=== PATIENT | female | born 1970 | race Caucasian/White ===

== ENCOUNTER → 2021-09-12 09:59 | Outpatient (CLI) | payer OTHER, SELFPAY ==
[2021-09-12 13:45] LABS: Influenza Control Positive
[2021-09-12 20:05] LABS: SARS-CoV-2 RNA PCR Negative
== END ==
PROVIDERS: PCP Internal Medicine; Visit Provider Internal Medicine
DX: R68.89 Other general symptoms and signs (principal); Z20.822 Contact with and (suspected) exposure to COVID-19
CPT/HCPCS: 87804; C9803; U0003; U0005

== ENCOUNTER 2022-05-10 08:10 | Outpatient (CLI) | payer OTHER, SELFPAY ==
--- NOTE | ~2022-05-10 | US_ITS ---
EXAMINATION: US abdomen complete DATE: 05/10/2022 08:45 INDICATION: Abnormal liver function tests TECHNIQUE: Multiple grayscale and Doppler ultrasound images of the abdomen were obtained. COMPARISON: 12/11/2017 FINDINGS: Bowel gas obscures visualization of the pancreas. The visualized portions of the pancreas a re unremarkable. The liver demonstrates increased echogenicity, heterogenous echotexture, and decreas ed through transmission. No surface nodularity. Normal hepatopetal flow in the main portal vein. The gallbladder is surgically absent. The normal common bile duct measures 6 mm. The visualized portions of the aorta and inferior vena cava are normal. The right kidney measures 10.1 x 4.3 x 4.8 cm. The left kidney measures 11.7 x 5.3 x 5.6 cm. The kidn eys demonstrate normal parenchymal echogenicity. There is no hydronephrosis. The spleen is normal in appearance and measures 11.9 cm. IMPRESSION: 1. Diffuse hepatic steatosis. Reviewed, dictated and finalized at location B.
== END 2022-05-10 08:11 | disposition home or self-care (01) ==
PROVIDERS: PCP Internal Medicine; Visit Provider Internal Medicine
DX: R94.5 Abnormal results of liver function studies (principal)
CPT/HCPCS: 76700

== ENCOUNTER 2023-11-02 12:29 | Outpatient (CLI) | payer OTHER, SELFPAY ==
--- NOTE | ~2023-11-02 | CT_ITS ---
EXAMINATION: CT lung screening DATE: 11/02/2023 12:53 INDICATION: Personal history of nicotine dependence, current smoker with 22 pack year history TECHNIQUE: Computed tomography (CT) of the chest was performed without intravenous contrast. The dose -length product (DLP) was 339.63 mGy-cm. Automated exposure control and iterative reconstruction tech Newser were employed. COMPARISON: 10/21/2018 FINDINGS: There is mild emphysema. No pulmonary nodules are identified. The lungs are free of acute o pacities. No pleural effusion or pneumothorax. No pathologically enlarged thoracic lymph nodes are id entified. The heart size is normal. There is a 3.2 cm mass in the upper inner quadrant of the right b reast. Calcified coronary artery atherosclerosis is noted. There is mild thoracic spondylosis. IMPRESSION: 1. Lung-RADS category 1S: Negative. Continue annual screening with noncontrast low-dose chest CT in 1 2 months. 2. 3.2 cm mass in the upper inner quadrant of the right breast concerning for malignancy. Further birgit luation with diagnostic mammogram and possible ultrasound are recommended. Reviewed, dictated and finalized at location F. CTIONAL BORE OPERATOR IMPRESSION: 1. Lung-RADS category 1S: Negative. Continue annual screening with noncontrast low-dose chest CT in 12 months. 2. 3.2 cm mass in the upper inner quadrant of the right breast concerning for m alignancy. Further evaluation with diagnostic mammogram and possible ultrasound are recommended.
== END 2023-11-02 12:30 | disposition home or self-care (01) ==
PROVIDERS: PCP Nurse Practitioner; Visit Provider Nurse Practitioner
DX: Z12.2 Encounter for screening for malignant neoplasm of respiratory organs (principal); Z87.891 Personal history of nicotine dependence; N63.12 Unspecified lump in the right breast, upper inner quadrant
CPT/HCPCS: 71271

== ENCOUNTER 2023-12-04 10:53 | Outpatient (CLI) | payer OTHER, SELFPAY ==
--- NOTE | ~2023-12-04 | MM_ITS ---
EXAMINATION: MM diagnostic josafat BI w jennifer HISTORY: Palpable right breast mass seen on recent CT examination. TECHNIQUE: Additional 3-D tomosynthesis images of the breasts were performed and synthetic 2-D images were generated. CAD analysis was submitted and interpreted. COMPARISON: CT dated 11/02/2023 BREAST PARENCHYMAL COMPOSITION: Not dense: There are scattered areas of fibroglandular density. FINDINGS: There is no mammographic evidence for malignancy in the left breast. There is a spiculated mass in the upper inner quadrant of the right breast measuring 3.7 cm corresponding to the mass seen on recent CT examination. IMPRESSION: 1. Spiculated right breast mass measuring 3.7 cm, upper inner quadrant posteriorly. 2. Targeted right breast ultrasound recommended. Ultrasound requested when patient was present, altho ugh the patient could not wait for the follow-up examination. BI-RADS Category 0: Incomplete: Needs additional imaging evaluation. Reviewed, dictated and finalized at location A. ICAL TRAINING COORDINATOR IMPRESSION: 1. Spiculated right breast mass measuring 3.7 cm, upper inner quadrant posterio rly. 2. Targeted right breast ultrasound recommended. Ultrasound requested when michaelle ent was present, although the patient could not wait for the follow-up examinat ion. BI-RADS Category 0: Incomplete: Needs additional imaging evaluation.
== END 2023-12-04 10:54 | disposition home or self-care (01) ==
PROVIDERS: PCP Nurse Practitioner; Visit Provider Nurse Practitioner
DX: N63.12 Unspecified lump in the right breast, upper inner quadrant (principal); R92.8 Other abnormal and inconclusive findings on diagnostic imaging of breast
CPT/HCPCS: 77062; 77066; G0279

== ENCOUNTER 2023-12-14 14:09 | Outpatient (CLI) | payer OTHER, SELFPAY ==
--- NOTE | ~2023-12-14 | US_ITS ---
US breast RT limited 12/14/2023 14:44 Indication: Abnormal masses seen on prior mammogram. Procedure: High-resolution right breast ultrasound: Comparison: Mammogram dated 12/04/2023 Findings: At 12:00, 8 cm from the nipple there is an antiparallel solid hypoechoic mass which measure s 2.5 x 1.2 x 1 cm. There is internal vascularity. Mixed posterior attenuation. At 2:00, 3-5 cm from the nipple there is an irregular shaped hypoechoic antiparallel mass measuring 3.1 x 2.1 x 2.3 cm wit h internal vascularity and posterior attenuation. Impression: 1: 2 separate abnormal masses of the right breast at 12:00, 8 cm from the nipple and 2:00, 3-5 cm fro m the nipple. Ultrasound-guided biopsy of each of these masses recommended. BI-RADS category 5: Highly suspicious abnormality. Reviewed, dictated and finalized at location A. VISION SCRIPT WRITER Impression: 1: 2 separate abnormal masses of the right breast at 12:00, 8 cm from the nippl e and 2:00, 3-5 cm from the nipple. Ultrasound-guided biopsy of each of these m asses recommended. BI-RADS category 5: Highly suspicious abnormality.
== END 2023-12-14 14:10 | disposition home or self-care (01) ==
PROVIDERS: PCP Nurse Practitioner; Visit Provider Nurse Practitioner
DX: R92.8 Other abnormal and inconclusive findings on diagnostic imaging of breast (principal); N63.10 Unspecified lump in the right breast, unspecified quadrant
CPT/HCPCS: 76642

== ENCOUNTER 2023-12-24 10:00 | Outpatient (CLI) | payer OTHER, SELFPAY ==
--- NOTE | ~2023-12-24 | MM_ITS ---
EXAMINATION: MM post biopsy invasive RT HISTORY: Status post ultrasound-guided biopsy of right breast 12:00 and 2:00 lesions TECHNIQUE: Postbiopsy ML and CC views of right breast COMPARISON: None FINDINGS: A biopsy marker is present within an approximately 3.5 cm mass of the upper inner quadrant of the right breast. Posterior upper central right breast mass is only partially included due to the posterior depth; the biopsy marker at this lesion is not included within the margin of the examination. IMPRESSION: Status post ultrasound-guided biopsy of right breast 12:00 and 2:00 lesions Reviewed, dictated and finalized at location A.
--- NOTE | ~2023-12-24 | US_ITS ---
US breast bx add lesion RT DATE: 12/24/2023 11:14 INDICATION: Right breast 2:00 and 12:00 mass lesions Please refer to right breast ultrasound-guided biopsy report. Reviewed, dictated and finalized at Location A. Reviewed, dictated and finalized at location A.
--- NOTE | ~2023-12-24 | US_ITS ---
EXAMINATION: US GUIDED NEEDLE BIOPSY DATE: 12/24/2023 12:02 CDT INDICATION: 2 abnormal breast masses, at 12:00 8 cm from nipple and 2:00 3 to 5 cm from nipple TECHNIQUE AND FINDINGS: The risks and potential benefits of the procedure were discussed with the patient, and written inform ed consent was obtained. Timeout procedure was performed. After sterile preparation of the right manju st, 1% lidocaine was utilized for local anesthesia. A 12 G spring-loaded biopsy gun needle was advanced to the edge of the 2:00 lesion from a superior ap proach utilizing sonographic guidance. A total of three tissue core samples were obtained through th e lesion. An Inrad tissue marker clip was then placed at the biopsy site. Through the same incision site, a 12-gauge biopsy needle was directed into the 12:00 lesion from an i nferior approach utilizing sonographic guidance. A total of 3 soft tissue core samples were obtained through the lesion. An irregular and tissue marker clip was then placed at the biopsy site. Hemostasis was achieved. A sterile bandage was applied. The patient tolerated procedure well and there was no evidence of immediate complication. The patien t was given verbal instructions prior to departing from the department. A two view mammogram was performed to document tissue marker clip placement. A marker is documented w ithin the 2:00 mass. The 12:00 mass is incompletely imaged due to its posterior position, and the bio psy marker is not in the examinations due to the depth. The tissue samples were submitted to surgical pathology for histologic analysis. IMPRESSION: Ultrasound-guided biopsy of right 12:00 and 2:00 masses with biopsy marker placement. Please refer to pathology report for histologic analysis. Reviewed, dictated and finalized at Location A. Reviewed, dictated and finalized at location A. IMPRESSION: Ultrasound-guided biopsy of right 12:00 and 2:00 masses with biopsy marker plac emmandy. Please refer to pathology report for histologic analysis.
== END 2023-12-24 10:01 | disposition home or self-care (01) ==
LOC: ANHIMG 10:01
PROVIDERS: PCP Nurse Practitioner; Visit Provider Nurse Practitioner
DX: C50.211 Malignant neoplasm of upper-inner quadrant of right female breast (principal)
CPT/HCPCS: 19083; 19084; 88305; 88342; 88365; A4648

== ENCOUNTER 2024-01-02 10:24 | Outpatient (CLI) | payer OTHER, SELFPAY ==
[2024-01-04 14:17] LABS: Kit Draw Collected
== END 2024-01-02 10:25 | disposition home or self-care (01) ==
LOC: ANHLAB 10:33
PROVIDERS: PCP Nurse Practitioner; Visit Provider Internal Medicine Hematology & Oncology
DX: C50.811 Malignant neoplasm of overlapping sites of right female breast (principal); Z17.0 Estrogen receptor positive status [ER+]
CPT/HCPCS: 36415

== ENCOUNTER 2024-01-11 08:35 | Outpatient (CLI) | payer OTHER, SELFPAY ==
--- NOTE | ~2024-01-11 | MR_ITS ---
MR breast BI wo/w con 01/14/2024 11:25 CDT INDICATION: Right breast cancer. TECHNIQUE: MRI of the breasts perform using standard protocol pre-and post IV contrast with the follo wing sequences: Axial T2 STIR, axial T1, axial vibrant T1 with fat suppression precontrast and multip hasic postcontrast. 12 cc MultiHance administered intravenously. COMPARISON: Prior examinations dated 12/24/2023, 12/14/2023 and 12/04/2023 FINDINGS: There is moderate background parenchymal enhancement. In the upper inner quadrant of the ri ght breast there is a complex irregular shaped mass measuring 5.8 x 4.1 x 3.5 cm which extends cattle sorter iorly to the chest wall surface. This mass is located approximately 1:00, middle third, 4.5 cm cattle sorter ior to the nipple with heterogeneous enhancement. There is rapid washout enhancement. There is no felisa tral hypoperfusion suggesting necrosis of the mass. There is abnormal enhancement of the right pector chris muscle which appears enlarged and heterogeneous exhibiting rapid washout kinetics, most likely c hest wall invasion from previously described mass. In the right axilla there is an enlarged vascular lymph node with effacement of the fatty hilum measuring 1.7 x 1.8 x 1.2 cm, suspicious for metastatic disease. Anterior to the right pectoralis muscle there is a complex heterogeneously enhancing mass m easuring 1.4 x 0.7 x 0.5 cm in the upper inner quadrant posteriorly with rapid washout enhancement, s uspicious for synchronous malignancy. LEFT BREAST: No signal abnormalities on precontrast sequences. There is mild background parenchymal enhancement. No enhancing lesions following contrast administration. No areas of enhancement meeti ng threshold criteria on CAD analysis. No evidence of signal abnormalities in the axillary or inter nal mammary node distributions.] IMPRESSION: 1: Multiple right breast masses, suspicious for synchronous malignancy, largest measuring up to 5.8 cm. There is probable metastatic disease to the anterior chest wall and right axilla. BI-RADS categor y 6- Known biopsy proven malignancy: Appropriate action should be taken. 2: Left breast: Negative. No evidence of malignancy. BI-RADS category 1. Recommend annual mammogr aphy follow-up. Reviewed, dictated and finalized at location A. IMPRESSION: 1: Multiple right breast masses, suspicious for synchronous malignancy, larges t measuring up to 5.8 cm. There is probable metastatic disease to the anterior chest wall and right axilla. BI-RADS category 6- Known biopsy proven malignancy : Appropriate action should be taken. 2: Left breast: Negative. No evidence of malignancy. BI-RADS category 1. Re commend annual mammography follow-up.
== END 2024-01-11 08:36 | disposition home or self-care (01) ==
LOC: ANHIMG 08:37
PROVIDERS: PCP Nurse Practitioner; Visit Provider Internal Medicine Hematology & Oncology
DX: C50.811 Malignant neoplasm of overlapping sites of right female breast (principal); Z17.0 Estrogen receptor positive status [ER+]
CPT/HCPCS: 77049; A9577; C8908

== ENCOUNTER 2024-01-29 08:38 | Outpatient (CLI) | payer OTHER, SELFPAY ==
--- NOTE | 2024-01-29 | ECHO_ITS ---
Patient Info Name: Mandy Plasencia Age: 54 years : 1970 Gender: Female Ht: 68 in Wt: 228 lbs BSA: 2.27 m2 HR: 74 bpm BP: 127 / 89 mmHg Heart Rhythm: Sinus Rhythm Technical Quality: Fair Exam Date: 01/29/2024 8:54 AM Exam Location: Echo Lab Patient Status: Outpatient Admit Date: 01/29/2024 Staff Ordering Physician: Nik Easley MD Tier Over: Lorin Carmona RDCS Attending Provider: Nik Easley MD Referring Physician: Kaushal ARELLANO; Exam Type: CA echo doppler color flow Study Info Indications C50.811 - Malignant neoplasm of overlapping sites of right female breast Complete two-dimensional, color flow and Doppler transthoracic echocardiogram is performed. Summary 1. Complete two-dimensional, color flow and Doppler transthoracic echocardiogram is performed. 2. Left ventricular chamber dimension is normal. 3. Left ventricular systolic function is normal, estimated at 65-70%. 4. The left ventricular diastolic function is grade I diastolic dysfunction. 5. Global longitudinal strain is -18 %. 6. Right ventricular systolic function is normal. 7. No significant valvular disease. Left Ventricle Left ventricular chamber dimension is normal. Left ventricular systolic function is normal, estimated at 65-70%. There is no increased left ventricular wall thickness. The left ventricular diastolic function is grade I diastolic dysfunction. Global longitudinal strain is -18 %. Right Ventricle Right ventricular chamber dimension is normal. Right ventricular systolic function is normal. Left Atria Left atrial chamber dimension is normal. Right Atria Right atrial chamber dimension is normal. Atrial Septum Intact interatrial septum visualized by color flow imaging. Aortic Valve The aortic valve is trileaflet. There is mild aortic valve sclerosis. There is no aortic valve stenosis. There is no aortic valve regurgitation. Pulmonic Valve The pulmonic valve is not well visualized. Mitral Valve There is trace mitral valve regurgitation. Tricuspid Valve There is trace tricuspid valve regurgitation. Pericardium/Pleural The pericardium appears epicardial fat pad. There is no pericardial effusion. Inferior Vena Cava Normal inferior vena cava with >50% collapse upon inspiration consistent with normal right atrial pressure, 3 mmHg. Aorta The aortic root size at the sinus of Valsalva is normal. Left Ventricular Outflow Tract Name Value Normal LVOT 2D LVOT Diameter 1.9 cm LVOT Doppler LVOT Peak Gradient 7 mmHg LVOT Mean Gradient 3 mmHg LVOT VTI 23 cm LVOT VTI/AV VTI Ratio 1.1 LVOT Stroke Volume 62 ml LVOT CO 4.1 l/min LVOT CI 1.8 l/min/m2 Pulmonic Valve Name Value Normal RVOT Doppler RVOT Peak Gradient 2
== END 2024-01-29 08:39 | disposition home or self-care (01) ==
LOC: ANHCARD 08:39
PROVIDERS: PCP Nurse Practitioner; Visit Provider Internal Medicine Hematology & Oncology
DX: C50.811 Malignant neoplasm of overlapping sites of right female breast (principal); R93.1 Abnormal findings on diagnostic imaging of heart and coronary circulation; Z17.0 Estrogen receptor positive status [ER+]
CPT/HCPCS: 36415; 85025; 85610; 85730; 93306

== ENCOUNTER 2024-01-29 10:18 | Outpatient (CLI) | payer OTHER, SELFPAY ==
[2024-01-29 10:39] LABS: Basophils Percent Auto 0.5 % (0.2-1.2); Eosinophils Absolute Auto 0.2 K/mm3 (0-0.3); Hemoglobin 14.2 g/dL (12.0-15.0); Immature Granulocyte Absolute 0.01 K/mm3 (0.00-0.031); Immature Granulocyte Percent A 0.1 % (0-0.5); Lymphocytes Absolute Auto 2.88 K/mm3 (0.9-3.2); Lymphocytes Percent Auto 37.3 % (18.3-44.2); Mean Corpuscular HGB Conc 34.6 g/dl (32-36); Mean Corpuscular Hemoglobin 32.6 pg (26-34); Mean Platelet Volume 10.2 fl (7.4-10.4); Monocytes Absolute Auto 0.4 K/mm3 (0.1-0.6); Monocytes Percent Auto 4.9 % (2.6-8.5); Neutrophils Absolute Auto 4.2 K/mm3 (1.3-6.7); Neutrophils Percent Auto 54.2 % (45.5-73.1); Platelet Count Result 225 k/mm3 (150-375); Red Blood Count 4.36 M/mm3 (4.2-5.4); Red Cell Distribution Width 12.6 % (11.5-14.5); White Blood Count 7.7 K/mm3 (4.5-10.0)
[2024-01-29 11:06] LABS: INR 0.9; Prothrombin Time 12.8 Seconds (11.1-14.7)
[2024-01-29 11:07] LABS: Partial Thromboplastin Time 30.6 Seconds (22.3-36.8)
== END 2024-01-29 10:19 | disposition home or self-care (01) ==
LOC: ANHSURGERY 10:23
PROVIDERS: PCP Nurse Practitioner; Visit Provider Surgery
DX: Z01.818 Encounter for other preprocedural examination (principal); C50.911 Malignant neoplasm of unspecified site of right female breast
CPT/HCPCS: 36415; 85025; 85610; 85730

== ENCOUNTER 2024-01-31 07:37 | Outpatient (CLI) | payer OTHER, SELFPAY ==
--- NOTE | ~2024-01-31 | CT_ITS ---
Clinical Indication: Breast cancer CT Scan of the Chest, Abdomen, and Pelvis with Contrast: Technique: Contiguous sections were acquired throughout the chest, abdomen, and pelvis after intraven ous administration of 100 cc of Omnipaque 350. Dose reduction technique was used on this scan by monik balderasing automated exposure control and iterative reconstruction technique. The dose-length product (DL P) was 1598.02 mGy-cm. COMPARISON: 11/02/2023 Findings: There is no evidence of any significant mediastinal, hilar or axillary lymphadenopathy. The mediastin al soft tissues and vascular structures appear normal. There is a 4.3 x 4.0 cm lobulated/irregular ma ss in the right breast, with increase in size from prior exam. There is no evidence of pleural or pericardial effusion. The lungs are clear. No pulmonary nodules or infiltrates are noted. There is diffuse hepatic steatosis. Cholecystectomy clips are present. The spleen, pancreas, adrenals and kidneys are within normal limits. No evidence of aortic aneurysm. There are several mildly enla rged lymph nodes along the left common iliac chain, largest node measuring 1.8 x 1.5 cm (axial image 182). No bowel obstruction or bowel wall thickening. There is no evidence to suggest acute appendicitis. Urinary bladder is unremarkable. No adnexal mass evident. Patient is post hysterectomy. No ascites. There is destructive mass centered at the left iliac bone, measuring approximately 6.3 x 4.5 x 5.3 cm in extent, with extensive destruction of the cortex (axial image 188 for example). Lesion is centere d near the SI joint, extending into the iliac crest. No other distinct osseous destructive lesion atul ntified. Impression: 4.3 x 4.0 cm right breast masses compatible breast carcinoma. Lesion is mildly increased in size sinc e 11/02/2023. Large destructive lesion centered at the left iliac bone, as detailed above, most consistent with oss eous metastatic lesion. Mildly enlarged lymph nodes along the left common iliac chain. Given the above findings, these are ortega spicious for metastatic lymph nodes until proven otherwise. Diffuse hepatic steatosis. Reviewed, dictated and finalized at location M. Impression: 4.3 x 4.0 cm right breast masses compatible breast carcinoma. Lesion is mildly increased in size since 11/02/2023. Large destructive lesion centered at the left iliac bone, as detailed above, mo st consistent with osseous metastatic lesion. Mildly enlarged lymph nodes along the left common iliac chain. Given the above findings, these are suspicious for metastatic lymph nodes until proven otherwis e. Diffuse hepatic steatosis.
== END 2024-01-31 07:38 | disposition home or self-care (01) ==
PROVIDERS: PCP Nurse Practitioner; Visit Provider Internal Medicine Hematology & Oncology
DX: C50.811 Malignant neoplasm of overlapping sites of right female breast (principal); Z17.0 Estrogen receptor positive status [ER+]; M89.9 Disorder of bone, unspecified; R59.0 Localized enlarged lymph nodes; K76.0 Fatty (change of) liver, not elsewhere classified
CPT/HCPCS: 71260; 74177; Q9967

== ENCOUNTER 2024-02-01 00:16 | Day surgery (SDC) | payer OTHER, SELFPAY ==
[2024-01-24 10:20] VITALS: BMI 34.9
--- NOTE | 2024-01-24 10:24 | PC.NURSE ---
Report to the Outpatient Waiting Room, entrance under the green pavilion located off [facility], at time 10:00 on date 02/01/24. Planned Procedure Time: 12:00. Time changes happen often and if your time is changed the preop area will call you the afternoon before. - You and your visitor will be asked to self-screen and do not enter if you have any COVID symptoms. - A mask is optional within the hospital at this time. Patients may have clear liquids (water, carbonated beverages, clear teas, apple juice) until 3 hours prior to surgery (9:00) with a maximum of 20 ounces. - No food from midnight until time of surgery Take the following medications with a SIP of water the morning of surgery: TYLENOL IF NEEDED DO NOT STOP ANY OF YOUR OTHER PRESCRIPTION MEDICATIONS PRIOR TO SURGERY ?EXCEPT THE FOLLOWING Medications to discontinue per physician: VITAMINS/SUPPLEMENTS Date to take last dose: 01/28/24 Please no make-up, nail ukrainian, hairspray, perfume, deodorant, or body powder the day of surgery. No jewelry (including any body piercings) or valuables the day of surgery, leave them at home. Please take a shower or bath the night before, or the morning of, surgery with an antibacterial soap. Wear comfortable, loose fitting clothing. - Jewelry must be removed prior to entering the operating room. Rings and piercings that are not removed may be cut off. - The hospital will not accept responsibility for valuables. - Please leave all valuables, including medications, at home the day of surgery. If you are going home after surgery, a licensed compactor driver must drive you home. - NO public transportation without another adult if you receive anesthesia. - We recommend that an adult stay with you for 24 hours following discharge. - We also recommend that you do not drive, make important decision, drink alcoholic beverages, or take any drugs that were not prescribed by your health care provider for at least 24 hours after your discharge time. Follow any additional instructions given to you from your surgeon. If you or anyone in your household have experienced Covid symptoms in the past week, please notify your surgeon or the nurse liaison at the phone number below for possible testing. Telephone instructions given to PT - ANDREW and asked if any additional questions and then verbalized understanding. Patient advised to call surgeon office or pre surgery nurse liaison [phone] if any additional questions.
[2024-01-24] MEDS: ceFAZolin 2 GM/D5W 50 ML 2 GM/50 ML BAG IVPB (11:50)
--- NOTE | ~2024-02-01 | XR_ITS ---
EXAMINATION: XR fl guide central line place DATE: 02/01/2024 12:40 INDICATION: Port placement. TECHNIQUE: 2 intraoperative fluoroscopic views of the chest were obtained. I was not present. Fluoros copy exposure time was 25 seconds. COMPARISON: Chest single view 02/01/2024 FINDINGS: There is a left internal jugular port with tip in superior vena cava. IMPRESSION: 1. Port tip in superior vena cava. Reviewed, dictated and finalized at location E.
--- NOTE | ~2024-02-01 | XR_ITS ---
Portable chest x-ray Comparison: None Clinical History: Central line placement Findings: Left-sided Mediport is in satisfactory position. Lungs are clear. Cardiomediastinal silho uette is stable. Bones and soft tissues are unremarkable. Impression: Clear lungs. Left-sided Mediport in place. Reviewed, dictated and finalized at location . Impression: Clear lungs. Left-sided Mediport in place.
[2024-02-01] MEDS: LACTATED RINGERS 1,000 ML 30 ML IV CONT (10:48)
[2024-02-01 10:55] VITALS: BP 115/88; PULSE 74; RESP 16; TEMP 37.2; O2SAT 96
[2024-02-01] MEDS: KETOROLAC 15 MG/ML VIAL (*BKC) IV PUSH (11:07)
--- NOTE | 2024-02-01 11:30 | PM.IMHP ---
H&P: HPI History of Present Illness Date/Time: 02/01/24 11:30 Chief Complaint: right breast cancer Narrative: 54 yo woman presents for portacath placement. She was recently diagnosed with right breast cancer. She has been seen by oncology and the breast cancer appears to be advanced and is involving the chest wall and axilla. Chemotherapy was recommended prior to considering any surgery. Review of Systems Review of Systems: All systems reviewed & are unremarkable except as noted in HPI and below Constitutional: Constitutional: Denies chills, Denies fever(s), Denies headache(s) and Denies weight loss Eyes: Eyes: Denies change in vision ENT: Denies dizziness, Denies headache(s), Denies neck mass and Denies throat swelling Cardiovascular: Cardiovascular: Denies chest pain, Denies lightheadedness and Denies dyspnea Respiratory: Respiratory: Denies cough, Denies dyspnea and Denies wheezing Gastrointestinal: Gastrointestinal: Denies abdominal pain, Denies change in bowel habits, Denies nausea and Denies vomiting Genitourinary: Genitourinary: Denies hematuria and Denies dysuria Musculoskeletal: Musculoskeletal: Reports as per HPI Integumentary/Breasts: Skin/Breast: Reports as per HPI Neurologic: Denies dizziness and Denies headache(s) Allergic/Immunologic: Allergic/Immunologic: Denies throat swelling and Denies wheezing PMFSH Surgical History Surgical History History of cholecystectomy History of hysterectomy Family History Family History Mother Family history of thyroid disease Family history of diabetes mellitus in first degree relative Sibling Family history of thyroid disease Family history of malignant neoplasm of thyroid Father Family history of gastrointestinal disorder Other Diabetes mellitus Social History Social History Social History: started to smoke again Smoking packs per day: 0.5 Smoking cigarettes per day: 10.0 Years smoked: 30 Smoking pack-years: 15.00 Smoking status: Current every day smoker Tobacco type: cigarettes Second hand tobacco smoke exposure: Yes Smoking end date: 02/21/21 Alcohol intake: never Substance use: never Substance use type: does not use Lack of Transportation: No Lack of Food: Never True Current Housing: I Have Housing Concerned About Future Housing: No Difficulty Paying Gas/Electric Bills: No Difficulty Paying for Meds: No Currently Unemployed: No Education: Associate Degree Difficulty w/ Childcare or Family Care: No Living arrangements: with family Spiritual care concerns: No Meds Home Medications and Allergies Home Medications Medication Instructions Recorded Confirmed Type cholecalciferol (vitamin D3) 25 25 mcg PO DAILY #90 caps 02/23/23 02/01/24 Rx mcg (1,000 unit) capsule atorvastatin 40 mg tablet See Rx Instructions .Route 10/17/23 02/01/24 Rx .COMPLEX #90 tabs albuterol sulfate 90 mcg/actuation See Rx Instructions .Route 01/04/24 02/01/24 Rx aerosol inhaler .COMPLEX #8.5 grams acetaminophen 650 mg 650 mg PO Q12H PRN Pain 01/24/24 02/01/24 History tablet,extended release melatonin 10 mg tablet 10 mg PO HS 01/24/24 02/01/24 History Allergies Allergy/AdvReac Type Severity Reaction Status Date / Time No Known Allergies Allergy Verified 02/01/24 10:14 Vital Signs Vital Signs - 24 hr 02/01/24 10:55 Temperature 37.2 C Pulse Rate 74 Respiratory Rate 16 Blood Pressure 115/88 Pulse Oximetry 96 Oxygen Delivery Room Air Exam Const: General: no acute distress and alert Orientation/consciousness: patient oriented x3 HENMT: Head: normocephalic and atraumatic Ears: hearing grossly normal bilaterally Face/Nose/Sinus: Normal nares present Mouth: Yes Normal oral and palatal mucosa present Eyes: Periorbital: periorbital findings normal Sclera: sclerae normal EOM: EOMs intact bilaterally Neck: Neck: normal visual inspection, no lymphadenopathy and trachea midline Resp: Effort & Inspection: normal respiratory effort Auscultation: clear to auscultation bilaterally Cardio: Jugular venous distension: no JVD Rate: regular rate Rhythm: regular rhythm Heart sounds: S1 normal heart sound present and S2 normal heart sound present Peripheral pulses: Peripheral pulses 2+ throughout GI: Inspection: normal to inspection GI Palp: Yes Soft to palpation, No Tenderness to palpation present (GI), No Guarding due to palpation present (GI) and No Rebound tenderness present Percussion: Yes normal to percussion Auscultation: normal bowel sounds : General: Yes no CVA tenderness Back/Spine/Pelvis: Back: no CVA tenderness Neuro: General: patient oriented x3, no focal motor deficits and CN's II-XI intact bilaterally Cognition (Neuro): normal cognition Speech: normal speech Motor exam (neuro): 5/5 motor strength present throughout Extrem: General: capillary refill normal and no clubbing, cyanosis or edema Assessment and Plan Assessment and plan (1) Breast cancer, right breast: Qualifiers: Breast location: upper inner quadrant of breast Estrogen receptor status: positive Patient sex: female Qualified Code(s): C50.211 - Malignant neoplasm of upper-inner quadrant of right female breast; Z17.0 - Estrogen receptor positive status [ER+] Code(s): C50.911 - Malignant neoplasm of unspecified site of right female breast Status: Acute Assessment and Plan: I have recommended Portacath placement. I have discussed the procedure, risks, benefits, and alternatives with the patient. All questions answered.
--- NOTE | 2024-02-01 11:32 | WPDHPUPDATE1 ---
History and Physical Update Update Date/Time: 02/01/24 11:32 History and Physical has been reviewed, including an updated exam of the patient. There are NO changes in the patient's condition. Risks, benefits, and alternatives have been discussed and questions answered. Patient agrees to proceed with procedure.
--- NOTE | 2024-02-01 11:43 | P.PNAN_ITS ---
Anes - Eval Pre Procedure Procedure: Operation Date: 02/01/24 12:00 Proposed Procedures p Insertion Vandana Cath - Mynor Beverly DO Date/Time: 02/01/24 11:43 Pre Op Diagnosis: right breast adenocarcinoma Patient Data Age: 54 Gender: F Height: 1.73 m Weight: 103.1 kg Last Vital Signs Temp 98.9 F 02/01/24 10:55 Pulse 74 02/01/24 10:55 Resp 16 02/01/24 10:55 BP 115/88 02/01/24 10:55 Pulse Ox 96 02/01/24 10:55 O2 Del Method Room Air 02/01/24 10:55 Allergies Allergy/AdvReac Type Severity Reaction Status Date / Time No Known Allergies Allergy Verified 02/01/24 10:14 Home Medications Medication Instructions Recorded Confirmed Type cholecalciferol (vitamin D3) 25 25 mcg PO DAILY #90 caps 02/23/23 02/01/24 Rx mcg (1,000 unit) capsule atorvastatin 40 mg tablet See Rx Instructions .Route 10/17/23 02/01/24 Rx .COMPLEX #90 tabs albuterol sulfate 90 mcg/actuation See Rx Instructions .Route 01/04/24 02/01/24 Rx aerosol inhaler .COMPLEX #8.5 grams acetaminophen 650 mg 650 mg PO Q12H PRN Pain 01/24/24 02/01/24 History tablet,extended release melatonin 10 mg tablet 10 mg PO HS 01/24/24 02/01/24 History Patient hx anesthesia problems: none Family hx anesthesia problems: none Results Review: All pre-operative results and documents have been reviewed as part of the pre- operative evaluation. [facility] Past Medical History Medical History Anxiety Breast cancer, right breast Hyperlipemia Mixed hyperlipidemia Obesity Tobacco abuse Surgical History Surgical History History of cholecystectomy History of hysterectomy Family History Family History Mother Family history of thyroid disease Family history of diabetes mellitus in first degree relative Sibling Family history of thyroid disease Family history of malignant neoplasm of thyroid Father Family history of gastrointestinal disorder Other Diabetes mellitus Social History Social History Social History: started to smoke again Smoking packs per day: 0.5 Smoking cigarettes per day: 10.0 Years smoked: 30 Smoking pack-years: 15.00 Smoking status: Current every day smoker Tobacco type: cigarettes Second hand tobacco smoke exposure: Yes Smoking end date: 02/21/21 Alcohol intake: never Substance use: never Substance use type: does not use Lack of Transportation: No Lack of Food: Never True Current Housing: I Have Housing Concerned About Future Housing: No Difficulty Paying Gas/Electric Bills: No Difficulty Paying for Meds: No Currently Unemployed: No Education: Associate Degree Difficulty w/ Childcare or Family Care: No Living arrangements: with family Spiritual care concerns: No Exam Day of Procedure 02/01/24 11:43 Patient weight: obese
--- NOTE | 2024-02-01 11:49 | P.PNAN_ITS ---
Anes - Eval Final PreProcedure Day of Procedure 02/01/24 11:49 Patient weight: obese Heart: regular rate and rhythm Lungs: clear to auscultation Airway: Mallampati scale class II Neurological: alert and oriented Last oral intake: >/= 8 hours ASA classification: III Emergent: no Anesthetic plan: proceed Anesthesia type and monitoring: general GIVS and standard monitoring Results Review: All pre-operative results and documents have been reviewed as part of the pre- operative evaluation. Informed Consent: The patient's anesthetic plan and its attendant risks and benefits were discussed with the patient/family/POA. Questions were solicited and answers provided to the satisfaction of the patient/family/POA.
[2024-02-01] MEDS: LIDO 1%/EPINEPHRINE 1:100,000 20 ML VIAL 5 ML INFILTRATE (12:30)
--- NOTE | 2024-02-01 12:41 | W.PM.PROC2 ---
Procedure Note - Detailed Date of Procedure 02/01/24 Pre-op Diagnosis right breast adenocarcinoma Post-op Diagnosis Same Procedure Performed Left Internal Jugular tunneled Port-a-Cath placement using ultrasound and fluoroscopic guidance Surgeon Mynor Beverly, DO Anesthesia MAC and Local (0.5% bupivicaine with epinephrine) Indications Right breast cancer Findings Ultrasound guidance was used to identify the left internal jugular vein. This was visualized as a compressible vessel just lateral to the pulsatile carotid artery. The 18 gauge introducer needle was advanced under ultrasound guidance directly into the lumen of the vein. Dark nonpulsatile blood was aspirated. Fluoroscopy was then used to guide advancement of the guidewire followed by the dilator and sheath. The final fluoroscopic images demonstrated the catheter tip in the distal SVC and no kinks along its path. Description of Procedure Procedure as well as risks, benefits, and alternatives were discussed with patient. Written consent was obtained and placed in chart prior to procedure. Patient was brought back to surgical suite. Was placed supine on operating table. Time-out was done confirm patient procedure. IV sedation was then administered by the Anesthesia Department. The chest and neck area was prepped and draped in sterile fashion using chlorhexidine prep. Patient was placed in Trendelenburg position. SonoSite ultrasound was used to identify the left internal jugular vein. It was visualized as a compressible vessel just lateral to the carotid artery. 1% lidocaine with epinephrine was infiltrated directly over the vessel under ultrasound guidance. An 18 gauge introducer needle was then advanced under ultrasound guidance directly into the left internal jugular vein. Dark nonpulsatile blood was aspirated. A 0.035 in guidewire was then advanced through the needle under fluoroscopic guidance. The guidewire was visualized advancing all the way down into the superior vena cava. 1% lidocaine with epinephrine was then infiltrated on the left anterior chest and along the tract up to the guidewire insertion site. A 3 cm incision was made with a 15 blade scalpel, and electrocautery was then used for dissection down through the subcutaneous tissue to the pectoral fascia. A pocket was created just inferior to the incision using blunt dissection. A small claudette incision was then also made at the insertion site at the neck. The tunneler was then advanced from the chest incision up to the neck incision and the catheter tubing was brought up through this tract. The dilator and sheath were then advanced over the guidewire under fluoroscopic visualization. The dilator and guidewire were then removed leaving the sheath in place. The catheter tubing was then advanced through the sheath under fluoroscopic guidance. The sheath was unsnapped and carefully peeled away. The catheter tubing was released underneath the neck incision. Fluoroscopy was used to confirm proper placement of the catheter tubing and no kinks along its path. The catheter was then cut to proper length and secured to the port. The port was then accessed with a Brandon needle and aspirated and flushed with heparinized saline. The port function with ease. The port was then hep-locked with Hep-Lock solution. The port was then placed within the pocket that was created, and was secured to the fascia using 3 0 Prolene simple interrupted sutures. The patient was flattened out in bed. Gregory's fascia was reapproximated using 3 0 Vicryl simple interrupted sutures. The skin of the incisions was then approximated using 4-0 Monocryl subcuticular suture. Exofin glue was then applied on top. The patient was then awakened from anesthesia and transferred to recovery. Implants Smart Port CT Port-A-Cath Estimated Blood Loss 5 Urine Output 500 Complications No immediate complications Condition Stable Disposition Same day [facility] Billing Surgery - Charge Forward: Surgery Billing
[2024-02-01 12:47] VITALS: BP 93/56; PULSE 84; RESP 12; O2SAT 98
[2024-02-01 13:15] VITALS: BP 130/70; PULSE 78; RESP 20
[2024-02-01 13:45] VITALS: BP 137/70; PULSE 62; RESP 20
[2024-02-01 14:15] VITALS: BP 135/73; PULSE 61; RESP 20
== END 2024-02-01 14:20 | disposition home or self-care (01) ==
PROVIDERS: PCP Nurse Practitioner; Visit Provider Surgery
PROC: (CPT 36561; principal; 2024-02-01 12:00)
DX: C50.211 Malignant neoplasm of upper-inner quadrant of right female breast (principal); Z17.0 Estrogen receptor positive status [ER+]; F17.210 Nicotine dependence, cigarettes, uncomplicated; Z79.51 Long term (current) use of inhaled steroids
CPT/HCPCS: 36561; 77001; C1788; J0690; J1644; J1885; J2405; J2704; J7030; J7120

== ENCOUNTER 2024-02-19 07:31 | Outpatient (CLI) | payer OTHER, SELFPAY ==
--- NOTE | ~2024-02-19 | NM_ITS ---
EXAMINATION: NM bone scan whole body DATE: 02/19/2024 11:14 INDICATION: Cancer, metastatic to bone TECHNIQUE: 25.7 mCi Tc-99m HDP was administered intravenously. Delayed whole-body scintigrams were o btained. COMPARISON: There are no relevant imaging studies at our institution. FINDINGS: A few atypical foci of abnormal bone uptake. These include a small calvarial focus to the left of the vertex, increased uptake along one of the posterior left upper ribs, likely the fourth, at the left side of the L3 vertebral body and at the bilateral posterior iliac spines, slightly more prominent an d more caudal on the left than the right. More typical distribution of mild likely degenerative joint centered uptake at the bilateral acromioclavicular and sternoclavicular joints and at a few joints a t the right ankle and mid and hindfoot. Nonspecific small region of mild uptake projecting over the a nterior right chest which appears to extend between the ribs suggesting possible soft tissue uptake i n the breast. IMPRESSION: 1. A few scattered foci of atypical bone uptake suspicious for metastatic disease as detailed above. Consider correlation with plain radiographs or CT. 2. Nonspecific asymmetric mild soft tissue uptake in the region of the right breast. Correlate with c linical history and with mammography. Reviewed, dictated and finalized at location A. IMPRESSION: 1. A few scattered foci of atypical bone uptake suspicious for metastatic disea se as detailed above. Consider correlation with plain radiographs or CT. 2. Nonspecific asymmetric mild soft tissue uptake in the region of the right br east. Correlate with clinical history and with mammography.
== END 2024-02-19 07:32 | disposition home or self-care (01) ==
PROVIDERS: Visit Provider Internal Medicine Hematology & Oncology
DX: C79.51 Secondary malignant neoplasm of bone (principal)
CPT/HCPCS: 78306; A9503

== ENCOUNTER 2024-02-20 10:35 | Outpatient (CLI) | payer OTHER, SELFPAY ==
[2024-02-12 14:41] VITALS: BMI 36.8
--- NOTE | 2024-02-12 15:03 | PC.NURSE ---
Addendum entered by Cheyenne Springer RN 02/12/24 15:15: CORRECTION TO PROCEDURE DATE 02/20/24 Original Note: Pre Radiology instructions Report to the outpatient [facility] [employer] on date _02/11/24__ at time _0900AM for procedure Time: _1100AM___ YOU MAY BE MONITORED AT HOSPITAL FOR UP TO 4 HOURS AFTER YOUR PROCEDURE. A visitor will be allowed to accompany the patient into the hospital. You and your visitor will be asked to self-screen and do not enter if you have any COVID symptoms. A mask is OPTIONAL within the hospital. Patients are to have no food or drink 6 hours prior to procedure time Driving will be restricted after the procedure, you must have a person to drive you home. Labs will be drawn in preop area and once reviewed, you will be taken to radiology area for procedure. When the procedure is completed, you will be taken to outpatient where you will be monitored for several hours. You may have one visitor in this area. Other than holding anti-coagulants, patient may take other medication(s) as scheduled. Prior to your appointment date patients are instructed to hold anti-coagulants after discussing with ordering provider to stop. If unable to discontinue anti-coagulants please notify radiologist. ? No aspirin or warfarin (Coumadin) for 7 days prior to the procedure. ? No clopidogrel (Plavix), ticagrelor (Brilinta), prasugrel (Effient) or dabigatran (Pradaxa) for 5 days prior to the procedure. ? No rivaroxaban (Xarelto), apixaban (Eliquis), dipyridamole (Aggrenox or Persantine) or cilostazol (Pletal) for 2 days prior to the procedure. Medications to discontinue per physician: _N/A Date to take last dose: __N/A Please leave all valuables, including medications, at home the day of procedure. The hospital will not accept responsibility for valuables. Wear comfortable, loose fitting clothing.? Follow any additional instructions given to you from ordering provider. Telephone instructions given to __PAMELA and asked if any additional questions and then verbalized understanding. Patient advised to call scheduling provider office or registration scheduling [phone] if any additional questions.
--- NOTE | 2024-02-14 13:37 | SUR.PREOP ---
Confirmed with Adriana in radiology, pt does not need labs or a stay in PACU. Pt was called and notified to arrive at 1030 on 02/20/24 at the imaging center entrance at the front of the hospital.
--- NOTE | ~2024-02-20 | CT_ITS ---
EXAMINATION: CT biopsy bone superficial DATE: 02/20/2024 11:55 INDICATION: Left iliac mass. TECHNIQUE: The procedure including the risks, benefits, and alternatives was discussed with the patie nt. Risks discussed included bleeding and infection. The patient verbalized understanding of the risk s and agreed to proceed. The skin overlying the liver was prepped and draped in usual sterile fashio n. Anesthetic was administered with 1% lidocaine subcutaneously. A 16 gauge outer needle was advanc ed under CT guidance to the left iliac mass. An 18 gauge core biopsy needle was then used to obtain 3 core biopsy specimens. The mA was adjusted according to patient size. Iterative reconstruction techn ique was employed. The dose-length product was 130.15 mGy-cm. The needle was removed and the entry si te was cleaned and dressed. There were no immediate complications. FINDINGS: CT images demonstrate the outer needle tip adjacent to a 6.9 cm mass of the left ilium. IMPRESSION: 1. CT-guided core needle biopsy of a mass in the left ilium. Reviewed, dictated and finalized at location A.
[2024-02-20 11:59] VITALS: BP 135/91; BP 157/90; PULSE 69; PULSE 76; RESP 18; O2SAT 100
== END 2024-02-20 10:36 | disposition home or self-care (01) ==
PROVIDERS: PCP Nurse Practitioner; Referring Provider Internal Medicine Hematology & Oncology; Visit Provider Internal Medicine Hematology & Oncology
DX: C79.51 Secondary malignant neoplasm of bone (principal)
CPT/HCPCS: 20220; 77012; 88307; 88311; 88342

== ENCOUNTER 2024-05-07 09:18 | Outpatient (CLI) | payer OTHER, SELFPAY ==
[2024-05-07 10:37] LABS: Cholesterol 111 mg/dL (0-200); HDL Direct 47 mg/dL; Triglycerides 116 mg/dL (<150)
[2024-05-07 10:49] LABS: LDL Cholesterol Direct 44 mg/dL
== END 2024-05-07 09:19 | disposition home or self-care (01) ==
LOC: ANHLAB 09:20
PROVIDERS: PCP Nurse Practitioner; Visit Provider Nurse Practitioner
DX: E78.5 Hyperlipidemia, unspecified (principal)
CPT/HCPCS: 36415; 80061

== ENCOUNTER 2024-05-26 09:27 | Outpatient (CLI) | payer OTHER, SELFPAY ==
--- NOTE | ~2024-05-26 | NM_ITS ---
EXAMINATION: NM bone scan whole body DATE: 05/26/2024 12:56 INDICATION: Right breast cancer TECHNIQUE: 26.5 mCi Tc-99m HDP was administered intravenously. Delayed whole-body scintigrams were o btained. COMPARISON: CT, chest abdomen pelvis dated 05/26/2024 and bone scan dated 02/19/2024 FINDINGS: Again seen atypical foci of increased uptake at the skull to the left of the vertex, at the posterior left third rib and at the left posterior iliac spine and medial aspect of the left iliac crest. Both the rib lesion in the lesion of the left ilium correspond to prominent lytic bone lesions consistent with metastatic disease. Of note there are numerous additional lytic bone lesions in the ribs, spine , right ilium and bilateral proximal femurs on CT which are without evident abnormal uptake on bone s can. Of note bone scan can have low sensitivity for lytic bone lesions. Stable pattern of likely dege nerative joint centered uptake at the bilateral shoulders, sternoclavicular joints and bilateral knee s. Unchanged small focus of mild soft tissue uptake at the right breast likely associated with the kn own breast cancer IMPRESSION: 1. Mild uptake at the skull and associated lytic bone lesions at the left posterior third rib and at the left ilium consistent with metastatic disease. Of note there are multiple additional lytic bone l esions on the prior CT which are without correlate on the bone scan which has limited sensitivity for lytic bone lesions. Reviewed, dictated and finalized at location A. IMPRESSION: 1. Mild uptake at the skull and associated lytic bone lesions at the left poste rior third rib and at the left ilium consistent with metastatic disease. Of not e there are multiple additional lytic bone lesions on the prior CT which are wi thout correlate on the bone scan which has limited sensitivity for lytic bone l esions.
--- NOTE | ~2024-05-26 | CT_ITS ---
CT chest abdomen pelvis w con Ordering provider: Nik Easley MD History: 54 years Female with . MAL NEOPLASM OF OVERLAPPING SITES OF RIGHT BREAST . Comparison: 12/31/2023 Technique: CT chest with IV contrast. CT abdomen and pelvis CT abdomen and pelvis with IV and with or al contrast. The dose-length product was 1716.82 mGy-cm. 100 mL Omnipaque 350 was given IV. FINDINGS: CHEST: A mass in the right breast is noted which measures 2.6 x 3.1 cm with irregular outline with microcalc ifications and adjacent to the right temporalis muscle --VISUALIZED THORACIC INLET: Normal. Left Port-A-Cath with the tip in the superior vena cava. --MEDIASTINUM: Aorta/coronary arteries: The thoracic aorta is normal. Direct origin of the left vertebral artery fro m the arch. Heart/other: The heart is not enlarged. Lymph nodes: No mediastinal or hilar adenopathy. --LUNGS: Pleural base nodule is seen in the left lung lower lobe which measures 4 mm. 3-6 months Foll ow-up advised. No pulmonary masses. No infiltrates or effusions. No pneumothorax. --MUSCULOSKELETAL: Soft tissues: The superficial soft tissues are normal. Bones: Age appropriate degenerative changes of the spine. Small osteolytic lesions are seen in the ei ghth rib anteriorly. Similar appearances seen in the right second, fifth and sixth ribs. Similar appe arances seen in the left eighth and 10th ribs. Osteolytic lesions are seen in the inferior endplate of T5, T8 and T11. ABDOMEN/PELVIS: --MUSCULOSKELETAL: Bones: Age appropriate degenerative changes of the spine. Osteolytic lesion is seen in L2, L3 and L5. Destructive lesion also seen in the left iliac bone medially small osteolytic lesion also seen in th e right iliac bone medially which may be smaller than the previous study.. Osteolytic lesion seen in the right and left femoral neck. Superficial soft tissues: The superficial soft tissues are normal. --UPPER ABDOMINAL ORGANS: Liver: Fat infiltration. Gallbladder: Status post cholecystectomy. Spleen: Normal. Stomach/duodenum: Normal. Pancreas: Normal. Adrenals: Normal. Kidneys: Tiny cysts in the left kidney midpole. Right kidney upper pole small cyst. --PELVIC ORGANS: The bladder shows thickened wall. Evaluation for cystitis advised. No bladder stones . --BOWEL AND MESENTERY: Colon: No evidence of diverticulitis. No masses seen.. Normal appendix. Small Bowel: Normal. No obstruction. Peritoneum/mesentery: No free air or free fluid. No mesenteric lymphadenopathy. --RETROPERITONEUM: Mild atheromatous disease of the abdominal aorta. Left para-aortic lymph nodes se en measuring 1.1 cm. Small left and right iliac bone lymph nodes are also noted with the largest on t he right side measuring 1 cm.. Soft tissue density seen in the left iliac area measuring 1.4 cm. Most likely lymph node IMPRESSION: CHEST: 1. Mass in the right breast. 2. Multiple metastatic lesions in the radius and the vertebral bodies. 3. Pleural-based nodule in the left lower lobe posteriorly. 3-6 months follow-up CT CT is advised. ABDOMEN/PELVIS: 1. Osteolytic lesions in the left iliac bone and in multiple vertebrae. Possible osteolytic lesions in the right iliac bone medially and in both femoral neck. Follow-up advised. The left iliac lesion i s slightly smaller than the previous study. 2. Fat infiltration of the liver. 3. Small lymph nodes in the left para-aortic area and both iliac artery areas. Small soft tissue den sity in the left side of the pelvis. Reviewed, dictated and finalized at location A.
== END 2024-05-26 09:28 | disposition home or self-care (01) ==
LOC: ANHIMG 09:29
PROVIDERS: PCP Nurse Practitioner; Visit Provider Internal Medicine Hematology & Oncology
DX: C50.811 Malignant neoplasm of overlapping sites of right female breast (principal); Z17.0 Estrogen receptor positive status [ER+]; K76.0 Fatty (change of) liver, not elsewhere classified
CPT/HCPCS: 71260; 74177; 78306; A9503; Q9967

== ENCOUNTER 2024-06-17 10:00 | Outpatient (RCR) | payer OTHER, SELFPAY ==
[2024-02-08 15:27] VITALS: BMI 34.7
[2024-02-08 15:31] VITALS: BP 124/80; PULSE 80; TEMP 37.1; O2SAT 98
--- NOTE | 2024-02-08 15:47 | PDRADONCCN ---
Recommendations RECOMMENDATIONS I had a lengthy discussion with her and her daughter regarding the management options for osseous metastases including continued medical management, chemotherapy, and palliative radiation therapy. She understands that the mainstay of his cancer treatment will consist of systemic therapy. I explained that while a majority of patients achieve significant pain relief from radiation, the affect of?treatment?can take several weeks to months to reach its maximal benefit, and in the setting of metastatic cancer?the role?of?palliative?radiation?for bone metastases is to improve quality of life as it is?unlikely to impact overall survival duration. I outlined a course of palliative radiation to her pelvis, which would be delivered daily M-F over 2 weeks. I described the simulation procedure, treatment technique, expected outcome, possible acute side-effects, and potential long-term risks of palliative radiation to this area. Specifically, the acute side-effects may include but are not limited to fatigue, localized skin redness/dryness/tanning/soreness/peeling, abdominal cramping, nausea +/- vomiting, diarrhea, myelosuppression. Long-term risks are unlikely but may include, among other things, persistent pigmentary changes in the skin within the radiation port(s), telangiectasias, subcutaneous/soft tissue fibrosis, injury to the bone, spinal nerve roots, bowel, and rare secondary malignancies. She and her daughter expressed good understanding of the issues discussed, and all of their questions were addressed to their apparent satisfaction. A bone scan and bone biopsy to confirm metastasis have been ordered but not yet scheduled. She is interested in proceeding with palliative radiation as outlined above assuming that metastatic disease is confirmed. After she receives the results of the biopsy, she will call to schedule a CT simulation procedure for radiation treatment planning. Approximately 50 minutes total time was spent on the patient's consultation today including reviewing her medical records and imaging studies in preparation for the consultation, time spent with the patient including counseling of the patient on treatment recommendations, documentation, and coordination of care. More than half the time was spent discussing treatment options and potential risks and benefits. Thank you for asking me to assist in the care of your patient. If any further questions or concerns should arise, please do not hesitate to contact me. Griselda Paige Mai, MD This note was transcribed using '[employer]', a computerized voice recognition without a human ice scraper. This report may or may not have been adjusted for typographical, grammatical and syntax errors. Impression IMPRESSION Mandy Plasencia is a 54-year-old female with newly diagnosed ER(+) PA(-) H2N(-) RIGHT breast cancer with a painful destructive mass involving the left iliac bone consistent with metastases for which a biopsy is planned. [facility] - Date/Time Seen 02/08/24 15:47 DIAGNOSIS Breast Cancer, RIGHT, ER(+), H2N(-)?- Metastatic to Bone Clinical Stage IV? Date of Diagnosis: 12/26/2023 Path: at least 12 mm G3 NS8 IDC Prognostic Factors: ER(+) 90%, PA(-), H2N(-) by FISH, Ki-67 10-20% (intermediate) Med Onc: [facility] Systemic Therapy: Anastrozole (started 02/07/2024) Rad Onc: [facility] Radiation: IDENTIFICATION Mandy Plasencia is a 54-year-old female with newly diagnosed ER(+) PA(-) H2N(-) RIGHT breast cancer with a painful destructive mass involving the left iliac bone consistent with metastases for which a biopsy is planned. She is seen in consultation today at the request of Dr Easley for a radiation oncology opinion. She is accompanied by her daughter. HISTORY OF PRESENT ILLNESS Presentation / Summary Because of a history of smoking 3-4 pack/day for 35 years duration she underwent screening chest CT on 11/02/2023 which showed a 3.2 cm mass in the upp
--- NOTE | 2024-02-29 09:14 | PDRADONCFUV ---
Assessment/Plan - Assessment IMPRESSION Mandy Plasencia is a 54-year-old female with newly diagnosed ER(+) GA(-) H2N(-) RIGHT breast cancer with a painful destructive mass involving the left iliac bone representing a biopsy-proven metastasis. 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 All of her questions were addressed and she wishes to proceed with radiation as discussed. Radiation treatment consent was reviewed and signed. CT Simulation will be performed today and treatment will commence in the next few days. Griselda Paige Mai, MD This note was transcribed using '[employer]', a computerized voice recognition without a human end trimmer. This report may or may not have been adjusted for typographical, grammatical and syntax errors. Follow Up Note - Date/Time 02/29/24 09:14 DIAGNOSIS Breast Cancer, RIGHT, ER(+), H2N(-)?- Metastatic to Bone Clinical Stage IV? Date of Diagnosis: 12/26/2023 Path: at least 12 mm G3 NS8 IDC Prognostic Factors: ER(+) 90%, [place](-), H2N(-) by FISH, Ki-67 10-20% (intermediate) Med Onc: [facility] Systemic Therapy: Anastrozole (started 02/07/2024) Ibrance is planned Rad Onc: [facility] Radiation: IDENTIFICATION Mandy Plasencia is a 54-year-old female with newly diagnosed ER(+) GA(-) H2N(-) RIGHT breast cancer with a painful destructive mass involving the left iliac bone representing a biopsy-proven metastasis. She was recently seen in consultation at the request of Dr Easley for a radiation oncology opinion and returns today for treatment planning. She is accompanied by her daughter. HISTORY OF PRESENT ILLNESS Interval History Since she was last seen, she underwent a bone scan on 02/19/2024 which demonstrated a few atypical foci of abnormal bone uptake suspicious for metastatic disease: small calvarial focus at the left vertex, posterior left upper rib (likely fourth), left side of L3 vertebral body, bilateral posterior iliac spines. On 02/20/2024, CT-guided bone biopsy of the left ilium mass was performed. Pathology demonstrated poorly differentiated metastatic carcinoma consistent with breast primary. She returns today for radiation treatment planning. She reports mild pain in the left posterior hip for which she takes on average 3 hydrocodone tablets per day. She is taking Anastrozole which she is tolerating well without any side effects. Ibrance has also been prescribed but not yet delivered. Presentation / Summary Because of a history of smoking 3-4 pack/day for 35 years duration she underwent screening chest CT on 11/02/2023 which showed a 3.2 cm mass in the upper inner quadrant of the right breast. She denied having any breast symptomatology. Diagnostic mammogram was subsequently done showing a spiculated mass in the right breast measuring 3.7 cm in the upper inner quadrant. On 12/26/2023 she underwent an ultrasound-guided biopsy of 2 abnormal masses located at 12:00 8 cm from the nipple and 2:00 3-5 cm from the nipple. Pathology demonstrated ER positive GA negative HER2/hardik unamplified by FISH, high-grade invasive ductal carcinoma on both masses. Ki-67 was intermediate (10-20%). 2threads ration sequencing showed PIK3CA and CDH 1 mutation. ? Bilateral breast MRI showed multiple right breast masses with the largest located at 1:00 measuring 5.8 x 4.1 x 3.5 cm extending to the chest wall. There is abnormal enhancement of the right pectoralis muscle which appears enlarged and heterogeneous most likely representing chest wall invasion from the previously described mass. Anterior to the right pectoralis muscle is a complex heterogeneously enhancing mass measuring 1.4 x 0.7 x 0.5 cm in the upper inner quadrant posteriorly suspicious for synchronous malignancy. There is a 1.7 x 1.8 x 1.2 cm right axillary lymph node suspicious for metastatic disease. On 01/31/2024, CT chest/abdomen/pelvis showed
[2024-02-29 10:00] VITALS: BP 140/80; PULSE 66; TEMP 36.8; O2SAT 98
--- NOTE | 2024-02-29 10:54 | WPDRADIATPRO ---
Radiation Procedure Note - Date/Time Date/Time: 02/29/24 10:[address] SIMULATION PROCEDURE DATE:?02/29/2024 PURPOSE: The patient is undergoing a virtual CT simulation for external beam radiation treatment planning. TREATMENT SITE(S): Left iliac NUMBER OF AREAS OR CHERY: 1 treatment area(s) EQUIPMENT USED: Simulation was performed on the radiation department's dedicated CT simulator IMMOBILIZATION: Vac-Loc CONTRAST MEDIA: None EXTERNAL MARKER(S): none TATTOOS: Positioning tattoos were applied to the patient's skin. NUMBER OF TREATMENT PORTS: 2-4 Converging Ports (to be determined during the planning process) BLOCKING: Custom blocks of complex design will be designed to cover the target volume within the treatment field(s) ISODOSE PLAN: An isodose plan will be performed to establish the dose distribution within the treatment volume SCHEDULING Prior to delivering the first radiation fraction, a simulation will be performed on the treatment machine utilizing an integrated kV cone-beam CT to verify patient alignment and isocenter location IMAGING QA: Weekly electronic portal imaging will be obtained. Utilizing the integrated kV CT scanner on the treatment machine, CT images through the treatment volume will be acquired prior to daily treatment to ensure precise patient positioning and isocenter location. Griselda Paige Mai, MD
--- NOTE | 2024-02-29 10:54 | WPDONCRADTXP ---
Radiation Treatment Plan - Date/Time Date/Time: 02/29/24 10:54 RADIATION ONCOLOGY CLINICAL TREATMENT PLAN PROCEDURE DATE:?02/29/2024 TREATMENT INTENT: Local control, Palliation SPECIAL TEST(S) INTERPRETED FOR TUMOR DELINEATION: Diagnostic CT CHEMOTHERAPY CONSIDERATIONS: Concurrent chemotherapy (Ibrance) PROTOCOL ENROLLMENT: none TREATMENT SITE: Left iliac NUMBER OF AREAS OR CHERY: 1 treatment area(s) NUMBER OF TREATMENT PORTS: 2-4 Converging Ports (to be determined during the planning process) IMMOBILIZATION DEVICE(S): Vac-Loc TREATMENT DEVICES: Custom blocks of complex design TREATMENT MODALITY: External photon beam PLANNED DOSE: 3000 cGy in 300 cGy fractions x 10 FRACTIONATION: Daily TECHNIQUE CONTEMPLATED: 3D-INTERLOCKING MACHINE OPERATOR, IGRT MEDICAL NECESSITY FOR 3D TREATMENT PLANNING: The parameters of volume of interest can only be defined by PET, MRI, or CT. The target volume is in close proximity to a critical normal tissue that must be protected. External beam normal tissue dose constraints: Cauda Equina Dmax < 32.1 Gy Bowel Space V30 < 20 cc MEDICAL NECESSITY FOR IGRT TREATMENT PLANNING: There is inherent patient setup variation that could result in geometric miss of the target volume and/or excessive dose delivery to the adjacent normal structures. IGRT is the only treatment modality that can correct for daily variances in target volume location, further improving the therapeutic ratio. Griselda Paige Mai, MD
--- NOTE | 2024-03-04 13:53 | P.RAD.PCN_ITS ---
Radiation Procedure Note - Date/Time Date/Time: 03/04/24 13:53 - Summary Summary: Procedure Date: 03/04/24 RADIATION ONCOLOGY VERIFICATION SIMULATION PURPOSE: The patient initially underwent virtual CT simulation. A simple simulation was performed on the linear accelerator utilizing the portal head greenskeeper for isocenter verification prior to treatment delivery of the first fraction. EQUIPMENT USED: Simulation was performed on the linear accelerator. PROCEDURE DETAILS: This simulation was performed prior to the first radiation fraction to the left iliac bone. Mandy Plasencia was placed on the treatment couch with her body immobilized using a custom fabricated alpha-cradle in treatment position and aligned to the 3-point setup tattoos. Graticule was placed in the tray and a double exposure port film was acquired through the treatment area. The images were compared to the treatment planning DRR. I reviewed the images and made any necessary adjustments. Couch shifts were calculated in order to bring the patient into precise alignment prior to treatment delivery. ASSESSMENT: The isocenter alignment process was successful. ORDERS: Proceed with radiation treatment as planned. Aditya Dasilva MD
[2024-03-07 09:48] VITALS: BP 134/72; PULSE 78; TEMP 37; O2SAT 97
--- NOTE | 2024-03-07 09:48 | P.RADONC_ITS ---
Assessment and Plan - Additional Plan Assessment / Treatment Plan Continue RT as planned. Tolerating treatment well. Port films checked. CT alignment checked daily. Discussed potential acute toxicity as treatment progresses. Instructed on routine skin care. Griselda Carrillo Mai, MD This note was transcribed using '[employer]', a computerized voice recognition without a human fashion director. This report may or may not have been adjusted for typographical, grammatical and syntax errors. On Treatment Visit - Date/Time of Treatment Date/Time: 03/07/24 09:48 Diagnosis Breast Cancer, RIGHT, ER(+), H2N(-)?- Metastatic to Bone Clinical Stage IV? Date of Diagnosis: 12/26/2023 Path: at least 12 mm G3 NS8 IDC Prognostic Factors: ER(+) 90%, [place](-), H2N(-) by FISH, Ki-67 10-20% (intermediate) Med Onc: [facility] Systemic Therapy: Anastrozole (started 02/07/2024) Ibrance is planned Rad Onc: [facility] Radiation: 03/05 - Identification Mandy Plasencia is a 54-year-old female with newly diagnosed ER(+) [place](-) H2N(-) RIGHT breast cancer with a painful destructive mass involving the left iliac bone representing a biopsy-proven metastasis. She is now receiving palliative radiation therapy. Treatment Site: LEFT Iliac Chemotherapy Considerations: Concurrent Ibrance + Anastrozole Treatment Technique: 3D-INVESTIGATOR OPERATOR, Daily kV-CT IGRT Dose Left Iliac at 900 cGy of 3000 cGy Fractions 3 of 10 History Good energy. No change in pain. Taking 3 Duchesne/day. Using a walker. No skin complaints. No nausea or diarrhea. No new concerns. Pain Assessment and Management Pain Assessment: Intermittent pain in the left posterior hip up to 6/10 (moderate, 4-6/10) Pain Management: Duchesne (prescribed by medical oncology). Cancer directed therapy. Physical Examination GENERAL: Appears well. No acute distress. LUNGS: Breathing comfortably on room air. SKIN: No radiation dermatitis.
[2024-03-14 09:35] VITALS: BP 130/76; PULSE 70; TEMP 37.3; O2SAT 98
--- NOTE | 2024-03-14 09:43 | WPDRADONCOTV ---
Assessment and Plan - Additional Plan Assessment / Treatment Plan Continue RT as planned. Tolerating treatment well. Port films checked. CT alignment checked daily. Discussed potential acute toxicity as treatment progresses. Instructed on routine skin care. Completes treatment after 3 more fractions. RTC in 3 months. Griselda Carrillo Mai, MD This note was transcribed using '[employer]', a computerized voice recognition without a human clinical resource coordinator. This report may or may not have been adjusted for typographical, grammatical and syntax errors. On Treatment Visit - Date/Time of Treatment Date/Time: 03/14/24 09:43 Diagnosis Breast Cancer, RIGHT, ER(+), H2N(-)?- Metastatic to Bone Clinical Stage IV? Date of Diagnosis: 12/26/2023 Path: at least 12 mm G3 NS8 IDC Prognostic Factors: ER(+) 90%, [place](-), H2N(-) by FISH, Ki-67 10-20% (intermediate) Med Onc: [facility] Systemic Therapy: Anastrozole (started 02/07/2024) Ibrance is planned Rad Onc: [facility] Radiation: 03/05 - Identification Mandy Plasencia is a 54-year-old female with newly diagnosed ER(+) ID(-) H2N(-) RIGHT breast cancer with a painful destructive mass involving the left iliac bone representing a biopsy-proven metastasis. She is now receiving palliative radiation therapy. Treatment Site: LEFT Iliac Chemotherapy Considerations: Concurrent Ibrance + Anastrozole Treatment Technique: 3D-SUPERANNUATION FUNDS MANAGER, Daily kV-CT IGRT Dose Left Iliac at 2100 cGy of 3000 cGy Fractions 7 of 10 History Good energy. Pain is improving. Able to walk some without the walker now. Taking 3 Winside/day. No skin complaints. No nausea or diarrhea. No new concerns. Pain Assessment and Management Pain Assessment: Intermittent pain in the left posterior hip up to 4-5/10 (moderate, 4-6/10) Pain Management: Winside (prescribed by medical oncology). Cancer directed therapy. Physical Examination GENERAL: Appears well. No acute distress. LUNGS: Breathing comfortably on room air. SKIN: No radiation dermatitis. H&P - Exam - Vital Signs Vital Signs - 24 hr 03/14/24 09:35 Temperature 37.3 C Pulse Rate 70 Blood Pressure 130/76 Pulse Oximetry 98
--- NOTE | 2024-03-28 12:19 | WPDRADIATTXS ---
Radiation Treatment Summary - Date/Time Date/Time: 03/28/24 12:19 Diagnosis Breast Cancer, RIGHT, ER(+), H2N(-)?- Metastatic to Bone Clinical Stage IV? Date of Diagnosis: 12/26/2023 Path: at least 12 mm G3 NS8 IDC Prognostic Factors: ER(+) 90%, [place](-), H2N(-) by FISH, Ki-67 10-20% (intermediate) Med Onc: [facility] Systemic Therapy: Anastrozole (started 02/07/2024) Ibrance Rad Onc: [facility] Radiation: 03/05 - 03/19/2024 Left Iliac 3000 cGy at 300 cGy x 10 fractions Identification Mandy Plasencia is a 54-year-old female with newly diagnosed ER(+) [place](-) H2N(-) RIGHT breast cancer with a painful destructive mass involving the left iliac bone representing a biopsy-proven metastasis. She has now completed palliative radiation therapy. Treatment Delivered Site: LEFT Iliac Dates: 03/05 - 03/19/2024, over 14 elapsed days Dose: 3000 cGy at 300 cGy x 10 fractions Chemotherapy Considerations: Concurrent Ibrance + Anastrozole Treatment Technique: 3D-OPERATING ROOM ASSISTANT, Daily kV-CT IGRT NEPALESE/LPO/RPO beams with wedges, 18 MV Her lower body was immobilized in a supine treatment position with a custom fabricated Vac-Loc device. CT simulation was utilized for 3D-OPERATING ROOM ASSISTANT treatment planning and DVH analysis. Daily CT image guidance was utilized to ensure highly precise patient alignment. Tolerance She tolerated radiation treatment very well, developing no acute radiation toxicity. By the end of treatment her pain was improving, and she was able to ambulate without the use of a walker. Disposition 1. Radiation treatment is completed. 2. Return for follow-up visit in 3 months. Griselda Carrillo Mai, MD This note was transcribed using '[employer]', a computerized voice recognition without a human resaw feeder. This report may or may not have been adjusted for typographical, grammatical and syntax errors.
[2024-06-17 10:03] VITALS: BP 118/68; PULSE 62; TEMP 36.4; O2SAT 100
--- NOTE | 2024-06-17 12:51 | PDRADONCFUV ---
Follow Up Note - Date/Time 06/17/24 12:51 - Interval History RADIATION ONCOLOGY FOLLOW UP DOS:06/17/24 DIAGNOSIS: Metastatic breast cancer, left pelvic met treated with palliative RT 30Gy/10Fx (Dr. Virgen) 02/2024. HISTORY & NARRATIVE: She returns for first post-treatment follow-up visit. Since completing radiation, she reports near complete response in the pain. She rates pain at 2-3/10. No longer requiring walker. Takes 1 pain pill per day. No other areas of pain or concerns today. Tolerating systemic therapy well (Dr. Easley). PHYSICAL EXAMINATION: Vital signs: see RN note ECO General Appearance: The patient is a well-developed, well-nourished female, sitting, in no acute distress. HEENT: normocephalic, atraumatic. Mucus membranes moist Lungs: Breathing comfortably at rest without wheeze Skin: warm, dry, no rashes or lesions. Neurologic: Patient awake and alert, responds to questions appropriately RADIOLOGY REVIEW: No new imaging ASSESSMENT & PLAN: She had good pain response to palliative RT. She will follow-up on a PRN basis. She will continue follow-up and therapy with Dr. Easley Pain score 2-3/10, OTC pain meds + periodic pain pill Aditya Dasilva MD Time spent 20 min H&P - Exam - Vital Signs Vital Signs - 24 hr 06/17/24 10:03 Temperature 36.4 C Pulse Rate 62 Blood Pressure 118/68 Pulse Oximetry 100
== END 2024-06-17 10:14 ==
LOC: AMCRADONC 10:00
PROVIDERS: PCP Nurse Practitioner; Visit Provider Radiology Radiation Oncology
DX: C50.211 Malignant neoplasm of upper-inner quadrant of right female breast (principal); Z17.0 Estrogen receptor positive status [ER+]; C79.51 Secondary malignant neoplasm of bone; F41.9 Anxiety disorder, unspecified; Z08 Encounter for follow-up examination after completed treatment for malignant neoplasm; M25.552 Pain in left hip; E78.5 Hyperlipidemia, unspecified; E66.9 Obesity, unspecified; Z68.34 Body mass index [BMI] 34.0-34.9, adult; Z87.891 Personal history of nicotine dependence; Z79.899 Other long term (current) drug therapy
CPT/HCPCS: 36415; 77280; 77290; 77295; 77300; 77334; 77336; 77412; 77417; 80053; 96365; 99212; G0463; J3489

== ENCOUNTER 2024-07-09 08:35 | Outpatient (CLI) | payer OTHER, SELFPAY ==
--- NOTE | ~2024-07-09 | XR_ITS ---
EXAMINATION: XR fl port a cath w contrast DATE: 07/09/2024 09:19 INDICATION: Malfunctioning port catheter required for treatment of breast cancer TECHNIQUE: 354 fluoroscopic images of the chest were obtained during contrast injection into the michaelle ent's left internal jugular central venous port catheter. A total of 9 mL Omnipaque 240 intravenous c ontrast was injected. The catheter was then flushed with saline. COMPARISON: None. FINDINGS: Distal tip of a left internal jugular central venous port catheter is positioned near the confluence of the left brachiocephalic vein and superior vena cava. There is a fibrin sleeve surrounding the dis alice catheter with tiny jet of contrast arising from likely pinhole perforation of the sleeve along th e cephalad margin of the catheter 1.5-2 cm from the distal tip. IMPRESSION: 1. Partially obstructing fibrin sleeve around the tip of a left internal jugular central venous port catheter. Reviewed, dictated and finalized at location A. IMPRESSION: 1. Partially obstructing fibrin sleeve around the tip of a left internal jugula r central venous port catheter.
== END 2024-07-09 08:36 | disposition home or self-care (01) ==
LOC: ANHIMG 08:39
PROVIDERS: PCP Nurse Practitioner; Visit Provider Internal Medicine Hematology & Oncology
DX: C50.811 Malignant neoplasm of overlapping sites of right female breast (principal); Z17.0 Estrogen receptor positive status [ER+]
CPT/HCPCS: 36598; 99212; G0463; Q9966

== ENCOUNTER 2024-07-21 02:14 | Day surgery (SDC) | payer OTHER, SELFPAY ==
[2024-07-14 09:35] VITALS: BMI 33.5
--- NOTE | 2024-07-14 09:35 | PC.NURSE ---
Report to the Outpatient Waiting Room, entrance under the green pavilion located off [facility], at time _0600_ on date _[id number]_. Planned Procedure Time: _0730_.? Time changes happen often and if your time is changed the preop area will call you the afternoon before. - You and your visitor will be asked to self-screen and do not enter if you have any COVID symptoms. Please call surgeon if you need to reschedule. - A mask is optional within the hospital at this time. Patients may have clear liquids (water, carbonated beverages, clear teas, apple juice) until 3 hours prior to surgery with a maximum of 20 ounces. - No food from midnight until time of surgery and no smoking Take only the following medications with a SIP of water on the morning of surgery: ____None DO NOT STOP ANY OF YOUR OTHER PRESCRIPTION MEDICATIONS PRIOR TO SURGERY EXCEPT THE FOLLOWING Medications to discontinue per physician Vitamins Date to take last vrlf___[id number] Please no make-up, nail greenlandic, hairspray, perfume, deodorant, or body powder the day of surgery.? No jewelry (including any body piercings) or valuables the day of surgery, leave them at home.? Please take a shower or bath the night before, or the morning of, surgery with an antibacterial soap.? Wear comfortable, loose fitting clothing.? - Jewelry must be removed prior to entering the operating room.? Rings and piercings that are not removed may be cut off. - The hospital will not accept responsibility for valuables.? - Please leave all valuables, including medications, at home the day of surgery. If you are going home after surgery, a licensed recycle driver must drive you home.? - NO public transportation without another adult if you receive anesthesia. - We recommend that an adult stay with you for 24 hours following discharge. - We also recommend that you do not drive, make important decision, drink alcoholic beverages, or take any drugs that were not prescribed by your health care provider for at least 24 hours after your discharge time. Follow any additional instructions given to you from your surgeon. Telephone instructions given to __Pamela__and asked if any additional questions and then verbalized understanding. Patient advised to call surgeon office or pre surgery nurse liaison [phone] if any additional questions.
[2024-07-21 06:14] VITALS: BP 126/90; PULSE 67; RESP 18; TEMP 36.2; O2SAT 99
[2024-07-21] MEDS: LACTATED RINGERS 1,000 ML 30 ML IV CONT (06:25)
--- NOTE | 2024-07-21 06:36 | WPDANESEPPF ---
Anes - Initial Pre Proc Eval Procedure: Operation Date: 07/21/24 07:30 Proposed Procedures p Removal Vandana Cath - Angel Nassar MD Date/Time: 07/21/24 06:36 Surgeon: Angel Nassar MD Pre Op Diagnosis: malignant neoplasm of right breast Patient Data Age: 54 Gender: F Height: 1.73 m Weight: 101.1 kg Last Vital Signs Temp 36.2 C L 07/21/24 06:14 Pulse 67 07/21/24 06:14 Resp 18 07/21/24 06:14 BP 126/90 07/21/24 06:14 Pulse Ox 99 07/21/24 06:14 O2 Del Method Room Air 07/21/24 06:14 Allergies Allergy/AdvReac Type Severity Reaction Status Date / Time No Known Allergies Allergy Verified 07/21/24 06:29 Home Medications Medication Instructions Recorded Confirmed Type cholecalciferol (vitamin D3) 25 25 mcg PO DAILY #90 caps 02/23/23 07/21/24 Rx mcg (1,000 unit) capsule anastrozole 1 mg tablet 1 mg PO DAILY 02/08/24 07/21/24 History palbociclib 125 mg capsule 125 mg PO DAILY 03/07/24 07/21/24 History (Ibrance) alprazolam 0.5 mg tablet 0.5 mg PO DAILY 04/30/24 07/21/24 History hydrocodone 7.5 mg-acetaminophen 1 tablet PO Q6H PRN Moderate Pain 04/30/24 07/21/24 History 325 mg tablet (Scale Score 5-6) ondansetron HCl 8 mg tablet 8 mg PO Q8H PRN nauseea 04/30/24 07/21/24 History atorvastatin 40 mg tablet See Rx Instructions .Route 05/26/24 07/21/24 Rx .COMPLEX #90 tabs trazodone 50 mg tablet 50 mg PO .COMPLEX #60 tabs 05/26/24 07/21/24 Rx cyanocobalamin (vitamin B-12) 500 500 mcg PO DAILY 07/14/24 07/21/24 History mcg tablet (Vitamin B-12) ferrous sulfate 325 mg (65 mg 325 mg PO DAILY 07/14/24 07/21/24 History iron) tablet Patient hx anesthesia problems: none Family hx anesthesia problems: none Results Review: All pre-operative results and documents have been reviewed as part of the pre-operative evaluation. [facility] Past Medical History Medical History Anxiety Breast cancer, right breast Hyperlipemia Mixed hyperlipidemia Obesity Tobacco abuse Surgical History Surgical History History of cholecystectomy History of hysterectomy Family History Family History Mother Family history of thyroid disease Family history of diabetes mellitus in first degree relative Sibling Family history of thyroid disease Family history of malignant neoplasm of thyroid Father Family history of gastrointestinal disorder Other Diabetes mellitus Social History Social History Social History: started to smoke again Smoking packs per day: 1 Smoking cigarettes per day: 20.0 Years smoked: 25 Smoking pack-years: 25.00 Smoking status: Current every day smoker Tobacco type: cigarettes Second hand tobacco smoke exposure: Yes Smoking end date: 02/21/21 Additional smoking assessment comments: smoking about 1/2 pack or more currently Alcohol intake: never Substance use: never Substance use type: does not use Lack of Transportation: No Lack of Food: Never True Current Housing: I Have Housing Concerned About Future Housing: No Difficulty Paying Gas/Electric Bills: No Difficulty Paying for Meds: No Currently Unemployed: No Education: Associate Degree Difficulty w/ Childcare or Family Care: No Living arrangements: with family Spiritual care concerns: No Anes - Eval Final PreProcedure Day of Procedure 07/21/24 06:36 Patient weight: obese Heart: regular rate and rhythm Lungs: clear to auscultation Airway: Mallampati scale class II Neurological: alert and oriented Last oral intake: >/= 8 hours ASA classification: III Emergent: no Anesthetic plan: proceed Anesthesia type and monitoring: general GIVS and standard monitoring Results Review: All pre-operative results and documents have been reviewed as part of the p
--- NOTE | 2024-07-21 07:21 | PM.IMHP ---
H&P: HPI History of Present Illness Date/Time: 07/21/24 07:21 Chief Complaint: Right breast CA Narrative: Pt presents for removal of left IJ port. She is being treated for right breast CA with oral agents now. I confirmed that no new port is needed at this time. Review of Systems Review of Systems: The remainder of the review of systems to include constitutional, HEENT, cardiovascular, respiratory, GI, , integumentary, musculoskeletal, endocrine, immunologic, hematologic, psychiatric, and neurologic are all negative except for which is mentioned above in the HPI. [facility] Past Medical History Medical History Anxiety Breast cancer, right breast Hyperlipemia Mixed hyperlipidemia Obesity Tobacco abuse Surgical History Surgical History History of cholecystectomy History of hysterectomy Family History Family History Mother Family history of thyroid disease Family history of diabetes mellitus in first degree relative Sibling Family history of thyroid disease Family history of malignant neoplasm of thyroid Father Family history of gastrointestinal disorder Other Diabetes mellitus Social History Social History Social History: started to smoke again Smoking packs per day: 1 Smoking cigarettes per day: 20.0 Years smoked: 25 Smoking pack-years: 25.00 Smoking status: Current every day smoker Tobacco type: cigarettes Second hand tobacco smoke exposure: Yes Smoking end date: 02/21/21 Additional smoking assessment comments: smoking about 1/2 pack or more currently Alcohol intake: never Substance use: never Substance use type: does not use Lack of Transportation: No Lack of Food: Never True Current Housing: I Have Housing Concerned About Future Housing: No Difficulty Paying Gas/Electric Bills: No Difficulty Paying for Meds: No Currently Unemployed: No Education: Associate Degree Difficulty w/ Childcare or Family Care: No Living arrangements: with family Spiritual care concerns: No Meds Home Medications and Allergies Home Medications Medication Instructions Recorded Confirmed Type cholecalciferol (vitamin D3) 25 25 mcg PO DAILY #90 caps 02/23/23 07/21/24 Rx mcg (1,000 unit) capsule anastrozole 1 mg tablet 1 mg PO DAILY 02/08/24 07/21/24 History palbociclib 125 mg capsule 125 mg PO DAILY 03/07/24 07/21/24 History (Ibrance) alprazolam 0.5 mg tablet 0.5 mg PO DAILY 04/30/24 07/21/24 History hydrocodone 7.5 mg-acetaminophen 1 tablet PO Q6H PRN Moderate Pain 04/30/24 07/21/24 History 325 mg tablet (Scale Score 5-6) ondansetron HCl 8 mg tablet 8 mg PO Q8H PRN nauseea 04/30/24 07/21/24 History atorvastatin 40 mg tablet See Rx Instructions .Route 05/26/24 07/21/24 Rx .COMPLEX #90 tabs trazodone 50 mg tablet 50 mg PO .COMPLEX #60 tabs 05/26/24 07/21/24 Rx cyanocobalamin (vitamin B-12) 500 500 mcg PO DAILY 07/14/24 07/21/24 History mcg tablet (Vitamin B-12) ferrous sulfate 325 mg (65 mg 325 mg PO DAILY 07/14/24 07/21/24 History iron) tablet Allergies Allergy/AdvReac Type Severity Reaction Status Date / Time No Known Allergies Allergy Verified 07/21/24 06:29 Vital Signs Vital Signs - 24 hr 07/21/24 06:14 Temperature 36.2 C L Pulse Rate 67 Respiratory Rate 18 Blood Pressure 126/90 Pulse Oximetry 99 Oxygen Delivery Room Air Exam Const: General: comfortable and no acute distress HENMT: Ears: TM's normal bilaterally Face/Nose/Sinus: Normal nares present Mouth: Yes moist mucous membranes Eyes: General: appearance normal, both eyes and all related structures Sclera: sclerae normal Pupils: Equal, round and reactive pupils present EOM: EOMs intact bilaterally Neck: Neck: supple and no JVD Chest: Other:
--- NOTE | 2024-07-21 07:24 | WPDHPUPDATE1 ---
History and Physical Update Update Date/Time: 07/21/24 07:24 History and Physical has been reviewed, including an updated exam of the patient. There are NO changes in the patient's condition. Risks, benefits, and alternatives have been discussed and questions answered. Patient agrees to proceed with procedure.
[2024-07-21] MEDS: BUPivacaine HCL 0.5% PF 30 ML VIAL INFILTRATE (07:29)
[2024-07-21] MEDS: LIDO 1%/EPINEPHRINE 1:100,000 20 ML VIAL 30 ML INFILTRATE (07:29)
[2024-07-21] MEDS: ceFAZolin 2 GM/D5W 50 ML 2 GM/50 ML BAG IVPB (07:33)
--- NOTE | 2024-07-21 08:06 | W.PM.PROC2 ---
Procedure Note - Detailed Date of Procedure 07/21/24 Pre-op Diagnosis malignant neoplasm of right breast Post-op Diagnosis Same Procedure Performed Removal of left internal jugular vein salvador catheter. Surgeon Angel Nassar MD Professional Engineer Claude Anderson, OUTSIDE MEDICAL SALES REPRESENTATIVE Anesthesia MAC Indications Patient is a 54-year-old female who has right breast cancer. She had a salvador catheter placed in January 2024 for treatment. She had some treatments through the salvador catheter but then it would not aspirate well. I have been asked by her oncologist remove the salvador catheter. She is going to be treated with oral agents and apparently will have peripheral IV started for any IV infusions. Findings None significant Description of Procedure After informed consent was obtained patient brought to the operating room she was placed supine position and IV sedation was administered by anesthesia. The left upper anterior chest and left anterior lateral neck region was then prepped and draped usual sterile fashion. A time-out was then performed correctly identifying the patient as well as procedure to be performed. She given Ancef for IV antibiotics. 1% lidocaine mixed with 0.5% Marcaine was then injected around the port and the hub of the port the subcutaneous tissues for local anesthetic effect. I then made a elongated transverse ellipse to excise out the old scar sharply with a scalpel. Dissection was not performed with electrocautery down to the hub of the port. I then dissected down onto the proximal part of the catheter and then placed traction on the catheter and it easily came out of the left internal jugular vein. Pressure was then held in left internal jugular vein for hemostasis. Electrocautery was then used to completely excise out the port from the subcutaneous tissues and port pocket. The catheter and port were discarded. I then irrigated out the port pocket with sterile saline solution. Electrocautery was then used to fulgurate the fibrous capsule. The incision was then closed utilizing interrupted 3-0 Vicryl sutures in subcutaneous tissues. The skin edges were approximated utilizing a running subcuticular 4-0 Monocryl suture incision was then cleaned the skin glue was applied. The patient tolerated the procedure well no complications. All sponges, needles, and instrument counts were correct at the end procedure. EBL was _2__cc. The patient was awakened and taken to recovery in stable and satisfactory condition. Implants None Estimated Blood Loss 2 Drains No Packing No Pathology None sent Complications No immediate complications Condition Stable Disposition Same day [facility] Billing Surgery - Charge Forward: Surgery Billing
[2024-07-21 08:08] VITALS: BP 96/49; PULSE 79; RESP 12; O2SAT 98
[2024-07-21 08:30] VITALS: BP 121/70; PULSE 64; RESP 14; O2SAT 96
[2024-07-21 08:45] VITALS: BP 125/75; PULSE 56; RESP 16
== END 2024-07-21 09:00 | disposition home or self-care (01) ==
PROVIDERS: PCP Nurse Practitioner; Visit Provider Surgery
PROC: (CPT 36589; principal; 2024-07-21 07:30)
DX: Z45.2 Encounter for adjustment and management of vascular access device (principal); C50.211 Malignant neoplasm of upper-inner quadrant of right female breast; Z17.0 Estrogen receptor positive status [ER+]; F41.9 Anxiety disorder, unspecified; E78.2 Mixed hyperlipidemia; F17.210 Nicotine dependence, cigarettes, uncomplicated; E66.9 Obesity, unspecified; Z68.33 Body mass index [BMI] 33.0-33.9, adult; Z79.891 Long term (current) use of opiate analgesic; Z98.890 Other specified postprocedural states; Z90.49 Acquired absence of other specified parts of digestive tract; Z80.8 Family history of malignant neoplasm of other organs or systems
CPT/HCPCS: 36590; J0690; J2003; J2004; J2250; J2405; J2704; J3010; J7120

== ENCOUNTER 2024-10-31 08:42 | Outpatient (CLI) | payer OTHER, SELFPAY ==
--- NOTE | ~2024-10-31 | CT_ITS ---
EXAMINATION: CT chest abdomen pelvis w con DATE: 10/31/2024 09:18 INDICATION: Malignant neoplasm of overlapping sites of the right breast. TECHNIQUE: Computed tomography (CT) of the chest, abdomen, and pelvis was performed with 100 mL Omnip aque-350 intravenous contrast. Automated exposure control and iterative reconstruction technique were employed. The dose-length product was 1393.41 mGy-cm. COMPARISON: None FINDINGS: CHEST CT: No suspicious pulmonary nodules, pneumonia, pulmonary edema or pleural effusion. Heart size is normal . Atherosclerotic coronary artery calcification. No pericardial effusion. Thoracic aorta is normal in caliber with no dissection. Interval increase in size of a previously 3.1 x 2.3 cm, currently 3.5 x 2.6 cm peripherally enhancing mass with lobular and spiculated margins at the upper inner right breas t consistent with progression of breast cancer. No pathologically enlarged thoracic lymphadenopathy. No significant interval change in a few lytic bone lesions with sclerotic margins at T5, T8, T11 and T12 consistent with metastatic disease. ABDOMEN/PELVIS CT: Liver, gallbladder, spleen, pancreas and bilateral adrenal glands are normal. There are a few unchang ed subcentimeter low-attenuation likely renal cysts which remain too small to definitively characteri ze. There is mild colonic diverticulosis with sigmoid and descending colon predominance and without a djacent inflammatory change to suggest diverticulitis. Small bowel and appendix are normal. Bladder is normal. The uterus is not identified and has likely been surgically resected. Bilateral adnexa are unremarkable. No free intraperitoneal gas or fluid. No pathologically enlarged abdominal or pelvic l ymphadenopathy. There are a few additional unchanged lytic bone lesions the largest at the left poste rior iliac spine with several additional lesions at L2, bilaterally in the pelvis and in the proximal femurs. There is increased sclerosis at the margins of the lytic lesion at the left posterior back s pine likely reflecting changes of interval treatment. IMPRESSION: 1. Interval increase in size of a now 3.5 x 2.6 cm right breast mass consistent with progression of p rimary breast cancer. 2. No interval change in multiple lytic bone lesions in the spine, pelvis and proximal femurs consist ent with stable metastatic disease. No new or progressive metastatic disease. Reviewed, dictated and finalized at location B. [place] FOCUS TECHNICIAN IMPRESSION: 1. Interval increase in size of a now 3.5 x 2.6 cm right breast mass consistent with progression of primary breast cancer. 2. No interval change in multiple lytic bone lesions in the spine, pelvis and p roximal femurs consistent with stable metastatic disease. No new or progressive metastatic disease.
--- NOTE | ~2024-10-31 | NM_ITS ---
EXAMINATION: NM bone scan whole body DATE: 10/31/2024 12:32 INDICATION: Right breast cancer TECHNIQUE: 25 mCi Tc-99m HDP was administered intravenously. Delayed whole-body scintigrams were obt ained. COMPARISON: Bone scan dated 02/19/[address] dated 10/31/2024 FINDINGS: Again seen is now more subtle uptake at the previous noted lesions at the left vertex of the skull, t he posterior left third rib and at the left posterior iliac spine which correspond to a now mixed lyt ic and sclerotic bone lesions consistent with metastatic disease. Peroneal foci of mild uptake at the anterior right sixth rib, posterior left sixth rib and at the left side of the L3 vertebral body whi ch demonstrate unchanged lytic lesions on the current and prior CT imaging. Likely degenerative joint centered uptake at the bilateral feet. As previous noted there are multiple additional lytic lesions on the current and prior CT which remain without abnormal uptake on bone scan which has significantl y lower sensitivity for lytic and sclerotic bone lesions. IMPRESSION: 1. Mild uptake associated with several scattered lytic bone lesions present on both the current and p rior CT consistent with metastatic disease. As previously noted the extent of metastatic disease is u nderestimated on the bone scan relative to CT dated the decrease sensitivity of bone scan for lytic b one lesions. Reviewed, dictated and finalized at location B. ER TENDER IMPRESSION: 1. Mild uptake associated with several scattered lytic bone lesions present on both the current and prior CT consistent with metastatic disease. As previously noted the extent of metastatic disease is underestimated on the bone scan rela tive to CT dated the decrease sensitivity of bone scan for lytic bone lesions.
--- OUTSIDE RECORDS SUMMARY | 2024-11-06 05:40 | XMS_ITS | Continuity of Care Document ---
Author Organization [facility] Address [id number] [place] [address] [place] [address] Phone Care Team Providers Care Tea Blender Name Role Phone Robin Virk DO Unavailable Unavailable Advance Directives Directive Yes / No Effective Date File Name No Information Encounters Encounter Description Practice Location Reason(s) For Visit Diagnoses Date Provider Providers Copied on Encounter [facility], [address], [place], [place], [id number], [place] tel:[phone] [facility] No Information [facility]. [address] [facility], [place], [address], [place]. tel: [phone] Family History Family Member Type Diagnosis Age At Onset No Information Payers Payer name Insurance type Covered libertarian ID Authoriza tion(s) No Information Social History Type Description Quantity Date Captured Comments Sex Female Smoking Status No Information Chief Complaint And Reason For Visit No Information Reason For Referral Reason For Referral No Information History Of Present Illness Encounter Date Complaint History Of Prese nt Illness No Information Functional Status Date Functional Assessmen t No Information Instructions Date Instruction Additional Infor mation No Information Assessments Type Assessment Date No Information Patient Care Teams Name Effective Dates (start - stop) Status Members No Information
--- OUTSIDE RECORDS SUMMARY | 2024-11-06 05:40 | XMS_ITS | Continuity of Care Document ---
Author Organization [facility] Address [address] [place] [address] Phone Care Team Providers Care Rubber Turner Name Role Phone Unavailable Unavailable Unavailable Medications Medication Instructions Dosage Effective Dates (start - stop) Status Comments ALPRAZOLAM 2 MG TABLET 1 TID - Active ACETAMINOPHEN-COD #4 TABLET 1 BID - Active AMOXICILLIN 500 MG CAPSULE 1 TID - Active PROAIR HFA 90 MCG INHALER 2 QID - Active HIGINIO-D 12 HOUR TABLET 1 BID - Active HISTUSSIN HC SYRUP 0 DIRECTE - Acti ve 1-2 tsp q 8-12 hr prn # 6oz Advance Directives Directive Yes / No Effective Date File Name No Information Encounters Encounter Description Practice Location Reason(s) For Visit Diagnoses Date Provider Providers Copied on Encounter [employer], [address], [place], [place], [address] , [place] tel: [phone] [facility] No Information [address] [employer] [facility], [address], [place], [place], [address] , [place] tel: [phone] [facility] No Information [address] [employer] [facility], [address], [place], [place], [address] , [place] tel: [phone] Conversion Department No Information 1 Conversion Doctor. [address] [place] [address], [address], . [employer], [address], [place], [place], [address] , tel: [phone] [facility] URIN TRACT INFECTION NOS [address] 8 Conversion Doctor. [facility] [place], [address], . [employer], [address], [place], [place], [address] , tel: [phone] [facility] ANXIETY STATE NOS [address] 8 Conversion Doctor. [facility] [place], [address], . [employer], [address], [place], [place], [address] , tel: [phone] [facility] COUGH [address] 7 Conversion Doctor. [facility] [place], [address], . [employer], [address], [place], [place], [address] , tel: [phone] [facility] ABNORMAL WEIGHT GAINLUMBAGOALLER GIC RHINITIS NOSSCREEN LIPOID DISORDERS 200 7 No Information [employer], [address], [place], [place], [address] , tel: [phone] [facility] ACUTE URI NOS [address] 5 Conversion Doctor. [facility] [place], [address], . Family History Family Member Type Diagnosis Age At Onset No Information Payers Payer name Insurance type Covered constitution party ID Authoriza tion(s) No Information Social History [...]
--- OUTSIDE RECORDS SUMMARY | 2024-11-06 05:40 | XMS_ITS | Encounter Summary ---
Author Organization [facility] [employer] [facility] Address [address] [place] [address] Care Team Providers Care Environment Coordinator Name Role Phone Anil Long MD Primary Care Provider [phone] Encounter Details Date Type Department Care Team (Late Contact Info) Description 10/27/2024 Orders Only [facility] Oncology and Hematology [address] [place] [address] Nik Easley MD [address] [place] [phone] Social History Tobacco Use Types Packs/Day Years Used Date Smoking Tobacco: Every Day Cigarettes 0.5 30.7 Started: 02/24/1994 Alcohol Use Standard Drinks/Week Comments Yes 0 (1 standard drink = 0.6 oz pur e alcohol) occasional Comments Unknown Sex and Gender Information Value Date Recorded Sex Assigned at Not on file Legal Sex Female 12:32 PM CDT Gender Identity Not on file Sexual Orientation Not on file documented as of this encounter Plan of Treatment Upcoming Encounters Date Type Department Care Team (Late st Contact Info) Description 11/17/2024 10:00 AM PATIENT'S LIBRARIAN Office Visit [facility] Oncology and Hematology - [address] [place] [address] Nik Easley MD [address] [place] [phone] documented as of this encounter Procedures Procedure Name Priority Date/Time Associated Diagnosis Comments COMPREHENSIVE METABOLIC PANEL Routine 10/22/2024 11:50 AM PATIENT'S LIBRARIAN documented in this encounter Results * COMPREHENSIVE METABOLIC PANEL (10/22/2024 11:50 AM PATIENT'S LIBRARIAN) Blood Nik Easley MD CHEMISTRY ORDERABLES Final Resu lt documented in this encounter Visit Diagnoses Not on filedocumented in this encounter Care Teams Environment Coordinator Relationship Specialty Start Date End Date Anil Long MD [address] [place] [id number] PCP - General Family Practice 01/01/24 documented as of this encounter
--- OUTSIDE RECORDS SUMMARY | 2024-11-06 05:40 | XMS_ITS | Continuity of Care Document ---
Author Organization [facility] Address [address] [place] [address] [address] [place] [address] Phone Care Team Providers Care Wellness Spa Manager Name Role Phone Benjamin OD, Claude Unavailable Unavailable Procedures Procedure Date Eye Exam, New Patient Refraction Advance Directives Directive Yes / No Effective Date File Name No Information Encounters Encounter Description Practice Location Reason(s) For Visit Diagnoses Date Provider Providers Copied on Encounter [facility], [address] [place] [address] [address], [place], [place], [id number], [place] tel:[phone] [facility] No Information Dec-2 4-201 0 Benjamin OD Claude. [address] , [address], [place], [address], [place]. tel:[phone] Family History Family Member Type Diagnosis Age At Onset No Information Payers Payer name Insurance type Covered republican ID Authoriza tiapolinar(s) [employer] Vision Plan CI [id number] Social History Type Description Quantity Date Captured [...]
--- OUTSIDE RECORDS SUMMARY | 2024-11-06 05:40 | XMS_ITS | Clinical Summary ---
Author Organization [facility] Address [address] [place] [address] Care Team Providers Care Store Team Leader Name Role Phone Anil Long MD Primary Care Provider [phone] Allergies No known active allergies Medications cholecalciferol , Vitamin D3, (VITAMIN D3) 25 mcg (1,000 unit) Capsule Take by mouth daily. Active atorvastatin (LIPITOR) 40 mg tablet Take 40 mg by mouth daily. Active lidocaine-prilo lupe (EMLA) 2.5-2.5 % Cream Apply a quarter size amount to port site 30 minutes before access. 30 Gram 1 4 Active ALPRAZolam (Xanax) 0.5 mg tabletIndicatio ns:Malignant neoplasm of overlapping sites of right breast in female, estrogen receptor positive (CMS/HCC) Take 1 Tablet (0.5 mg) by mouth nightly as needed for Anxiety. 10 Tablet 4 Active naloxone (NARCAN) 4 mg/spray [place], Non-Aerosol EMERGENCY USE ONLY: Administer 1 spray (4 mg) in one nostril one time. May repeat in alternating nostrils every 2-3 min until responsive or EMS arrives. 2 Each 3 4 Active ondansetron (ZOFRAN) 8 mg Tablet Take 1 Tablet (8 mg) by mouth every 8 hours as needed for Nausea/Emesis. 30 Tablet 2 4 Active traZODone (DESYREL) 50 mg tablet Take 50 mg by mouth daily at bedtime. 4 Active anastrozole (Arimidex) 1 mg tablet Take 1 Tablet (1 mg) by mouth daily. 90 Tablet 3 4 Active palbociclib (Ibrance) 125 mg tablet TAKE 1 TABLET DAILY FOR 3 WEEKS ON AND 1 WEEK OFF 21 Tablet 5 4 Active HYDROcodone-gee taminophen (NORCO) 7.5-325 mg TabletIndicatio ns:Malignant neoplasm of overlapping sites of right breast in female, estrogen receptor positive (CMS/HCC) Take 1 Tablet by mouth every 6 hours as needed for Pain, Moderate. Max Daily Amount: 4 Tablets 60 Tablet 5 Active HYDROcodone-gee taminophen (NORCO) 7.5-325 mg TabletIndicatio ns:Malignant neoplasm of overlapping sites of right breast in female, estrogen receptor positive (CMS/HCC) Take 1 Tablet by mouth every 6 hours as needed for Pain, Moderate. Max Daily Amount: 4 Tablets 60 Tablet 4 025 Discontin ued(Reord er) Active Problems No known active problems Encounters Date Type Department Care Team Description 11/05/2024 External Device Data STL ABSTRACTION Provider, Abstract 11/03/2024 Orders Only [facility] - [place] [address] [place] [address] Nik Easley MD Malignant neoplasm of overlapping sites of right breast in female, estrogen receptor positive (CMS/HCC); Cancer, metastatic to bone (CMS/HCC) 10/27/2024 Orders Only [facility] - [place] [address] [place] [address] Nik Easley MD 10/22/2024 Orders Only [facility] - [place] [address] [place] [address] Scanning, Provider 10/22/2024 Refill [facility] - [place] [address] [place] [address] Nik Easley MD Malignant neoplasm of overlapping sites of right breast in female, estrogen receptor positive (CMS/HCC) 10/21/2024 External Device Data STL ABSTRACTION Provider, Abstract 10/20/2024 Orders Only [facility] - [place] [address] Nik Easley MD Malignant neoplasm of overlapping sites of right breast in female, estrogen receptor positive (CMS/HCC); Cancer, metastatic to bone (CMS/HCC) 10/06/2024 Orders Only [facility] - [place] [address] [place] [address] Nik Easley MD Malignant neoplasm of overlapping sites of right breast in female, estrogen receptor positive (CMS/HCC); Cancer, metastatic to bone (CMS/HCC) 09/26/2024 Orders Only [facility] - [place] [address] [place] [address] Nik Easley MD 09/26/2024 Abstract [facility] - [place] [address] [place] [address] Nik Easley MD 09/25/2024 Orders Only [facility] - [place] [address] [place] [address] Nik Easley MD 09/24/2024 Refill [facility] - [place] [address] [place] [address] Nik Esaley MD Malignant neoplasm of overlapping sites of right breast in female, estrogen receptor positive (CMS/HCC) 09/23/2024 Orders Only [facility] - [place] [address] [place] [address] Nik Easley MD Cancer, metastatic to bone (CMS/HCC) (Primary Dx); Malignant neoplasm of overlapping sites of right breast in female, estrogen receptor positive (CMS/HCC) 09/22/2024 Orders Only [facility] - [place] [address] [place] [address] Nik Easley MD Malignant neoplasm of overlapping sites of right breast in female, estrogen receptor positive (CMS/HCC) (Primary Dx); Cancer, metastatic to bone (CMS/HCC) 09/08/2024 Orders Only [facility] - [place] [address] [place] [address] Nik Easley MD Malignant neoplasm of overlapping sites of right breast in female, estrogen receptor positive (CMS/HCC); Cancer, metastatic to bone (CMS/HCC) 08/27/2024 Refill [facility] - [place] [address] [place] [address] Nik Easley MD Malignant neoplasm of overlapping sites of right breast in female, estrogen receptor positive (CMS/HCC) 08/25/2024 Orders Only [facility] - [place] [address] [place] [address] Nik Easley MD Malignant neoplasm of overlapping sites of right breast in female, estrogen receptor positive (CMS/HCC); Cancer, metastatic to bone (CMS/HCC) 08/21/2024 Orders Only [facility] - [place] [address] [place] [address] Nik Easley MD 08/15/2024 Refill [facility] - [place] [address] [place] [address] Nik Easley MD 08/13/2024 External Device Data STL ABSTRACTION Provider, Abstract 08/11/2024 Abstract [facility] - [place] [address] [place] [address] Nik Easley MD 08/11/2024 Orders Only [facility] - [place] [address] [place] [address] Nik Easley MD Malignant neoplasm of overlapping sites of right breast in female, estrogen receptor positive (CMS/HCC); Cancer, metastatic to bone (CMS/HCC) from Last 3 Months Family History Medical History Relation Name Comments Diabetes Mother Heart Disease Mother Lymphoma Mother Lymphoma Son 1 Relation Name Status Comments Brother Alive Daughter 1 Alive Daughter 2 Alive Father Alive Mother Sister Alive Son 1 Alive Son 2 Alive Social History Tobacco Use Types Packs/Day Years Used Date Smoking Tobacco: Every Day Cigarettes 0.5 30.7 Started: 02/24/1994 Tobacco Cessation:Ready to Q uit: Not Asked; Counseling Given: Not Answered Alcohol Use Standard Drinks/Week Comments Yes 0 (1 standard drink = 0.6 oz pur e alcohol) occasional Comments Unknown Sex and Gender Information Value Date Recorded Sex Assigned at Not on file Legal Sex Female 12:32 PM CDT Gender Identity Not on file Sexual Orientation Not on file Last Filed Vital Signs Vital Sign Reading Time Taken Comments Blood Pressure 114/74 07/30/2024 10:22 AM CDT Pulse 70 07/30/2024 10:22 AM CDT Temperature 36.3 ??C (97.3 ??F) 07/30/2024 10:22 AM C DT Respiratory Rate 16 07/30/2024 10:22 AM CDT Oxygen Saturation 97% 07/30/2024 10:22 AM CDT Inhaled Oxygen Concentration - - Weight 100.2 kg (221 lb) 07/30/2024 10:22 AM CDT Height 172.7 cm (5' 8 ) 01/01/2024 3:01 PM CDT Body Mass Index 33.6 01/01/2024 3:01 PM CDT Plan of Treatment Upcoming Encounters Date Type Department Care Team (Late st Contact Info) Description 11/17/2024 10:00 AM SOLAR SALES Office Visit [facility] - [place] [address] [place] [address] Nik Easley MD [address] [place] [address] Health Maintenance Due Date Last Done Comments Pre-Diabetes and Diabetes Screening 1970 PNEUMOCOCCAL VACCINE 0-64 YEARS (1 of 2 - PCV) 974 DTAP/TDAP/TD VACCINES (1 - Tdap) 01/15/1987 HEPATITIS B VACCINES (1 of 3 - 19+ 3-dose series) 12/1986 ZOSTER VACCINE (1 of 2) 01/15/1987 CERVICAL CANCER SCREENING 01/15/1998 BREAST CANCER SCREENING 2008 COLORECTAL SCREENING 01/15/2013 Colorectal Cancer Screening 01/15/2013 FIT-DNA Q 3 years 01/15/2013 FIT/FOBT Q 1 year 01/15/2013 Flex Sig/CT Colonography Q 5 years 01/15/2013 INFLUENZA VACCINE (#1) 2024 Procedures Procedure Name Priority Date/Time Associated Diagnosis Comments NM BONE SCAN WHOLE BODY Routine 10/31/19 9:[address] CHEST ABDOMEN PELVIS W CONT Routine 10/31/2024 9:13 AM SOLAR SALES COMPREHENSIVE METABOLIC PANEL Routine 10/22/2024 11:50 AM SOLAR SALES IRON LEVEL Routine 10/13/2024 12:56 PM SOLAR SALES COMPREHENSIVE METABOLIC PANEL Routine 09/24/2024 3:42 PM SOLAR SALES CANCER ANTIGEN 15-3 Routine 09/24/2024 2 :18 PM SOLAR SALES CANCER ANTIGEN 15-3 Routine 09/24/2024 2 :14 PM SOLAR SALES COMPREHENSIVE METABOLIC PANEL Routine 08/20/2024 8:18 AM SOLAR SALES from Last 3 Months Results * NM BONE SCAN WHOLE BODY (10/31/2024 9:42 AM SOLAR SALES) Anatomical Region Laterality Modality Other us Nik Easley MD NM ORDERABLES Final Result * CT CHEST ABDOMEN PELVIS W CONT (10/31/2024 9:13 AM SOLAR SALES) Anatomical Region Laterality Modality Chest Other us Nik Easley MD CT ORDERABLES Final Result * COMPREHENSIVE METABOLIC PANEL (10/22/2024 11:50 AM SOLAR SALES) Only the most recent of3 resultswithin the time period is included. Blood us Nik Easley MD CHEMISTRY ORDERABLES Final Resu lt * IRON LEVEL (10/13/2024 12:56 PM SOLAR SALES) Blood us Provider Scanning CHEMISTRY ORDERABLES Final Res ult * CANCER ANTIGEN 15-3 (09/24/2024 2:18 PM SOLAR SALES) Only the most recent of2 resultswithin the time period is included. Blood Nik Easley MD CHEMISTRY ORDERABLES Final Resu lt from Last 3 Months Insurance [employer] Member Subscriber Plan / Payer (Ef fective 2024-Present) Name:Mandy Rosales Relation to Subscriber:Self Name:Mandy Rosales Payer ID:[id number] (NAIC) Group ID:Not on file Type:PPO Address: [place] [id number] [employer] Commercial Care Teams Store Team Leader Relationship Specialty Start Date End Date Anil Long MD [address] [place] [address] PCP - General Family Practice 01/01/24
== END 2024-10-31 08:43 | disposition home or self-care (01) ==
PROVIDERS: PCP Nurse Practitioner; Visit Provider Internal Medicine Hematology & Oncology
DX: C50.811 Malignant neoplasm of overlapping sites of right female breast (principal); C79.51 Secondary malignant neoplasm of bone; Z17.0 Estrogen receptor positive status [ER+]
CPT/HCPCS: 71260; 74177; 78306; A9503; Q9967

== ENCOUNTER 2024-11-10 11:51 | Outpatient (CLI) | payer OTHER, SELFPAY ==
--- OUTSIDE RECORDS SUMMARY | 2024-11-10 12:43 | XMS_ITS | Continuity of Care Document ---
Author Organization [facility] Address [address] [place] [address] [address] [place] [address] Phone Care Team Providers Care Tool Polisher Name Role Phone Benjamin OD, Claude Unavailable Unavailable Procedures Procedure Date Eye Exam, New Patient Refraction Advance Directives Directive Yes / No Effective Date File Name No Information Encounters Encounter Description Practice Location Reason(s) For Visit Diagnoses Date Provider Providers Copied on Encounter [facility], [address] [place] [address] [address], [place], [place], [id number], [place] tel:[phone] [facility] No Information Dec-2 4-201 0 Benjamin OD Claude. [address] , [address], [place], [address], [place]. tel:[phone] Family History Family Member Type Diagnosis Age At Onset No Information Payers Payer name Insurance type Covered libertarian ID Authoriza tiapolinar(s) [employer] Vision Plan CI [id number] Social History Type Description Quantity Date Captured [...]
--- OUTSIDE RECORDS SUMMARY | 2024-11-10 12:43 | XMS_ITS | Clinical Summary ---
Author Organization [facility] Address [address] [place] [address] Care Team Providers Care Director Integrated Name Role Phone Anil Long MD Primary Care Provider [phone] Allergies No known active allergies Medications cholecalciferol [...] Tablet 4 Active naloxone (NARCAN) 4 mg/spray [place], Non-Aerosol EMERGENCY USE ONLY: Administer 1 spray [...] External Device Data STL ABSTRACTION Provider, Abstract 11/05/2024 External Device Data STL ABSTRACTION Provider, Abstract 11/03/2024 Orders Only [facility] Hematology - [place] [address] [place] [address] Nik Easley MD Malignant neoplasm of overlapping sites of right breast in female, estrogen receptor positive (CMS/HCC); Cancer, metastatic to bone (CMS/HCC) 10/27/2024 Orders Only [facility] H[facility] - [place] [address] [place] [address] Nik Easley MD 10/22/2024 Orders Only [facility] - [place] [address] [place] [address] Scanning, Provider 10/22/2024 Refill [facility] - [place] [address] [place] [address] Nik Easley MD Malignant neoplasm of overlapping sites of right breast in female, estrogen receptor positive (CMS/HCC) 10/21/2024 External Device Data STL ABSTRACTION Provider, Abstract 10/20/2024 Orders Only [facility] - [place] [address] Nik Easley MD Malignant neoplasm of overlapping sites of right breast in female, estrogen receptor positive (CMS/HCC); Cancer, metastatic to bone (CMS/HCC) 10/06/2024 Orders Only [facility] - [place] [address] [place] [address] Nik Easley MD Malignant neoplasm of overlapping sites of right breast in female, estrogen receptor positive (CMS/HCC); Cancer, metastatic to bone (CMS/HCC) 09/26/2024 Orders Only [facility] - [place] [address] [place] [address] Nik Easley MD 09/26/2024 Abstract [facility] - [place] [address] [place] [address] Nik Easley MD 09/25/2024 Orders Only [facility] - [place] [address] [place] [address] Nik Easley MD 09/24/2024 Refill [facility] - [place] [address] [place] [address] Nik Easley MD Malignant neoplasm of overlapping sites of right breast in female, estrogen receptor positive (CMS/HCC) 09/23/2024 Orders Only [facility] - [place] [address] [place] [address] Nik Easley MD Cancer, metastatic to bone (CMS/HCC) (Primary Dx); Malignant neoplasm of overlapping sites of right breast in female, estrogen receptor positive (CMS/HCC) 09/22/2024 Orders Only [facility] - [place] [address] [place] [address] Nik Easley MD Malignant neoplasm of overlapping sites of right breast in female, estrogen receptor positive (CMS/HCC) (Primary Dx); Cancer, metastatic to bone (CMS/HCC) 09/08/2024 Orders Only [facility] - [place] [address] [place] [address] Nik Easley MD Malignant neoplasm of overlapping sites of right breast in female, estrogen receptor positive (CMS/HCC); Cancer, metastatic to bone (CMS/HCC) 08/27/2024 Refill [facility] - [place] [address] [place] [address] Nik Easley MD Malignant neoplasm of overlapping sites of right breast in female, estrogen receptor positive (CMS/HCC) 08/25/2024 Orders Only [facility] - [place] [address] [place] [address] Nik Easley MD Malignant neoplasm of overlapping sites of right breast in female, estrogen receptor positive (CMS/HCC); Cancer, metastatic to bone (CMS/HCC) 08/21/2024 Orders Only [facility] - [place] [address] [place] [address] Nik Easley MD 08/15/2024 Refill [facility] - [place] [address] [place] [address] Nik Easley MD 08/13/2024 External Device Data STL ABSTRACTION Provider, Abstract 08/11/2024 Abstract [facility] - [place] [address] [place] [address] Nik Easley MD 08/11/2024 Orders Only [facility] - [place] [address] [place] [address] Nik Easley MD Malignant neoplasm [...] st Contact Info) Description 11/17/2024 10:00 AM POCKET CREASER Office Visit [facility] - [place] [address] [facility] [address] [place] [address] Nik Easley MD [address] [place] [address] Health Maintenance Due Date Last Done Comments Pre-Diabetes and Diabetes Screening 1970 DTAP/TDAP/TD VACCINES (1 - Tdap) 01/15/1987 HEPATITIS B VACCINES (1 of 3 - 19+ 3-dose series) 0412/1986 Preventative Visit-Managed Medicaid 01/15/1987 ZOSTER VACCINE (1 of 2) 01/15/1987 CERVICAL CANCER SCREENING 01/15/1998 BREAST CANCER SCREENING 2008 COLORECTAL SCREENING 01/15/2013 Colorectal Cancer Screening 01/15/2013 FIT-DNA Q 3 years 01/15/2013 FIT/FOBT Q 1 year 01/15/2013 Flex Sig/CT Colonography Q 5 years 01/15/2013 INFLUENZA VACCINE (#1) 2024 Procedures Procedure Name Priority Date/Time Associated Diagnosis Comments NM BONE SCAN WHOLE BODY Routine 10/31/19 9:[address] CHEST ABDOMEN PELVIS W CONT Routine 10/31/2024 9:13 AM POCKET CREASER COMPREHENSIVE METABOLIC PANEL Routine 10/22/2024 11:50 AM POCKET CREASER IRON LEVEL Routine 10/13/2024 12:56 PM POCKET CREASER COMPREHENSIVE METABOLIC PANEL Routine 09/24/2024 3:42 PM POCKET CREASER CANCER ANTIGEN 15-3 Routine 09/24/2024 2 :18 PM POCKET CREASER CANCER ANTIGEN 15-3 Routine 09/24/2024 2 :14 PM POCKET CREASER COMPREHENSIVE METABOLIC PANEL Routine 08/20/2024 8:18 AM POCKET CREASER from Last 3 Months Results * NM BONE SCAN WHOLE BODY (10/31/2024 9:42 AM POCKET CREASER) Anatomical Region Laterality Modality Other us Nik Easley MD NM ORDERABLES Final Result * CT CHEST ABDOMEN PELVIS W CONT (10/31/2024 9:13 AM POCKET CREASER) Anatomical Region Laterality Modality Chest Other us Nik Easley MD CT ORDERABLES Final Result * COMPREHENSIVE METABOLIC PANEL (10/22/2024 11:50 AM POCKET CREASER) Only the most recent of3 resultswithin the time period is included. Blood us Nki Easley MD CHEMISTRY ORDERABLES Final Resu lt * IRON LEVEL (10/13/2024 12:56 PM POCKET CREASER) Blood us Provider Scanning CHEMISTRY ORDERABLES Final Res ult * CANCER ANTIGEN 15-3 (09/24/2024 2:18 PM POCKET CREASER) Only the most recent of2 resultswithin the time period is included. Blood Nik Easley MD CHEMISTRY ORDERABLES Final Resu lt from Last 3 Months Insurance Member Subscriber Plan / Payer (Ef fective 2024-Present) Name:Mandy Rosales Relation to Subscriber:Self Name:Mandy Rosales Payer ID:[id number] (NAIC) Group ID:Not on file Type:PPO Address: [place] [id number] [employer] Commercial Care Teams Director Integrated Relationship Specialty Start Date End Date Anil Long MD [address] [place] [address] PCP - General Family Practice 01/01/24
--- OUTSIDE RECORDS SUMMARY | 2024-11-10 12:43 | XMS_ITS | Continuity of Care Document ---
Author Organization [facility] Address [address] [place] [address] Phone Care Team Providers Care Imposer Name Role Phone Unavailable Unavailable Unavailable Medications [...] Diagnoses Date Provider Providers Copied on Encounter [facility], [address], [place], [place], [address] , [place] tel: [phone] [facility] No Information 2 No Information [facility], [address], [place], [place], [address] , [place] tel: [phone] [facility] No Information 1 No Information [facility], [address], [place], [place], [address] , [place] tel: [phone] Conversion Department No Information 1 Conversion Doctor. [address] [place] [address], [address], . [facility], [address], [place], [place], [address] , tel: [phone] [facility] URIN TRACT INFECTION NOS [address] 8 Conversion Doctor. [facility] [email or web address], [address], . [facility], [address], [place], [place], [address] , tel: [phone] [facility] ANXIETY STATE NOS [address] 8 Conversion Doctor. [facility] [place], [address], . [facility], [address], [place], [place], [address] , tel: [phone] [facility] COUGH [address] 7 Conversion Doctor. [facility] [email or web address], [address], . [facility], [address], [place], [place], [address] , tel: [phone] [facility] ABNORMAL WEIGHT GAINLUMBAGOALLER GIC RHINITIS NOSSCREEN LIPOID DISORDERS 200 7 No Information [facility], [address], [place], [place], [address] , tel: [phone] [facility] ACUTE URI NOS 200 5 Conversion Doctor. [facility] [place], [address], . Family History Family Member Type Diagnosis [...]
--- OUTSIDE RECORDS SUMMARY | 2024-11-10 12:43 | XMS_ITS | Continuity of Care Document ---
Author Organization [facility] Address [address] [place] [address] [place] [address] Phone Care Team Providers Care Skiver Box Toe Name Role Phone Robin Virk DO Unavailable Unavailable Advance Directives Directive Yes / No Effective Date File Name No Information Encounters Encounter Description Practice Location Reason(s) For Visit Diagnoses Date Provider Providers Copied on Encounter [facility], [address], [place], [place], [address], [place] tel:[phone] [facility] No Information Moose Mazariegos. [address] [facility], [place], [address], [place]. tel: [phone] Family History Family Member Type Diagnosis Age At Onset No Information Payers Payer name Insurance type Covered republican ID Authoriza tion(s) No Information Social History [...]
[2024-11-10 12:46] LABS: Cholesterol 121 mg/dL (0-200); HDL Direct 58 mg/dL; Triglycerides 124 mg/dL (<150)
[2024-11-10 12:57] LABS: LDL Cholesterol Direct 49 mg/dL
[2024-11-10 13:41] LABS: Vitamin D 25 Hydroxy 56.8 ng/mL
== END 2024-11-10 11:52 | disposition home or self-care (01) ==
LOC: ANHLAB 11:53
PROVIDERS: PCP Nurse Practitioner; Visit Provider Internal Medicine Hematology & Oncology
DX: E78.5 Hyperlipidemia, unspecified (principal); E55.9 Vitamin D deficiency, unspecified
CPT/HCPCS: 36415; 80061; 82306

== ENCOUNTER 2024-12-21 10:51 | Outpatient (CLI) | payer OTHER, SELFPAY ==
--- NOTE | ~2024-12-21 | MR_ITS ---
MRI of the lumbar spine Clinical History: Malignancy Technique: Axial T2-weighted images, and sagittal T1-weighted, T2-weighted, and T2 fat-sat images wer e acquired. Following intravenous administration of 20 cc ProHance gadolinium, T1-weighted fat-sat im aging was performed in the axial and sagittal planes. Findings: There are numerous scattered T1 hypointense, T2 hyperintense osseous lesions throughout the visualized spine, with postcontrast enhancement, compatible with metastatic disease. There is most e xtensive involvement of the T12 and L1 vertebral bodies as imaged. There is extensive involvement of the left posterior elements of L3, especially left pedicle and lamina and left transverse process. Th ere are smaller lesions throughout the remaining visualized osseous structures in the lumbar spine. T here is additional metastatic involvement of the visualized bilateral iliac bones near the SI joints, with additional multiple lesions in the visualized sacrum. No acute fracture evident. No subluxation . At L1-L2, there is no disc bulge or herniation. No spinal canal stenosis or definite neural foraminal narrowing. At L2-L3, there is no disc bulge or herniation. There is moderate facet arthropathy. No central canal stenosis or neural foraminal narrowing. At L3-L4, there is no disc bulge or herniation. There is moderate facet arthropathy. No central canal stenosis or neural foraminal narrowing. At L4-L5, there is mild disc bulge and mild facet arthropathy. No central canal stenosis or definite neural foraminal narrowing. At L5-S1, there is minimal disc bulge and moderate facet arthropathy. No central canal stenosis or ne ural foraminal narrowing. No epidural extension of disease. Paravertebral soft tissues are unremarkable. Impression: Extensive scattered osseous metastatic disease, as detailed above. No pathologic fracture clearly pily dent. Reviewed, dictated and finalized at location . Impression: Extensive scattered osseous metastatic disease, as detailed above. No pathologi c fracture clearly evident.
--- OUTSIDE RECORDS SUMMARY | 2024-12-21 10:54 | XMS_ITS | Continuity of Care Document ---
Author Organization [facility] Address [address] [place] [address] Phone Care Team Providers Care Word Processing Operator Name Role Phone Unavailable Unavailable Unavailable Medications [...] Diagnoses Date Provider Providers Copied on Encounter [facility], [address], [place], [place], [address] , [place] tel: [phone] [facility] No Information 2 No Information [facility], [address], [place], [place], [address] , [place] tel: [phone] [facility] No Information 1 No Information [facility], [address], [place], [place], [address] , [place] tel: [phone] Conversion Department No Information 1 Conversion Doctor. [address] [place] [address], [address], . [facility], [address], [place], [place], [address] , tel: [phone] [facility] URIN TRACT INFECTION NOS 200 8 Conversion Doctor. [facility] [place], [address], . [facility], [address], [place], [place], [address] , tel: [phone] [facility] ANXIETY STATE NOS 200 8 Conversion Doctor. [facility] [place] [place], [address], . [facility], [address], [place], [place], [address] , tel: [phone] [facility] COUGH 200 7 Conversion Doctor. [facility] [place], [address], . [facility], [address], [place], [place], [address] , tel: [phone] [facility] ABNORMAL WEIGHT GAINLUMBAGOALLER GIC RHINITIS NOSSCREEN LIPOID DISORDERS 200 7 No Information [facility], [address], [place], [place], [address] , tel: [phone] [facility] ACUTE URI NOS 200 5 Conversion Doctor. [facility] [place], [address], . Family History Family Member Type Diagnosis Age At Onset No Information Payers Payer name Insurance type Covered green party ID Authoriza tion(s) No Information Social [...]
--- OUTSIDE RECORDS SUMMARY | 2024-12-21 10:54 | XMS_ITS | Continuity of Care Document ---
Author Organization [facility] Address [address] [place] [address] [place] [address] Phone Care Team Providers Care Financial Management Analyst Name Role Phone Robin Virk DO Unavailable Unavailable Advance Directives Directive Yes / No Effective Date File Name No Information Encounters Encounter Description Practice Location Reason(s) For Visit Diagnoses Date Provider Providers Copied on Encounter [facility], [address], [place], [place], [address], [place] tel:[phone] [facility] No Information [facility] Mazariegos. [address] [facility], [place], [address], [place]. tel: [phone] Family History Family Member Type Diagnosis Age [...]
--- OUTSIDE RECORDS SUMMARY | 2024-12-21 10:54 | XMS_ITS | Encounter Summary ---
Author Organization [facility] Address [address] [place] [address] Care Team Providers Care Information Systems Consultant Name Role Phone Anil Long MD Primary Care Provider [phone] Encounter Details Date Type Department Care Team (Late Contact Info) Description 12/17/2024 Orders Only [facility] Oncology and Hematology [place] [address] [place] [address] Nik Easley MD [address] [place] [address] Social History Tobacco Use Types Packs/Day Years Used Date Smoking Tobacco: Former Cigarettes 0.5 30.6 0 02/24/1994 - 10/08/2024 Alcohol Use Standard Drinks/Week Comments Yes 0 [...] Care Team (Late st Contact Info) Description 02/18/2025 11:30 AM CDT Office Visit [facility] Oncology and Hematology - [place] [address] [place] [address] Nik Easley MD [address] [place] [address] documented as of this encounter Procedures Procedure Name Priority Date/Time Associated Diagnosis Comments COMPREHENSIVE METABOLIC PANEL Routine 12/17/2024 12:34 PM MAINSTREAMING FACILITATOR documented in this encounter Results * COMPREHENSIVE METABOLIC PANEL (12/17/2024 12:34 PM MAINSTREAMING FACILITATOR) Blood Nik Easley MD CHEMISTRY ORDERABLES Final Resu lt documented in this encounter Visit Diagnoses Not on filedocumented in this encounter Care Teams Information Systems Consultant Relationship Specialty Start Date End Date Anil Long MD [address] [place] [address] PCP - General Family Practice 01/01/24 documented as of this encounter
--- OUTSIDE RECORDS SUMMARY | 2024-12-21 10:54 | XMS_ITS | Continuity of Care Document ---
Author Organization [facility] Address [address] [place] [address] [address] [place] [address] Phone Care Team Providers Care Cello Teacher Name Role Phone Benjamin OD, Claude Unavailable Unavailable Procedures Procedure Date Eye Exam, New Patient Refraction Advance Directives Directive Yes / No Effective Date File Name No Information Encounters Encounter Description Practice Location Reason(s) For Visit Diagnoses Date Provider Providers Copied on Encounter [facility], [address] [place] [address] [address], [place], [place], [address], [place] tel:[phone] [facility] No Information Dec-2 4-201 0 Benjamin OD Claude. [address], [place], [address], [place]. tel:[phone] Family History Family Member Type Diagnosis Age At Onset No Information Payers Payer name Insurance type Covered libertarian ID Authoriza tiapolinar(s) [employer] Plan [place] [id number] Social History Type Description Quantity Date Captured [...]
--- OUTSIDE RECORDS SUMMARY | 2024-12-21 10:54 | XMS_ITS | Encounter Summary ---
Author Organization [facility] Address [address] [place] [address] Care Team Providers Care Agricultural Labor Camp Manager Name Role Phone Anil Long MD Primary Care Provider [phone] Encounter Details Date Type Department Care Team (Late st Contact Info) Description 12/19/2024 External Device Data STL ABSTRACTION Provider, Abstract NO ADDRESS ON FILE Social History Tobacco Use Types Packs/Day Years [...] Description 02/18/2025 11:30 AM CDT Office Visit [facility] Oncology and Hematology - [place] [address] [address] Nik Easley MD [address] [facility] [address] [place] [address] documented as of this encounter Visit Diagnoses Not on filedocumented in this encounter Care Teams Agricultural Labor Camp Manager Relationship Specialty Start Date End Date Anil Long MD [address] [address] PCP - General Family Practice 01/01/24 documented as of this encounter
--- OUTSIDE RECORDS SUMMARY | 2024-12-21 10:54 | XMS_ITS | Clinical Summary ---
Author Organization [facility] Address [address] [place] [address] Care Team Providers Care Ad Writer Name Role Phone Anil Long MD Primary Care Provider [phone] Allergies No known active allergies Medications cholecalciferol, Vitamin D3, (VITAMIN D3) 25 mcg (1,000 unit) Capsule Take by mouth daily. Active atorvastatin (LIPITOR) 40 mg tablet Take 40 mg by mouth daily. Active lidocaine-priloc mark (EMLA) 2.5-2.5 % Cream Apply a quarter size amount to port site 30 minutes before access. 30 Gram 1 4 Active ALPRAZolam (Xanax) 0.5 mg tabletIndication s:Malignant neoplasm of overlapping sites of right breast in female, estrogen receptor positive (CMS/HCC) Take 1 Tablet (0.5 mg) by mouth nightly as needed for Anxiety. 10 Tablet 4 Active naloxone (NARCAN) 4 mg/spray [place], Non-Aerosol EMERGENCY USE ONLY: Administer 1 spray [...] WEEK OFF 21 Tablet 5 4 Active OTHER Nicotine patches Active HYDROcodone-acet aminophen (NORCO) 7.5-325 mg TabletIndication s:Malignant neoplasm of overlapping sites of right breast in female, estrogen receptor positive (CMS/HCC) Take 1 Tablet by mouth every 6 hours as needed for Pain, Moderate. Max Daily Amount: 4 Tablets 60 Tablet 5 Active Active Problems No known active problems Encounters Date Type Department Care Team Description 12/19/2024 External Device Data STL ABSTRACTION Provider, Abstract 12/17/2024 External Device Data STL ABSTRACTION Provider, Abstract 12/17/2024 Orders Only [facility] Oncology and Hematology [facility] [address] [place] [address] Nik Easley MD 12/15/2024 Orders Only [facility] Oncology and Hemat[facility] [address] [place] [address] Nik Easley MD Malignant neoplasm of overlapping sites of right breast in female, estrogen receptor positive (CMS/HCC); Cancer, metastatic to bone (CMS/HCC) 12/09/2024 Abstract [facility] Oncology and Hematology [facility] [address] [place] [address] Nik Easley MD 12/02/2024 External Device Data STL ABSTRACTION Provider, Abstract 12/01/2024 Orders Only [facility] Oncology and Hematology [place] [address] [place] [address] Nik Easley MD Malignant neoplasm of overlapping sites of right breast in female, estrogen receptor positive (CMS/HCC); Cancer, metastatic to bone (CMS/HCC) 11/19/2024 Refill [facility] Oncology and Hematology [facility] [address] [place] [address] Nik Easley MD Malignant neoplasm of overlapping sites of right breast in female, estrogen receptor positive (CMS/HCC) 11/17/2024 10:00 AM RENTAL MANAGER Office Visit [facility] Oncology and Hematology - [place] [address] [place] [address] Nik Easley MD Malignant neoplasm of overlapping sites of right breast in female, estrogen receptor positive (CMS/HCC); Cancer, metastatic to bone (CMS/HCC) 11/12/2024 Orders Only [facility] Oncology and Hematology - [place] [address] [place] [address] Nik Easley MD 11/11/2024 Orders Only [facility] Oncology and Hematology - [place] [address] [place] [address] Nik Easley MD 11/05/2024 External Device Data STL ABSTRACTION Provider, Abstract 11/05/2024 External Device Data STL ABSTRACTION Provider, Abstract 11/03/2024 Orders Only [facility] Oncology and Hematology - [place] [address] [place] [address] Nik Easley MD Malignant neoplasm of overlapping sites of right breast in female, estrogen receptor positive (CMS/HCC); Cancer, metastatic to bone (CMS/HCC) 10/27/2024 Orders Only [facility] Oncology and Hematology - [place] [address] [place] [address] Nik Easley MD 10/22/2024 Orders Only [facility] Oncology and Hematology - [place] [address] [place] [address] Scanning, Provider 10/22/2024 Refill [facility] Oncology and Hematology - [place] [address] [place] [address] Nik Easley MD Malignant neoplasm of overlapping sites of right breast in female, estrogen receptor positive (CMS/HCC) 10/21/2024 External Device Data STL ABSTRACTION Provider, Abstract 10/20/2024 Orders Only [facility] Oncology and Hematology - [place] [address] [place] [address] Nik Easley MD Malignant neoplasm of overlapping sites of right breast in female, estrogen receptor positive (CMS/HCC); Cancer, metastatic to bone (CMS/HCC) 10/06/2024 Orders Only [facility] Oncology and Hematology - [place] [address] [place] [address] Nik Easley MD Malignant neoplasm of overlapping sites of right breast in female, estrogen receptor positive (CMS/HCC); Cancer, metastatic to bone (CMS/HCC) 09/26/2024 Orders Only [facility] Oncology and Hematology - [place] [address] [place] [address] Nik Easley MD 09/26/2024 Abstract [facility] Oncology and Hematology - [place] [address] [place] [address] Nik Easley MD 09/25/2024 Orders Only [facility] Oncology and Hematology - [place] [address] [place] [address] Nik Easley MD 09/24/2024 Refill [facility] Oncology and Hematology - [place] [address] [place] [address] Nik Easley MD Malignant neoplasm of overlapping sites of right breast in female, estrogen receptor positive (CMS/HCC) 09/23/2024 Orders Only [facility] Oncology and Hematology - [place] [address] [place] [address] Nik Easley MD Cancer, metastatic to bone (CMS/HCC) (Primary Dx); Malignant neoplasm of overlapping sites of right breast in female, estrogen receptor positive (CMS/HCC) 09/22/2024 Orders Only [facility] Oncology and Hematology - [place] [address] [place] [address] Nik Esaley MD Malignant neoplasm of overlapping sites of right breast in female, estrogen receptor positive (CMS/HCC) (Primary Dx); Cancer, metastatic to bone (CMS/HCC) from Last [...] Cigarettes 0.5 30.6 0 02/24/1994 - 10/08/2024 Tobacco Cessation:Counseling Given: Not Answered Alcohol Use Standard Drinks/Week Comments Yes 0 (1 standard drink = 0.6 oz pur e alcohol) occasional Comments Unknown Sex and Gender Information Value Date Recorded Sex Assigned at Not on file Legal Sex Female 12:32 PM CDT Gender Identity Not on file Sexual Orientation Not on file Last Filed Vital Signs Vital Sign Reading Time Taken Comments Blood Pressure 115/72 11/17/2024 10:03 AM RENTAL MANAGER Pulse 69 11/17/2024 10:03 AM RENTAL MANAGER Temperature 36.8 C (98.2 F) 11/17/2024 10:03 AM RENTAL MANAGER Respiratory Rate 16 11/17/2024 10:03 AM RENTAL MANAGER Oxygen Saturation 97% 11/17/2024 10:03 AM RENTAL MANAGER Inhaled Oxygen Concentration - - Weight 100.2 kg (221 lb) 11/17/2024 10:03 AM RENTAL MANAGER Height 172.7 cm (5' 8 ) 01/01/2024 3:01 PM CDT Body Mass Index 33.6 01/01/2024 3:01 PM CDT Plan of Treatment Upcoming Encounters Date Type Department Care Team (Late st Contact Info) Description 02/18/2025 11:30 AM CDT Office Visit [facility] Oncology and Hematology - [place] [address] [facility] [address] [place] [address] Nik Easley MD [address] [facility] [address] [place] [address] Health Maintenance Due Date Last Done Comments Pre-Diabetes and Diabetes Screening 1968 DTAP/TDAP/TD VACCINES (1 - Tdap) 01/15/1987 HEPATITIS B VACCINES (1 of 3 - 19+ 3-dose series) 12/1986 Preventative Visit-Managed Medicaid 01/15/1987 ZOSTER VACCINE (1 of 2) 01/15/1987 CERVICAL CANCER SCREENING 01/15/1998 BREAST CANCER SCREENING 2008 COLORECTAL SCREENING 01/15/2013 Colorectal Cancer Screening 01/15/2013 FIT-DNA Q 3 years 01/15/2013 FIT/FOBT Q 1 year 01/15/2013 Flex Sig/CT Colonography Q 5 years 01/15/2013 INFLUENZA VACCINE (#1) 2024 Procedures Procedure Name Priority Date/Time Associated Diagnosis Comments COMPREHENSIVE METABOLIC PANEL Routine 12/17/2024 12:34 PM RENTAL MANAGER CANCER ANTIGEN 15-3 Routine 11/10/2024 3 :17 PM RENTAL MANAGER COMPREHENSIVE METABOLIC PANEL Routine 11/10/2024 1:00 PM RENTAL MANAGER NM BONE SCAN WHOLE BODY Routine 10/31/19 9:[address] CHEST ABDOMEN PELVIS W CONT Routine 10/31/2024 9:13 AM RENTAL MANAGER COMPREHENSIVE METABOLIC PANEL Routine 10/22/2024 11:50 AM RENTAL MANAGER IRON LEVEL Routine 10/13/2024 12:56 PM RENTAL MANAGER COMPREHENSIVE METABOLIC PANEL Routine 09/24/2024 3:42 PM RENTAL MANAGER CANCER ANTIGEN 15-3 Routine 09/24/2024 2 :18 PM RENTAL MANAGER CANCER ANTIGEN 15-3 Routine 09/24/2024 2 :14 PM RENTAL MANAGER from Last 3 Months Results * COMPREHENSIVE METABOLIC PANEL (12/17/2024 12:34 PM RENTAL MANAGER) Only the most recent of4 resultswithin the time period is included. Blood us Nik Easley MD CHEMISTRY ORDERABLES Final Resu lt * CANCER ANTIGEN 15-3 (11/10/2024 3:17 PM RENTAL MANAGER) Only the most recent of3 resultswithin the time period is included. Blood us Nik Easley MD CHEMISTRY ORDERABLES Final Resu lt * NM BONE SCAN WHOLE BODY (10/31/2024 9:42 AM RENTAL MANAGER) Anatomical Region Laterality Modality Other us Nik Easley MD NM ORDERABLES Final Result * CT CHEST ABDOMEN PELVIS W CONT (10/31/2024 9:13 AM RENTAL MANAGER) Anatomical Region Laterality Modality Chest Other Nik Easley MD CT ORDERABLES Final Result * IRON LEVEL (10/13/2024 12:56 PM RENTAL MANAGER) Blood Provider Scanning CHEMISTRY ORDERABLES Final Res ult from Last 3 Months Insurance [employer] Commercial Care Teams Ad Writer Relationship Specialty Start Date End Date Anil Long MD [address] [place] [address] PCP - General Family Practice 01/01/24
== END 2024-12-21 10:52 | disposition home or self-care (01) ==
PROVIDERS: PCP Nurse Practitioner; Visit Provider Radiology Radiation Oncology
DX: C50.911 Malignant neoplasm of unspecified site of right female breast (principal); C79.51 Secondary malignant neoplasm of bone
CPT/HCPCS: 72158; A9579

== ENCOUNTER 2024-12-22 09:14 | Outpatient (CLI) | payer OTHER, SELFPAY ==
--- NOTE | ~2024-12-22 | PE_ITS ---
EXAMINATION: PET skull to mid thigh DATE: 12/22/2024 11:44 INDICATION: Malignant neoplasm of unspecified site of right breast. TECHNIQUE: Blood glucose level was 90 mg/dL. 7.721 mCi of 18-fluorodeoxyglucose (18-FDG) was administ ered i.v. Low dose computed tomography (CT) images were acquired from the base of the brain to the pr oximal thighs for attenuation correction and anatomic localization. Automated exposure control was em ployed. Dose-length product (DLP) was 1185 mGy-cm. Positron emission tomography (PET) images were acq uired in the same distribution. COMPARISON: CT chest, abdomen, and pelvis 10/31/2024 FINDINGS: Head/neck: There are no pathologically enlarged lymph nodes. Chest: There is no pneumonia or pleural effusion. The heart size is normal. No pericardial effusion. There is a 3.8 cm mass in right breast with maximum SUV of 18, stable from 10/31/24. There is a 10 x 1 1 mm right subpectoral the with maximum SUV of 8.5. There are normal-sized right subpectoral and axil sheila nodes with increased activity. There are widespread scattered lytic and sclerotic bone lesions w ith increased activity. Abdomen/pelvis/proximal thighs: The liver and spleen are normal. There are changes of cholecystectomy . The pancreas, adrenal glands, and kidneys are normal. There are no dilated loops of bowel. The appe ndix is normal. There are no pathologically enlarged lymph nodes. There is no free intraperitoneal fl uid. There are widespread scattered lytic and sclerotic bone lesions with increased activity. IMPRESSION: 1. Right breast mass, right subpectoral and right axillary lymphadenopathy, and scattered bone lesion s with increased activity, stable from 10/31/24, consistent with metastatic breast cancer. Reviewed, dictated and finalized at location B. IMPRESSION: 1. Right breast mass, right subpectoral and right axillary lymphadenopathy, and scattered bone lesions with increased activity, stable from 10/31/24, consisten t with metastatic breast cancer.
[2024-12-22 09:36] LABS: Glucose Point of Care 90 mg/dl (65-105)
--- OUTSIDE RECORDS SUMMARY | 2024-12-22 10:17 | XMS_ITS | Continuity of Care Document ---
Author Organization [facility] Address [address] [place] [address] [place] [address] Phone Care Team Providers Care City Administrator Name Role Phone Robin Virk DO Unavailable Unavailable Advance Directives Directive Yes / No Effective Date File Name No Information Encounters Encounter Description Practice Location Reason(s) For Visit Diagnoses Date Provider Providers Copied on Encounter [facility], [address], [place], [place], [address], [place] tel:[phone] [facility][note 3] No Information Moose Mazariegos. [address] [facility], [place], [address], [place]. tel: [phone] Family History Family Member Type Diagnosis Age At Onset No Information Payers Payer name Insurance type Covered democrat ID Authoriza tion(s) No Information Social History [...]
--- OUTSIDE RECORDS SUMMARY | 2024-12-22 10:17 | XMS_ITS | Encounter Summary ---
Author Organization [facility] Address [address] [place] [address] Care Team Providers Care Cloth Dyer Name Role Phone Anil Logn MD Primary Care Provider [phone] Encounter Details Date Type Department Care Team (Late Contact Info) Description 12/17/2024 Orders Only [facility] Oncology and Hematology [place] [address] [place] [address] Nik Easley MD [address] [employer] [address] [place] [address] Social History Tobacco Use Types [...] Description 02/18/2025 11:30 AM CDT Office Visit [facility] Oncology and Hematology - [place] [address] [place] [address] Nik Easley MD [address] [employer] [address] [place] [address] documented as of this encounter Procedures Procedure Name Priority Date/Time Associated Diagnosis Comments COMPREHENSIVE METABOLIC PANEL Routine 12/17/2024 12:34 PM CARTON FORMING MACHINE ADJUSTER documented in this encounter Results * COMPREHENSIVE METABOLIC PANEL (12/17/2024 12:34 PM CARTON FORMING MACHINE ADJUSTER) Blood Nik Easley MD CHEMISTRY ORDERABLES Final Resu lt documented in this encounter Visit Diagnoses Not on filedocumented in this encounter Care Teams Cloth Dyer Relationship Specialty Start Date End Date Anil Long MD [address] [place] [address] PCP - General Family Practice 01/01/24 documented as of this encounter
--- OUTSIDE RECORDS SUMMARY | 2024-12-22 10:17 | XMS_ITS | Continuity of Care Document ---
Author Organization [facility] Address [address] [place] [address] Phone Care Team Providers Care Instrument And Electrical Technician Name Role Phone Unavailable Unavailable Unavailable Medications [...] Diagnoses Date Provider Providers Copied on Encounter [facility], [address], [place], [place], [address] , [place] tel: [phone] [facility] No Information 2 No Information [facility], [address], [place], [place], [address] , [place] tel: [phone] [facility] No Information 1 No Information [facility], [address], [place], [place], [address] , [place] tel: [phone] Conversion Department No Information 1 Conversion Doctor. [address] [place] [address], [address], . [facility], [address], [place], [place], [address] , tel: [phone] [facility] URIN TRACT INFECTION NOS 200 8 Conversion Doctor. [facility] [place], [address], . [facility], [address], [place], [place], [address] , tel: [phone] [facility] ANXIETY STATE NOS 200 8 Conversion Doctor. [facility] [place], [address], . [facility], [address], [place], [place], [address] , tel: [phone] [facility] COUGH 200 7 Conversion Doctor. [facility] [place], [address], . [facility], [address], [place], [place], [address] , tel: [phone] [facility] ABNORMAL WEIGHT GAINLUMBAGOALLER GIC RHINITIS NOSSCREEN LIPOID DISORDERS 200 7 No Information [facility], [address], [place], [place], [address] , tel: [phone] [facility] ACUTE URI NOS 200 5 Conversion Doctor. [facility] [place], [address], . Family History Family Member Type Diagnosis [...]
--- OUTSIDE RECORDS SUMMARY | 2024-12-22 10:17 | XMS_ITS | Encounter Summary ---
Author Organization [facility] Address [address] [place] [address] Care Team Providers Care Upper Shaper Name Role Phone Anil Long MD Primary Care Provider [phone] Encounter Details Date Type Department Care Team [...] Description 02/18/2025 11:30 AM CDT Office Visit [facility] - [place] [address] [address] Nik Easley MD [address] [facility] [address] [place] [address] documented as of this encounter Visit Diagnoses Not on filedocumented in this encounter Care Teams Upper Shaper Relationship Specialty Start Date End Date Anil Long MD [address] [place] [address] PCP - General Family Practice 01/01/24 documented as of this encounter
--- OUTSIDE RECORDS SUMMARY | 2024-12-22 10:17 | XMS_ITS | Continuity of Care Document ---
Author Organization [facility] Address [address] [place] [address] [address] [place] [address] Phone Care Team Providers Care Web Content Executive Name Role Phone Benjamin OD, Claude Unavailable Unavailable Procedures Procedure Date Eye Exam, New Patient Refraction Advance Directives Directive Yes / No Effective Date File Name No Information Encounters Encounter Description Practice Location Reason(s) For Visit Diagnoses Date Provider Providers Copied on Encounter [facility], [address] [place] [address] [address], [place], [place], [id number], [place] tel:[phone] [facility] No Information Dec- 4-201 0 Benjamin OD Claude. [address] , [address], [place], [address], [place]. tel:[phone] Family History Family Member Type Diagnosis Age At Onset No Information Payers Payer name Insurance type Covered green party ID Authoriza tiapolinar(s) [employer] Vision Plan CI [id number] Social History Type Description Quantity Date Captured [...]
--- OUTSIDE RECORDS SUMMARY | 2024-12-22 10:17 | XMS_ITS | Clinical Summary ---
Author Organization [facility] Address [address] [place] [address] Care Team Providers Care Security Ambassador Name Role Phone Anil Long MD Primary Care Provider [phone] Allergies No known active allergies Medications cholecalciferol, [...] Tablet 4 Active naloxone (NARCAN) 4 mg/spray [place], Non-Aerosol EMERGENCY USE ONLY: Administer 1 spray [...] STL ABSTRACTION Provider, Abstract 12/17/2024 Orders Only [facility] Oncology and Hematology [facility] [address] [place] [id number] Nik Easley MD 12/15/2024 Orders Only [facility] Oncology and Hematology [facility] [address] [place] [address] Nik Easley MD Malignant neoplasm of overlapping sites of right breast in female, estrogen receptor positive (CMS/HCC); Cancer, metastatic to bone (CMS/HCC) 12/09/2024 Abstract [facility] Oncology and Hematology [facility] [address] [place] [address] Nik Easley MD 12/02/2024 External Device Data STL ABSTRACTION Provider, Abstract 12/01/2024 Orders Only [facility] Oncology and Hematology [place] [address] [place] [address] Nik Easley MD Malignant neoplasm of overlapping sites of right breast in female, estrogen receptor positive (CMS/HCC); Cancer, metastatic to bone (CMS/HCC) 11/19/2024 Refill [facility] Oncology and Hematology [facility] [address] [place] [address] Nik Easley MD Malignant neoplasm of overlapping sites of right breast in female, estrogen receptor positive (CMS/HCC) 11/17/2024 10:00 AM SUPERVISOR COKE HANDLING Office Visit [facility] Oncology and Hematology - [place] [address] [place] [address] Nik Easley MD Malignant neoplasm of overlapping sites of right breast in female, estrogen receptor positive (CMS/HCC); Cancer, metastatic to bone (CMS/HCC) 11/12/2024 Orders Only [facility] Oncology and Hematology - [place] [address] [place] [address] Nik Easley MD 11/11/2024 Orders Only [facility] Oncology and Hematology - [place] [address] [place] [address] Nik Easley MD 11/05/2024 External Device Data STL ABSTRACTION Provider, Abstract 11/05/2024 External Device Data STL ABSTRACTION Provider, Abstract 11/03/2024 Orders Only [facility] Oncology and Hematology - [place] [address] [place] [address] Nik Easley MD Malignant neoplasm of overlapping sites of right breast in female, estrogen receptor positive (CMS/HCC); Cancer, metastatic to bone (CMS/HCC) 10/27/2024 Orders Only [facility] Oncology and Hematology - [place] [address] [place] [address] Nik Easley MD 10/22/2024 Orders Only [facility] Oncology and Hematology - [place] [address] [place] [address] Scanning, Provider 10/22/2024 Refill [facility] Oncology and Hematology - [place] [address] [place] [address] Nik Easley MD Malignant neoplasm of overlapping sites of right breast in female, estrogen receptor positive (CMS/HCC) 10/21/2024 External Device Data STL ABSTRACTION Provider, Abstract 10/20/2024 Orders Only [facility] Oncology and Hematology - [place] [address] [place] [address] Nik Easley MD Malignant neoplasm of overlapping sites of right breast in female, estrogen receptor positive (CMS/HCC); Cancer, metastatic to bone (CMS/HCC) 10/06/2024 Orders Only [facility] Oncology and Hematology - [place] [address] [place] [address] Nik Easley MD Malignant neoplasm of overlapping sites of right breast in female, estrogen receptor positive (CMS/HCC); Cancer, metastatic to bone (CMS/HCC) 09/26/2024 Orders Only [facility] Oncology and Hematology - [place] [address] [place] [address] Nik Easley MD 09/26/2024 Abstract [facility] Oncology and Hematology - [place] [address] [place] [address] Nik Easley MD 09/25/2024 Orders Only [facility] Oncology and Hematology - [place] [address] [place] [address] Nik Easley MD 09/24/2024 Refill [facility] Oncology and Hematology - [place] [address] [place] [address] Nik Easley MD Malignant neoplasm of overlapping sites of right breast in female, estrogen receptor positive (CMS/HCC) 09/23/2024 Orders Only [facility] Oncology and Hematology - [place] [address] [place] [address] Nik Easley MD Cancer, metastatic to bone (CMS/HCC) (Primary Dx); Malignant neoplasm of overlapping sites of right breast in female, estrogen receptor positive (CMS/HCC) from Last 3 Months Family History [...] Comments Blood Pressure 115/72 11/17/2024 10:03 AM SUPERVISOR COKE HANDLING Pulse 69 11/17/2024 10:03 AM SUPERVISOR COKE HANDLING Temperature 36.8 C (98.2 F) 11/17/2024 10:03 AM SUPERVISOR COKE HANDLING Respiratory Rate 16 11/17/2024 10:03 AM SUPERVISOR COKE HANDLING Oxygen Saturation 97% 11/17/2024 10:03 AM SUPERVISOR COKE HANDLING Inhaled Oxygen Concentration - - Weight 100.2 kg (221 lb) 11/17/2024 10:03 AM SUPERVISOR COKE HANDLING Height 172.7 cm (5' 8 ) 01/01/2024 3:01 PM CDT Body Mass Index 33.6 01/01/2024 3:01 PM CDT Plan of Treatment Upcoming Encounters Date Type Department Care Team (Late st Contact Info) Description 02/18/2025 11:30 AM CDT Office Visit [facility] Oncology and Hematology - [place] [address] [facility] [address] [place] [address] Nik Easley MD [address] [facility] [address] [place] [address] Health Maintenance Due Date Last [...] COMPREHENSIVE METABOLIC PANEL Routine 12/17/2024 12:34 PM SUPERVISOR COKE HANDLING CANCER ANTIGEN 15-3 Routine 11/10/2024 3 :17 PM SUPERVISOR COKE HANDLING COMPREHENSIVE METABOLIC PANEL Routine 11/10/2024 1:00 PM SUPERVISOR COKE HANDLING NM BONE SCAN WHOLE BODY Routine 10/31/19 9:42 AM [address] [employer] [address] CT CHEST ABDOMEN PELVIS W CONT Routine 10/31/2024 9:13 AM SUPERVISOR COKE HANDLING COMPREHENSIVE METABOLIC PANEL Routine 10/22/2024 11:50 AM SUPERVISOR COKE HANDLING IRON LEVEL Routine 10/13/2024 12:56 PM SUPERVISOR COKE HANDLING COMPREHENSIVE METABOLIC PANEL Routine 09/24/2024 3:42 PM SUPERVISOR [employer] HANDLING CANCER ANTIGEN 15-3 Routine 09/24/2024 2 :18 PM SUPERVISOR COKE HANDLING CANCER ANTIGEN 15-3 Routine 09/24/2024 2 :14 PM SUPERVISOR COKE HANDLING from Last 3 Months Results * COMPREHENSIVE METABOLIC PANEL (12/17/2024 12:34 PM SUPERVISOR COKE HANDLING) Only the most recent of4 resultswithin the time period is included. Blood us Nik Easley MD CHEMISTRY ORDERABLES Final Resu lt * CANCER ANTIGEN 15-3 (11/10/2024 3:17 PM SUPERVISOR COKE HANDLING) Only the most recent of3 resultswithin the time period is included. Blood us Nik Easley MD CHEMISTRY ORDERABLES Final Resu lt * NM BONE SCAN WHOLE BODY (10/31/2024 9:42 AM SUPERVISOR COKE HANDLING) Anatomical Region Laterality Modality Other us Nik Easley MD NM ORDERABLES Final Result * CT CHEST ABDOMEN PELVIS W CONT (10/31/2024 9:13 AM SUPERVISOR COKE HANDLING) Anatomical Region Laterality Modality Chest Other us Nik Easley MD CT ORDERABLES Final Result * IRON LEVEL (10/13/2024 12:56 PM SUPERVISOR COKE HANDLING) Blood us Provider Scanning CHEMISTRY ORDERABLES Final Res ult from Last 3 Months Insurance RX [employer] Commercial Care Teams Security Ambassador Relationship Specialty Start Date End Date Anil Long MD [address] [place] [address] PCP - General Family Practice 01/01/24
== END 2024-12-22 09:15 | disposition home or self-care (01) ==
PROVIDERS: PCP Nurse Practitioner; Visit Provider Radiology Radiation Oncology
DX: C50.911 Malignant neoplasm of unspecified site of right female breast (principal); C76.51 Malignant neoplasm of right lower limb
CPT/HCPCS: 78815; A9552

== ENCOUNTER 2025-01-25 12:40 | Emergency (ER) | payer OTHER, SELFPAY ==
--- NOTE | ~2025-01-25 | XR_ITS ---
XR chest 1V portable Ordering provider: Prabhakar Hodges MD History: 55 years Female with . N/V, . Comparison: February 01, 2024 FINDINGS: MEDIASTINUM: The cardiac silhouette is not enlarged. Left Port-A-Cath is removed in the interval. LUNGS: No pneumothorax. Opacification in the left lower lobe area is seen suggestive of atelectasis versus pneumonia. Minimal effusion is not excluded. OTHER: No free air under the diaphragm. IMPRESSION: Left basilar atelectasis versus pneumonia with minimal effusion. Underlying fibrotic changes are seen bilaterally. Reviewed, dictated and finalized at location A. IMPRESSION: Left basilar atelectasis versus pneumonia with minimal effusion. Underlying fib rotic changes are seen bilaterally.
--- NOTE | ~2025-01-25 | CT_ITS ---
EXAMINATION: CTA chest PE protocol DATE: 01/25/2025 15:00 INDICATION: dyspnea on exertion, Metastatic lung ca TECHNIQUE: Computed tomography angiography (CTA) of the chest was performed with 100 mL Omnipaque-350 intravenous contrast timed to evaluate the pulmonary arteries. Coronal maximum intensity projection 3D-reconstructions were created by the technologist. The dose-length product (DLP) was 595.43 mGy-cm. Automated exposure control and iterative reconstruction technique were employed. COMPARISON: CT cap 10/31/2024. FINDINGS: Lung parenchyma and airways: Clear. Pleura: Unremarkable. Thoracic inlet, axillae and chest wall: Left medial breast mass, increased in size. Thoracic aorta: No significant dilation. No dissection. Mediastinum: Normal. Heart and pericardium: Normal. Coronary artery calcifications: Absent. Upper abdomen: No significant finding. Bones: No acute osseous finding. Stable scattered mixed lytic and sclerotic bone lesions. Pulmonary arteries: Study quality: Adequate. No pulmonary emboli detected. IMPRESSION: No CT evidence of acute pulmonary embolus. No acute process detected in the chest. Enlarging left medial breast mass. Stable osseous metastatic disease. Reviewed, dictated and finalized at location K.
--- OUTSIDE RECORDS SUMMARY | 2025-01-25 12:43 | XMS_ITS | Clinical Summary ---
Author Organization [facility] Address [address] [place] [address] Care Team Providers Care Renal Nurse Name Role Phone Anil Long MD Primary Care Provider [phone] Allergies No known active allergies Medications cholecalciferol, [...] Tablet 4 Active naloxone (NARCAN) 4 mg/spray [place], Non-Aerosol EMERGENCY USE ONLY: Administer 1 spray [...] Encounters Date Type Department Care Team Description 01/15/2025 Orders Only [facility] Oncology and Hematology - [place] [address] [place] [address] Nik Easley MD 01/12/2025 Orders Only [facility] Oncology and Hematology - [place] [address] [place] [address] Nik Easley MD Malignant neoplasm of overlapping sites of right breast in female, estrogen receptor positive (CMS/HCC); Cancer, metastatic to bone (CMS/HCC) 12/31/2024 External Device Data STL ABSTRACTION Provider, Abstract 12/29/2024 Abstract [facility] Oncology and Hematology [facility] [address] [place] [address] Nik Easley MD 12/29/2024 Orders Only [facility] Oncology and Hematology - [place] [address] [place] [address] Nik Easley MD Malignant neoplasm of overlapping sites of right breast in female, estrogen receptor positive (CMS/HCC); Cancer, metastatic to bone (CMS/HCC) 12/25/2024 Refill [facility] On[facility] and Hematology - [place] [address] [place] [address] Nik Easley MD Malignant neoplasm of overlapping sites of right breast in female, estrogen receptor positive (CMS/HCC) 12/23/2024 External Device Data STL ABSTRACTION Provider, Abstract 12/23/2024 External Device Data STL ABSTRACTION Provider, Abstract 12/20/2024 External Device Data STL ABSTRACTION Provider, Abstract 12/19/2024 External Device Data STL ABSTRACTION Provider, Abstract 12/17/2024 External Device Data STL ABSTRACTION Provider, Abstract 12/17/2024 Orders Only [facility] Oncology and Hematology - [place] [address] [place] [phone] Nik Easley MD 12/15/2024 Orders Only [facility] On[facility] and Hematology - [place] [address] [place] [address] Nik Easley MD Malignant neoplasm of overlapping sites of right breast in female, estrogen receptor positive (CMS/HCC); Cancer, metastatic to bone (CMS/HCC) 12/09/2024 Abstract [facility] On[facility] and Hematology - [place] [address] [place] [address] Nik Easley MD 12/02/2024 External Device Data STL ABSTRACTION Provider, Abstract 12/01/2024 Orders Only [facility] On[facility] and Hematology - [place] [address] [place] [address] Nik Easley MD Malignant neoplasm of overlapping sites of right breast in female, estrogen receptor positive (CMS/HCC); Cancer, metastatic to bone (CMS/HCC) 11/19/2024 Refill [facility] On[facility] and Hematology - [place] [address] [place] [address] Nik Easley MD Malignant neoplasm of overlapping sites of right breast in female, estrogen receptor positive (CMS/HCC) 11/17/2024 10:00 AM RISK MGR Office Visit [facility] On[facility] and Hematology [facility] [address] [place] [address] Nik Easley MD Malignant neoplasm of overlapping sites of right breast in female, estrogen receptor positive (CMS/HCC); Cancer, metastatic to bone (CMS/HCC) 11/12/2024 Orders Only [facility] Oncology and Hematology - [place] [address] [place] [address] Nik Easley MD 11/11/2024 Orders Only [facility] On[facility] and Hematology - [place] [address] [place] [address] Nik Easley MD 11/05/2024 External Device Data STL ABSTRACTION Provider, Abstract 11/05/2024 External Device Data STL ABSTRACTION Provider, Abstract 11/03/2024 Orders Only [facility] On[facility] and Hematology - [place] [address] [place] [address] Nik Easley MD Malignant neoplasm of overlapping sites of right breast in female, estrogen receptor positive (CMS/HCC); Cancer, metastatic to bone (CMS/HCC) 10/27/2024 Orders Only [facility] Oncology and Hematology - [place] [address] [place] [address] Nik Easley MD from Last 3 Months Family History Medical [...] Comments Blood Pressure 115/72 11/17/2024 10:03 AM RISK MGR Pulse 69 11/17/2024 10:03 AM RISK MGR Temperature 36.8 C (98.2 F) 11/17/2024 10:03 AM RISK MGR Respiratory Rate 16 11/17/2024 10:03 AM RISK MGR Oxygen Saturation 97% 11/17/2024 10:03 AM RISK MGR Inhaled Oxygen Concentration - - Weight 100.2 kg (221 lb) 11/17/2024 10:03 AM RISK MGR Height 172.7 cm (5' 8 ) 01/01/2024 3:01 PM CDT Body Mass Index 33.6 01/01/2024 3:01 PM CDT Plan of Treatment Upcoming Encounters Date Type Department Care Team (Late st Contact Info) Description 01/26/2025 Orders Only [facility] and [facility] [address] [place] [address] Nik Easley MD [address] [place] [address] Malignant neoplasm of overlapping sites of right breast in female, estrogen receptor positive (CMS/HCC); Cancer, metastatic to bone (CMS/HCC) 02/18/2025 11:30 AM CDT Office Visit [facility] Oncology and [facility] [address] [place] [address] Nik Easley MD [address] [place] [address] Health Maintenance Due Date Last Done Comments Pre-Diabetes and Diabetes Screening 1968 DTAP/TDAP/TD VACCINES (1 - Tdap) 01/15/1987 HEPATITIS B VACCINES (1 of 3 - 19+ 3-dose series) 12/1986 ZOSTER VACCINE (1 of 2) 01/15/1987 HPV/Cotest (21-29) 01/15/1989 CERVICAL CANCER SCREENING 01/15/1998 HPV/Cotest (30-65) 01/15/1998 PAP SMEAR 01/15/1998 BREAST CANCER SCREENING 2008 COLORECTAL SCREENING 01/15/2013 Colorectal Cancer Screening 01/15/2013 FIT-DNA Q 3 years 01/15/2013 FIT/FOBT Q 1 year 01/15/2013 Flex Sig/CT Colonography Q 5 years 01/15/2013 INFLUENZA VACCINE (#1) 2024 Procedures Procedure Name Priority Date/Time Associated Diagnosis Comments COMPREHENSIVE METABOLIC PANEL Routine 01/14/2025 3:02 PM CDT COMPREHENSIVE METABOLIC PANEL Routine 12/17/2024 12:34 PM RISK MGR CANCER ANTIGEN 15-3 Routine 11/10/2024 3 :17 PM RISK MGR COMPREHENSIVE METABOLIC PANEL Routine 11/10/2024 1:00 PM RISK MGR NM BONE SCAN WHOLE BODY Routine 10/31/19 9:[address] CHEST ABDOMEN PELVIS W CONT Routine 10/31/2024 9:13 AM RISK MGR from Last 3 Months Results * COMPREHENSIVE METABOLIC PANEL (01/14/2025 3:02 PM CDT) Only the most recent of3 resultswithin the time period is included. Blood us Nik Easley MD CHEMISTRY ORDERABLES Final Resu lt * CANCER ANTIGEN 15-3 (11/10/2024 3:17 PM RISK MGR) Blood us Nik Easley MD CHEMISTRY ORDERABLES Final Resu lt * NM BONE SCAN WHOLE BODY (10/31/2024 9:42 AM RISK MGR) Anatomical Region Laterality Modality Nuclear Medicine us Nik Easley MD NM ORDERABLES Final Result * CT CHEST ABDOMEN PELVIS W CONT (10/31/2024 9:13 AM RISK MGR) Anatomical Region Laterality Modality Chest Computed Tomogra phy us Nik Easley MD CT ORDERABLES Final Result from Last [address] [place] [place] [address] PLAN MEDICAID RX [employer] Commercial Care Teams Renal Nurse Relationship Specialty Start Date End Date Anil Long MD [address] [place] [address] PCP - General Family Practice 01/01/24
--- OUTSIDE RECORDS SUMMARY | 2025-01-25 12:43 | XMS_ITS | Continuity of Care Document ---
Author Organization [facility] Address [address] [place] [address] [place] [address] Phone Care Team Providers Care Cinder Crusher Operator Name Role Phone Robin Virk DO Unavailable Unavailable Advance Directives Directive Yes / No Effective Date File Name No Information Encounters Encounter Description Practice Location Reason(s) For Visit Diagnoses Date Provider Providers Copied on Encounter [facility], [address], [place], [place], [address], [place] tel:[phone] [facility] No Information Moose Mazariegos. [address] [facility], [place], [address], [place]. tel: [phone] Family History Family Member Type Diagnosis Age At Onset No Information Payers Payer name Insurance type Covered alliance party ID Authoriza tion(s) No Information Social [...]
--- OUTSIDE RECORDS SUMMARY | 2025-01-25 12:43 | XMS_ITS | Continuity of Care Document ---
Author Organization [facility] Address [address] [place] [address] Phone Care Team Providers Care Fish Grader Name Role Phone Unavailable Unavailable Unavailable Medications Medication Instructions Dosage Effective Dates (start - stop) Status Comments ACETAMINOPHEN-COD #4 TABLET 1 BID - Active ALPRAZOLAM 2 MG TABLET 1 TID - Active AMOXICILLIN 500 MG CAPSULE 1 [...] Diagnoses Date Provider Providers Copied on Encounter [facility], [address], [place], [place], [address] , [place] tel: [phone] [facility] No Information 2 No Information [facility], [address], [place], [place], [address] , [place] tel: [phone] [facility] No Information 1 No Information [facility], [address], [place], [place], [address] , [place] tel: [phone] Conversion Department No Information 1 Conversion Doctor. [address] [place] [address], [address], . [facility], [address], [place], [place], [address] , tel: [phone] [facility] URIN TRACT INFECTION NOS [address] Conversion Doctor. [facility], [address], . [facility], [address], [place], [place], [address] , tel: [phone] [facility] ANXIETY STATE NOS [address] Conversion Doctor. [facility] [place], [address], . [facility], [address], [place], [place], [address] , tel: [phone] [facility] COUGH [address] Conversion Doctor. [facility] [place], [address], . [facility], [address], [place], [place], [address] , tel: [phone] [facility] ABNORMAL WEIGHT GAINLUMBAGOALLER GIC RHINITIS NOSSCREEN LIPOID DISORDERS [address] No Information [facility], [address], [place], [place], [address] , tel: [phone] [facility] ACUTE URI NOS [address] Conversion Doctor. [facility] [place], [address], . Family History Family Member Type Diagnosis [...]
--- OUTSIDE RECORDS SUMMARY | 2025-01-25 12:43 | XMS_ITS | Continuity of Care Document ---
Author Organization [facility] Address [address] [place] [address] [address] [place] [address] Phone Care Team Providers Care Pawn Shop Keeper Name Role Phone Benjamin OD, Claude Unavailable Unavailable Procedures Procedure Date Eye Exam, New Patient Refraction Advance Directives Directive Yes / No Effective Date File Name No Information Encounters Encounter Description Practice Location Reason(s) For Visit Diagnoses Date Provider Providers Copied on Encounter [facility], [address] [place] [address] [address], [place], [place], [address], [place] tel:[phone] [facility] No Information Dec-2 4-201 0 Benjamin OD Claude. [address] , [address], [place], [address], [place]. tel:[phone] Family History Family Member Type Diagnosis Age At Onset No Information Payers Payer name Insurance type Covered alliance party ID Authoriza tiapolinar(s) [employer] Vision Plan [place] [id number] Social History Type Description Quantity Date Captured [...]
[2025-01-25 12:48] VITALS: BP 131/85; PULSE 73; RESP 18; TEMP 36.9; O2SAT 96
--- NOTE | 2025-01-25 13:21 | ECG_ITS ---
Test Date: 2025-01-25 13:58:37 Measurements Intervals Deshler Rate: 56 P: 65 ID: [id number] QRS: 34 QRSD: 77 T: 46 QT: 434 QTc: 419 Interpretive Statements SINUS BRADYCARDIA MINIMAL Q WAVES- INFERIOR LEADS BASELINE ARTIFACT- I, II, III, AVR, AVL,A VF, V1-V3 BORDERLINE ECG No previous ECG available for comparison Electronically Signed On 01-25-2025 14:52:04 CDT by Lucho Pelayo D.O.
--- OUTSIDE RECORDS SUMMARY | 2025-01-25 13:24 | XMS_ITS | Continuity of Care Document ---
Author Organization [facility] Address [address] [place] [address] [place] [address] Phone Care Team Providers Care Fiction And Nonfiction Author Name Role Phone Robin Virk DO Unavailable Unavailable Advance Directives Directive Yes / No Effective Date File Name No Information Encounters Encounter Description Practice Location Reason(s) For Visit Diagnoses Date Provider Providers Copied on Encounter [facility], [address], [place], [place], [id number], [place] tel:[phone] [facility] No Information Moose Mazariegos. [address] [facility], [place], [address], [place]. tel: [phone] Family History Family Member Type Diagnosis Age [...]
--- OUTSIDE RECORDS SUMMARY | 2025-01-25 13:24 | XMS_ITS | Continuity of Care Document ---
Author Organization [facility] Address [address] [place] [address] [address] [place] [address] Phone Care Team Providers Care Tobacco Cutter Name Role Phone Benjamin OD, Claude Unavailable Unavailable Procedures Procedure Date Eye Exam, New Patient Refraction Advance Directives Directive Yes / No Effective Date File Name No Information Encounters Encounter Description Practice Location Reason(s) For Visit Diagnoses Date Provider Providers Copied on Encounter [facility], [address] [place] [address] [address], [place], [place], [id number], [place] tel:[phone] [facility] No Information Dec-2 4-201 0 Benjamin OD Claude. [address] , [address], [place], [address], [place]. tel:[phone] Family History Family Member Type Diagnosis Age At Onset No Information Payers Payer name Insurance type Covered alliance party ID Authoriza tiapolinar(s) [employer] Vision Plan CI [id number] Social History Type Description Quantity Date Captured [...]
--- OUTSIDE RECORDS SUMMARY | 2025-01-25 13:24 | XMS_ITS | Continuity of Care Document ---
Author Organization [facility] Address [address] [place] [address] Phone Care Team Providers Care Licensed Funeral Director And Embalmer Name Role Phone Unavailable Unavailable Unavailable Medications [...] Diagnoses Date Provider Providers Copied on Encounter [facility], [address], [place], [place], [address] , [place] tel: [phone] [facility] No Information 2 No Information [employer] [facility], [address], [place], [place], [address] , [place] tel: [phone] [facility] No Information 1 No Information [employer] [facility], [address], [place], [place], [address] , [place] tel: [phone] Conversion Department No Information 1 Conversion Doctor. [address] [place] [address], [address], . [facility], [address], [place], [place], [address] , tel: [phone] [facility] URIN TRACT INFECTION NOS 200 8 Conversion Doctor. [facility] [place], [address], . [facility], [address], [place], [place], [address] , tel: [phone] [facility] ANXIETY STATE NOS 200 8 Conversion Doctor. [facility] [place], [address], . [facility], [address], [place], [place], [address] , tel: [phone] [facility] COUGH 200 7 Conversion Doctor. [facility] [place], [address], . [facility], [address], [place], [place], [address] , tel: [phone] [facility] ABNORMAL WEIGHT GAINLUMBAGOALLER GIC RHINITIS NOSSCREEN LIPOID DISORDERS 200 7 No Information [facility], [address], [place], [place], [address] , tel: [phone] [facility] ACUTE URI NOS 200 5 Conversion Doctor. [facility] [place], [address], . Family History Family Member Type Diagnosis [...]
--- OUTSIDE RECORDS SUMMARY | 2025-01-25 13:24 | XMS_ITS | Clinical Summary ---
Author Organization [facility] Address [address] [place] [address] Care Team Providers Care Care Aid Name Role Phone Anil Long MD Primary Care Provider [phone] Allergies No known active allergies Medications cholecalciferol, [...] Tablet 4 Active naloxone (NARCAN) 4 mg/spray [place], Non-Aerosol EMERGENCY USE ONLY: Administer 1 spray [...] Department Care Team Description 01/15/2025 Orders Only [facility] [place] [address] [place] [id number] Nik Easley MD 01/12/2025 Orders Only [facility] [place] [address] [place] [address] Nik Easley MD Malignant neoplasm of overlapping sites of right breast in female, estrogen receptor positive (CMS/HCC); Cancer, metastatic to bone (CMS/HCC) 12/31/2024 External Device Data STL ABSTRACTION Provider, Abstract 12/29/2024 Abstract [facility] [address] [place] [address] Nik Easley MD 12/29/2024 Orders Only [facility] [place] [address] [place] [address] Nik Easley MD Malignant neoplasm of overlapping sites of right breast in female, estrogen receptor positive (CMS/HCC); Cancer, metastatic to bone (CMS/HCC) 12/25/2024 Refill [facility] [place] [address] [place] [address] Nik Easley MD Malignant neoplasm of overlapping sites of right breast in female, estrogen receptor positive (CMS/HCC) 12/23/2024 External Device Data STL ABSTRACTION Provider, Abstract 12/23/2024 External Device Data STL ABSTRACTION Provider, Abstract 12/20/2024 External Device Data STL ABSTRACTION Provider, Abstract 12/19/2024 External Device Data STL ABSTRACTION Provider, Abstract 12/17/2024 External Device Data STL ABSTRACTION Provider, Abstract 12/17/2024 Orders Only [facility] [place] [address] [place] [id number] Nik Easley MD 12/15/2024 Orders Only [facility] [place] [address] [place] [address] Nik Easley MD Malignant neoplasm of overlapping sites of right breast in female, estrogen receptor positive (CMS/HCC); Cancer, metastatic to bone (CMS/HCC) 12/09/2024 Abstract [facility] [place] [address] [place] [address] Nik Easley MD 12/02/2024 External Device Data STL ABSTRACTION Provider, Abstract 12/01/2024 Orders Only [facility] [place] [address] [place] [address] Nik Easley MD Malignant neoplasm of overlapping sites of right breast in female, estrogen receptor positive (CMS/HCC); Cancer, metastatic to bone (CMS/HCC) 11/19/2024 Refill [facility] [place] [address] [place] [address] Nik Easley MD Malignant neoplasm of overlapping sites of right breast in female, estrogen receptor positive (CMS/HCC) 11/17/2024 10:00 AM MEDIA SERVICES SPECIALIST Office Visit [facility] [address] [place] [address] Nik Easley MD Malignant neoplasm of overlapping sites of right breast in female, estrogen receptor positive (CMS/HCC); Cancer, metastatic to bone (CMS/HCC) 11/12/2024 Orders Only [facility] [place] [address] [place] [address] Nik Easley MD 11/11/2024 Orders Only [facility] [place] [address] [place] [address] Nik Easley MD 11/05/2024 External Device Data STL ABSTRACTION Provider, Abstract 11/05/2024 External Device Data STL ABSTRACTION Provider, Abstract 11/03/2024 Orders Only [facility] [place] [address] [place] [address] Nik Easley MD Malignant neoplasm of overlapping sites of right breast in female, estrogen receptor positive (CMS/HCC); Cancer, metastatic to bone (CMS/HCC) 10/27/2024 Orders Only [facility] [place] [address] [place] [address] Nik Easley MD from Last 3 Months [...] Comments Blood Pressure 115/72 11/17/2024 10:03 AM MEDIA SERVICES SPECIALIST Pulse 69 11/17/2024 10:03 AM MEDIA SERVICES SPECIALIST Temperature 36.8 C (98.2 F) 11/17/2024 10:03 AM MEDIA SERVICES SPECIALIST Respiratory Rate 16 11/17/2024 10:03 AM MEDIA SERVICES SPECIALIST Oxygen Saturation 97% 11/17/2024 10:03 AM MEDIA SERVICES SPECIALIST Inhaled Oxygen Concentration - - Weight 100.2 kg (221 lb) 11/17/2024 10:03 AM MEDIA SERVICES SPECIALIST Height 172.7 cm (5' 8 ) 01/01/2024 3:01 PM CDT Body Mass Index 33.6 01/01/2024 3:01 PM CDT Plan of Treatment Upcoming Encounters Date Type Department Care Team (Late st Contact Info) Description 01/26/2025 Orders Only [facility] [address] [facility] [place] [address] Nik Easley MD [address] [place] [address] Malignant neoplasm of overlapping sites of right breast in female, estrogen receptor positive (CMS/HCC); Cancer, metastatic to bone (CMS/HCC) 02/18/2025 11:30 AM CDT Office Visit [facility] [address] [facility] [place] [address] Nik Easley MD [address] [place] [address] Health Maintenance Due Date Last Done Comments [...] COMPREHENSIVE METABOLIC PANEL Routine 12/17/2024 12:34 PM MEDIA SERVICES SPECIALIST CANCER ANTIGEN 15-3 Routine 11/10/2024 3 :17 PM MEDIA SERVICES SPECIALIST COMPREHENSIVE METABOLIC PANEL Routine 11/10/2024 1:00 PM MEDIA SERVICES SPECIALIST NM BONE SCAN WHOLE BODY Routine 10/31/19 9:[address] CHEST ABDOMEN PELVIS W CONT Routine 10/31/2024 9:13 AM MEDIA SERVICES SPECIALIST from Last 3 Months Results * COMPREHENSIVE METABOLIC PANEL (01/14/2025 3:02 PM CDT) Only the most recent of3 resultswithin the time period is included. Blood us Nik Easley MD CHEMISTRY ORDERABLES Final Resu lt * CANCER ANTIGEN 15-3 (11/10/2024 3:17 PM MEDIA SERVICES SPECIALIST) Blood us Nik Easley MD CHEMISTRY ORDERABLES Final Resu lt * NM BONE SCAN WHOLE BODY (10/31/2024 9:42 AM MEDIA SERVICES SPECIALIST) Anatomical Region Laterality Modality Nuclear Medicine us Nik Easley MD NM ORDERABLES Final Result * CT CHEST ABDOMEN PELVIS W CONT (10/31/2024 9:13 AM MEDIA SERVICES SPECIALIST) Anatomical Region Laterality Modality Chest Computed Tomogra phy us Nik Easley MD CT ORDERABLES Final Result from Last [address] [place] [address] [address] [place] [address] PLAN MEDICAID [employer] Commercial Care Teams Care Aid Relationship Specialty Start Date End Date Anil Long MD [address] [place] [address] PCP - General Family Practice 01/01/24
[2025-01-25 13:40] LABS: Basophils Percent Auto 0.4 % (0.2-1.2); Eosinophils Absolute Auto 0.1 K/mm3 (0-0.3); Eosinophils Percent Auto 3.6 % (0-4.4); Hematocrit 35.1 % (37.0-47.0); Hemoglobin 12.5 g/dL (12.0-15.0); Lymphocytes Absolute Auto 0.95 K/mm3 (0.9-3.2); Lymphocytes Percent Auto 42.2 % (18.3-44.2); Mean Corpuscular HGB Conc 35.6 g/dl (32-36); Mean Corpuscular Hemoglobin 35.7 pg (26-34); Mean Corpuscular Volume 100.3 fl (80-100); Mean Platelet Volume 9.6 fl (7.4-10.4); Monocytes Absolute Auto 0.2 K/mm3 (0.1-0.6); Monocytes Percent Auto 6.7 % (2.6-8.5); Neutrophils Absolute Auto 1.1 K/mm3 (1.3-6.7); Neutrophils Percent Auto 47.1 % (45.5-73.1); Platelet Count Result 123 k/mm3 (150-375); White Blood Count 2.3 K/mm3 (4.5-10.0)
[2025-01-25] MEDS: ONDANSETRON INJ 4 MG/2 ML VIAL IV PUSH (13:42)
[2025-01-25] MEDS: FAMOTIDINE 20 MG/2 ML VIAL IV PUSH (13:44)
[2025-01-25] MEDS: LACTATED RINGERS 1,000 ML 999 ML IV CONT ×3 (13:45→15:35)
[2025-01-25 13:49] LABS: Lactic Acid Reflex 0.8 mmol/L (0.7-2.0)
[2025-01-25 13:50] LABS: Alanine Aminotransferase 23 U/L (6-35); Albumin Level 3.9 g/dL (3.5-5.1); Alkaline Phosphatase 60 U/L (38-126); Anion Gap 9 mmol/L (4-12); Aspartate Amino Transferase 38 U/L (14-36); Bilirubin,Total 0.7 mg/dL (0.2-1.3); Blood Urea Nitrogen 9 mg/dL (7-17); Calcium 8.2 mg/dL (8.4-10.2); Carbon Dioxide 29 mmol/L (22-30); Chloride 102 mmol/L (98-107); Estimated CRCL calculation 102 ml/min; Estimated Glomerular Filt Rate > 60; Glucose 106 mg/dL (65-110); Lipase 37 U/L (23-300); Magnesium 2.1 mg/dL (1.6-2.3); Potassium 3.5 mmol/L (3.4-5.0); Sodium 140 mmol/L (137-145)
--- NOTE | 2025-01-25 15:26 | ED.GENADULT ---
HPI - General Adult General Chief complaint: Nausea/Vomiting/Diarrhea Stated complaint: N/V--D x 2 weeks Time Seen by Provider: 01/25/25 13:08 History of Present Illness HPI narrative: This is a 55-year-old female presenting with 10 days of nausea/vomiting and loose stools. Associated symptoms in include a sharp pain in the epigastric pain. She denies fevers chills chest pain difficulty breathing. Denies lower extremity edema. Patient has stage IV breast cancer is now undergoing radiation and hormonal therapy. Related Data Home Medications ?Medication ?Instructions ?Recorded ?Confirmed ?Last Taken ?Type anastrozole 1 mg tablet 1 mg PO DAILY 02/08/24 08/27/24 Unknown History palbociclib 125 mg capsule 125 mg PO DAILY 03/07/24 08/27/24 Unknown History (Ibrance) alprazolam 0.5 mg tablet 0.5 mg PO DAILY 04/30/24 08/27/24 Unknown History hydrocodone 7.5 mg-acetaminophen 1 tablet PO Q6H PRN Moderate Pain 04/30/24 08/27/24 Unknown History 325 mg tablet (Scale Score 5-6) ondansetron HCl 8 mg tablet 8 mg PO Q8H PRN nauseea 04/30/24 08/27/24 Unknown History cyanocobalamin (vitamin B-12) 500 500 mcg PO DAILY 07/14/24 08/27/24 Unknown History mcg tablet (Vitamin B-12) ferrous sulfate 325 mg (65 mg 325 mg PO DAILY 07/14/24 08/27/24 Unknown History iron) tablet Allergies Allergy/AdvReac Type Severity Reaction Status Date / Time No Known Allergies Allergy Verified 01/25/25 12:54 [facility] Past Medical History Medical History BMI 34.0-34.9,adult Obesity Tobacco abuse Hyperlipemia Breast cancer, right breast Anxiety Mixed hyperlipidemia Surgical History Surgical History History of cholecystectomy History of hysterectomy Family History Family History Mother Family history of thyroid disease Family history of diabetes mellitus in first degree relative Diabetes mellitus Sibling Family history of thyroid disease Family history of malignant neoplasm of thyroid Father Family history of gastrointestinal disorder Social History Social History Social History: started to smoke again Smoking packs per day: 0.5 Smoking cigarettes per day: 10.0 Years smoked: 25 Smoking pack-years: 12.50 Smoking status: Former smoker Tobacco type: cigarettes Second hand tobacco smoke exposure: Yes Smoking end date: 02/21/21 Additional smoking assessment comments: smoking about 1/2 pack or more currently Alcohol intake: never Substance use: never Substance use type: does not use Do You Feel Safe in your Home?: Yes Lack of Transportation: No Lack of Food: Never True Current Housing: I Have Housing Concerned About Future Housing: No Difficulty Paying Gas/Electric Bills: No Difficulty Paying for Meds: No Currently Unemployed: No Education: Associate Degree Difficulty w/ Childcare or Family Care: No Living arrangements: with family Occupation/Education: occupation Additional occupation/education comments: [employer] Gender identity (if verbalized by the patient): Female Spiritual care concerns: No Exam Narrative: APPEARANCE: No apparent distress. Head: atraumatic. EYES: EOMI, NOSE: Atraumatic NECK: Trachea midline RESPIRATORY: No increased rate of breathing clear to auscultation CARDIOVASCULAR: RRR, ABDOMINAL: Tenderness in the epigastric area MUSCULOSKELETAl: No obvious deformities NEURO: Alert. Moving 4/4 extremities SKIN:: Warm, dry. Normal color PSYCHIATRIC: Normal affect Course Vital Signs Vital signs: Vital Signs Temperature 98.4 F 01/25/25 12:48 Pulse Rate 73 01/25/25 12:48 Respiratory Rate 18 01/25/25 12:48 Blood Pressure 131/85 01/25/25 12:48 Pulse Oximetry 96 01/25/25 12:48 Oxygen Delivery Room Air 01/25/25 12:48 Temperature 98.4 F 01/25/25 12:48 Pulse Rate 81 01/25/25 16:27 Respiratory Rate 18 01/25/25 16:27 Blood Pressure 119/45 L 01/25/25 16:27 Pulse Oximetry 97 01/25/25 16:27 Oxygen Delivery Room Air 01/25/25 12:48 Medical Decision Making MDM Narrative Medical decision making narrative: -Course: 55-year-old female presenting with nausea and vomiting. Physical exam with tenderness in the epigastric area. The rest the abdomen is soft nontender no guarding rebound. Laboratory studies showed a white count of 2.3 and she has chronic leukopenia. Rest of her laboratory studies are normal with no evidence of acute kidney injury or dehydration. She is given 3 L fluid in symptomatic treatment with improvement. She is now tolerating p.o.. She is discharged home with Pepcid. Follow up with her primary care physician and oncologist. -DDX includes but is not limited to: Gastritis, peptic ulcer disease, pancreatitis, gallbladder disease, pneumonia, PE -Co-morbidities complicating care: Stage IV breast cancer Vital Signs Vital Signs: Vital Signs Temperature 98.4 F 01/25/25 12:48 Pulse Rate 73 01/25/25 12:48 Respiratory Rate 18 01/25/25 12:48 Blood Pressure 131/85 01/25/25 12:48 Pulse Oximetry 96 01/25/25 12:48 Oxygen Delivery Room Air 01/25/25 12:48 Temperature 98.4 F 01/25/25 12:48 Pulse Rate 81 01/25/25 16:27 Respiratory Rate 18 01/25/25 16:27 Blood Pressure 119/45 L 01/25/25 16:27 Pulse Oximetry 97 01/25/25 16:27 Oxygen Delivery Room Air 01/25/25 12:48 Lab Data 01/25/25 13:33 01/25/25 13:33 Labs: Lab Results 01/25/25 Range/Units 13:33 WBC 2.3 L (4.5-10.0) K/mm3 RBC 3.50 L (4.2-5.4) M/mm3 Hgb 12.5 (12.0-15.0) g/dL Hct 35.1 L (37.0-47.0) % MCV 100.3 H (80-100) fl MCH 35.7 H (26-34) pg MCHC 35.6 (32-36) g/dl RDW 13.0 (11.5-14.5) % Plt Count 123 L (150-375) k/mm3 MPV 9.6 (7.4-10.4) fl Immature Gran % (Auto) 0.0 (0-0.5) % Neut % (Auto) 47.1 (45.5-73.1) % Lymph % (Auto) 42.2 (18.3-44.2) % Morton % (Auto) 6.7 (2.6-8.5) % Eos % (Auto) 3.6 (0-4.4) % Baso % (Auto) 0.4 (0.2-1.2) % Lymph # (Auto) 0.95 (0.9-3.2) K/mm3 Morton # (Auto) 0.2 (0.1-0.6) K/mm3 Eos # (Auto) 0.1 (0-0.3) K/mm3 Baso # (Auto) 0.0 (0.0-0.1) K/mm3 Abs Immat Gran (auto) 0.00 (0.00-0.031) K/mm3 Absolute Neuts (auto) 1.1 L (1.3-6.7) K/mm3 Absolute Nucleated RBC 0.000 (0.0-0.012) K/mm3 Nucleated RBC % 0.0 (0.0-0.2) % Sodium 140 (137-145) mmol/L Potassium 3.5 (3.4-5.0) mmol/L Chloride 102 (98-107) mmol/L Carbon Dioxide 29 (22-30) mmol/L Anion Gap 9 (4-12) mmol/L BUN 9 (7-17) mg/dL Creatinine 0.63 L (0.7-1.0) mg/dL Estim Creat Clear Calc 102 ml/min Estimated GFR > 60 (59 - ) Glucose 106 (65-110) mg/dL Lactic Acid 0.8 (0.7-2.0) mmol/L Calcium 8.2 L (8.4-10.2) mg/dL Magnesium 2.1 (1.6-2.3) mg/dL Total Bilirubin 0.7 (0.2-1.3) mg/dL AST 38 H (14-36) U/L ALT 23 (6-35) U/L Alkaline Phosphatase 60 (38-126) U/L Total Protein 7.0 (6.3-8.2) g/dL Albumin 3.9 (3.5-5.1) g/dL Lipase 37 (23-300) U/L Discharge Plan Discharge Clinical Impression: Nausea & vomiting, Abdominal pain Patient Disposition: Home Condition: Stable Instructions: Antibiotic Form, Acute Nausea and Vomiting (DC) Additional Instructions: You were seen in the emergency department for nausea and vomiting. Please use Zofran and Reglan as needed for vomiting. Please complete a course of Pepcid. Follow-up with your primary care physician and oncologist for further management. Return if you develop severe pain, intractable nausea vomiting or fevers. Patient Language: Malay Prescriptions: New metoclopramide HCl [Reglan] 10 mg tablet 10 mg PO Q6H PRN (Reason: nausea and vomiting) Qty: 30 0RF famotidine [Pepcid] 20 mg tablet 20 mg PO BID 42 Days Qty: 84 0RF oxycodone 5 mg tablet 5 mg PO Q4H PRN (Reason: pain) Qty: 20 0RF No Action anastrozole 1 mg Tablet 1 mg PO DAILY Ibrance 125 mg Capsule 125 mg PO DAILY Rx Instructions: administer on days 1 through 21 of a 28-day treatment cycle hydrocodone-acetaminophen 7.5-325 mg tablet 1 tablet PO Q6H PRN (Reason: Moderate Pain (Scale Score 5-6)) ondansetron HCl 8 mg tablet 8 mg PO Q8H PRN (Reason: nauseea) alprazolam 0.5 mg tablet 0.5 mg PO DAILY Patient Comments: . Rx Instructions: as needed for anxiety albuterol sulfate [Ventolin HFA] 90 mcg/actuation HFA aerosol inhaler 2 puff INHALATION Q4H PRN (Reason: shortness of breath or wheezing) Qty: 8.5 6RF Patient Comments: ....... cyanocobalamin (vitamin B-12) [Vitamin B-12] 500 mcg Tablet 500 mcg PO DAILY ferrous sulfate 325 mg (65 mg iron) Tablet 325 mg PO DAILY cholecalciferol (vitamin D3) 25 mcg (1,000 unit) capsule 25 mcg PO DAILY Qty: 90 1RF trazodone 50 mg tablet 50 mg PO .COMPLEX Qty: 60 5RF Rx Instructions: 50 mg orally take 1-2 tablets PO QHS PRN sleep; atorvastatin 40 mg tablet See Rx Instructions .ROUTE .COMPLEX Qty: 90 1RF Dose Instruction: TAKE ONE TABLET BY MOUTH ONE TIME DAILY IN THE EVENING Rx Instructions: TAKE ONE TABLET BY MOUTH ONE TIME DAILY IN THE EVENING Follow-up/Referrals: Quoc Sosa APRN [Primary Care Provider] -
[2025-01-25 15:36] VITALS: BP 126/68; PULSE 80; RESP 20; O2SAT 99
[2025-01-25] MEDS: PANTOPRAZOLE SODIUM IV 40 MG VIAL IV PUSH (16:19)
[2025-01-25] MEDS: HYDROmorphone HCL INJ (*CRX) 1 MG/ML SYR 0.5 MG IV PUSH (16:20)
[2025-01-25 16:27] VITALS: BP 119/45; PULSE 81; RESP 18; O2SAT 97
[2025-01-25 17:32] VITALS: BP 120/61; PULSE 76; RESP 16; O2SAT 100
== END 2025-01-25 17:41 | disposition home or self-care (01) ==
PROVIDERS: Emergency Provider Emergency Medicine; PCP Nurse Practitioner
DX: R11.2 Nausea with vomiting, unspecified (principal); R10.13 Epigastric pain; E78.2 Mixed hyperlipidemia; E66.9 Obesity, unspecified; Z68.34 Body mass index [BMI] 34.0-34.9, adult; F41.9 Anxiety disorder, unspecified; F17.210 Nicotine dependence, cigarettes, uncomplicated; Z90.49 Acquired absence of other specified parts of digestive tract; Z90.710 Acquired absence of both cervix and uterus; C50.911 Malignant neoplasm of unspecified site of right female breast; Z79.899 Other long term (current) drug therapy
CPT/HCPCS: 36415; 71045; 71275; 80053; 83605; 83690; 83735; 85025; 93005; 96361; 96374; 96375; 99284; J1171; J2405; J2470; J7120; Q9967

== ENCOUNTER 2025-01-26 18:22 | Emergency (ER) | payer OTHER, SELFPAY ==
--- NOTE | ~2025-01-26 | CT_ITS ---
CT abdomen pelvis w con Ordering provider: Marcio Kwok PA-C History: 55 years Female with . epigastric and periumbilical pain, N/V . Comparison: October 31, 2024 Technique: CT abdomen and pelvis with IV and without oral contrast. Automated exposure control and it erative reconstruction technique were employed. The dose-length product was 1400.86 mGy-cm. 100 mL Om nipaque 350 was given IV. Findings: VISUALIZED LOWER CHEST: Normal. Thickening of the skin of the right wrist. UPPER ABDOMINAL ORGANS: Liver: Normal. Gallbladder: Status post cholecystectomy. Slightly prominent CBD. Spleen: Normal. Stomach/duodenum: Normal. Pancreas: Normal. Adrenals: Normal. Kidneys: Bilateral tiny cysts. PELVIC ORGANS: The bladder is normal. BOWEL AND MESENTERY: * Colon: No evidence of diverticulitis. Slightly thickened wall of the transverse colon on the left and right side which is most likely spastic and not seen in the previous study. The left area measure s 3.6 cm. Follow-up advised. Normal appendix. Small Bowel: Normal. No obstruction. Peritoneum/mesentery: No free air or free fluid. No mesenteric lymphadenopathy. RETROPERITONEUM: Mild atheromatous disease of the abdominal aorta. No retroperitoneal lymphadenopat hy. MUSCULOSKELETAL: Superficial soft tissues: The superficial soft tissues are normal. Bones: Age appropriate degenerative changes of the spine. Multiple metastatic lesions in the spine un changed. Destructive changes in the left iliac bone medially is also noted. IMPRESSION: 1. No evidence of appendicitis,1 diverticulitis or intestinal obstruction. 2. Slight thickening seen in the transverse colon to the right and left side which is most likely sp astic. Follow-up advised. 3. Multiple osteolytic lesions unchanged from previous examination. Reviewed, dictated and finalized at location A. IMPRESSION: 1. No evidence of appendicitis,1 diverticulitis or intestinal obstruction. 2. Slight thickening seen in the transverse colon to the right and left side w hich is most likely spastic. Follow-up advised. 3. Multiple osteolytic lesions unchanged from previous examination.
--- OUTSIDE RECORDS SUMMARY | 2025-01-26 18:25 | XMS_ITS | Clinical Summary ---
Author Organization [facility] Address [address] [place] [address] Care Team Providers Care Establishment Guide Name Role Phone Anil Long MD Primary Care Provider [phone] Allergies No known active allergies Medications cholecalciferol , Vitamin D3, (VITAMIN D3) 25 mcg (1,000 unit) Capsule Take by mouth daily. Active atorvastatin (LIPITOR) 40 mg tablet Take 40 mg by mouth daily. Active lidocaine-prilo lupe (EMLA) 2.5-2.5 % Cream Apply a quarter size amount to port site 30 minutes before access. 30 Gram 1 02/12/20 24 Active ALPRAZolam (Xanax) 0.5 mg tabletIndicatio ns:Malignant neoplasm of overlapping sites of right breast in female, estrogen receptor positive (CMS/HCC) Take 1 Tablet (0.5 mg) by mouth nightly as needed for Anxiety. 10 Tablet 02/12/20 24 Active naloxone (NARCAN) 4 mg/spray [place], Non-Aerosol EMERGENCY USE ONLY: Administer 1 spray (4 mg) in one nostril one time. May repeat in alternating nostrils every 2-3 min until responsive or EMS arrives. 2 Each 3 02/26/20 24 Active ondansetron (ZOFRAN) 8 mg Tablet Take 1 Tablet (8 mg) by mouth every 8 hours as needed for Nausea/Emesis. 30 Tablet 2 02/26/20 24 Active traZODone (DESYREL) 50 mg tablet Take 50 mg by mouth daily at bedtime. 05/26/20 24 Active anastrozole (Arimidex) 1 mg tablet Take 1 Tablet (1 mg) by mouth daily. 90 Tablet 3 07/30/20 24 Active OTHER Nicotine patches Active HYDROcodone-gee taminophen (NORCO) 7.5-325 mg TabletIndicatio ns:Malignant neoplasm of overlapping sites of right breast in female, estrogen receptor positive (CMS/HCC) Take 1 Tablet by mouth every 6 hours as needed for Pain, Moderate. Max Daily Amount: 4 Tablets 60 Tablet 12/26/19 25 Active palbociclib (Ibrance) 125 mg tablet TAKE 1 TABLET DAILY FOR 3 WEEKS ON, AND 1 WEEK OFF 21 Tablet 5 01/27/20 25 Active palbociclib (Ibrance) 125 mg tablet TAKE 1 TABLET DAILY FOR 3 WEEKS ON AND 1 WEEK OFF 21 Tablet 5 08/15/20 24 025 Discontinued Active Problems No known active problems Encounters Date Type Department Care Team Description 01/26/2025 Refill [facility] Oncology and Hematology [facility] [address] [place] [id number] Milagro Quevedo MD 01/26/2025 Orders Only [facility] Oncology and Hematology [facility] [address] [place] [address] Nik Easley MD Malignant neoplasm of overlapping sites of right breast in female, estrogen receptor positive (CMS/HCC); Cancer, metastatic to bone (CMS/HCC) 01/15/2025 Orders Only [facility] Oncology and Hematology - [place] [address] [place] [address] Nik Easley MD 01/12/2025 Orders Only [facility] Oncology and Hematology - [place] [address] [place] [address] Nik Easley MD Malignant neoplasm of overlapping sites of right breast in female, estrogen receptor positive (CMS/HCC); Cancer, metastatic to bone (CMS/HCC) 12/31/2024 External Device Data STL ABSTRACTION Provider, Abstract 12/29/2024 Abstract [facility] Oncology and Hematology [facility] [address] [place] [address] Nik Easley MD 12/29/2024 Orders Only [facility] Oncology and Hematology - [place] [address] [place] [address] Nik Easley MD Malignant neoplasm of overlapping sites of right breast in female, estrogen receptor positive (CMS/HCC); Cancer, metastatic to bone (CMS/HCC) 12/25/2024 Refill [facility] Oncology and Hematology - [place] [address] [place] [address] Nik Easley MD Malignant neoplasm of overlapping sites of right breast in female, estrogen receptor positive (CMS/HCC) 12/23/2024 External Device Data STL ABSTRACTION Provider, Abstract 12/23/2024 External Device Data STL ABSTRACTION Provider, Abstract 12/20/2024 External Device Data STL ABSTRACTION Provider, Abstract 12/19/2024 External Device Data STL ABSTRACTION Provider, Abstract 12/17/2024 External Device Data STL ABSTRACTION Provider, Abstract 12/17/2024 Orders Only [facility] Oncology and Hematology - [place] [address] [place] [address] Nik Easley MD 12/15/2024 Orders Only [facility] Oncology and Hematology - [place] [address] [place] [address] Nik Easley MD Malignant neoplasm of overlapping sites of right breast in female, estrogen receptor positive (CMS/HCC); Cancer, metastatic to bone (CMS/HCC) 12/09/2024 Abstract [facility] Oncology and Hematology - [place] [address] [place] [address] Nik Easley MD 12/02/2024 External Device Data STL ABSTRACTION Provider, Abstract 12/01/2024 Orders Only [facility] Oncology and Hematology - [place] [address] [place] [address] Nik Easley MD Malignant neoplasm of overlapping sites of right breast in female, estrogen receptor positive (CMS/HCC); Cancer, metastatic to bone (CMS/HCC) 11/19/2024 Refill [facility] Oncology and Hematology - [place] [address] [place] [address] Nik Easley MD Malignant neoplasm of overlapping sites of right breast in female, estrogen receptor positive (CMS/HCC) 11/17/2024 10:00 AM DIRECTOR OF OUTREACH Office Visit [facility] Oncology and Hematology - [place] [address] [place] [address] Nik Easley MD Malignant neoplasm of overlapping sites of right breast in female, estrogen receptor positive (CMS/HCC); Cancer, metastatic to bone (CMS/HCC) 11/12/2024 Orders Only [facility] Oncology and Hematology - [place] [address] [place] [address] Nik Easley MD 11/11/2024 Orders Only [facility] Oncology and Hematology - [place] [address] [place] [address] Nik Easley MD 11/05/2024 External Device Data STL ABSTRACTION Provider, Abstract 11/05/2024 External Device Data STL ABSTRACTION Provider, Abstract 11/03/2024 Orders Only [facility] Oncology and Hematology - [place] [address] [place] [address] Nik Easley MD Malignant neoplasm of overlapping [...] Comments Blood Pressure 115/72 11/17/2024 10:03 AM DIRECTOR OF OUTREACH Pulse 69 11/17/2024 10:03 AM DIRECTOR OF OUTREACH Temperature 36.8 C (98.2 F) 11/17/2024 10:03 AM DIRECTOR OF OUTREACH Respiratory Rate 16 11/17/2024 10:03 AM DIRECTOR OF OUTREACH Oxygen Saturation 97% 11/17/2024 10:03 AM DIRECTOR OF OUTREACH Inhaled Oxygen Concentration - - Weight 100.2 kg (221 lb) 11/17/2024 10:03 AM DIRECTOR OF OUTREACH Height 172.7 cm (5' 8 ) 01/01/2024 3:01 PM CDT Body Mass Index 33.6 01/01/2024 3:01 PM CDT Plan of Treatment Upcoming Encounters Date Type Department Care Team (Late st Contact Info) Description 02/18/2025 11:30 AM CDT Office Visit [facility] Oncology and Hematology - [place] [address] [facility] [address] [place] [address] Nik Easley MD [address] [facility] [address] [place] [address] Health Maintenance Due Date Last Done Comments Pre-Diabetes and Diabetes Screening 1968 DTAP/TDAP/TD VACCINES (1 - Tdap) 01/15/1987 HEPATITIS B VACCINES (1 of 3 - 19+ 3-dose series) 12/1986 Preventative Visit-Managed Medicaid 01/15/1987 ZOSTER VACCINE (1 of 2) 01/15/1987 HPV/Cotest [...] COMPREHENSIVE METABOLIC PANEL Routine 12/17/2024 12:34 PM DIRECTOR OF OUTREACH CANCER ANTIGEN 15-3 Routine 11/10/2024 3 :17 PM DIRECTOR OF OUTREACH COMPREHENSIVE METABOLIC PANEL Routine 11/10/2024 1:00 PM DIRECTOR OF OUTREACH NM BONE SCAN WHOLE BODY Routine 10/31/19 9:42 AM [address] OF OUT[address]ACH CT CHEST ABDOMEN PELVIS W CONT Routine 10/31/2024 9:13 AM DIRECTOR OF OUTREACH from Last 3 Months Results * COMPREHENSIVE METABOLIC PANEL (01/14/2025 3:02 PM CDT) Only the most recent of3 resultswithin the time period is included. Blood us Nik Easley MD CHEMISTRY ORDERABLES Final Resu lt * CANCER ANTIGEN 15-3 (11/10/2024 3:17 PM DIRECTOR OF OUTREACH) Blood us Nik Easley MD CHEMISTRY ORDERABLES Final Resu lt * NM BONE SCAN WHOLE BODY (10/31/2024 9:42 AM DIRECTOR OF OUTREACH) Anatomical Region Laterality Modality Nuclear Medicine us Nik Easley MD NM ORDERABLES Final Result * CT CHEST ABDOMEN PELVIS W CONT (10/31/2024 9:13 AM DIRECTOR OF OUTREACH) Anatomical Region Laterality Modality Chest Computed Tomogra phy us Nik Easley MD CT ORDERABLES Final Result from Last 3 Months Insurance [employer] Commercial Care Teams Establishment Guide Relationship Specialty Start Date End Date Anil Long MD [address] [place] [address] PCP - General Family Practice 01/01/24
--- OUTSIDE RECORDS SUMMARY | 2025-01-26 18:25 | XMS_ITS | Encounter Summary ---
Author Organization [facility] Stroz Friedberg [facility] Address [address] [place] [address] Care Team Providers Care Ct Technician Name Role Phone Anil Long MD Primary Care Provider [phone] Encounter Details Date Type Department Care Team (Late Contact Info) Description 01/26/2025 Orders Only [facility] Oncology and Hematology [facility] [address] [place] [address] Nik Easley MD [address] [place] [address] Malignant neoplasm of overlapping sites of right breast in female, estrogen receptor positive (CMS/HCC); Cancer, metastatic to bone (CMS/HCC) Social History Tobacco Use Types Packs/Day Years [...] Description 02/18/2025 11:30 AM CDT Office Visit [facility] Oncology and Hematology [place] [address] [place] [address] Nik Easley MD [address] [place] [address] documented as of this encounter Visit Diagnoses Diagnosis Malignant neoplasm of overlapping sites of right breast in female, estrogen receptor positive (CMS/HCC) Cancer, metastatic to bone (CMS/HCC) Secondary malignant neoplasm of bone and bone marrow documented in this encounter Care Teams Ct Technician Relationship Specialty Start Date End Date Anil Long MD [address] [place] [address] PCP - General Family Practice 01/01/24 documented as of this encounter
--- OUTSIDE RECORDS SUMMARY | 2025-01-26 18:25 | XMS_ITS | Continuity of Care Document ---
Author Organization [facility] Address [address] [place] [address] Phone Care Team Providers Care Pattern Setter Name Role Phone Unavailable Unavailable Unavailable Medications [...] Diagnoses Date Provider Providers Copied on Encounter [facility], [address], [place], [place], [address] , [place] tel: [phone] [facility] No Information 2 No Information [employer] [facility], [address], [place], [place], [address] , [place] tel: [phone] [facility] No Information 1 No Information [employer] [facility], [address], [place], [place], [address] , [place] tel: [phone] Conversion Department No Information 1 Conversion Doctor. [address] [place] [address], [address], . [facility], [address], [place], [place], [address] , tel: [phone] [facility] URIN TRACT INFECTION NOS 200 8 Conversion Doctor. [facility] [place], [address], . [facility], [address], [place], [place], [address] , tel: [phone] [facility] ANXIETY STATE NOS 200 8 Conversion Doctor. [facility], [address], . [facility], [address], [place], [place], [address] , tel: [phone] [facility] COUGH 200 7 Conversion Doctor. [facility] [place], [address], . [facility], [address], [place], [place], [address] , tel: [phone] [facility] ABNORMAL WEIGHT GAINLUMBAGOALLER GIC RHINITIS NOSSCREEN LIPOID DISORDERS 200 7 No Information [facility], [address], [place], [place], [address] , tel: [phone] [facility] ACUTE URI NOS 200 5 Conversion Doctor. [facility] [place], [address], . Family History Family Member Type Diagnosis [...]
--- OUTSIDE RECORDS SUMMARY | 2025-01-26 18:25 | XMS_ITS | Continuity of Care Document ---
Author Organization [facility] Address [address] [place] [address] [place] [address] Phone Care Team Providers Care Sole Painter Name Role Phone Robin Virk DO Unavailable Unavailable Advance Directives Directive Yes / No Effective Date File Name No Information Encounters Encounter Description Practice Location Reason(s) For Visit Diagnoses Date Provider Providers Copied on Encounter [facility], [address], [place], [place], [address], [place] [phone] [facility] No Information [facility]. [address] [facility], [place], [address], [place]. tel: [phone] Family History Family Member Type Diagnosis Age [...]
--- OUTSIDE RECORDS SUMMARY | 2025-01-26 18:25 | XMS_ITS | Encounter Summary ---
Author Organization [facility] Referly [facility] Address [address] [place] [address] Care Team Providers Care Tower Operator Name Role Phone Anil Long MD Primary Care Provider [phone] Reason for Visit * Reason Comments Med Refill Encounter Details Date Type Department Care Team (Late Contact Info) Description 01/26/2025 Refill [facility] Oncology [facility] Hematology [facility] [address] [place] [address] Milagro Quevedo MD [address] [place] [address] Social History Tobacco Use Types [...] Encounters Date Type Department Care Team (Late Contact Info) Description 02/18/2025 11:30 AM CDT Office Visit [facility] Oncology [facility] Hematology [facility] [address] [place] [address] Nik Easley MD [address] [facility] [address] [place] [address] documented as of this encounter Visit Diagnoses Not on filedocumented in this encounter Care Teams Tower Operator Relationship Specialty Start Date End Date Anil Long MD [address] [place] [address] PCP - General Family Practice 01/01/24 documented as of this encounter
--- OUTSIDE RECORDS SUMMARY | 2025-01-26 18:25 | XMS_ITS | Continuity of Care Document ---
Author Organization [facility] Address [address] [place] [address] [address] [place] [address] Phone Care Team Providers Care Fishing Floats Assembler Name Role Phone Benjamin OD, Claude Unavailable Unavailable Procedures Procedure Date Eye Exam, New Patient Refraction Advance Directives Directive Yes / No Effective Date File Name No Information Encounters Encounter Description Practice Location Reason(s) For Visit Diagnoses Date Provider Providers Copied on Encounter [facility], [address] [place] [address] [address], [place], [place], [address], [place] tel:[phone] [facility] No Information Dec-2 4-201 0 Benjamin OD Claude. [address], [place], [address], [place]. tel:[phone] Family History Family Member Type Diagnosis Age At Onset No Information Payers Payer name Insurance type Covered democrat ID Authoriza tiapolinar(s) [employer] Plan CI [id number] Social History Type Description Quantity Date Captured [...]
[2025-01-26 18:29] VITALS: BP 127/72; PULSE 90; RESP 18; TEMP 36.4; O2SAT 98
--- NOTE | 2025-01-26 20:45 | ED.NAVMDI ---
HPI - Nausea/Vomiting/Diarrhea General Chief complaint: Nausea/Vomiting/Diarrhea Stated complaint: vomiting, diarrhea Time Seen by Provider: 01/26/25 20:44 Source: patient Mode of arrival: ambulatory Limitations: no limitations History of Present Illness HPI Narrative: This is a 55-year-old female who presents to the ED for chief complaint of diarrhea x2 weeks and vomiting for the past 3 days. Patient has stage IV breast cancer and is currently undergoing chemotherapy and radiation. States that she was seen here yesterday and did feel symptomatically improved, however since yesterday she has been unable to keep anything down. Related Data Home Medications ?Medication ?Instructions ?Recorded ?Confirmed ?Last Taken ?Type anastrozole 1 mg tablet 1 mg PO DAILY 02/08/24 08/27/24 Unknown History palbociclib 125 mg capsule 125 mg PO DAILY 03/07/24 08/27/24 Unknown History (Ibrance) alprazolam 0.5 mg tablet 0.5 mg PO DAILY 04/30/24 08/27/24 Unknown History hydrocodone 7.5 mg-acetaminophen 1 tablet PO Q6H PRN Moderate Pain 04/30/24 08/27/24 Unknown History 325 mg tablet (Scale Score 5-6) ondansetron HCl 8 mg tablet 8 mg PO Q8H PRN nauseea 04/30/24 08/27/24 Unknown History cyanocobalamin (vitamin B-12) 500 500 mcg PO DAILY 07/14/24 08/27/24 Unknown History mcg tablet (Vitamin B-12) ferrous sulfate 325 mg (65 mg 325 mg PO DAILY 07/14/24 08/27/24 Unknown History iron) tablet Allergies Allergy/AdvReac Type Severity Reaction Status Date / Time No Known Allergies Allergy Verified 01/25/25 12:54 Review of Systems Review of Systems: All systems as dictated in HPI PMFSH Past Medical History Medical History BMI 34.0-34.9,adult Obesity Tobacco abuse Hyperlipemia Breast cancer, right breast Anxiety Mixed hyperlipidemia Surgical History Surgical History History of cholecystectomy History of hysterectomy Family History Family History Mother Family history of thyroid disease Family history of diabetes mellitus in first degree relative Diabetes mellitus Sibling Family history of thyroid disease Family history of malignant neoplasm of thyroid Father Family history of gastrointestinal disorder Social History Social History Social History: started to smoke again Smoking packs per day: 0.5 Smoking cigarettes per day: 10.0 Years smoked: 25 Smoking pack-years: 12.50 Smoking status: Former smoker Tobacco type: cigarettes Second hand tobacco smoke exposure: Yes Smoking end date: 02/21/21 Additional smoking assessment comments: smoking about 1/2 pack or more currently Alcohol intake: never Substance use: never Substance use type: does not use Do You Feel Safe in your Home?: Yes Lack of Transportation: No Lack of Food: Never True Current Housing: I Have Housing Concerned About Future Housing: No Difficulty Paying Gas/Electric Bills: No Difficulty Paying for Meds: No Currently Unemployed: No Education: Associate Degree Difficulty w/ Childcare or Family Care: No Living arrangements: with family Occupation/Education: occupation Additional occupation/education comments: [employer] Gender identity (if verbalized by the patient): Female Spiritual care concerns: No Exam Narrative: GENERAL: Well-appearing, well-nourished, and in no acute distress. HEAD: Normocephalic, atraumatic. EYES: PERRLA and EOMI. ENT: Nares clear, no rhinorrhea or epistaxis. Mucous membranes moist. Oropharynx without tonsillar hypertrophy exudate or other lesions. NECK: Supple. No adenopathy or masses. CHEST: No respiratory distress. Clear to auscultation. No wheezes rales or rhonchi HEART: Regular rate and rhythm. No murmur heard. Normal peripheral pulses. ABDOMEN: Soft, nontender, nondistended, normal active bowel sounds. MSK: Normal range of motion. No edema. SKIN: Warm, dry, no rash. NEURO: Alert and oriented x4. No focal deficits. PSYCH: Normal mood and affect. Course Vital Signs Vital signs: Vital Signs Temperature 97.6 F 01/26/25 18:29 Pulse Rate 90 01/26/25 18:29 Respiratory Rate 18 01/26/25 18:29 Blood Pressure 127/72 01/26/25 18:29 Pulse Oximetry 98 01/26/25 18:29 Oxygen Delivery Room Air 01/26/25 18:29 Temperature 97.6 F 01/26/25 18:29 Pulse Rate 71 01/27/25 00:17 Respiratory Rate 18 01/27/25 00:17 Blood Pressure 133/80 01/27/25 00:17 Pulse Oximetry 98 01/27/25 00:17 Oxygen Delivery Room Air 01/26/25 18:29 MDM - Nausea/Vomiting/Diarrhea MDM Narrative Medical decision making narrative: This is a 48-year-old female who presents to the ED for chief complaint of abdominal pain, nausea, vomiting and diarrhea. She was seen here in the ED for similar presentation yesterday. Vitals are normal. Exam is benign overall. She is currently undergoing radiation and oral chemotherapy treatments for breast cancer. Lab work and a surprisingly shows a white count 1.9. Afebrile and concern for sepsis is low. Potassium is remarkable 3.1. CMP is overall unremarkable otherwise. Urinalysis does show evidence of dehydration but no infection. CT abdomen pelvis IV contrast: IMPRESSION: 1. No evidence of appendicitis,1 diverticulitis or intestinal obstruction. 2. Slight thickening seen in the transverse colon to the right and left side which is most likely spastic. Follow-up advised. 3. Multiple osteolytic lesions unchanged from previous examination. Patient is resting comfortably on re-evaluation. Presentation most likely consistent with drug-induced nausea and vomiting, however may be due to more of a gastroenteritis. She did tolerate p.o. but is requesting additional nausea medication. She will be given Bentyl for spasm like pain as well as additional dose of Zofran. Rx for Zofran and Bentyl given. Patient will be discharged in stable condition. Supportive measures discussed and return precautions given. Patient is understanding and agreeable with plan for discharge with PCP follow-up. Lab Data 01/26/25 21:07 01/26/25 21:07 Labs: Lab Results 01/26/25 01/26/25 Range/Units 21:07 22:43 WBC 1.9 L* (4.5-10.0) K/mm3 RBC 3.45 L (4.2-5.4) M/mm3 Hgb 12.1 (12.0-15.0) g/dL Hct 35.0 L (37.0-47.0) % MCV 101.4 H (80-100) fl MCH 35.1 H (26-34) pg MCHC 34.6 (32-36) g/dl RDW 13.2 (11.5-14.5) % Plt Count 106 L (150-375) k/mm3 MPV 10.0 (7.4-10.4) fl Immature Gran % (Auto) Not Reportable Neut % (Auto) Not Reportable Lymph % (Auto) Not Reportable [place] % (Auto) Not Reportable Eos % (Auto) Not Reportable Baso % (Auto) Not Reportable Lymph # (Auto) Not Reportable [place] # (Auto) Not Reportable Eos # (Auto) Not Reportable Baso # (Auto) Not Reportable Abs Immat Gran (auto) Not Reportable Absolute Neuts (auto) Not Reportable Absolute Nucleated RBC Not Reportable Total Counted 100 Neutrophils % (Manual) 29 L (46-73) % Band Neutrophils % 6 (0-6) % Lymphocytes % (Manual) 55.0 H (18-44) % Monocytes % (Manual) 4 (3-9) % Eosinophils % (Manual) 5 H (0-4) % Basophils % (Manual) 1 (0-1) % Nucleated RBC % Not Reportable Abs Neuts (Manual) 0.66 L (1.7-7.2) K/mm3 Abs Lymphs (Manual) 1.04 L (1.1-4.5) K/mm3 Abs Monocytes (Manual) 0.07 L (0.1-0.90) K/mm3 Absolute Eos (Manual) 0.09 (0.02-0.50) K/mm3 Abs Basophils (Manual) 0.01 (0.0-0.1) K/mm3 Platelet Estimate Decreased (Adequate) Schistocytes None seen Sodium 140 (137-145) mmol/L Potassium 3.1 L (3.4-5.0) mmol/L Chloride 104 (98-107) mmol/L Carbon Dioxide 28 (22-30) mmol/L Anion Gap 8 (4-12) mmol/L BUN 9 (7-17) mg/dL Creatinine 0.63 L (0.7-1.0) mg/dL Estim Creat Clear Calc 102 ml/min Estimated GFR > 60 (59 - ) Glucose 110 (65-110) mg/dL Calcium 8.1 L (8.4-10.2) mg/dL Total Bilirubin 0.7 (0.2-1.3) mg/dL Direct Bilirubin 0.0 (0-0.3) mg/dL AST 34 (14-36) U/L ALT 21 (6-35) U/L Alkaline Phosphatase 57 (38-126) U/L Total Protein 7.0 (6.3-8.2) g/dL Albumin 3.7 (3.5-5.1) g/dL Lipase 26 (23-300) U/L Urine Color Yellow (Yellow) Urine Appearance Clear (Clear) Urine pH 7.0 (5.0-9.0) Ur Specific [place] 1.037 H (1.001-1.035) Urine Protein Trace (Negative) mg/dL Urine Glucose (UA) Negative (Negative) mg/dL Urine Ketones Trace H (Negative) mg/dL Ur Blood (Man) Negative (Negative) Urine Nitrate Negative (Negative) Urine Bilirubin Negative (Negative) Urine Urobilinogen 1.0 (<2.0) mg/dL Leukocyte Esterase Rfl Trace H (Negative) MISTY/UL Urine RBC 0-2 (0-2) /hpf Urine WBC 0-5 (0-3) /hpf Ur Squamous Epith Cells None seen (Few) /hpf Urine Bacteria None seen /hpf Urine Casts 0-2 Discharge Plan Discharge Clinical Impression: Abdominal pain, Nausea & vomiting Patient Disposition: Home Condition: Stable Instructions: Antibiotic Form Additional Instructions: Exam and imaging today are reassuring overall. Please take Bentyl for spasm like pain. Take Zofran as needed for nausea. Stay well hydrated. Follow-up with your PCP and oncologist as scheduled. If you have any new or worsening symptoms please return to the ER for further evaluation. Patient Language: Macedonian Prescriptions: New ondansetron 4 mg tablet,disintegrating 4 mg PO Q8H PRN (Reason: nausea and vomiting) Qty: 10 0RF dicyclomine 10 mg capsule 10 mg PO TID Qty: 30 0RF No Action anastrozole 1 mg Tablet 1 mg PO DAILY Ibrance 125 mg Capsule 125 mg PO DAILY Rx Instructions: administer on days 1 through 21 of a 28-day treatment cycle hydrocodone-acetaminophen 7.5-325 mg tablet 1 tablet PO Q6H PRN (Reason: Moderate Pain (Scale Score 5-6)) ondansetron HCl 8 mg tablet 8 mg PO Q8H PRN (Reason: nauseea) alprazolam 0.5 mg tablet 0.5 mg PO DAILY Patient Comments: . Rx Instructions: as needed for anxiety albuterol sulfate [Ventolin HFA] 90 mcg/actuation HFA aerosol inhaler 2 puff INHALATION Q4H PRN (Reason: shortness of breath or wheezing) Qty: 8.5 6RF Patient Comments: ....... metoclopramide HCl [Reglan] 10 mg tablet 10 mg PO Q6H PRN (Reason: nausea and vomiting) Qty: 30 0RF famotidine [Pepcid] 20 mg tablet 20 mg PO BID 42 Days Qty: 84 0RF oxycodone 5 mg tablet 5 mg PO Q4H PRN (Reason: pain) Qty: 20 0RF cyanocobalamin (vitamin B-12) [Vitamin B-12] 500 mcg Tablet 500 mcg PO DAILY ferrous sulfate 325 mg (65 mg iron) Tablet 325 mg PO DAILY cholecalciferol (vitamin D3) 25 mcg (1,000 unit) capsule 25 mcg PO DAILY Qty: 90 1RF trazodone 50 mg tablet 50 mg PO .COMPLEX Qty: 60 5RF Rx Instructions: 50 mg orally take 1-2 tablets PO QHS PRN sleep; atorvastatin 40 mg tablet See Rx Instructions .ROUTE .COMPLEX Qty: 90 1RF Dose Instruction: TAKE ONE TABLET BY MOUTH ONE TIME DAILY IN THE EVENING Rx Instructions: TAKE ONE TABLET BY MOUTH ONE TIME DAILY IN THE EVENING Follow-up/Referrals: Quoc Sosa APRN [Primary Care Provider] - Time of Disposition: 23:35
[2025-01-26 20:46] VITALS: BP 111/74; PULSE 72; RESP 19; O2SAT 98
--- OUTSIDE RECORDS SUMMARY | 2025-01-26 20:55 | XMS_ITS | Clinical Summary ---
Author Organization [facility] Address [address] [place] [address] Care Team Providers Care Marine Farmer Name Role Phone Anil Long MD Primary Care Provider [phone] Allergies No known active allergies Medications cholecalciferol [...] 02/12/20 24 Active naloxone (NARCAN) 4 mg/spray [place], Non-Aerosol EMERGENCY USE ONLY: Administer 1 spray [...] Type Department Care Team Description 01/26/2025 Refill [facility] Oncology and Hematology [facility] [address] [place] [id number] Milagro Quevedo MD 01/26/2025 Orders Only [facility] Oncology and Hematology [facility] [address] [place] [id number] Nik Easley MD Malignant neoplasm of overlapping sites of right breast in female, estrogen receptor positive (CMS/HCC); Cancer, metastatic to bone (CMS/HCC) 01/15/2025 Orders Only [facility] Oncology and Hematology - [place] [address] [place] [address] Nik Easley MD 01/12/2025 Orders Only [facility] Oncology and Hematology - [place] [address] [place] [address] Nik Easley MD Malignant neoplasm of overlapping sites of right breast in female, estrogen receptor positive (CMS/HCC); Cancer, metastatic to bone (CMS/HCC) 12/31/2024 External Device Data ST[facility] ABSTRACTION Provider, Abstract 12/29/2024 Abstract [facility] Oncology and Hematology [facility] [address] [place] [address] Nik Easley MD 12/29/2024 Orders Only [facility] Oncology and Hematology - [place] [address] [place] [address] Nik Easley MD Malignant neoplasm of overlapping sites of right breast in female, estrogen receptor positive (CMS/HCC); Cancer, metastatic to bone (CMS/HCC) 12/25/2024 Refill [facility] Oncology and Hematology - [place] [address] [place] [address] Nik Easley MD Malignant neoplasm of overlapping sites of right breast in female, estrogen receptor positive (CMS/HCC) 12/23/2024 External Device Data ST[place] ABSTRACTION Provider, Abstract 12/23/2024 External Device Data [place] ABSTRACTION Provider, Abstract 12/20/2024 External Device Data [place] ABSTRACTION Provider, Abstract 12/19/2024 External Device Data [facility] ABSTRACTION Provider, Abstract 12/17/2024 External Device Data [facility] ABSTRACTION Provider, Abstract 12/17/2024 Orders Only [facility] Oncology and Hematology - [place] [address] [place] [address] Nik Easley MD 12/15/2024 Orders Only [facility] Oncology and Hematology - [place] [address] [place] [address] Nik Easley MD Malignant neoplasm of overlapping sites of right breast in female, estrogen receptor positive (CMS/HCC); Cancer, metastatic to bone (CMS/HCC) 12/09/2024 Abstract [facility] Oncology and Hematology - [place] [address] [place] [address] Nik Easley MD 12/02/2024 External Device Data STL ABSTRACTION Provider, Abstract 12/01/2024 Orders Only [facility] Oncology and Hematology - [place] [address] [place] [address] Nik Easley MD Malignant neoplasm of overlapping sites of right breast in female, estrogen receptor positive (CMS/HCC); Cancer, metastatic to bone (CMS/HCC) 11/19/2024 Refill [facility] Oncology and Hematology - [place] [address] [place] [address] Nik Easley MD Malignant neoplasm of overlapping sites of right breast in female, estrogen receptor positive (CMS/HCC) 11/17/2024 10:00 AM HOCKEY SCOUT Office Visit [facility] Oncology and Hematology - [place] [address] [place] [address] Nik Easley MD Malignant neoplasm of overlapping sites of right breast in female, estrogen receptor positive (CMS/HCC); Cancer, metastatic to bone (CMS/HCC) 11/12/2024 Orders Only [facility] Oncology and Hematology - [place] [address] [place] [address] Nik Easley MD 11/11/2024 Orders Only [facility] Oncology and Hematology - [place] [address] [place] [address] Nik Easley MD 11/05/2024 External Device Data STL ABSTRACTION Provider, Abstract 11/05/2024 External Device Data STL ABSTRACTION Provider, Abstract 11/03/2024 Orders Only [facility] Oncology and Hematology - [place] [address] [place] [address] Nik Easley MD Malignant neoplasm of overlapping [...] Comments Blood Pressure 115/72 11/17/2024 10:03 AM HOCKEY SCOUT Pulse 69 11/17/2024 10:03 AM HOCKEY SCOUT Temperature 36.8 C (98.2 F) 11/17/2024 10:03 AM HOCKEY SCOUT Respiratory Rate 16 11/17/2024 10:03 AM HOCKEY SCOUT Oxygen Saturation 97% 11/17/2024 10:03 AM HOCKEY SCOUT Inhaled Oxygen Concentration - - Weight 100.2 kg (221 lb) 11/17/2024 10:03 AM HOCKEY SCOUT Height 172.7 cm (5' 8 ) 01/01/2024 3:01 PM CDT Body Mass Index 33.6 01/01/2024 3:01 PM CDT Plan of Treatment Upcoming Encounters Date Type Department Care Team (Late st Contact Info) Description 02/18/2025 11:30 AM CDT Office Visit [facility] Oncology and Hematology - [place] [address] [facility] [address] [place] [address] Nik Easley MD [address] [facility] [address] [place] [address] Health Maintenance Due Date Last [...] COMPREHENSIVE METABOLIC PANEL Routine 12/17/2024 12:34 PM HOCKEY SCOUT CANCER ANTIGEN 15-3 Routine 11/10/2024 3 :17 PM [facility] SCOUT COMPREHENSIVE METABOLIC PANEL Routine 11/10/2024 1:00 PM HOC[facility] SCOUT NM BONE SCAN WHOLE BODY Routine 10/31/19 9:[address] CHEST ABDOMEN PELVIS W CONT Routine 10/31/2024 9:13 AM HOCKEY SCOUT from Last 3 Months Results * COMPREHENSIVE METABOLIC PANEL (01/14/2025 3:02 PM CDT) Only the most recent of3 resultswithin the time period is included. Blood us Nik Easley MD CHEMISTRY ORDERABLES Final Resu lt * CANCER ANTIGEN 15-3 (11/10/2024 3:17 PM HOCKEY SCOUT) Blood us Nik Easley MD CHEMISTRY ORDERABLES Final Resu lt * NM BONE SCAN WHOLE BODY (10/31/2024 9:42 AM HOCKEY SCOUT) Anatomical Region Laterality Modality Nuclear Medicine us Nik Easley MD NM ORDERABLES Final Result * CT CHEST ABDOMEN PELVIS W CONT (10/31/2024 9:13 AM HOCKEY SCOUT) Anatomical Region Laterality Modality Chest Computed Tomogra phy us Nik Easley MD CT ORDERABLES Final Result from Last 3 Months Insurance [employer] Commercial Care Teams Marine Farmer Relationship Specialty Start Date End Date Anil Long MD [address] [place] [address] PCP - General Family Practice 01/01/24
--- OUTSIDE RECORDS SUMMARY | 2025-01-26 20:55 | XMS_ITS | Encounter Summary ---
Author Organization [facility] Prepared Response [facility] Address [address] [place] [address] Care Team Providers Care Laundry Machine Mechanic Name Role Phone Anil Long MD Primary Care Provider [phone] Encounter Details Date Type Department Care Team (Late Contact Info) Description 01/26/2025 Orders Only [facility] Oncology and Hematology [facility] [address] [place] [address] Nik Easley MD [address] [place] [address] Malignant neoplasm of overlapping sites [...] Visit [facility] Oncology and Hematology [place] [address] [place] [address] Nik Easley MD [address] [place] [address] documented as of this encounter Visit Diagnoses Diagnosis Malignant neoplasm of overlapping sites of right breast in female, estrogen receptor positive (CMS/HCC) Cancer, metastatic to bone (CMS/HCC) Secondary malignant neoplasm of bone and bone marrow documented in this encounter Care Teams Laundry Machine Mechanic Relationship Specialty Start Date End Date Anil Long MD [address] [place] [address] PCP - General Family Practice 01/01/24 documented as of this encounter
--- OUTSIDE RECORDS SUMMARY | 2025-01-26 20:55 | XMS_ITS | Continuity of Care Document ---
Author Organization [facility] Address [address] [place] [address] Phone Care Team Providers Care Claim Review Medical Director Name Role Phone Unavailable Unavailable Unavailable Medications [...] Diagnoses Date Provider Providers Copied on Encounter [employer], [address], [place], [place], [address] , [place] tel: [phone] [facility] No Information 2 No Information [employer] [facility], [address], [place], [place], [address] , [place] tel: [phone] [facility] No Information 1 No Information [employer] [facility], [address], [place], [place], [address] , [place] tel: [phone] Conversion Department No Information 1 Conversion Doctor. [address] [place] [address], [address], . [employer], [address], [place], [place], [address] , tel: [phone] [facility] URIN TRACT INFECTION NOS [address] 8 Conversion Doctor. [facility] [place], [address], . [employer], [address], [place], [place], [address] , tel: [phone] [facility] ANXIETY STATE NOS [address] 8 Conversion Doctor. [facility] [place], [address], . [employer], [address], [place], [place], [address] , tel: [phone] [facility] COUGH [address] 7 Conversion Doctor. [facility] [place], [address], . [employer], [address], [place], [place], [address] , tel: [phone] [facility] ABNORMAL WEIGHT GAINLUMBAGOALLER GIC RHINITIS NOSSCREEN LIPOID DISORDERS 200 7 No Information [employer], [address], [place], [place], [address] , tel: [phone] [facility] ACUTE URI NOS 200 5 Conversion Doctor. [facility] [place], [address], . Family History Family Member Type Diagnosis [...]
--- OUTSIDE RECORDS SUMMARY | 2025-01-26 20:55 | XMS_ITS | Encounter Summary ---
Author Organization [facility] Address [address] [place] [address] Care Team Providers Care Safety And Skill Based Pay Manager Name Role Phone Anil Long MD Primary Care Provider [phone] Reason for Visit * Reason Comments Med Refill Encounter Details Date Type Department Care Team (Late Contact Info) Description 01/26/2025 Refill [facility] Oncology [facility] Hematology [facility] [address] [place] [address] Milagro Quevedo MD [address] [place] [address] Social History Tobacco Use Types [...] Description 02/18/2025 11:30 AM CDT Office Visit [facility] Oncology [facility] Hematology [facility] [address] [place] [address] Nik Easley MD [address] [facility] [address] [place] [address] documented as of this encounter Visit Diagnoses Not on filedocumented in this encounter Care Teams Safety And Skill Based Pay Manager Relationship Specialty Start Date End Date Anil Long MD [address] [place] [address] PCP - General Family Practice 01/01/24 documented as of this encounter
--- OUTSIDE RECORDS SUMMARY | 2025-01-26 20:55 | XMS_ITS | Continuity of Care Document ---
Author Organization [facility] Address [address] [place] [address] [address] [place] [address] Phone Care Team Providers Care Fine Arts Chair Name Role Phone Benjamin OD, Claude Unavailable Unavailable Procedures Procedure Date Eye Exam, New Patient Refraction Advance Directives Directive Yes / No Effective Date File Name No Information Encounters Encounter Description Practice Location Reason(s) For Visit Diagnoses Date Provider Providers Copied on Encounter [facility], [address] [place] [address] [address], [place], [place], [id number], [place] tel:[phone] [facility] No Information Dec-2 4-201 0 Benjamin OD Claude. [address], [place], [address], [place]. tel:[phone] Family History Family Member Type Diagnosis Age At Onset No Information Payers Payer name Insurance type Covered constitution party ID Authoriza tiapolinar(s) [employer] Plan CI [id number] Social History Type Description Quantity Date Captured [...]
--- OUTSIDE RECORDS SUMMARY | 2025-01-26 20:55 | XMS_ITS | Continuity of Care Document ---
Author Organization [facility] Address [address] [place] [address] [place] [address] Phone Care Team Providers Care Barrel Ribs Solderer Name Role Phone Robin Virk DO Unavailable Unavailable Advance Directives Directive Yes / No Effective Date File Name No Information Encounters Encounter Description Practice Location Reason(s) For Visit Diagnoses Date Provider Providers Copied on Encounter [facility], [address], [place], [place], [address], [place] tel:[phone] [facility] No Information Moose Mazariegos. [address] [facility], [place], [address], [place]. tel: [phone] Family History Family Member Type Diagnosis Age [...]
[2025-01-26] MEDS: ONDANSETRON INJ 4 MG/2 ML VIAL IV PUSH ×2 (21:07→23:43)
[2025-01-26] MEDS: SODIUM CHLORIDE 0.9% IV 1,000 ML 999 ML IV CONT (21:07)
[2025-01-26 21:14] LABS: Hemoglobin 12.1 g/dL (12.0-15.0); Mean Corpuscular HGB Conc 34.6 g/dl (32-36); Mean Corpuscular Hemoglobin 35.1 pg (26-34); Mean Corpuscular Volume 101.4 fl (80-100); Platelet Count Result 106 k/mm3 (150-375); Red Blood Count 3.45 M/mm3 (4.2-5.4); Red Cell Distribution Width 13.2 % (11.5-14.5)
[2025-01-26 21:24] LABS: Alanine Aminotransferase 21 U/L (6-35); Albumin Level 3.7 g/dL (3.5-5.1); Alkaline Phosphatase 57 U/L (38-126); Anion Gap 8 mmol/L (4-12); Aspartate Amino Transferase 34 U/L (14-36); Bilirubin,Total 0.7 mg/dL (0.2-1.3); Blood Urea Nitrogen 9 mg/dL (7-17); Calcium 8.1 mg/dL (8.4-10.2); Carbon Dioxide 28 mmol/L (22-30); Chloride 104 mmol/L (98-107); Estimated CRCL calculation 102 ml/min; Estimated Glomerular Filt Rate > 60; Glucose 110 mg/dL (65-110); Lipase 26 U/L (23-300); Potassium 3.1 mmol/L (3.4-5.0); Sodium 140 mmol/L (137-145)
[2025-01-26] MEDS: POTASSIUM CHLORIDE 20 MEQ ER TABLET 40 MEQ PO (21:30)
[2025-01-26 21:38] LABS: White Blood Count 1.9 K/mm3 (4.5-10.0)
[2025-01-26 21:47] LABS: Band Neutrophils Percent 6 % (0-6); Basophils Absolute Manual 0.01 K/mm3 (0.0-0.1); Basophils Percent Manual 1 % (0-1); Eosinophils Absolute Manual 0.09 K/mm3 (0.02-0.50); Eosinophils Percent Manual 5 % (0-4); Lymphocytes Absolute Manual 1.04 K/mm3 (1.1-4.5); Monocytes Absolute Manual 0.07 K/mm3 (0.1-0.90); Monocytes Percent Manual 4 % (3-9); Neutrophils Absolute Manual 0.66 K/mm3 (1.7-7.2); Neutrophils Percent Manual 29 % (46-73); Platelet Estimate Decreased (Adequate); Schistocytes None Seen; Total Cells Counted 100
[2025-01-26 22:55] LABS: Add Urine Microscopic? YES; Appearance Urine Clear (Clear); Bacteria Urine None Seen /hpf; Bilirubin Urine Negative (Negative); Blood Urine Negative (Negative); Color Urine Yellow (Yellow); Glucose Urine UA Negative (Negative); Ketones Urine Trace mg/dL (Negative); Leukocyte Esterase Ur Trace LEU/UL (Negative); Nitrate Urine Negative (Negative); Non Pathogenic Casts 0-2; Protein Urine Trace mg/dL (Negative); RBC Urine 0-2 /hpf (0-2); Specific Grav Ur 1.037 (1.001-1.035); Squamous Epithelial Cell Urine None Seen /hpf (Few); WBC Urine 0-5 /hpf (0-3)
[2025-01-26] MEDS: DICYCLOMINE HCL INJ 20 MG/2 ML VIAL IM (23:43)
[2025-01-27 00:17] VITALS: BP 133/80; PULSE 71; RESP 18; O2SAT 98
== END 2025-01-27 00:17 | disposition home or self-care (01) ==
PROVIDERS: Emergency Provider Physician Assistant; PCP Nurse Practitioner
DX: R11.2 Nausea with vomiting, unspecified (principal); R10.9 Unspecified abdominal pain; C50.919 Malignant neoplasm of unspecified site of unspecified female breast; E78.2 Mixed hyperlipidemia; E66.9 Obesity, unspecified; Z68.34 Body mass index [BMI] 34.0-34.9, adult; F41.9 Anxiety disorder, unspecified; F17.210 Nicotine dependence, cigarettes, uncomplicated; Z90.49 Acquired absence of other specified parts of digestive tract; Z90.710 Acquired absence of both cervix and uterus; Z79.60 Long term (current) use of unspecified immunomodulators and immunosuppressants; M89.9 Disorder of bone, unspecified
CPT/HCPCS: 36415; 74177; 80048; 80076; 81001; 83690; 85025; 96361; 96372; 96374; 96376; 99284; A9270; J0500; J2405; J7030; Q9967

== ENCOUNTER 2025-04-27 14:00 | Inpatient (IN) | payer OTHER, SELFPAY ==
[2025-04-27] VITALS (13 sets, daily range): BP systolic 108–138; BP diastolic 61–77; PULSE 96–119; RESP 18–21; TEMP 36.8–38.7; O2SAT 91–100; BMI 29.7
--- NOTE | ~2025-04-27 | XR_ITS ---
EXAMINATION: [id number] Exam Date/Time: 05/05/2025 17:25 CDT HISTORY: POST THORA Comparison: Same date at 2:02 PM. RESULT: Lines, tubes, and devices: None. Lungs and pleura: Decreased left basilar airspace disease. Decreased left pleural blunting. Cardiomediastinal silhouette: Stable. Other: No acute osseous or upper abdominal finding. IMPRESSION: Persistent but decreased left basilar atelectasis/consolidation. Persistent but decreased left pleura l effusion. No pneumothorax. Reviewed, dictated and finalized at location K. IMPRESSION: Persistent but decreased left basilar atelectasis/consolidation. Persistent but decreased left pleural effusion. No pneumothorax.
--- NOTE | ~2025-04-27 | US_ITS ---
EXAMINATION: US abdomen limited DATE: 05/12/2025 14:59 INDICATION: elevated liver enzymes TECHNIQUE: Multiple grayscale and Doppler ultrasound images of limited portions of the abdomen were o btained. COMPARISON: 05/10/2022; CT cap 04/28/2025. FINDINGS: The visualized portions of the pancreas are normal. The liver is slightly enlarged, with in creased echogenicity. Multiple hypoechoic liver lesions measuring up to 2.9 cm. No surface nodularity . Normal hepatopetal flow in the main portal vein. The gallbladder is absent. The common bile duct me asures 5 mm. Right kidney measures 10.5 x 4.2 x 5.9 and is sonographically normal. IMPRESSION: Mild hepatomegaly. Echogenic liver, most commonly due to steatosis but also can be seen with hepatitis and fibrosis. Multiple hypoechoic liver lesions measuring up to 2.9 cm, concerning for metastatic disease. Reviewed, dictated and finalized at location K. IMPRESSION: Mild hepatomegaly. Echogenic liver, most commonly due to steatosis but also can be seen with hepat itis and fibrosis. Multiple hypoechoic liver lesions measuring up to 2.9 cm, concerning for metast atic disease.
--- NOTE | ~2025-04-27 | XR_ITS ---
CHEST RADIOGRAPH CLINICAL HISTORY: post thoracentesis pain r/o pneumo . COMPARISON: 05/05/2025, immediately postprocedure, approximately 1 hour earlier and preprocedure, appr oximately 4 hours earlier. TECHNIQUE: Single portable view of the chest. FINDINGS The cardiomediastinal silhouette is partially obscured and otherwise unremarkable. Persistent, but decreased left-sided pleural effusion when compared with examination performed approx imately 4 hours earlier. The left lung is fully inflated. No pneumothorax is present. Increased interstitial markings are identified bilaterally, findings suggesting mild pulmonary vascul ar congestion. The right hemithorax is clear. IMPRESSION: No pneumothorax following left-sided thoracentesis, as detailed above. Reviewed, dictated and finalized at location A.
--- NOTE | ~2025-04-27 | US_ITS ---
EXAMINATION: US thoracentesis DATE: 05/05/2025 18:10 INDICATION: Left-sided pleural effusion TECHNIQUE: The procedure and its risks, benefits, and alternatives were discussed with the patient. Potential risks discussed included bleeding, infection, and pneumothorax. The patient understood the risks and agreed to proceed. A timeout was then performed as per protocol. The skin was prepped and draped in sterile fashion. 1% lidocaine was used for local anesthesia. Under ultrasound guidance, a 5 Fr catheter with trocar was advanced into the left sided pleural effus ion, and the trocar needle removed. The catheter was then attached to vacuum suction. The pleural effusion was evacuated nearly in its entirety. The catheter was then removed, and a sterile dressing was applied. There were no immediate complications. FINDINGS: Ultrasound images demonstrate a left-sided pleural effusion and the catheter within the fluid. IMPRESSION: 1. Successful ultrasound-guided thoracentesis yielding 1000 mL of dark taz fluid. Reviewed, dictated and finalized at location A. IMPRESSION: 1. Successful ultrasound-guided thoracentesis yielding 1000 mL of dark taz f luid.
--- NOTE | ~2025-04-27 | XR_ITS ---
CHEST RADIOGRAPH CLINICAL HISTORY: follow up previous pleural effusion . COMPARISON: 04/27/2025 TECHNIQUE: Single portable view of the chest. FINDINGS The cardiomediastinal silhouette is partially obscured. Large left-sided pleural effusion is present, increased from previous examination. The right hemithorax is clear. IMPRESSION: Large left-sided pleural effusion, increased from prior Reviewed, dictated and finalized at location A.
--- NOTE | ~2025-04-27 | BM_ITS ---
EXAMINATION: Image guided bone marrow biopsy with moderate sedation DATE: 05/05/2025 09:54 INDICATION: Thrombocytopenia TECHNIQUE: After informed consent was obtained the patient was taken to the interventional suite and placed in t he prone position on the interventional table. A timeout was then performed as per protocol. The right posterior iliac crest was identified in the 25 degree FOURNIER position. The right posterior flank was then prepped and draped in the standard sterile fashion. Anesthetic was administered with 1% lidocaine subcutaneously. An 11 gauge bone marrow introducer needle was inserted into the right ilium with fluoroscopic guidanc e. Bone marrow was aspirated. An 8 gauge bone marrow introducer needle was then inserted into the ilium with fluoroscopic guidance. A 9 gauge core bone marrow biopsy was obtained. All devices were then removed and a sterile dressing applied. There were no immediate complications. Fluoroscopy exposure time was 1.1 minutes. The total number of images was 4. FINDINGS: Imaging demonstrates a marker overlying the right posterior superior iliac spine. Continuous [id number] time with the patient for moderate sedation (with the administration of 100 m cg of fentanyl and 3 mg of Versed) and lasted a total of 35 minutes. A dedicated nurse was present in the room to monitor the patient and administered sedation (at my direction) during the entirety of t he procedure as well as during the recovery time. IMPRESSION: 1. Fluoro-guided bone marrow aspiration. 2. Fluoro-guided bone marrow core biopsy. 3. 35 minutes of moderate sedation. Reviewed, dictated and finalized at location A.
--- NOTE | ~2025-04-27 | XR_ITS ---
EXAMINATION: XR chest 1V portable Exam Date/Time: 04/27/2025 7:00 CDT HISTORY: neutropenic fever Comparison: 01/25/2025. RESULT: Lines, tubes, and devices: None. Lungs and pleura: Segmental left mid and lower lung airspace disease. Moderate left costophrenic ang le blunting. Cardiomediastinal silhouette: Stable. Other: No acute osseous or upper abdominal finding. IMPRESSION: Segmental left mid and lower lung consolidation/atelectasis. Moderate left pleural effusion Reviewed, dictated and finalized at location K. IMPRESSION: Segmental left mid and lower lung consolidation/atelectasis. Moderate left pleu ral effusion
--- NOTE | ~2025-04-27 | CT_ITS ---
Clinical Indication: Fever, pancytopenia, nausea and vomiting CT Scan of the Chest, Abdomen, and Pelvis with Contrast: Technique: Contiguous sections were acquired throughout the chest, abdomen, and pelvis after intraven ous administration of 100 cc of Omnipaque 350. Dose reduction technique was used on this scan by monik balderasing automated exposure control and iterative reconstruction technique. The dose-length product (DL P) was 1292.57 mGy-cm. Findings: There is no evidence of any significant mediastinal, hilar or axillary lymphadenopathy. The mediastin al soft tissues and vascular structures appear normal. No pericardial effusion. Moderate to large left pleural effusion present with near complete left lower lobe atelectasis. There is minimal right pleural effusion with minimal right basilar atelectasis. There is a 3.3 x 2.1 cm ma ss in the medial right breast (axial image 62), suspicious for breast carcinoma.. There is diffuse hepatic steatosis. Cholecystectomy clips are present. The spleen, pancreas, adrenals and right kidney are within normal limits. Is mild left hydronephrosis. No evidence of aortic aneury sm. Single mildly prominent lymph node present along the left common iliac chain (axial image 187). No bowel obstruction or bowel wall thickening. There is no evidence to suggest acute appendicitis. Urinary bladder is unremarkable. Status post hysterectomy. No pelvic mass. No ascites. There is moderate to severe compression fracture of T1. There is moderate compression fracture of T12 . There is subtle somewhat heterogeneous appearance of the osseous structures, consistent with osseou s metastatic disease. Probable definite involvement of the T1 and T12 vertebral bodies, as well as th e bilateral iliac bones adjacent to the SI joints and the left sacrum. Additional smaller metastatic lesions in the spine are probably present, though somewhat poorly delineated.. Impression: 3.3 x 2.1 cm medial right breast mass is highly suspicious for breast carcinoma. Diagnostic mammogram /ultrasound recommended for further evaluation. Findings compatible osseous metastatic disease, especially in the iliac bones and spine, with probabl e pathologic compression fractures of T1 and T12. Single mildly prominent lymph node along the left common iliac chain, indeterminate for metastatic ly mphadenopathy. Moderate to large left pleural effusion with complete left lower lobe atelectasis. Minimal right pleu ral effusion with minimal right basilar atelectasis. Mild left hydronephrosis. No obstructing mass or stone clearly evident. Reviewed, dictated and finalized at location M. Impression: 3.3 x 2.1 cm medial right breast mass is highly suspicious for breast carcinoma . Diagnostic mammogram/ultrasound recommended for further evaluation. Findings compatible osseous metastatic disease, especially in the iliac bones a nd spine, with probable pathologic compression fractures of T1 and T12. Single mildly prominent lymph node along the left common iliac chain, indetermi dave for metastatic lymphadenopathy. Moderate to large left pleural effusion with complete left lower lobe atelectas is. Minimal right pleural effusion with minimal right basilar atelectasis. Mild left hydronephrosis. No obstructing mass or stone clearly evident.
--- OUTSIDE RECORDS SUMMARY | 2025-04-27 14:13 | XMS_ITS | Clinical Summary ---
Author Organization [facility] Address [address] [place] [address] Care Team Providers Care Enterprise Cloud Architect Name Role Phone Anil Long MD Primary Care Provider [phone] Allergies No known active allergies Medications cholecalciferol [...] Tablet 4 Active naloxone (NARCAN) 4 mg/spray [place], Non-Aerosol EMERGENCY USE ONLY: Administer 1 spray [...] mouth daily. 90 Tablet 3 4 Active OTHER Nicotine patches Active palbociclib (Ibrance) 125 mg tablet TAKE 1 TABLET DAILY FOR 3 WEEKS ON, AND 1 WEEK OFF 21 Tablet 5 5 Active dicyclomine (BENTYL) 10 mg capsule Take 1 Capsule by mouth 3 times daily. 5 Active oxyCODONE (ROXICODONE) 5 mg tablet Take 1 Tablet by mouth every 4 hours as needed for Pain. 5 Active HYDROcodone-gee taminophen (NORCO) 7.5-325 mg TabletIndicatio ns:Malignant neoplasm of overlapping sites of right breast in female, estrogen receptor positive (CMS/HCC),Cance r, metastatic to bone (CMS/HCC) Take 1 Tablet by mouth every 6 hours as needed for Pain, Moderate. Max Daily Amount: 4 Tablets 60 Tablet 5 Active HYDROcodone-gee taminophen (NORCO) 7.5-325 mg TabletIndicatio ns:Malignant neoplasm of overlapping sites of right breast in female, estrogen receptor positive (CMS/HCC),Cance r, metastatic to bone (CMS/HCC) Take 1 Tablet by mouth every 6 hours as needed for Pain, Moderate. Max Daily Amount: 4 Tablets 60 Tablet 5 025 Discontin ued(Reord er) Active Problems No known active problems Encounters Date Type Department Care Team Description 04/20/[address] [facility] Oncology and Hematology - [place] [address] [place] [address] Nik Easley MD Malignant neoplasm of overlapping sites of right breast in female, estrogen receptor positive (CMS/HCC) 04/09/[address] [facility] On[facility] and Hematology - [place] [address] [place] [address] Nik Easley MD 04/07/[address] [facility] Hematology - [place] [address] [place] [address] Nik Easley MD Malignant neoplasm of overlapping sites of right breast in female, estrogen receptor positive (CMS/HCC) (Primary Dx) 04/02/[address] [facility] On[facility] and Hematology [facility] [address] [place] [phone] Nik Easley MD Constipation (Patient said she has not had a bowel movement in 8 day, from previous encounters there are some discrepancies in the timeline. I have advised this patient to go to the ER since she has had no BM ) 04/01/[address] [facility] H[facility]ology [place] [address] [place] [address] Nik Easley MD Malignant neoplasm of overlapping sites of right breast in female, estrogen receptor positive (CMS/HCC); Cancer, metastatic to bone (CMS/HCC) 03/31/2025 External Device Data STL ABSTRACTION Provider, Abstract 03/11/2025 9:00 AM CDT Office Visit [facility] On[facility] and Hematology [facility] [address] [place] [phone] Nik Easley MD Malignant neoplasm of overlapping sites of right breast in female, estrogen receptor positive (CMS/HCC) (Primary Dx) 03/05/2025 External Device Data STL ABSTRACTION Provider, Abstract 03/04/2025 External Device Data STL ABSTRACTION Provider, Abstract 03/03/2025 External Device Data STL ABSTRACTION Provider, Abstract 03/03/[address] [facility] On[facility] Hematology [facility] [address] [place] [phone] Nik Easley MD Malignant neoplasm of overlapping sites of right breast in female, estrogen receptor positive (CMS/HCC) (Primary Dx); Cancer, metastatic to bone (CMS/HCC) 02/18/2025 11:30 AM CDT Office Visit [facility] Oncology and Hematology [facility] [address] [place] [address] Nik Easley MD Malignant neoplasm of overlapping sites of right breast in female, estrogen receptor positive (CMS/HCC) (Primary Dx) 02/17/2025 External Device Data STL ABSTRACTION Provider, Abstract 02/12/[address] [facility] On[facility] and Hematology - [place] [address] [place] [phone] Nik Easley MD 02/11/[address] [facility] On[facility] Hematology - [place] [address] [place] [address] Nik Easley MD 02/09/[address] [facility] Hematology - [place] [address] [place] [phone] Nik Easley MD Malignant neoplasm of overlapping sites of right breast in female, estrogen receptor positive (CMS/HCC); Cancer, metastatic to bone (CMS/HCC) 01/30/[address] [facility] Hematology - [place] [address] [place] [address] Nik Easley MD Malignant neoplasm of overlapping sites of right breast in female, estrogen receptor positive (CMS/HCC) 01/26/[address] [facility] Hematology - [place] [address] [place] [address] Milagro Quevedo MD 01/26/[address] [facility] Hematology - [place] [address] [place] [address] Nik Easley MD Malignant neoplasm of overlapping [...] Sign Reading Time Taken Comments Blood Pressure 121/81 03/11/2025 9:11 AM CDT Pulse 81 03/11/2025 9:11 AM CDT Temperature 36.9 C (98.4 F) 03/11/2025 9:11 AM CDT Respiratory Rate 15 03/11/2025 9:11 AM CDT Oxygen Saturation 95% 03/11/2025 9:11 AM CDT Inhaled Oxygen Concentration - - Weight 92.7 kg (204 lb 6.4 oz) 03/11/2025 9:11 A M CDT Height 172.7 cm (5' 8) 01/01/2024 3:01 PM CDT Body Mass Index 31.08 01/01/2024 3:01 PM CDT Plan of Treatment Upcoming Encounters Date Type Department Care Team (Late st Contact Info) Description 05/27/2025 9:45 AM CDT Office Visit [facility] Oncology and Hematology - [place] [address] [place] [address] [facility] [address] [place] [address] Nik Easley MD [address] [place] [address] Health Maintenance Due Date Last Done Comments Pre-Diabetes and Diabetes Screening 1968 DTAP/TDAP/TD VACCINES (1 - Tdap) 01/15/1987 HEPATITIS B VACCINES (1 of 3 - 19+ 3-dose series) 12/1986 HPV/Cotest (21-29) 01/15/1989 CERVICAL CANCER SCREENING 01/15/1998 HPV/Cotest (30-65) 01/15/1998 PAP SMEAR 01/15/1998 BREAST CANCER SCREENING 2008 COLORECTAL SCREENING 01/15/2013 Colorectal Cancer Screening 01/15/2013 FIT-DNA Q 3 years 01/15/2013 FIT/FOBT Q 1 year 01/15/2013 Flex Sig/CT Colonography Q 5 years 01/15/2013 ZOSTER VACCINE (1 of 2) 01/15/2018 INFLUENZA VACCINE (#1) 2025 Procedures Procedure Name Priority Date/Time Associated Diagnosis Comments COMPREHENSIVE METABOLIC PANEL Routine 04/08/2025 4:16 PM CDT COMPREHENSIVE METABOLIC PANEL Routine 02/11/2025 3:41 PM CDT CANCER ANTIGEN 15-3 Routine 02/11/2025 2 :26 PM CDT from Last 3 Months Results * COMPREHENSIVE METABOLIC PANEL (04/08/2025 4:16 PM CDT) Only the most recent of2 resultswithin the time period is included. Blood Nik Easley MD CHEMISTRY ORDERABLES Final Resu lt * CANCER ANTIGEN 15-3 (02/11/2025 2:26 PM CDT) Blood Nik Easley MD CHEMISTRY ORDERABLES Final Resu lt from Last 3 Months Insurance RX [employer] Commercial Care Teams Enterprise Cloud Architect Relationship Specialty Start Date End Date Anil Long MD [address] [place] [address] PCP - General Family Practice 01/01/24
[2025-04-27 14:33] LABS: Mean Corpuscular HGB Conc 34.8 g/dl (32-36); Mean Corpuscular Hemoglobin 34.1 pg (26-34); Mean Corpuscular Volume 97.8 fl (80-100); Red Blood Count 1.38 M/mm3 (4.2-5.4)
[2025-04-27] MEDS: LACTATED RINGERS 1,000 ML 999 ML IV CONT ×2 (14:36→15:10)
[2025-04-27] MEDS: METOCLOPRAMIDE HCL INJ 10 MG/2 ML VIAL IV PUSH (14:39)
--- NOTE | 2025-04-27 14:41 | ED.NAVMDI ---
HPI - Nausea/Vomiting/Diarrhea General Chief complaint: Nausea/Vomiting/Diarrhea Stated complaint: dehydrated Time Seen by Provider: 04/27/25 14:16 History of Present Illness HPI Narrative: Patient is on chemotherapy for metastatic breast cancer, she has been feeling extremely nauseous, has no pain, just feels sick to her stomach. Related Data Home Medications ?Medication ?Instructions ?Recorded ?Confirmed ?Last Taken ?Type anastrozole 1 mg tablet 1 mg PO DAILY 02/08/24 04/08/25 Unknown History palbociclib 125 mg capsule 125 mg PO DAILY 03/07/24 04/08/25 Unknown History (Ibrance) hydrocodone 7.5 mg-acetaminophen 1 tablet PO Q6H PRN Moderate Pain 04/30/24 04/08/25 Unknown History 325 mg tablet (Scale Score 5-6) cyanocobalamin (vitamin B-12) 500 500 mcg PO DAILY 07/14/24 04/08/25 Unknown History mcg tablet (Vitamin B-12) ferrous sulfate 325 mg (65 mg 325 mg PO DAILY 07/14/24 04/08/25 Unknown History iron) tablet Allergies Allergy/AdvReac Type Severity Reaction Status Date / Time No Known Allergies Allergy Verified 04/08/25 15:02 Review of Systems Review of Systems: All systems reviewed & are unremarkable except as noted in HPI and below PMFSH Past Medical History Medical History BMI 34.0-34.9,adult Obesity Tobacco abuse Hyperlipemia Breast cancer, right breast Anxiety Mixed hyperlipidemia Surgical History Surgical History History of cholecystectomy History of hysterectomy Family History Family History Mother Family history of thyroid disease Family history of diabetes mellitus in first degree relative Diabetes mellitus Sibling Family history of thyroid disease Family history of malignant neoplasm of thyroid Father Family history of gastrointestinal disorder Social History Social History Social History: started to smoke again Smoking packs per day: 0.5 Smoking cigarettes per day: 10.0 Years smoked: 25 Smoking pack-years: 12.50 Smoking status: Former smoker Tobacco type: cigarettes Second hand tobacco smoke exposure: Yes Smoking end date: 02/21/21 Additional smoking assessment comments: smoking about 1/2 pack or more currently Alcohol intake: never Substance use: never Substance use type: does not use Do You Feel Safe in your Home?: Yes Lack of Transportation: No Lack of Food: Never True Current Housing: I Have Housing Concerned About Future Housing: No Difficulty Paying Gas/Electric Bills: No Difficulty Paying for Meds: No Currently Unemployed: No Education: Associate Degree Difficulty w/ Childcare or Family Care: No Living arrangements: with family Occupation/Education: occupation Additional occupation/education comments: [employer] Gender identity (if verbalized by the patient): Female Spiritual care concerns: No Exam Narrative: EXAMINATION OF ORGAN SYSTEMS/BODY AREAS: Constitutional: Vital signs per nursing GENERAL: Appears tired and pale HEAD: Normal with no signs of head trauma. EYES: EOMI, conjunctiva normal ENT: Hearing grossly intact LUNGS: Nonlabored breathing. HEART: Tachycardic ABD: [Soft], [nontender to palpation] EXT: Normal range of motion SKIN: Pale NEURO: [Alert and oriented x 3. No gross focal sensory or strength deficits.] PSYCH: Normal affect Course Vital Signs Vital signs: Vital Signs Temperature 98.2 F 04/27/25 14:10 Pulse Rate 118 H 04/27/25 14:10 Respiratory Rate 20 04/27/25 14:10 Blood Pressure 121/66 04/27/25 14:10 Pulse Oximetry 100 04/27/25 14:10 Temperature 98.5 F 04/27/25 14:16 Pulse Rate 115 H 04/27/25 14:16 Respiratory Rate 20 04/27/25 14:16 Blood Pressure 138/77 04/27/25 14:16 Pulse Oximetry 99 04/27/25 14:16 Oxygen Delivery Autopap 04/27/25 14:16 MDM - Nausea/Vomiting/Diarrhea MDM Narrative Medical decision making narrative: Patient is on chemotherapy, has been very nauseous, no abdominal pain, not vomiting. No blood in her stools. I did start IV fluids and nausea medication, and on re-evaluation patient does feel better. Unfortunately labs resulted are very concerning for severe pancytopenia. I have started transfusions, discussed this with the patient and family at bedside, they are agreeable to admission for further evaluation and treatment, discussed with hospitalist for admission. Lab Data 04/27/25 14:27 04/27/25 14:27 Labs: Lab Results 04/27/25 Range/Units 14:27 WBC 0.9 L* (4.5-10.0) K/mm3 RBC 1.38 L (4.2-5.4) M/mm3 Hgb 4.7 L* D (12.0-15.0) g/dL Hct 13.5 L* (37.0-47.0) % MCV 97.8 (80-100) fl MCH 34.1 H (26-34) pg MCHC 34.8 (32-36) g/dl RDW 13.4 (11.5-14.5) % Plt Count 13 L* D (150-375) k/mm3 MPV 11.4 H (7.4-10.4) fl Immature Gran % (Auto) Not Reportable Neut % (Auto) Not Reportable Lymph % (Auto) Not Reportable [place] % (Auto) Not Reportable Eos % (Auto) Not Reportable Baso % (Auto) Not Reportable Lymph # (Auto) Not Reportable [place] # (Auto) Not Reportable Eos # (Auto) Not Reportable Baso # (Auto) Not Reportable Abs Immat Gran (auto) Not Reportable Absolute Neuts (auto) Not Reportable Absolute Nucleated RBC Not Reportable Total Counted 100 Neutrophils % (Manual) 28 L (46-73) % Band Neutrophils % 1 (0-6) % Lymphocytes % (Manual) 59.0 H (18-44) % Monocytes % (Manual) 12 H (3-9) % Nucleated RBC % Not Reportable Abs Neuts (Manual) 0.26 L* (1.3-6.7) K/mm3 Abs Lymphs (Manual) 0.53 L (1.1-4.5) K/mm3 Abs Monocytes (Manual) 0.10 (0.1-0.90) K/mm3 Nucleated RBCs 2 % Platelet Estimate Decreased (Adequate) Polychromasia 1+ Schistocytes None seen PT Pending INR Pending APTT Pending Sodium 131 L (137-145) mmol/L Potassium 3.7 (3.4-5.0) mmol/L Chloride 94 L (98-107) mmol/L Carbon Dioxide 25 (22-30) mmol/L Anion Gap 12 (4-12) mmol/L BUN 12 (7-17) mg/dL Creatinine 0.61 L (0.7-1.0) mg/dL Estim Creat Clear Calc 101 ml/min Estimated GFR > 60 (59 - ) Glucose 127 H (65-110) mg/dL Lactic Acid 3.7 H (0.7-2.0) mmol/L Calcium 9.7 (8.4-10.2) mg/dL Total Bilirubin 1.0 (0.2-1.3) mg/dL AST 302 H (14-36) U/L ALT 44 H (6-35) U/L Alkaline Phosphatase 91 (38-126) U/L Total Protein 6.8 (6.3-8.2) g/dL Albumin 3.5 (3.5-5.1) g/dL Lipase 28 (23-300) U/L Blood Type Pending Antibody Screen Pending Crossmatch See Detail Critical Care Time Critical Care Time Critical Care Time: Yes Total Critical Care Time: 31 Discharge Plan Discharge Clinical Impression: Pancytopenia due to chemotherapy Patient Disposition: Still a Patient Condition: Serious Patient Language: Turkmen Prescriptions: No Action anastrozole 1 mg Tablet 1 mg PO DAILY Patient Comments: . Ibrance 125 mg Capsule 125 mg PO DAILY Rx Instructions: administer on days 1 through 21 of a 28-day treatment cycle hydrocodone-acetaminophen 7.5-325 mg tablet 1 tablet PO Q6H PRN (Reason: Moderate Pain (Scale Score 5-6)) albuterol sulfate [Ventolin HFA] 90 mcg/actuation HFA aerosol inhaler 2 puff INHALATION Q4H PRN (Reason: shortness of breath or wheezing) Qty: 8.5 6RF Patient Comments: ....... Linzess 145 mcg capsule 145 mcg PO QAM Qty: 30 5RF dicyclomine 10 mg capsule 10 mg PO TID Qty: 30 4RF cyanocobalamin (vitamin B-12) [Vitamin B-12] 500 mcg Tablet 500 mcg PO DAILY ferrous sulfate 325 mg (65 mg iron) Tablet 325 mg PO DAILY cholecalciferol (vitamin D3) 25 mcg (1,000 unit) capsule 25 mcg PO DAILY Qty: 90 1RF atorvastatin 40 mg tablet See Rx Instructions .ROUTE .COMPLEX Qty: 90 1RF Dose Instruction: TAKE ONE TABLET BY MOUTH ONE TIME DAILY IN THE EVENING Rx Instructions: TAKE ONE TABLET BY MOUTH ONE TIME DAILY IN THE EVENING ondansetron HCl 8 mg tablet 8 mg PO Q8H PRN (Reason: nauseea) Qty: 30 1RF azithromycin 250 mg tablet See Rx Instructions PO .COMPLEX 5 Days Qty: 6 0RF Rx Instructions: For 250 mg dose pack: take 500 mg today (day 1), then 250 mg for 4 days (days 2-5) PO Follow-up/Referrals: Quoc Sosa APRN [Primary Care Provider] -
[2025-04-27 14:43] LABS: Alanine Aminotransferase 44 U/L (6-35); Albumin Level 3.5 g/dL (3.5-5.1); Alkaline Phosphatase 91 U/L (38-126); Anion Gap 12 mmol/L (4-12); Aspartate Amino Transferase 302 U/L (14-36); Bilirubin,Total 1.0 mg/dL (0.2-1.3); Blood Urea Nitrogen 12 mg/dL (7-17); Calcium 9.7 mg/dL (8.4-10.2); Carbon Dioxide 25 mmol/L (22-30); Chloride 94 mmol/L (98-107); Estimated CRCL calculation 101 ml/min; Estimated Glomerular Filt Rate > 60; Glucose 127 mg/dL (65-110); Lipase 28 U/L (23-300); Potassium 3.7 mmol/L (3.4-5.0); Sodium 131 mmol/L (137-145); Total Protein 6.8 g/dL (6.3-8.2)
[2025-04-27 15:07] LABS: White Blood Count 0.9 K/mm3 (4.5-10.0)
[2025-04-27 15:08] LABS: Hemoglobin 4.7 g/dL (12.0-15.0)
[2025-04-27 15:09] LABS: Hematocrit 13.5 % (37.0-47.0); Platelet Count Result 13 k/mm3 (150-375)
[2025-04-27 15:27] LABS: Band Neutrophils Percent 1 % (0-6); Neutrophils Percent Manual 28 % (46-73); Total Cells Counted 100
[2025-04-27 15:28] LABS: Lymphocytes Absolute Manual 0.53 K/mm3 (1.1-4.5); Lymphocytes Percent Manual 59.0 % (18-44); Monocytes Absolute Manual 0.10 K/mm3 (0.1-0.90); Monocytes Percent Manual 12 % (3-9); Neutrophils Absolute Manual 0.26 K/mm3 (1.3-6.7)
[2025-04-27 15:29] LABS: Polychromasia 1+; Schistocytes None Seen
--- OUTSIDE RECORDS SUMMARY | 2025-04-27 15:56 | XMS_ITS | Clinical Summary ---
Author Organization [facility] Address [address] [place] [address] Care Team Providers Care Informatics Specialist Name Role Phone Anil Long MD Primary Care Provider [phone] Allergies No known active allergies Medications cholecalciferol [...] Tablet 4 Active naloxone (NARCAN) 4 mg/spray [place], Non-Aerosol EMERGENCY USE ONLY: Administer 1 spray [...] Department Care Team Description 04/20/2025 Orders Only [facility] Oncology and Hematology - [place] [address] [place] [address] Nik Easley MD Malignant neoplasm of overlapping sites of right breast in female, estrogen receptor positive (CMS/HCC) 04/09/2025 Orders Only [facility] On[facility] Hematology - [place] [address] [place] [address] Nik Easley MD 04/07/2025 Orders Only [facility] On[facility] and Hematology - [place] [address] [place] [address] Nik Easley MD Malignant neoplasm of overlapping sites of right breast in female, estrogen receptor positive (CMS/HCC) (Primary Dx) 04/02/2025 Telephone [facility] On[facility] H[facility] [address] [place] [phone] Nik Easley MD Constipation (Patient said she has not had a bowel movement in 8 day, from previous encounters there are some discrepancies in the timeline. I have advised this patient to go to the ER since she has had no BM ) 04/01/2025 Refill [facility] H[facility] [place] [address] [place] [address] iNk Easley MD Malignant neoplasm of overlapping sites of right breast in female, estrogen receptor positive (CMS/HCC); Cancer, metastatic to bone (CMS/HCC) 03/31/2025 External Device Data STL ABSTRACTION Provider, Abstract 03/11/2025 9:00 AM CDT Office Visit [facility] Hematology [facility] [address] [place] [phone] Nik Easley MD Malignant neoplasm of overlapping sites of right breast in female, estrogen receptor positive (CMS/HCC) (Primary Dx) 03/05/2025 External Device Data STL ABSTRACTION Provider, Abstract 03/04/2025 External Device Data STL ABSTRACTION Provider, Abstract 03/03/2025 External Device Data STL ABSTRACTION Provider, Abstract 03/03/2025 Refill [facility] [address] [place] [phone] Nik Easley MD Malignant neoplasm of overlapping sites of right breast in female, estrogen receptor positive (CMS/HCC) (Primary Dx); Cancer, metastatic to bone (CMS/HCC) 02/18/2025 11:30 AM CDT Office Visit [facility] H[facility] [address] [place] [address] Nik Easley MD Malignant neoplasm of overlapping sites of right breast in female, estrogen receptor positive (CMS/HCC) (Primary Dx) 02/17/2025 External Device Data STL ABSTRACTION Provider, Abstract 02/12/2025 Orders Only [facility] - [place] [address] [place] [phone] Nik Easley MD 02/11/2025 Orders Only [facility] - [place] [address] [place] [address] Nik Easley MD 02/09/2025 Orders Only [facility] - [place] [address] [place] [address] Nik Easley MD Malignant neoplasm of overlapping sites of right breast in female, estrogen receptor positive (CMS/HCC); Cancer, metastatic to bone (CMS/HCC) 01/30/2025 Refill [facility] - [place] [address] [place] [address] Nik Easley MD Malignant neoplasm of overlapping sites of right breast in female, estrogen receptor positive (CMS/HCC) 01/26/2025 Refill [facility] - [place] [address] [place] [address] Milagro Quevedo MD 01/26/2025 Orders Only [facility] H[facility]ology - [place] [address] [place] [address] Nik Easley MD Malignant neoplasm of overlapping [...] Description 05/27/2025 9:45 AM CDT Office Visit [facility] H[facility] - [place] [address] [place] [address] [facility] [address] [place] [address] Nik Easley MD [address] [facility] [address] [place] [address] Health Maintenance Due Date Last [...] Insurance RX [employer] Commercial Care Teams Informatics Specialist Relationship Specialty Start Date End Date Anil Long MD [address] [place] [address] PCP - General Family Practice 01/01/24
[2025-04-27 16:00] LABS: INR 1.2; Prothrombin Time 15.1 Seconds (11.1-14.7)
[2025-04-27 16:01] LABS: Partial Thromboplastin Time 29.2 Seconds (22.3-36.8)
[2025-04-27] MEDS: TUBING, BLOOD PLUM PUMP TUBING 1 EACH XX (16:48)
[2025-04-27] MEDS: SODIUM CHLORIDE 0.9% IV 250 ML 30 ML IV CONT (16:48)
--- NOTE | 2025-04-27 16:55 | PC.NURSE ---
Pt has oral temp of 101.2F, EDP made aware stating new orders will be placed on chart
[2025-04-27] MEDS: ACETAMINOPHEN 500 MG TABLET 1000 MG PO ×2 (17:00→22:16)
--- NOTE | 2025-04-27 18:06 | ADMGEN ---
This patient, Mandy Rosales, was admitted to Medical Room 344-01. Patient/family oriented to hospital policies and general routines including ID bracelet, bed and alarms, visiting hours, pain management, procedures, bathroom and other care routines, personal items, smoking policy, room service/diet, and visiting hours. Information on how to activate the Rapid Response Team has been discussed. Patient/Family are encouraged to report perceived risks to care and to ask questions if they do not understand what they are told or what they should do.
[2025-04-28] VITALS (28 sets, daily range): BP systolic 87–137; BP diastolic 54–82; PULSE 87–111; RESP 16–22; TEMP 37.1–39.5; O2SAT 92–100
[2025-04-28 01:19] LABS: Add Urine Microscopic? YES; Appearance Urine Clear (Clear); Glucose Urine UA Negative (Negative); Leukocyte Esterase Ur Negative LEU/UL (Negative); Nitrate Urine Negative (Negative); Non Pathogenic Casts 0-2; Specific Grav Ur 1.015 (1.001-1.035)
[2025-04-28] MEDS: SODIUM CHLORIDE 0.9% IV 1,000 ML 150 ML IV CONT ×3 (03:06→20:51)
[2025-04-28] MEDS: CEFEPIME 2 GM in SODIUM CHLORIDE 0.9% IV 50 ML 100 ML IVPB ×3 (03:06→18:12)
[2025-04-28] MEDS: PANTOPRAZOLE SODIUM IV 40 MG VIAL IV PUSH ×3 (03:06→20:51)
[2025-04-28] MEDS: traMADol HCL (*CRX) 25 MG TABLET PO (03:07)
[2025-04-28] MEDS: VANCOMYCIN 1,250 MG/NS 250 ML 1,250 MG/250 ML BAG 166.67 MG IVPB (03:11)
[2025-04-28] MEDS: AZITHROMYCIN IV 500 MG in SODIUM CHLORIDE 0.9% IV 250 ML IVPB (03:15)
[2025-04-28 03:16] LABS: Immature Granulocyte Percent A 0.0 % (0-0.5); Immature Platelet Fraction Pct 5.4 % (0.9-11.2); Lymphocytes Absolute Auto 0.20 K/mm3 (0.9-3.2); Mean Corpuscular HGB Conc 33.9 g/dl (32-36); Mean Corpuscular Hemoglobin 32.4 pg (26-34); Mean Corpuscular Volume 95.5 fl (80-100); Nucleated Red Blood Cells Absolute Auto 0.030 K/mm3 (0.0-0.012); Nucleated Red Blood Cells Perc 9.4 % (0.0-0.2); Red Blood Count 1.76 M/mm3 (4.2-5.4)
[2025-04-28 03:41] LABS: Alanine Aminotransferase 37 U/L (6-35); Albumin Level 3.1 g/dL (3.5-5.1); Alkaline Phosphatase 81 U/L (38-126); Anion Gap 10 mmol/L (4-12); Aspartate Amino Transferase 282 U/L (14-36); Bilirubin,Total 1.2 mg/dL (0.2-1.3); Blood Urea Nitrogen 12 mg/dL (7-17); Calcium 9.0 mg/dL (8.4-10.2); Carbon Dioxide 22 mmol/L (22-30); Chloride 95 mmol/L (98-107); Estimated CRCL calculation 113 ml/min; Estimated Glomerular Filt Rate > 60; Glucose 120 mg/dL (65-110); Magnesium 1.8 mg/dL (1.6-2.3); Potassium 2.9 mmol/L (3.4-5.0); Sodium 127 mmol/L (137-145); Total Protein 6.2 g/dL (6.3-8.2)
[2025-04-28 03:51] LABS: Influenza A QL RT-PCR Negative (Negative); Influenza B QL RT-PCR Negative (Negative); RSV RNA, RT-PCR Negative (Negative); SARS-CoV-2 RNA PCR Negative (Negative)
[2025-04-28 03:58] LABS: White Blood Count 0.3 K/mm3 (4.5-10.0)
[2025-04-28 03:59] LABS: Hematocrit 16.8 % (37.0-47.0); Hemoglobin 5.7 g/dL (12.0-15.0); Procalcitonin 2.2 ng/mL
[2025-04-28] MEDS: ACETAMINOPHEN 500 MG TABLET 1000 MG PO ×3 (04:15→17:48)
[2025-04-28] MEDS: VANCOMYCIN HCL 1,000 MG in SODIUM CHLORIDE 0.9% IV 250 ML 250 MG IVPB (04:20)
--- NOTE | 2025-04-28 05:31 | PC.NURSE ---
Started 2nd unit of PRBC start temp 99.5. At her 15m vital check temp had jumped to 102.6. I immediately stopped the blood and called the Dr Physician. We started the transfusion reaction protocol.
[2025-04-28 06:30] LABS: Add Urine Microscopic? YES; Appearance Urine Clear (Clear); Glucose Urine UA Negative (Negative); Leukocyte Esterase Ur Negative LEU/UL (Negative); Nitrate Urine Negative (Negative); Non Pathogenic Casts 0-2; Specific Grav Ur > 1.045 (1.001-1.035)
[2025-04-28 07:00] LABS: TXRXN Occult Blood Urine Immed Negative (Negative); TXRXN RBC Urine Immediate 0-2 /hpf (0-2)
[2025-04-28 07:02] LABS: Total Bilirubin Imm Post TxRxn 1.2 mg/dL (0.2-1.3)
[2025-04-28 07:03] LABS: Total Bilirubin 5hr Post TX RX 1.1 mg/dL (0.2-1.3)
[2025-04-28 07:18] LABS: TXRXN Occult Blood Urine 4 Hr Negative (Negative)
[2025-04-28] MEDS: POTASSIUM CHLORIDE INJ 40 MEQ in SODIUM CHLORIDE 0.9% IV 500 ML 130 MEQ IVPB (07:50)
--- NOTE | 2025-04-28 08:54 | WPDGICN ---
Assessment and Plan Assessment and plan (1) Pancytopenia: Code(s): D61.818 - Other pancytopenia Status: Acute (2) Melena: Code(s): K92.1 - Melena Status: Acute (3) Hepatic steatosis: Code(s): K76.0 - Fatty (change of) liver, not elsewhere classified Status: Acute (4) Elevated liver transaminase level: Code(s): R74.01 - Elevation of levels of liver transaminase levels Status: Acute (5) Hyponatremia: Code(s): E87.1 - Hypo-osmolality and hyponatremia Status: Acute (6) Hypokalemia: Code(s): E87.6 - Hypokalemia Status: Acute Plan 1. Pancytopenia/melena: Patient has never had an EGD or colonoscopy. Admits to dark stools on oral iron but denies any recent change in stool color before admission. Patient receiving chemo and radiation for breast cancer Dx in January [address] Easley. BM today was dark green in color. Denies hematemesis, coffee-ground emesis, hematochezia, or melena. Labs today showed WBC 0.3, HGB 6, HCT 17, MCV 96, platelets 13. Iron panel 106, TIBC 271, iron sat 39%, ferritin pending. Iron panel was checked after the patient had received a unit of blood so these results are likely not accurately represent her current iron levels. Patient has many acute issues going on at this time which would need to be addressed before a colonoscopy or EGD would be considered. No signs of active bleeding. Patient and family agree with plan to hold off on any endoscopic evaluation. Patient to follow up outpatient and we can further discuss scopes Further recommendation regarding pancytopenia per Dr. Easley 2. Elevated liver transaminase: Bilirubin and alkaline phosphatase normal. AST 282, ALT 37. It appears that the patient has been having intermittent liver transaminase elevation since 2019. CT showed diffuse hepatic steatosis. Etiology of elevation likely multifactorial. Further liver workup can be completed as outpatient once her acute issues have been addressed 3. Hyponatremia/hypokalemia: Labs today show sodium 127 and potassium 2.9. Primary care team to continue monitoring and correct Thank you very much for allowing me to share in the care of this very nice patient. This report may have been done utilizing a voice recognition system. Attempts have been made to correct errors. However, there may be uncorrected grammatical, spelling, and recognition errors present. GI Consult Note Consult date/time: 04/28/25 08:54 Reason for consult: melena and anemia HPI: Mandy Rosales is a 55 year old female with past medical surgical history of HLD, anxiety, hysterectomy, cholecystectomy, HLD, and currently being treated for breast cancer. She presented to the emergency room yesterday with complaints of nausea, vomiting and diarrhea. GI has been consulted for melena and anemia. Patient was seen with her daughter Lisa and Kulwinder at her bedside throughout the entire visit. Patient's daughter help provide a large portion of patient's medical history and recent symptoms. Patient initially diagnosed with breast cancer in January of 2024. Per daughter the patient had a pretty intense round of chemotherapy and radiation following her diagnosis and then had a known other round of radiation this January and since then has been having ?trouble with her bowels?. She is on opioids so has been struggling with constipation and diarrhea back and forth. When constipation occurs she typically takes stool softeners and then has loose stools. Patient also admits to intermittent abdominal cramping prior to bowel movements. She admits to intermittent nausea without vomiting but this has improved with p.r.n. antiemetic. She has a decreased appetite and has lost 30 lb since this January related to cancer treatment. She states that she is having dark stools but it has been the same color since she started oral iron and denies any change in stools such as tarry or malodorous presentation. Per nurse her last bowel movement was dark green. She denies any abdominal pain, bloating, odynophagia, dysphagia, reflux, regurgitation, early satiety or hematochezia. Denies any NSAID, aspirin, or anticoagulant use. She is a nondrinker nonsmoker and denies marijuana use. Family history negative for CRC or IBD. ENDOSCOPY HISTORY: Patient has never had an EGD or colonoscopy LABS AND STOOL STUDIES: Labs 04/28/2025: Sodium 127, potassium 2.9, BUN 12, creatinine 0.54, GFR >60, calcium 9.0, magnesium 1.8, lactic acid 2.2 WBC 0.3, Hgb 6, Hct 17, MCV 96, platelets 13 Total bilirubin 1.2, AST 282, ALT 37, Alkaline Phos 81, albumin 3.1 Procalcitonin 2.2 Labs 04/27/2025: Sodium 131, potassium 3.7, BUN 12, creatinine 0.61, GFR >60, calcium 9.1, lactic acid 3.7 WBC 0.9, Hgb 5, Hct 14, MCV 98, platelets 13, INR 1.2 Total bilirubin 1.0, AST 302, ALT 44, Alkaline Phos 91, albumin 3.5, lipase 28 IMAGING: CT chest/abd/pelvis w/contrast 04/28/2025: Findings: There is no evidence of any significant mediastinal, hilar or axillary lymphadenopathy. The mediastinal soft tissues and vascular structures appear normal. No pericardial effusion. Moderate to large left pleural effusion present with near complete left lower lobe atelectasis. There is minimal right pleural effusion with minimal right basilar atelectasis. There is a 3.3 x 2.1 cm mass in the medial right breast (axial image 62), suspicious for breast carcinoma.. There is diffuse hepatic steatosis. Cholecystectomy clips are present. The spleen, pancreas, adrenals and right kidney are within normal limits. Is mild left hydronephrosis. No evidence of aortic aneurysm. Single mildly prominent lymph node present along the left common iliac chain (axial image 187). No bowel obstruction or bowel wall thickening. There is no evidence to suggest acute appendicitis. Urinary bladder is unremarkable. Status post hysterectomy. No pelvic mass. No ascites. There is moderate to severe compression fracture of T1. There is moderate compression fracture of T12. There is subtle somewhat heterogeneous appearance of the osseous structures, consistent with osseous metastatic disease. Probable definite involvement of the T1 and T12 vertebral bodies, as well as the bilateral iliac bones adjacent to the SI joints and the left sacrum. Additional smaller metastatic lesions in the spine are probably present, though somewhat poorly delineated.. Impression: 3.3 x 2.1 cm medial right breast mass is highly suspicious for breast carcinoma. Diagnostic mammogram/ultrasound recommended for further evaluation. Findings compatible osseous metastatic disease, especially in the iliac bones and spine, with probable pathologic compression fractures of T1 and T12. Single mildly prominent lymph node along the left common iliac chain, indeterminate for metastatic lymphadenopathy. Moderate to large left pleural effusion with complete left lower lobe atelectasis. Minimal right pleural effusion with minimal right basilar atelectasis. Mild left hydronephrosis. No obstructing mass or stone clearly evident. CT abd/pelvis w/contrast 01/26/2025: IMPRESSION: 1. No evidence of appendicitis,1 diverticulitis or intestinal obstruction. 2. Slight thickening seen in the transverse colon to the right and left side which is most likely spastic. Follow-up advised. 3. Multiple osteolytic lesions unchanged from previous examination. PET scan 12/22/2024: FINDINGS: Head/neck: There are no pathologically enlarged lymph nodes. Chest: There is no pneumonia or pleural effusion. The heart size is normal. No pericardial effusion. There is a 3.8 cm mass in right breast with maximum SUV of 18, stable from 10/31/24. There is a 10 x 11 mm right subpectoral the with maximum SUV of 8.5. There are normal-sized right subpectoral and axillary nodes with increased activity. There are widespread scattered lytic and sclerotic bone lesions with increased activity. Abdomen/pelvis/proximal thighs: The liver and spleen are normal. There are changes of cholecystectomy. The pancreas, adrenal glands, and kidneys are normal. There are no dilated loops of bowel. The appendix is normal. There are no pathologically enlarged lymph nodes. There is no free intraperitoneal fluid. There are widespread scattered lytic and sclerotic bone lesions with increased activity. IMPRESSION: 1. Right breast mass, right subpectoral and right axillary lymphadenopathy, and scattered bone lesions with increased activity, stable from 10/31/24, consistent with metastatic breast cancer. Review of Systems Constitutional: Constitutional: Reports as per HPI, Reports fatigue and Reports lethargy ENT: Reports as per HPI Cardiovascular: Cardiovascular: Reports as per HPI, Denies chest pain, Denies leg edema and Denies dyspnea Respiratory: Respiratory: Denies cough and Denies dyspnea Gastrointestinal: Gastrointestinal: Reports as per HPI Musculoskeletal: Musculoskeletal: Reports as per HPI Integumentary/Breasts: Skin/Breast: Reports as per HPI Psychiatric: Psychiatric: Reports as per HPI Endocrine: Endocrine: Reports no additional endocrine complaints Hematologic/Lymphatic: Hematologic/Lymphatic: Reports no additional hematologic/lymphatic complaints [facility] Past Medical History Medical History BMI 34.0-34.9,adult Obesity Tobacco abuse Hyperlipemia Breast cancer, right breast Anxiety Mixed hyperlipidemia Surgical History Surgical History History of cholecystectomy History of hysterectomy Family History Family History Mother Family history of thyroid disease Family history of diabetes mellitus in first degree relative Diabetes mellitus Sibling Family history of thyroid disease Family history of malignant neoplasm of thyroid Father Family history of gastrointestinal disorder Social History Social History Social History: started to smoke again Smoking packs per day: 0.5 Smoking cigarettes per day: 10.0 Years smoked: 25 Smoking pack-years: 12.50 Smoking status: Former smoker Second hand tobacco smoke exposure: Yes Additional smoking assessment comments: smoking about 1/2 pack or more currently Alcohol intake: never Substance use: never Substance use type: does not use Do You Feel Safe in your Home?: Yes Lack of Transportation: No Lack of Food: Never True Current Housing: I Have Housing Concerned About Future Housing: No Difficulty Paying Gas/Electric Bills: No Difficulty Paying for Meds: No Currently Unemployed: No Education: Associate Degree Difficulty w/ Childcare or Family Care: No Living arrangements: with family Occupation/Education: occupation Additional occupation/education comments: [employer] Gender identity (if verbalized by the patient): Female Spiritual care concerns: No Meds Home Medications and Allergies Home Medications ?Medication ?Instructions ?Recorded ?Confirmed ?Type cholecalciferol (vitamin D3) 25 25 mcg PO DAILY #90 caps 02/23/23 04/27/25 Rx mcg (1,000 unit) capsule anastrozole 1 mg tablet 1 mg PO DAILY 02/08/24 04/27/25 History palbociclib 125 mg capsule 125 mg PO DAILY 03/07/24 04/27/25 History (Ibrance) hydrocodone 7.5 mg-acetaminophen 1 tablet PO Q6H PRN Moderate Pain 04/30/24 04/27/25 History 325 mg tablet (Scale Score 5-6) cyanocobalamin (vitamin B-12) 500 500 mcg PO DAILY 07/14/24 04/27/25 History mcg tablet (Vitamin B-12) ferrous sulfate 325 mg (65 mg 325 mg PO DAILY 07/14/24 04/27/25 History iron) tablet albuterol sulfate 90 mcg/actuation 2 puff inhalation Q4H PRN 10/29/24 04/27/25 Rx aerosol inhaler (Ventolin HFA) shortness of breath or wheezing #8.5 grams atorvastatin 40 mg tablet See Rx Instructions .Route 12/03/24 04/27/25 Rx .COMPLEX #90 tabs ondansetron HCl 8 mg tablet 8 mg PO Q8H PRN nauseea #30 tabs 02/10/25 04/27/25 Rx dicyclomine 10 mg capsule 10 mg PO TID #30 caps 04/08/25 04/27/25 Rx linaclotide 145 mcg capsule 145 mcg PO QAM #30 caps 04/08/25 04/27/25 Rx (Linzess) azithromycin 250 mg tablet See Rx Instructions PO .COMPLEX 5 04/27/25 04/27/25 Rx days #6 tabs Allergies Allergy/AdvReac Type Severity Reaction Status Date / Time No Known Allergies Allergy Verified 04/08/25 15:02 Vital Signs Vital Signs - 24 hr 04/27/25 14:10 04/27/25 14:16 04/27/25 14:20 Temperature 98.2 F 98.5 F Pulse Rate 118 H 115 H 116 H Respiratory Rate 20 20 18 Blood Pressure 121/66 138/77 138/77 Pulse Oximetry 100 99 98 Oxygen Delivery Autopap Oxygen Flow Rate 04/27/25 15:16 04/27/25 16:01 04/27/25 16:49 Temperature 101.2 F H Pulse Rate 110 H 108 H 111 H Respiratory Rate 21 H 19 21 H Blood Pressure 136/67 126/64 118/66 Pulse Oximetry 95 93 91 Oxygen Delivery Oxygen Flow Rate 04/27/25 16:57 04/27/25 16:57 04/27/25 17:00 Temperature 101.2 F H 101.2 F H Pulse Rate 106 H Respiratory Rate 21 H Blood Pressure 118/66 Pulse Oximetry 97 98 Oxygen Delivery Nasal Cannula Oxygen Flow Rate 1 04/27/25 17:03 04/27/25 19:48 04/27/25 20:00 Temperature 101.6 F H 100.4 F H Pulse Rate 107 H 96 Respiratory Rate 19 18 Blood Pressure 126/61 108/64 Pulse Oximetry 96 96 96 Oxygen Delivery Nasal Cannula Oxygen Flow Rate 2 04/27/25 20:00 04/27/25 22:16 04/27/25 23:16 Temperature 101 F H 100 F H Pulse Rate 119 H Respiratory Rate Blood Pressure Pulse Oximetry Oxygen Delivery Oxygen Flow Rate 04/28/25 00:00 04/28/25 00:46 04/28/25 01:10 Temperature 99.5 F 102.6 F H Pulse Rate 103 H 103 H 103 H Respiratory Rate 18 20 Blood Pressure 128/69 137/82 Pulse Oximetry 96 92 Oxygen Delivery Oxygen Flow Rate 04/28/25 04:00 04/28/25 04:15 04/28/25 05:15 Temperature 103.1 F H 100.9 F H Pulse Rate 111 H 105 H Respiratory Rate 18 Blood Pressure 123/54 L Pulse Oximetry 94 Oxygen Delivery Oxygen Flow Rate 04/28/25 05:15 04/28/25 06:33 Temperature 99.6 F 99.8 F H Pulse Rate Respiratory Rate Blood Pressure Pulse Oximetry Oxygen Delivery Oxygen Flow Rate Exam Const: General: cooperative, healthy appearing, comfortable, no acute distress and well developed Orientation/consciousness: oriented to person, oriented to place, oriented to time and patient oriented x3 HENMT: Head: normal to inspection, normocephalic and atraumatic Mouth: Yes Normal oral and palatal mucosa present and Yes moist mucous membranes Eyes: General: appearance normal, both eyes and all related structures Conjunctivae: conjunctivae normal Sclera: sclerae normal Pupils: Equal, round and reactive pupils present Neck: Neck: normal visual inspection Chest: Chest palpation & inspection: normal inspection of the chest Resp: Effort & Inspection: normal respiratory effort and able to speak in complete sentences Auscultation: clear to auscultation bilaterally Cardio: Jugular venous distension: no JVD Rate: regular rate Rhythm: regular rhythm Heart sounds: S1 normal heart sound present and S2 normal heart sound present GI: Inspection: normal to inspection GI Palp: Yes Soft to palpation and Yes No hepatosplenomegaly present Auscultation: normal bowel sounds Rectal Exam: deferred Skin: General skin exam: normal color and no rashes or lesions noted Neuro: General: oriented to person, oriented to place, oriented to time and patient oriented x3 Cranial nerves: Yes Equal, round and reactive pupils present Speech: normal speech Extrem: General: normal to inspection and no clubbing, cyanosis or edema Psych: Appearance: grossly normal and well kempt Affect: normal affect Results Labs 04/28/25 03:05 04/28/25 03:05 Labs: Short CBC 04/27/25 04/28/25 Range/Units 14:27 03:05 WBC 0.9 L* 0.3 L* (4.5-10.0) K/mm3 Hgb 4.7 L* D 5.7 L* (12.0-15.0) g/dL Hct 13.5 L* 16.8 L* (37.0-47.0) % Plt Count 13 L* D TNP (150-375) k/mm3 BMP 04/27/25 04/28/25 14:27 03:05 Sodium 131 L 127 L Potassium 3.7 2.9 L Chloride 94 L 95 L Carbon Dioxide 25 22 BUN 12 12 Creatinine 0.61 L 0.54 L Glucose 127 H 120 H Calcium 9.7 9.0 Liver Function 04/27/25 04/28/25 Range/Units 14:27 03:05 Total Bilirubin 1.0 1.2 (0.2-1.3) mg/dL AST 302 H 282 H (14-36) U/L ALT 44 H 37 H (6-35) U/L Alkaline Phosphatase 91 81 (38-126) U/L Albumin 3.5 3.1 L (3.5-5.1) g/dL Urine 04/28/25 04/28/25 Range/Units 00:57 06:05 Urine Color Yellow Yellow (Yellow) Urine Appearance Clear Clear (Clear) Urine pH 6.0 6.5 (5.0-9.0) Ur Specific [place] 1.015 > 1.045 H (1.001-1.035) Urine Protein 1+ H 1+ H (Negative) mg/dL Urine Glucose (UA) Negative Negative (Negative) mg/dL
[2025-04-28] MEDS: TUBING, BLOOD PLUM PUMP TUBING 1 EACH XX ×2 (10:20→18:13)
[2025-04-28 10:22] LABS: Immature Reticulocyte Fraction 8.9 % (3.0-15.9); Reticulocyte Hemoglobin Conten 34.2 pg (28.2-36.6); Reticulocytes Absolute 0.01 10^6/uL (0.02-0.10)
[2025-04-28] MEDS: FAMOTIDINE 20 MG/2 ML VIAL IV PUSH ×2 (10:23→17:42)
[2025-04-28] MEDS: SODIUM CHLORIDE 0.9% IV 250 ML 30 ML (10:30)
[2025-04-28 10:45] LABS: Iron 106 ug/dL (37-170)
[2025-04-28 10:54] LABS: Percent Iron Saturation 39 % (20-50)
[2025-04-28 12:12] LABS: Vitamin B12 > 1000.0 pg/mL (239-931)
[2025-04-28] MEDS: HYDROcodone/acetaminophen (*CRX) 7.5-325 MG TABLET 1 TAB PO (12:30)
--- NOTE | 2025-04-28 12:48 | PM.IMHP ---
H&P: HPI History of Present Illness Date/Time: 04/28/25 12:48 Chief Complaint: weakness, fever, N/V, melena Narrative: patient with history of stage IIIb invasive ductal carcinoma of right breast cancer diagnosed in 2023, HLD, anxiety presented with nausea vomiting, fever, black stool. Patient notes she has been on chemo radiation for breast cancer. She has been having intermittent diarrhea and nausea vomiting. She also has been having low appetite and weight loss. For past couple of days she has been having fever and also noticed to have dark stool. She as been on iron for iron deficiency. Presented to ER for further management. In the ER patient was found to have fever, tachypnea, tachycardia. Lab tests showed pancytopenia with WBC 0.9, hemoglobin 4.7 and platelet 13. Potassium 2.9, sodium 127 lactic acid 2.6, elevated liver enzyme. GI and oncology team was consulted. Dizziness started for neutropenia sepsis. GI team recommended to hold off on any endoscopy evaluation for now and follow up as outpatient. Review of Systems Review of Systems: All systems reviewed & are unremarkable except as noted in HPI and below Constitutional: Constitutional: Reports as per HPI, Reports fatigue and Reports lethargy ENT: Reports as per HPI Cardiovascular: Cardiovascular: Reports as per HPI, Denies chest pain, Denies leg edema and Denies dyspnea Respiratory: Respiratory: Denies cough and Denies dyspnea Gastrointestinal: Gastrointestinal: Reports as per HPI Musculoskeletal: Musculoskeletal: Reports as per HPI Integumentary/Breasts: Skin/Breast: Reports as per HPI Psychiatric: Psychiatric: Reports as per HPI Endocrine: Endocrine: Reports no additional endocrine complaints and Reports fatigue Hematologic/Lymphatic: Hematologic/Lymphatic: Reports no additional hematologic/lymphatic complaints [facility] Past Medical History Medical History BMI 34.0-34.9,adult Obesity Tobacco abuse Hyperlipemia Breast cancer, right breast Anxiety Mixed hyperlipidemia Surgical History Surgical History History of cholecystectomy History of hysterectomy Family History Family History Mother Family history of thyroid disease Family history of diabetes mellitus in first degree relative Diabetes mellitus Sibling Family history of thyroid disease Family history of malignant neoplasm of thyroid Father Family history of gastrointestinal disorder Social History Social History Social History: started to smoke again Smoking packs per day: 0.5 Smoking cigarettes per day: 10.0 Years smoked: 25 Smoking pack-years: 12.50 Smoking status: Former smoker Second hand tobacco smoke exposure: Yes Additional smoking assessment comments: smoking about 1/2 pack or more currently Alcohol intake: never Substance use: never Substance use type: does not use Do You Feel Safe in your Home?: Yes Lack of Transportation: No Lack of Food: Never True Current Housing: I Have Housing Concerned About Future Housing: No Difficulty Paying Gas/Electric Bills: No Difficulty Paying for Meds: No Currently Unemployed: No Education: Associate Degree Difficulty w/ Childcare or Family Care: No Living arrangements: with family Occupation/Education: 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 Gender identity (if verbalized by the patient): Female Spiritual care concerns: No Meds Home Medications and Allergies Home Medications ?Medication ?Instructions ?Recorded ?Confirmed ?Type cholecalciferol (vitamin D3) 25 25 mcg PO DAILY #90 caps 02/23/23 04/27/25 Rx mcg (1,000 unit) capsule anastrozole 1 mg tablet 1 mg PO DAILY 02/08/24 04/27/25 History palbociclib 125 mg capsule 125 mg PO DAILY 03/07/24 04/27/25 History (Ibrance) hydrocodone 7.5 mg-acetaminophen 1 tablet PO Q6H PRN Moderate Pain 04/30/24 04/27/25 History 325 mg tablet (Scale Score 5-6) cyanocobalamin (vitamin B-12) 500 500 mcg PO DAILY 07/14/24 04/27/25 History mcg tablet (Vitamin B-12) ferrous sulfate 325 mg (65 mg 325 mg PO DAILY 07/14/24 04/27/25 History iron) tablet albuterol sulfate 90 mcg/actuation 2 puff inhalation Q4H PRN 10/29/24 04/27/25 Rx aerosol inhaler (Ventolin HFA) shortness of breath or wheezing #8.5 grams atorvastatin 40 mg tablet See Rx Instructions .Route 12/03/24 04/27/25 Rx .COMPLEX #90 tabs ondansetron HCl 8 mg tablet 8 mg PO Q8H PRN nauseea #30 tabs 02/10/25 04/27/25 Rx dicyclomine 10 mg capsule 10 mg PO TID #30 caps 04/08/25 04/27/25 Rx linaclotide 145 mcg capsule 145 mcg PO QAM #30 caps 04/08/25 04/27/25 Rx (Linzess) azithromycin 250 mg tablet See Rx Instructions PO .COMPLEX 5 04/27/25 04/27/25 Rx days #6 tabs Allergies Allergy/AdvReac Type Severity Reaction Status Date / Time No Known Allergies Allergy Verified 04/08/25 15:02 Vital Signs Vital Signs - 24 hr 04/27/25 14:10 04/27/25 14:16 04/27/25 14:20 Temperature 98.2 F 98.5 F Pulse Rate 118 H 115 H 116 H Respiratory Rate 20 20 18 Blood Pressure 121/66 138/77 138/77 Pulse Oximetry 100 99 98 Oxygen Delivery Autopap Oxygen Flow Rate 04/27/25 15:16 04/27/25 16:01 04/27/25 16:49 Temperature 101.2 F H Pulse Rate 110 H 108 H 111 H Respiratory Rate 21 H 19 21 H Blood Pressure 136/67 126/64 118/66 Pulse Oximetry 95 93 91 Oxygen Delivery Oxygen Flow Rate 04/27/25 16:57 04/27/25 16:57 04/27/25 17:00 Temperature 101.2 F H 101.2 F H Pulse Rate 106 H Respiratory Rate 21 H Blood Pressure 118/66 Pulse Oximetry 97 98 Oxygen Delivery Nasal Cannula Oxygen Flow Rate 1 04/27/25 17:03 04/27/25 19:48 04/27/25 20:00 Temperature 101.6 F H 100.4 F H Pulse Rate 107 H 96 Respiratory Rate 19 18 Blood Pressure 126/61 108/64 Pulse Oximetry 96 96 96 Oxygen Delivery Nasal Cannula Oxygen Flow Rate 2 04/27/25 20:00 04/27/25 22:16 04/27/25 23:16 Temperature 101 F H 100 F H Pulse Rate 119 H Respiratory Rate Blood Pressure Pulse Oximetry Oxygen Delivery Oxygen Flow Rate 04/28/25 00:00 04/28/25 00:46 04/28/25 01:10 Temperature 99.5 F 102.6 F H Pulse Rate 103 H 103 H 103 H Respiratory Rate 18 20 Blood Pressure 128/69 137/82 Pulse Oximetry 96 92 Oxygen Delivery Oxygen Flow Rate 04/28/25 04:00 04/28/25 04:15 04/28/25 05:15 Temperature 103.1 F H 100.9 F H Pulse Rate 111 H 105 H Respiratory Rate 18 Blood Pressure 123/54 L Pulse Oximetry 94 Oxygen Delivery Oxygen Flow Rate 04/28/25 05:15 04/28/25 06:33 04/28/25 08:04 Temperature 99.6 F 99.8 F H Pulse Rate 107 H Respiratory Rate Blood Pressure Pulse Oximetry Oxygen Delivery Oxygen Flow Rate 04/28/25 09:28 04/28/25 09:46 04/28/25 10:46 Temperature 103 F H 103 F H Pulse Rate Respiratory Rate Blood Pressure Pulse Oximetry 93 Oxygen Delivery Nasal Cannula Oxygen Flow Rate 2 04/28/25 10:55 04/28/25 11:11 04/28/25 12:11 Temperature 103 F H 101.2 F H 101.5 F H Pulse Rate 110 H 103 H 102 H Respiratory Rate 20 22 H 20 Blood Pressure 126/64 99/59 L 120/58 L Pulse Oximetry 92 93 96 Oxygen Delivery Oxygen Flow Rate Exam Narrative: EXAMINATION OF ORGAN SYSTEMS/BODY AREAS: Constitutional: Vital signs per nursing GENERAL: Appears tired and pale HEAD: Normal with no signs of head trauma. EYES: EOMI, conjunctiva normal ENT: Hearing grossly intact LUNGS: Nonlabored breathing. HEART: Tachycardic ABD: [Soft], [nontender to palpation] EXT: Normal range of motion SKIN: Pale NEURO: [Alert and oriented x 3. No gross focal sensory or strength deficits.] PSYCH: Normal affect Const: General: cooperative, healthy appearing, comfortable, no acute distress and well developed Orientation/consciousness: oriented to person, oriented to place, oriented to time and patient oriented x3 HENMT: Head: normal to inspection, normocephalic and atraumatic Mouth: Yes Normal oral and palatal mucosa present and Yes moist mucous membranes Eyes: General: appearance normal, both eyes and all related structures Conjunctivae: conjunctivae normal Sclera: sclerae normal Pupils: Equal, round and reactive pupils present Neck: Neck: normal visual inspection Chest: Chest palpation & inspection: normal inspection of the chest Resp: Effort & Inspection: normal respiratory effort and able to speak in complete sentences Auscultation: clear to auscultation bilaterally Cardio: Jugular venous distension: no JVD Rate: regular rate Rhythm: regular rhythm Heart sounds: S1 normal heart sound present and S2 normal heart sound present GI: Inspection: normal to inspection Auscultation: normal bowel sounds Rectal Exam: deferred Skin: General skin exam: normal color and no rashes or lesions noted Neuro: General: oriented to person, oriented to place, oriented to time and patient oriented x3 Cranial nerves: Yes Equal, round and reactive pupils present Speech: normal speech Extrem: General: normal to inspection and no clubbing, cyanosis or edema Psych: Appearance: grossly normal and well kempt Affect: normal affect H&P: Results Labs Labs: Short CBC 04/27/25 04/28/25 Range/Units 14:27 03:05 WBC 0.9 L* 0.3 L* (4.5-10.0) K/mm3 Hgb 4.7 L* D 5.7 L* (12.0-15.0) g/dL Hct 13.5 L* 16.8 L* (37.0-47.0) % Plt Count 13 L* D TNP (150-375) k/mm3 BMP 04/27/25 04/28/25 14:27 03:05 Sodium 131 L 127 L Potassium 3.7 2.9 L Chloride 94 L 95 L Carbon Dioxide 25 22 BUN 12 12 Creatinine 0.61 L 0.54 L Glucose 127 H 120 H Calcium 9.7 9.0 Liver Function 04/27/25 04/28/25 Range/Units 14:27 03:05 Total Bilirubin 1.0 1.2 (0.2-1.3) mg/dL AST 302 H 282 H (14-36) U/L ALT 44 H 37 H (6-35) U/L Alkaline Phosphatase 91 81 (38-126) U/L Albumin 3.5 3.1 L (3.5-5.1) g/dL Urine 04/28/25 04/28/25 Range/Units 00:57 06:05 Urine Color Yellow Yellow (Yellow) Urine Appearance Clear Clear (Clear) Urine pH 6.0 6.5 (5.0-9.0) Ur Specific [place] 1.015 > 1.045 H (1.001-1.035) Urine Protein 1+ H 1+ H (Negative) mg/dL Urine Glucose (UA) Negative Negative (Negative) mg/dL Assessment and Plan Assessment and plan (1) Pancytopenia: Code(s): D61.818 - Other pancytopenia Status: Acute (2) Melena: Code(s): K92.1 - Melena Status: Acute (3) Hepatic steatosis: Code(s): K76.0 - Fatty (change of) liver, not elsewhere classified Status: Acute (4) Elevated liver transaminase level: Code(s): R74.01 - Elevation of levels of liver transaminase levels Status: Acute (5) Hyponatremia: Code(s): E87.1 - Hypo-osmolality and hyponatremia Status: Acute (6) Hypokalemia: Code(s): E87.6 - Hypokalemia Status: Acute Plan Neutropenic fever Continue with IV antibiotics Isolation Follow culture result Hematology-Oncology team on board Pancytopenia Continue with blood transfusion Monitor CBC Transfuse a as needed Oncology team on board Black stool Patient is on iron pill. Follow-up with endoscopy as outpatient GI team on board Transaminitis CT shows hepatitis started Follow with GI as outpatient Hypernatremia NS Hypokalemia Replace with potassium Breast cancer On chemoradiation as outpatient Follow Oncology team recommendation
[2025-04-28] MEDS: DICYCLOMINE HCL 10 MG CAPSULE PO ×2 (14:08→18:12)
[2025-04-28] MEDS: VANCOMYCIN 1,500 MG/NS 500 ML 1,500 MG/500 ML BAG 250 MG IVPB (14:13)
[2025-04-28 16:05] LABS: Ferritin > 1000.00 ng/mL (11.1-264)
[2025-04-28 16:24] LABS: Immature Platelet Fraction Pct 3.8 % (0.9-11.2); Mean Corpuscular HGB Conc 34.6 g/dl (32-36); Mean Corpuscular Hemoglobin 32.1 pg (26-34); Mean Corpuscular Volume 92.7 fl (80-100); Red Blood Count 1.93 M/mm3 (4.2-5.4)
[2025-04-28 16:43] LABS: White Blood Count 0.3 K/mm3 (4.5-10.0)
[2025-04-28 16:44] LABS: Hematocrit 17.9 % (37.0-47.0); Hemoglobin 6.2 g/dL (12.0-15.0); Platelet Count Result 5 k/mm3 (150-375)
[2025-04-28 16:45] LABS: Anion Gap 7 mmol/L (4-12); Blood Urea Nitrogen 8 mg/dL (7-17); Calcium 8.5 mg/dL (8.4-10.2); Carbon Dioxide 25 mmol/L (22-30); Chloride 102 mmol/L (98-107); Estimated CRCL calculation 117 ml/min; Estimated Glomerular Filt Rate > 60; Glucose 92 mg/dL (65-110); Potassium 3.5 mmol/L (3.4-5.0); Sodium 134 mmol/L (137-145)
[2025-04-28 16:53] LABS: Band Neutrophils Percent 4 % (0-6); Lymphocytes Absolute Manual 0.16 K/mm3 (1.1-4.5); Lymphocytes Percent Manual 56 % (18-44); Monocytes Absolute Manual 0.02 K/mm3 (0.1-0.90); Monocytes Percent Manual 8 % (3-9); Neutrophils Percent Manual 32 % (46-73); Total Cells Counted 100
[2025-04-28 16:55] LABS: Neutrophils Absolute Manual 0.10 K/mm3 (1.3-6.7)
[2025-04-28 16:56] LABS: Ovalocytes 1+
[2025-04-28 16:57] LABS: Schistocytes None Seen
[2025-04-28] MEDS: SODIUM CHLORIDE 0.9% IV 250 ML 30 ML IV CONT (17:43)
--- NOTE | 2025-04-28 19:05 | P.CONONC_ITS ---
Assessment and Plan Assessment and plan (1) Pancytopenia: Code(s): D61.818 - Other pancytopenia Status: Acute Assessment and Plan: Patient is the 55-year-old female with metastatic breast cancer with bone involvement status post bone biopsy done on February 20, 2024. She has been on treatment with anastrozole and Ibrance. She now came into the hospital with fever chills and generalized weakness and found to have profound pancytopenia not typically expected with Ibrance. I am worried about underlying bone marrow infection are myeloid neoplasm or bone marrow infiltration with malignancy. I will hold treatment with Ibrance and order bone marrow aspiration and biopsy. In the meantime will support with blood and platelet transfusion. I have ordered platelet antibodies, reticulocyte count, LDH, iron studies and B12 level. I will start Neupogen after the bone marrow biopsy. Continue with neutropenic precautions in the meantime. (2) Breast cancer metastasized to bone: Code(s): C50.919 - Malignant neoplasm of unspecified site of unspecified female breast; C79.51 - Secondary malignant neoplasm of bone Status: Acute Assessment and Plan: We will hold Ibrance and anastrozole and resume once blood counts recover and etiology of the pancytopenia is found. I have discussed this with patient and the family in detail today. HPI Data of Consult Date/Time: 04/28/25 19:05 Requesting Physician: Ren Auguste MD Primary Care Provider: Quoc Sosa APRN Consult Narrative Narrative: Mandy Rosales is a 55 year old female with history of metastatic breast cancer with bone metastasis ER MN positive and HER2/hardik negative. She had left iliac mass biopsy done on February 20, 2024 that came back positive for metastatic breast cancer. Patient has been on treatment with Ibrance and anastrozole. She received radiation therapy treatment to the left breast due to the enlarging mass on February 26, 2025. Since the radiation therapy treatment she has been declining with poor appetite and has lost more than 30 lb weight. She now came into the hospital with generalized weakness nausea vomiting and fevers and chills. Labs showed WBC count of 0.9 with hemoglobin [place] 4.[address] [place] [address] chest abdomen pelvis showed 3.3 x 2.1 cm right breast mass with bone metastasis and single mildly prominent left common iliac lymph node with moderate to large left-sided pleural effusion. Patient received 2 units of packed red blood cell. She remains quite tired and fatigued. Denies any bleeding including melena hematochezia. Denies any other complaint other than poor appetite. Review of Systems 2 Review of Systems: Twelve point review of system was reviewed [facility] Past Medical History Medical History BMI 34.0-34.9,adult Obesity Tobacco abuse Hyperlipemia Breast cancer, right breast Anxiety Mixed hyperlipidemia Surgical History Surgical History History of cholecystectomy History of hysterectomy Family History Family History Mother Family history of thyroid disease Family history of diabetes mellitus in first degree relative Diabetes mellitus Sibling Family history of thyroid disease Family history of malignant neoplasm of thyroid Father Family history of gastrointestinal disorder Social History Social History Social History: started to smoke again Smoking packs per day: 0.5 Smoking cigarettes per day: 10.0 Years smoked: 25 Smoking pack-years: 12.50 Smoking status: Former smoker Second hand tobacco smoke exposure: Yes Additional smoking assessment comments: smoking about 1/2 pack or more currently Alcohol intake: never Substance use: never Substance use type: does not use Do You Feel Safe in your Home?: Yes Lack of Transportation: No Lack of Food: Never True Current Housing: I Have Housing Concerned About Future Housing: No Difficulty Paying Gas/Electric Bills: No Difficulty Paying for Meds: No Currently Unemployed: No Education: Associate Degree Difficulty w/ Childcare or Family Care: No Living arrangements: with family Occupation/Education: occupation Additional occupation/education comments: [employer] Gender identity (if verbalized by the patient): Female Spiritual care concerns: No Meds Home Medications and Allergies Home Medications ?Medication ?Instructions ?Recorded ?Confirmed ?Type cholecalciferol (vitamin D3) 25 25 mcg PO DAILY #90 caps 02/23/23 04/27/25 Rx mcg (1,000 unit) capsule anastrozole 1 mg tablet 1 mg PO DAILY 02/08/24 04/27/25 History palbociclib 125 mg capsule 125 mg PO DAILY 03/07/24 04/27/25 History (Ibrance) hydrocodone 7.5 mg-acetaminophen 1 tablet PO Q6H PRN Moderate Pain 04/30/24 04/27/25 History 325 mg tablet (Scale Score 5-6) cyanocobalamin (vitamin B-12) 500 500 mcg PO DAILY 07/14/24 04/27/25 History mcg tablet (Vitamin B-12) ferrous sulfate 325 mg (65 mg 325 mg PO DAILY 07/14/24 04/27/25 History iron) tablet albuterol sulfate 90 mcg/actuation 2 puff inhalation Q4H PRN 10/29/24 04/27/25 Rx aerosol inhaler (Ventolin HFA) shortness of breath or wheezing #8.5 grams atorvastatin 40 mg tablet See Rx Instructions .Route 12/03/24 04/27/25 Rx .COMPLEX #90 tabs ondansetron HCl 8 mg tablet 8 mg PO Q8H PRN nauseea #30 tabs 02/10/25 04/27/25 Rx dicyclomine 10 mg capsule 10 mg PO TID #30 caps 04/08/25 04/27/25 Rx linaclotide 145 mcg capsule 145 mcg PO QAM #30 caps 04/08/25 04/27/25 Rx (Linzess) azithromycin 250 mg tablet See Rx Instructions PO .COMPLEX 5 04/27/25 04/27/25 Rx days #6 tabs Allergies Allergy/AdvReac Type Severity Reaction Status Date / Time No Known Allergies Allergy Verified 04/08/25 15:02 Vital Signs Vital Signs - 24 hr 04/27/25 19:48 04/27/25 20:00 04/27/25 20:00 Temperature 38.0 C H Pulse Rate 96 119 H Respiratory Rate 18 Blood Pressure 108/64 Pulse Oximetry 96 96 Oxygen Delivery Nasal Cannula Oxygen Flow Rate 2 04/27/25 22:16 04/27/25 23:16 04/28/25 00:00 Temperature 38.3 C H 37.7 C H Pulse Rate 103 H Respiratory Rate Blood Pressure Pulse Oximetry Oxygen Delivery Oxygen Flow Rate 04/28/25 00:46 04/28/25 01:10 04/28/25 04:00 Temperature 37.5 C 39.2 C H Pulse Rate 103 H 103 H 111 H Respiratory Rate 18 20 Blood Pressure 128/69 137/82 Pulse Oximetry 96 92 Oxygen Delivery Oxygen Flow Rate 04/28/25 04:15 04/28/25 05:15 04/28/25 05:15 Temperature 39.5 C H 38.3 C H 37.6 C Pulse Rate 105 H Respiratory Rate 18 Blood Pressure 123/54 L Pulse Oximetry 94 Oxygen Delivery Oxygen Flow Rate 04/28/25 06:33 04/28/25 08:04 04/28/25 09:28 Temperature 37.7 C H Pulse Rate 107 H Respiratory Rate Blood Pressure Pulse Oximetry 93 Oxygen Delivery Nasal Cannula Oxygen Flow Rate 2 04/28/25 09:46 04/28/25 10:46 04/28/25 10:55 Temperature 39.4 C H 39.4 C H 39.4 C H Pulse Rate 110 H Respiratory Rate 20 Blood Pressure 126/64 Pulse Oximetry 92 Oxygen Delivery Oxygen Flow Rate 04/28/25 11:11 04/28/25 12:04 04/28/25 12:11 Temperature 38.4 C H 38.6 C H Pulse Rate 103 H 102 H 102 H Respiratory Rate 22 H 20 Blood Pressure 99/59 L 120/58 L Pulse Oximetry 93 96 Oxygen Delivery Oxygen Flow Rate 04/28/25 13:11 04/28/25 14:06 04/28/25 16:03 Temperature 37.8 C H 37.7 C H Pulse Rate 93 92 95 Respiratory Rate 18 20 Blood Pressure 87/65 L 103/63 Pulse Oximetry 95 97 Oxygen Delivery Oxygen Flow Rate 04/28/25 17:48 04/28/25 18:09 04/28/25 18:25 Temperature 39.3 C H 39.3 C H 39.3 C H Pulse Rate 104 H 101 H Respiratory Rate 18 20 Blood Pressure 132/66 119/66 Pulse Oximetry 97 97 Oxygen Delivery Oxygen Flow Rate 04/28/25 18:26 Temperature Pulse Rate Respiratory Rate Blood Pressure Pulse Oximetry 97 Oxygen Delivery Nasal Cannula Oxygen Flow Rate 1 Exam 2 Narrative: Lungs are clear to auscultation bilaterally Cardiovascular regular rate rhythm no murmurs Abdomen soft nontender nondistended Extremities no edema Results Labs 04/28/25 16:17 04/28/25 16:17 Labs: Short CBC 04/28/25 04/28/25 Range/Units 03:05 16:17 WBC 0.3 L* 0.3 L* (4.5-10.0) K/mm3 Hgb 5.7 L* 6.2 L* (12.0-15.0) g/dL Hct 16.8 L* 17.9 L* (37.0-47.0) % Plt Count TNP 5 L* D BMP 04/28/25 04/28/25 03:05 16:17 Sodium 127 L 134 L Potassium 2.9 L 3.5 Chloride 95 L 102 Carbon Dioxide 22 25 BUN 12 8 Creatinine 0.54 L 0.52 L Glucose 120 H 92 Calcium 9.0 8.5 Liver Function 04/28/25 Range/Units 03:05 Total Bilirubin 1.2 (0.2-1.3) mg/dL AST 282 H (14-36) U/L ALT 37 H (6-35) U/L Alkaline Phosphatase 81 (38-126) U/L Albumin 3.1 L (3.5-5.1) g/dL Urine 04/28/25 04/28/25 Range/Units 00:57 06:05 Urine Color Yellow Yellow (Yellow) Urine Appearance Clear Clear (Clear) Urine pH 6.0 6.5 (5.0-9.0) Ur Specific [place] 1.015 > 1.045 H (1.001-1.035) Urine Protein 1+ H 1+ H (Negative) mg/dL Urine Glucose (UA) Negative Negative (Negative) mg/dL
[2025-04-28 19:11] LABS: MRSA (PCR) NOT DETECTED (NOT DETECTE)
[2025-04-29] VITALS (25 sets, daily range): BP systolic 94–146; BP diastolic 46–82; PULSE 83–105; RESP 16–20; TEMP 36.7–39.2; O2SAT 95–100
[2025-04-29] MEDS: CEFEPIME 2 GM in SODIUM CHLORIDE 0.9% IV 50 ML 100 ML IVPB ×3 (01:56→17:10)
[2025-04-29] MEDS: ACETAMINOPHEN 500 MG TABLET 1000 MG PO ×2 (01:57→09:53)
[2025-04-29] MEDS: AZITHROMYCIN IV 500 MG in SODIUM CHLORIDE 0.9% IV 250 ML IVPB (03:08)
[2025-04-29] MEDS: VANCOMYCIN 1,500 MG/NS 500 ML 1,500 MG/500 ML BAG 250 MG IVPB (03:09)
[2025-04-29] MEDS: SODIUM CHLORIDE 0.9% IV 1,000 ML 150 ML IV CONT (03:12)
[2025-04-29 03:25] LABS: Hemoglobin 7.1 g/dL (12.0-15.0); Immature Granulocyte Percent A 8.0 % (0-0.5); Immature Platelet Fraction Pct 3.8 % (0.9-11.2); Lymphocytes Absolute Auto 0.13 K/mm3 (0.9-3.2); Mean Corpuscular HGB Conc 35.0 g/dl (32-36); Mean Corpuscular Hemoglobin 31.6 pg (26-34); Mean Corpuscular Volume 90.2 fl (80-100); Nucleated Red Blood Cells Absolute Auto 0.000 K/mm3 (0.0-0.012); Nucleated Red Blood Cells Perc 0.0 % (0.0-0.2); Red Blood Count 2.25 M/mm3 (4.2-5.4)
[2025-04-29 03:43] LABS: White Blood Count 0.3 K/mm3 (4.5-10.0)
[2025-04-29 03:44] LABS: Hematocrit 20.3 % (37.0-47.0); Platelet Count Result 5 k/mm3 (150-375)
[2025-04-29 03:48] LABS: Total Bilirubin Imm Post TxRxn 1.3 mg/dL (0.2-1.3)
[2025-04-29 04:08] LABS: Anion Gap 8 mmol/L (4-12); Blood Urea Nitrogen 7 mg/dL (7-17); Calcium 8.3 mg/dL (8.4-10.2); Carbon Dioxide 21 mmol/L (22-30); Chloride 105 mmol/L (98-107); Estimated CRCL calculation 128 ml/min; Estimated Glomerular Filt Rate > 60; Glucose 113 mg/dL (65-110); Potassium 2.9 mmol/L (3.4-5.0); Sodium 134 mmol/L (137-145)
[2025-04-29] MEDS: SODIUM CHLORIDE 0.9% IV 250 ML 30 ML IV CONT ×2 (05:08→09:51)
[2025-04-29 05:43] LABS: TXRXN Occult Blood Urine Immed Trace (Negative); TXRXN RBC Urine Immediate 0-2 /hpf (0-2)
[2025-04-29] MEDS: HYDROcodone/acetaminophen (*CRX) 7.5-325 MG TABLET 1 TAB PO ×2 (05:49→21:21)
[2025-04-29] MEDS: ALBUTEROL SULFATE (*SP) AEROSOL 1 PUFF 2 PUFF INHALATION (05:54)
[2025-04-29] MEDS: DICYCLOMINE HCL 10 MG CAPSULE PO ×3 (08:30→17:09)
[2025-04-29] MEDS: FERROUS SULFATE 325 MG TABLET DR BY MOUTH (08:30)
[2025-04-29] MEDS: CYANOCOBALAMIN 500 MCG TABLET PO (08:30)
[2025-04-29] MEDS: PANTOPRAZOLE SODIUM IV 40 MG VIAL IV PUSH ×2 (08:31→21:19)
[2025-04-29 09:27] LABS: TXRXN Occult Blood Urine 4 Hr Negative (Negative); TXRXN RBC Urine 4 Hour 0-2 /hpf (0-2)
[2025-04-29] MEDS: FAMOTIDINE 20 MG/2 ML VIAL IV PUSH (09:51)
[2025-04-29] MEDS: TUBING, BLOOD PLUM PUMP TUBING 1 EACH XX (10:00)
[2025-04-29 10:12] LABS: Total Bilirubin 5hr Post TX RX 1.0 mg/dL (0.2-1.3)
[2025-04-29] MEDS: IPRATROPIUM 0.5 MG/ALBUTEROL SULFATE 2.5 MG AMPUL.NEB 3 ML INHALATION ×2 (10:20→17:36)
--- NOTE | 2025-04-29 12:48 | P.PNIM_ITS ---
Progress Note: A&P Assessment and Plan (1) Pancytopenia: Code(s): D61.818 - Other pancytopenia Status: Acute (2) Melena: Code(s): K92.1 - Melena Status: Acute (3) Hepatic steatosis: Code(s): K76.0 - Fatty (change of) liver, not elsewhere classified Status: Acute (4) Elevated liver transaminase level: Code(s): R74.01 - Elevation of levels of liver transaminase levels Status: Acute (5) Hyponatremia: Code(s): E87.1 - Hypo-osmolality and hyponatremia Status: Acute (6) Hypokalemia: Code(s): E87.6 - Hypokalemia Status: Acute Plan Neutropenic fever Continue with IV antibiotics Isolation Follow culture result Hematology-Oncology team on board Pancytopenia started on Neupogen Oncology team on board.concern for underlying bone marrow infection are myeloid neoplasm or bone marrow infiltration with malignancy' plan for BM biopsy when able. on Neupogen Monitor CBC Transfuse a as needed Oncology team on board Black stool Patient is on iron pill. Follow-up with endoscopy as outpatient GI team on board Transaminitis CT shows hepatitis steatosis Follow with GI as outpatient Hypernatremia NS Hypokalemia Replace with potassium Breast cancer On chemoradiation as outpatient Follow Oncology team recommendation SOB likely secondary to acute on chronic diastolic disfunction hold of AVF will continue to monitor Subjective Date/time seen: 04/29/25 12:48 Interval history: per HPI: Narrative: patient with history of stage IIIb invasive ductal carcinoma of right breast cancer diagnosed in 2023, HLD, anxiety presented with nausea vomiting, fever, black stool. Patient notes she has been on chemo radiation for breast cancer. She has been having intermittent diarrhea and nausea vomiting. She also has been having low appetite and weight loss. For past couple of days she has been having fever and also noticed to have dark stool. She as been on iron for iron deficiency. Presented to ER for further management. In the ER patient was found to have fever, tachypnea, tachycardia. Lab tests showed pancytopenia with WBC 0.9, hemoglobin 4.7 and platelet 13. Potassium 2.9, sodium 127 lactic acid 2.6, elevated liver enzyme. GI and oncology team was consulted. Dizziness started for neutropenia sepsis. GI team recommended to hold off on any endoscopy evaluation for now and follow up as outpatient. 04/29/25 Patient was seen and examined at bedside. she is feeling better. denies any chest pain. Has SOb. Will stop IVF. continue IV Abx. receiving PLT today. joey membreno on [facility] [place] Oncology team on board.concern for underlying bone marrow infection are myeloid neoplasm or bone marrow infiltration with malignancy' plan for BM biopsy when able. Review of Systems Review of Systems: All systems reviewed & are unremarkable except as noted in HPI and below Constitutional: Constitutional: Reports as per HPI, Reports fatigue and Reports lethargy ENT: Reports as per HPI Cardiovascular: Cardiovascular: Reports as per HPI, Denies chest pain, Denies leg edema and Denies dyspnea Respiratory: Respiratory: Denies cough and Denies dyspnea Gastrointestinal: Gastrointestinal: Reports as per HPI Musculoskeletal: Musculoskeletal: Reports as per HPI Integumentary/Breasts: Skin/Breast: Reports as per HPI Psychiatric: Psychiatric: Reports as per HPI Endocrine: Endocrine: Reports no additional endocrine complaints and Reports fatigue Hematologic/Lymphatic: Hematologic/Lymphatic: Reports no additional hematologic/lymphatic complaints Exam Narrative: EXAMINATION OF ORGAN SYSTEMS/BODY AREAS: Constitutional: Vital signs per nursing GENERAL: Appears tired and pale HEAD: Normal with no signs of head trauma. EYES: EOMI, conjunctiva normal ENT: Hearing grossly intact LUNGS: Nonlabored breathing. HEART: Tachycardic ABD: [Soft], [nontender to palpation] EXT: Normal range of motion SKIN: Pale NEURO: [Alert and oriented x 3. No gross focal sensory or strength deficits.] PSYCH: Normal affect Const: General: cooperative, healthy appearing, comfortable, no acute distress and well developed Orientation/consciousness: oriented to person, oriented to place, oriented to time and patient oriented x3 HENMT: Head: normal to inspection, normocephalic and atraumatic Mouth: Yes Normal oral and palatal mucosa present and Yes moist mucous membranes Eyes: General: appearance normal, both eyes and all related structures Conjunctivae: conjunctivae normal Sclera: sclerae normal Pupils: Equal, round and reactive pupils present Neck: Neck: normal visual inspection Chest: Chest palpation & inspection: normal inspection of the chest Resp: Effort & Inspection: normal respiratory effort and able to speak in complete sentences Auscultation: clear to auscultation bilaterally Cardio: Jugular venous distension: no JVD Rate: regular rate Rhythm: regular rhythm Heart sounds: S1 normal heart sound present and S2 normal heart sound present GI: Inspection: normal to inspection Auscultation: normal bowel sounds Rectal Exam: deferred Skin: General skin exam: normal color and no rashes or lesions noted Neuro: General: oriented to person, oriented to place, oriented to time and patient oriented x3 Cranial nerves: Yes Equal, round and reactive pupils present Speech: normal speech Extrem: General: normal to inspection and no clubbing, cyanosis or edema Psych: Appearance: grossly normal and well kempt Affect: normal affect Objective Data Vital Signs Vital Signs: Vital Signs - 24 hr 04/28/25 13:11 04/28/25 14:06 04/28/25 16:03 Temperature 100.0 F H 100 F H Pulse Rate 93 92 95 Respiratory Rate 18 20 Blood Pressure 87/65 L 103/63 Pulse Oximetry 95 97 Oxygen Delivery Oxygen Flow Rate 04/28/25 17:48 04/28/25 18:09 04/28/25 18:25 Temperature 102.8 F H 102.8 F H 102.7 F H Pulse Rate 104 H 101 H Respiratory Rate 18 20 Blood Pressure 132/66 119/66 Pulse Oximetry 97 97 Oxygen Delivery Oxygen Flow Rate 04/28/25 18:26 04/28/25 18:48 04/28/25 19:25 Temperature 102.7 F H 101.1 F H Pulse Rate 92 Respiratory Rate 18 Blood Pressure 110/68 Pulse Oximetry 97 100 Oxygen Delivery Nasal Cannula Oxygen Flow Rate 1 04/28/25 20:00 04/28/25 20:00 04/28/25 20:25 Temperature 99.5 F Pulse Rate 92 87 Respiratory Rate 18 Blood Pressure 105/70 Pulse Oximetry 95 98 Oxygen Delivery Nasal Cannula Oxygen Flow Rate 2 04/28/25 21:25 04/28/25 22:46 04/29/25 00:00 Temperature 98.8 F Pulse Rate 87 91 Respiratory Rate 16 Blood Pressure 116/76 Pulse Oximetry 98 96 Oxygen Delivery Oxygen Flow Rate 04/29/25 01:19 04/29/25 01:30 04/29/25 01:57 Temperature 99 F 102.6 F H 102.6 F H Pulse Rate 100 102 H Respiratory Rate 18 20 Blood Pressure 146/70 H 127/68 Pulse Oximetry 97 100 Oxygen Delivery Oxygen Flow Rate 04/29/25 02:57 04/29/25 04:00 04/29/25 05:19 Temperature 98.9 F 98.6 F Pulse Rate 90 92 Respiratory Rate 18 Blood Pressure 109/77 Pulse Oximetry 98 Oxygen Delivery Oxygen Flow Rate 04/29/25 05:36 04/29/25 05:52 04/29/25 06:52 Temperature 98.6 F 98.1 F 98.6 F Pulse Rate 92 93 92 Respiratory Rate 18 16 18 Blood Pressure 109/77 114/82 94/55 L Pulse Oximetry 98 96 97 Oxygen Delivery Oxygen Flow Rate 04/29/25 08:30 04/29/25 09:53 04/29/25 09:54 Temperature 98.3 F 98.3 F Pulse Rate 94 Respiratory Rate 16 Blood Pressure 121/67 Pulse Oximetry 97 100 Oxygen Delivery Nasal Cannula Oxygen Flow Rate 1 04/29/25 10:18 04/29/25 10:25 04/29/25 10:25 Temperature 98.5 F Pulse Rate 83 85 96 Respiratory Rate 20 20 18 Blood Pressure 138/63 Pulse Oximetry 100 Oxygen Delivery Oxygen Flow Rate 04/29/25 10:40 04/29/25 10:53 Temperature 98.8 F 98.8 F Pulse Rate 97 Respiratory Rate 20 Blood Pressure 123/69 Pulse Oximetry 98 Oxygen Delivery Oxygen Flow Rate Intake/Output Intake/Output: Intake & Output 04/26/25 04/27/25 04/28/25 04/29/25 23:59 23:59 23:59 23:59 Intake Total 1400 4440 1473.5 Output Total 1800 602 Balance 1400 2640 871.5 Meds/Results Medications: Active Medications Generic Name Dose Route Start Last Admin Trade Name Freq PRN Reason Stop Dose Admin Acetaminophen 1,000 mg 04/27/25 22:00 04/29/25 09:53 Acetaminophen 500 Mg Tablet PO 1,000 mg Q6H PRN Administration Mild Pain (1-3) or Fever Hydrocodone Bitart/Acetaminophen 1 tab 04/28/25 11:33 04/29/25 05:49 Hydrocodone/Acetaminophen (*Crx) 7.5-325 Mg Tablet PO 1 tab Q6H PRN Administration pain of 7-10 Albuterol 2 puff 04/28/25 12:47 04/29/25 05:54 Albuterol Sulfate (*Sp) Aerosol 1 Puff INHALATION 2 puff Q4H PRN Administration shortness of breath or wheezing Albuterol/Ipratropium 3 ml 04/29/25 09:35 04/29/25 10:20 Ipratropium 0.5 Mg/Albuterol Sulfate 2.5 Mg Ampul.Neb 3 Ml INHALATION 3 ml Q6HRT PRN Administration Shortness Of Breath Or Wheezing Cyanocobalamin 500 mcg 04/29/25 09:00 04/29/25 08:30 Cyanocobalamin 500 Mcg Tablet PO 500 mcg DAILY CL Administration Dicyclomine HCl 10 mg 04/28/25 13:00 04/29/25 12:28 Dicyclomine Hcl 10 Mg Capsule PO 10 mg TID CL Administration Diphenhydramine HCl 25 mg 04/29/25 09:32 04/29/25 09:51 Diphenhydramine Hcl Inj 50 Mg/Ml Vial IV PUSH 25 mg Q4H PRN Administration Pre treat for blood products Famotidine 20 mg 04/29/25 09:32 04/29/25 09:51 Famotidine 20 Mg/2 Ml Vial IV PUSH 20 mg PRN PRN Administration Pre treat for blood products Ferrous Sulfate 325 mg 04/29/25 09:00 04/29/25 08:30 Ferrous Sulfate [address] BY MOUTH 325 mg DAILY CL Administration Cefepime HCl 2 gm/ Sodium 50 mls @ 100 mls/hr 04/28/25 02:00 04/29/25 09:48 Chloride IVPB 100 mls/hr Q8H CL Administration Azithromycin 500 mg/ Sodium 250 mls @ 250 mls/hr 04/29/25 04:00 04/29/25 03:08 Chloride IVPB 05/02/25 04:59 250 mls/hr Q24H CL Administration Sodium Chloride 250 mls @ 30 mls/hr 04/29/25 06:14 04/29/25 09:51 Normal Saline Iv IV CONT 04/29/25 14:33 30 mls/hr .Q8H20M STA Administration Methylprednisolone Sodium Succinate 80 mg 04/29/25 17:00 Methylprednisolone Sod Succ 125 Mg Vial IV PUSH BID CL Neomycin/Polymyxin/Bacitracin 1 applic 04/28/25 19:10 Neomycin/Polymyxin/Bacitracin Ointment 15 Gm Tube TOPICAL PRN PRN with dressing changes Pantoprazole Sodium 40 mg 04/28/25 02:05 04/29/25 08:31 Pantoprazole Sodium Iv 40 Mg Vial IV PUSH 40 mg Q12HR CL Administration Tramadol HCl 25 mg 04/28/25 02:43 04/28/25 03:07 Tramadol Hcl (*Crx) 25 Mg Tablet PO 25 mg Q4H PRN Administration Pain Rated 4-6 Radiology Results: ITS Impressions Chest X-Ray 04/27/25 17:22 IMPRESSION: Segmental left mid and lower lung consolidation/atelectasis. Moderate left pleural effusion Chest/Abdomen/Pelvis CT 04/28/25 05:38 Impression: 3.3 x 2.1 cm medial right breast mass is highly suspicious for breast carcinoma. Diagnostic mammogram/ultrasound recommended for further evaluation. Findings compatible osseous metastatic disease, especially in the iliac bones and spine, with probable pathologic compression fractures of T1 and T12. Single mildly prominent lymph node along the left common iliac chain, indeterminate for metastatic lymphadenopathy. Moderate to large left pleural effusion with complete left lower lobe atelectasis. Minimal right pleural effusion with minimal right basilar atelectasis. Mild left hydronephrosis. No obstructing mass or stone clearly evident. Labs Labs: Laboratory Results - last 24 hr 04/27/25 04/28/25 04/28/25 14:27 05:30 16:17 WBC 0.3 L* RBC 1.93 L Hgb 6.2 L* Hct 17.9 L* MCV 92.7 MCH 32.1 MCHC 34.6 RDW 14.6 H Plt Count 5 L* D MPV TNP Immature Gran % (Auto) Not Reportable Neut % (Auto) Not Reportable Lymph % (Auto) Not Reportable Carroll % (Auto) Not Reportable Eos % (Auto) Not Reportable Baso % (Auto) Not Reportable Lymph # (Auto) Not Reportable Carroll # (Auto) Not Reportable Eos # (Auto) Not Reportable Baso # (Auto) Not Reportable Abs Immat Gran (auto) Not Reportable Absolute Neuts (auto) Not Reportable Absolute Nucleated RBC Not Reportable Total Counted 100 Neutrophils % (Manual) 32 L Band Neutrophils % 4 Lymphocytes % (Manual) 56 H Monocytes % (Manual) 8 Nucleated RBC % Not Reportable Abs Neuts (Manual) 0.10 L* Abs Lymphs (Manual) 0.16 L Abs Monocytes (Manual) 0.02 L Platelet Estimate Decreased % Immature Plt Fraction 3.8 Ovalocytes 1+ Schistocytes None seen Sodium 134 L Potassium 3.5 Chloride 102 Carbon Dioxide 25 Anion Gap 7 BUN 8 Creatinine 0.52 L Estim Creat Clear Calc 117 Estimated GFR > 60 Glucose 92 Calcium 8.5 Ferritin > 1000.00 H Post-Trans Total Bili Ur Blood, Post-Transfus Post-Trnsf Ur Hematuria Nasal MRSA (PCR) Direct Plt-Bound IgG Ab Blood Type O Positive Antibody Screen Negative Crossmatch See Detail Pre-Trans Antibody Scrn Post-Trans Antibody Scrn 04/28/25 04/29/25 04/29/25 17:45 03:09 03:15 WBC 0.3 L* RBC 2.25 L Hgb 7.1 L Hct 20.3 L* MCV 90.2 MCH 31.6 MCHC 35.0 RDW 15.1 H Plt Count 5 L* MPV 9.8 Immature Gran % (Auto) 8.0 H Neut % (Auto) 28.0 L Lymph % (Auto) 52.0 H Carroll % (Auto) 12.0 H Eos % (Auto) 0.0 Baso % (Auto) 0.0 L Lymph # (Auto) 0.13 L Carroll # (Auto) 0.0 L Eos # (Auto) 0.0 Baso # (Auto) 0.0 Abs Immat Gran (auto) 0.02 Absolute Neuts (auto) 0.1 L* Absolute Nucleated RBC 0.000 Total Counted Neutrophils % (Manual) Band Neutrophils % Lymphocytes % (Manual) Monocytes % (Manual) Nucleated RBC % 0.0 Abs Neuts (Manual) Abs Lymphs (Manual) Abs Monocytes (Manual) Platelet Estimate % Immature Plt Fraction 3.8 Ovalocytes Schistocytes Sodium 134 L Potassium 2.9 L Chloride 105 Carbon Dioxide 21 L Anion Gap 8 BUN 7 Creatinine 0.47 L Estim Creat Clear Calc 128 Estimated GFR > 60 Glucose 113 H Calcium 8.3 L Ferritin Post-Trans Total Bili 1.3 Ur Blood, Post-Transfus Post-Trnsf Ur Hematuria Nasal MRSA (PCR) Not detected Direct Plt-Bound IgG Ab Blood Type Antibody Screen Crossmatch Pre-Trans Antibody Scrn Negative Post-Trans Antibody Scrn Negative 04/29/25 04/29/25 04/29/25 05:00 09:00 09:01 WBC RBC Hgb Hct MCV MCH MCHC RDW Plt Count MPV Immature Gran % (Auto) Neut % (Auto) Lymph % (Auto) Carroll % (Auto) Eos % (Auto) Baso % (Auto) Lymph # (Auto) Carroll # (Auto) Eos # (Auto) Baso # (Auto) Abs Immat Gran (auto) Absolute Neuts (auto) Absolute Nucleated RBC Total Counted Neutrophils % (Manual) Band Neutrophils % Lymphocytes % (Manual) Monocytes % (Manual) Nucleated RBC % Abs Neuts (Manual) Abs Lymphs (Manual) Abs Monocytes (Manual) Platelet Estimate % Immature Plt Fraction Ovalocytes Schistocytes Sodium Potassium Chloride Carbon Dioxide Anion Gap BUN Creatinine Estim Creat Clear Calc Estimated GFR Glucose Calcium Ferritin Post-Trans Total Bili 1.0 Ur Blood, Post-Transfus Trace H Negative Post-Trnsf Ur Hematuria 0-2 0-2 Nasal MRSA (PCR) Direct Plt-Bound IgG Ab Blood Type Antibody Screen Crossmatch Pre-Trans Antibody Scrn Post-Trans Antibody Scrn 04/29/25 10:53 WBC RBC Hgb Hct MCV MCH MCHC RDW Plt Count MPV Immature Gran % (Auto) Neut % (Auto) Lymph % (Auto) Carroll % (Auto) Eos % (Auto) Baso % (Auto) Lymph # (Auto) Carroll # (Auto) Eos # (Auto) Baso # (Auto) Abs Immat Gran (auto) Absolute Neuts (auto) Absolute Nucleated RBC Total Counted Neutrophils % (Manual) Band Neutrophils % Lymphocytes % (Manual) Monocytes % (Manual) Nucleated RBC % Abs Neuts (Manual) Abs Lymphs (Manual) Abs Monocytes (Manual) Platelet Estimate % Immature Plt Fraction Ovalocytes Schistocytes Sodium Potassium Chloride Carbon Dioxide Anion Gap BUN Creatinine Estim Creat Clear Calc Estimated GFR Glucose Calcium Ferritin Post-Trans Total Bili Ur Blood, Post-Transfus Post-Trnsf Ur Hematuria Nasal MRSA (PCR) Direct Plt-Bound IgG Ab Cancelled Blood Type Antibody Screen Crossmatch Pre-Trans Antibody Scrn Post-Trans Antibody Scrn
--- NOTE | 2025-04-29 16:47 | CY_PTH ---
PATIENT: Mandy Rosales LOC: [id number] U#:[id number] AGE/SX: 55/F ROOM: 344 RE04/27/[address]: Rasheed Munoz MD : [id number] BED: 01 DIS: 05/15/2025 SPEC #: [id number] RECD: 04/30/25 07:18 STATUS: PAMELA REQ #: [id number] DECLAN: 04/29/25 16:[address]: Nik Easley DEPT: [facility] Cytology RECD BY: Adelaide Paez ENTERED: 04/30/25 07:19 SP TYPE: Cytology OTHR DR: MD Quoc Ramirez APRN Edmundo A. Rodriguez-Frias, MD Amardeep Shrestha, MD Tissues: A - Peripheral Blood Procedures: Flow Cytometry
--- NOTE | 2025-04-29 17:03 | P.PNONC_ITS ---
Progress Note: A&P Assessment and Plan (1) Pancytopenia due to chemotherapy: Code(s): D61.810 - Antineoplastic chemotherapy induced pancytopenia Status: Acute Assessment and Plan: Labs noted. White cells remain low at 0.3 with platelet of 5000 despite platelet transfusion. Platelet antibodies has been ordered and pending. I will treat with Solu-Medrol 80 mg q.12 hours for possible ITP. Other diagnosis and consideration is bone marrow disorders like myeloid neoplasm. Bone marrow biopsy was ordered but I was informed it cannot be done until next week. In the meantime I will order peripheral blood flow cytometric analysis for leukemia. I will avoid giving Neupogen due to interference with bone marrow biopsy results. Continue neutropenic precautions and antibiotic treatment. Hope to see bone ma rrow recovery if it is due to Ibrance. Continue to hold Ibrance. Continue supportive blood transfusion for hemoglobin of less than 7 and platelet transfusion for less than 10,000. Hopefully platelets will improve soon with the steroid treatment. Subjective Date/time seen: 04/29/25 17:03 Interval history: Patient is lying down comfortably. She looks little bit tired. No bleeding and bruising. She has some loose stool today. No bleeding. She has low-grade fever. No other new complaints. Review of Systems Review of Systems Twelve point review of system was reviewed Constitutional Comments: Lungs are clear to auscultation bilaterally Cardiovascular regular rate rhythm no murmurs Abdomen soft nontender nondistended Extremities no edema Objective Data Vital Signs Vital Signs: Vital Signs - 24 hr 04/28/25 17:48 04/28/25 18:09 04/28/25 18:25 Temperature 39.3 C H 39.3 C H 39.3 C H Pulse Rate 104 H 101 H Respiratory Rate 18 20 Blood Pressure 132/66 119/66 Pulse Oximetry 97 97 Oxygen Delivery Oxygen Flow Rate 04/28/25 18:26 04/28/25 18:48 04/28/25 19:25 Temperature 39.3 C H 38.4 C H Pulse Rate 92 Respiratory Rate 18 Blood Pressure 110/68 Pulse Oximetry 97 100 Oxygen Delivery Nasal Cannula Oxygen Flow Rate 1 04/28/25 20:00 04/28/25 20:00 04/28/25 20:25 Temperature 37.5 C Pulse Rate 92 87 Respiratory Rate 18 Blood Pressure 105/70 Pulse Oximetry 95 98 Oxygen Delivery Nasal Cannula Oxygen Flow Rate 2 04/28/25 21:25 04/28/25 22:46 04/29/25 00:00 Temperature 37.1 C Pulse Rate 87 91 Respiratory Rate 16 Blood Pressure 116/76 Pulse Oximetry 98 96 Oxygen Delivery Oxygen Flow Rate 04/29/25 01:19 04/29/25 01:30 04/29/25 01:57 Temperature 37.2 C 39.2 C H 39.2 C H Pulse Rate 100 102 H Respiratory Rate 18 20 Blood Pressure 146/70 H 127/68 Pulse Oximetry 97 100 Oxygen Delivery Oxygen Flow Rate 04/29/25 02:57 04/29/25 04:00 04/29/25 05:19 Temperature 37.2 C 37.0 C Pulse Rate 90 92 Respiratory Rate 18 Blood Pressure 109/77 Pulse Oximetry 98 Oxygen Delivery Oxygen Flow Rate 04/29/25 05:36 04/29/25 05:52 04/29/25 06:52 Temperature 37.0 C 36.7 C 37.0 C Pulse Rate 92 93 92 Respiratory Rate 18 16 18 Blood Pressure 109/77 114/82 94/55 L Pulse Oximetry 98 96 97 Oxygen Delivery Oxygen Flow Rate 04/29/25 08:04 04/29/25 08:30 04/29/25 09:53 Temperature 36.8 C Pulse Rate 90 Respiratory Rate Blood Pressure Pulse Oximetry 97 Oxygen Delivery Nasal Cannula Oxygen Flow Rate 1 04/29/25 09:54 04/29/25 10:18 04/29/25 10:25 Temperature 36.8 C Pulse Rate 94 83 85 Respiratory Rate 16 20 20 Blood Pressure 121/67 Pulse Oximetry 100 Oxygen Delivery Oxygen Flow Rate 04/29/25 10:25 04/29/25 10:40 04/29/25 10:53 Temperature 36.9 C 37.1 C 37.1 C Pulse Rate 96 97 Respiratory Rate 18 20 Blood Pressure 138/63 123/69 Pulse Oximetry 100 98 Oxygen Delivery Oxygen Flow Rate 04/29/25 12:05 04/29/25 13:40 04/29/25 16:04 Temperature 37.2 C Pulse Rate 91 96 98 Respiratory Rate 20 Blood Pressure 100/46 L Pulse Oximetry 100 Oxygen Delivery Oxygen Flow Rate Intake/Output Intake/Output: Intake & Output 04/26/25 04/27/25 04/28/25 04/29/25 23:59 23:59 23:59 23:59 Intake Total 1400 4440 1892.5 Output Total 1800 602 Balance 1400 2640 1290.5 Meds/Results Medications: Active Medications Generic Name Dose Route Start Last Admin Trade Name Freq PRN Reason Stop Dose Admin Acetaminophen 1,000 mg 04/27/25 22:00 04/29/25 09:53 Acetaminophen 500 Mg Tablet PO 1,000 mg Q6H PRN Administration Mild Pain (1-3) or Fever Hydrocodone Bitart/Acetaminophen 1 tab 04/28/25 11:33 04/29/25 05:49 Hydrocodone/Acetaminophen (*Crx) 7.5-325 Mg Tablet PO 1 tab Q6H PRN Administration pain of 7-10 Albuterol 2 puff 04/28/25 12:47 04/29/25 05:54 Albuterol Sulfate (*Sp) Aerosol 1 Puff INHALATION 2 puff Q4H PRN Administration shortness of breath or wheezing Albuterol/Ipratropium 3 ml 04/29/25 09:35 04/29/25 10:20 Ipratropium 0.5 Mg/Albuterol Sulfate 2.5 Mg Ampul.Neb 3 Ml INHALATION 3 ml Q6HRT PRN Administration Shortness Of Breath Or Wheezing Cyanocobalamin 500 mcg 04/29/25 09:00 04/29/25 08:30 Cyanocobalamin 500 Mcg Tablet PO 500 mcg DAILY CL Administration Dicyclomine HCl 10 mg 04/28/25 13:00 04/29/25 12:28 Dicyclomine Hcl 10 Mg Capsule PO 10 mg TID CL Administration Diphenhydramine HCl 25 mg 04/29/25 09:32 04/29/25 09:51 Diphenhydramine Hcl Inj 50 Mg/Ml Vial IV PUSH 25 mg Q4H PRN Administration Pre treat for blood products Famotidine 20 mg 04/29/25 09:32 04/29/25 09:51 Famotidine 20 Mg/2 Ml Vial IV PUSH 20 mg PRN PRN Administration Pre treat for blood products Ferrous Sulfate 325 mg 04/29/25 09:00 04/29/25 08:30 Ferrous Sulfate [address] BY MOUTH 325 mg DAILY CL Administration Cefepime HCl 2 gm/ Sodium 50 mls @ 100 mls/hr 04/28/25 02:00 04/29/25 09:48 Chloride IVPB 100 mls/hr Q8H CL Administration Azithromycin 500 mg/ Sodium 250 mls @ 250 mls/hr 04/29/25 04:00 04/29/25 03:08 Chloride IVPB 05/02/25 04:59 250 mls/hr Q24H CL Administration Methylprednisolone Sodium Succinate 80 mg 04/29/25 17:00 Methylprednisolone Sod Succ 125 Mg Vial IV PUSH BID CL Neomycin/Polymyxin/Bacitracin 1 applic 04/28/25 19:10 Neomycin/Polymyxin/Bacitracin Ointment 15 Gm Tube TOPICAL PRN PRN with dressing changes Pantoprazole Sodium 40 mg 04/28/25 02:05 04/29/25 08:31 Pantoprazole Sodium Iv 40 Mg Vial IV PUSH 40 mg Q12HR CL Administration Tramadol HCl 25 mg 04/28/25 02:43 04/28/25 03:07 Tramadol Hcl (*Crx) 25 Mg Tablet PO 25 mg Q4H PRN Administration Pain Rated 4-6 Radiology Results: ITS Impressions Chest X-Ray 04/27/25 17:22 IMPRESSION: Segmental left mid and lower lung consolidation/atelectasis. Moderate left pleural effusion Chest/Abdomen/Pelvis CT 04/28/25 05:38 Impression: 3.3 x 2.1 cm medial right breast mass is highly suspicious for breast carcinoma. Diagnostic mammogram/ultrasound recommended for further evaluation. Findings compatible osseous metastatic disease, especially in the iliac bones and spine, with probable pathologic compression fractures of T1 and T12. Single mildly prominent lymph node along the left common iliac chain, indeterminate for metastatic lymphadenopathy. Moderate to large left pleural effusion with complete left lower lobe atelectasis. Minimal right pleural effusion with minimal right basilar atelectasis. Mild left hydronephrosis. No obstructing mass or stone clearly evident. Labs Labs: Laboratory Results - last 24 hr 04/27/25 04/28/25 04/29/25 14:27 17:45 03:09 WBC 0.3 L* RBC 2.25 L Hgb 7.1 L Hct 20.3 L* MCV 90.2 MCH 31.6 MCHC 35.0 RDW 15.1 H Plt Count 5 L* MPV 9.8 Immature Gran % (Auto) 8.0 H Neut % (Auto) 28.0 L Lymph % (Auto) 52.0 H [place] % (Auto) 12.0 H Eos % (Auto) 0.0 Baso % (Auto) 0.0 L Lymph # (Auto) 0.13 L [place] # (Auto) 0.0 L Eos # (Auto) 0.0 Baso # (Auto) 0.0 Abs Immat Gran (auto) 0.02 Absolute Neuts (auto) 0.1 L* Absolute Nucleated RBC 0.000 Nucleated RBC % 0.0 % Immature Plt Fraction 3.8 Sodium 134 L Potassium 2.9 L Chloride 105 Carbon Dioxide 21 L Anion Gap 8 BUN 7 Creatinine 0.47 L Estim Creat Clear Calc 128 Estimated GFR > 60 Glucose 113 H Calcium 8.3 L Post-Trans Total Bili 1.3 Ur Blood, Post-Transfus Post-Trnsf Ur Hematuria Nasal MRSA (PCR) Not detected Direct Plt-Bound IgG Ab Blood Type O Positive Antibody Screen Negative Crossmatch See Detail Pre-Trans Antibody Scrn Post-Trans Antibody Scrn 04/29/25 04/29/25 04/29/25 03:15 05:00 09:00 WBC RBC Hgb Hct MCV MCH MCHC RDW Plt Count MPV Immature Gran % (Auto) Neut % (Auto) Lymph % (Auto) [place] % (Auto) Eos % (Auto) Baso % (Auto) Lymph # (Auto) [place] # (Auto) Eos # (Auto) Baso # (Auto) Abs Immat Gran (auto) Absolute Neuts (auto) Absolute Nucleated RBC Nucleated RBC % % Immature Plt Fraction Sodium Potassium Chloride Carbon Dioxide Anion Gap BUN Creatinine Estim Creat Clear Calc Estimated GFR Glucose Calcium Post-Trans Total Bili Ur Blood, Post-Transfus Trace H Negative Post-Trnsf Ur Hematuria 0-2 0-2 Nasal MRSA (PCR) Direct Plt-Bound IgG Ab Blood Type Antibody Screen Crossmatch Pre-Trans Antibody Scrn Negative Post-Trans Antibody Scrn Negative 04/29/25 04/29/25 09:01 10:53 WBC RBC Hgb Hct MCV MCH MCHC RDW Plt Count MPV Immature Gran % (Auto) Neut % (Auto) Lymph % (Auto) [place] % (Auto) Eos % (Auto) Baso % (Auto) Lymph # (Auto) [place] # (Auto) Eos # (Auto) Baso # (Auto) Abs Immat Gran (auto) Absolute Neuts (auto) Absolute Nucleated RBC Nucleated RBC % % Immature Plt Fraction Sodium Potassium Chloride Carbon Dioxide Anion Gap BUN Creatinine Estim Creat Clear Calc Estimated GFR Glucose Calcium Post-Trans Total Bili 1.0 Ur Blood, Post-Transfus Post-Trnsf Ur Hematuria Nasal MRSA (PCR) Direct Plt-Bound IgG Ab Cancelled Blood Type Antibody Screen Crossmatch Pre-Trans Antibody Scrn Post-Trans Antibody Scrn
--- NOTE | 2025-04-29 17:28 | WPDGIPROGNO ---
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 hem-onc on board on iv steroids, transfusion (2) Malignant neoplasm of breast metastatic to bone: Code(s): C50.919 - Malignant neoplasm of unspecified site of unspecified female breast; C79.51 - Secondary malignant neoplasm of bone Status: Acute (3) Melena: Code(s): K92.1 - Melena Status: Acute Assessment and Plan: no more episodes but expect to have oozing given low platelets will follow only as needed (4) Neutropenic fever: Code(s): D70.9 - Neutropenia, unspecified; R50.81 - Fever presenting with conditions classified elsewhere Status: Acute Assessment and Plan: on iv abx Subjective Date/time seen: 04/29/25 17:28 Interval history: had low grade fever, no report of gib, she is tired but comfortable and eating dinner Review of Systems Review of Systems: All systems reviewed & are unremarkable except as noted in HPI and below Exam Const: General: comfortable and no acute distress HENMT: Face/Nose/Sinus: Normal nares present Eyes: General: appearance normal, both eyes and all related structures Neck: Neck: supple Resp: Auscultation: clear to auscultation bilaterally Cardio: Rate: regular rate Rhythm: regular rhythm GI: Inspection: non-distended GI Palp: Yes Soft to palpation and No Tenderness to palpation present (GI) Skin: Other: pale Neuro: Speech: normal speech Motor exam (neuro): 5/5 motor strength present throughout Extrem: General: normal to inspection Psych: Mental Status: mental status grossly normal Objective Data Vital Signs Vital Signs: Vital Signs - 24 hr 04/28/25 17:48 04/28/25 18:09 04/28/25 18:25 Temperature 102.8 F H 102.8 F H 102.7 F H Pulse Rate 104 H 101 H Respiratory Rate 18 20 Blood Pressure 132/66 119/66 Pulse Oximetry 97 97 Oxygen Delivery Oxygen Flow Rate 04/28/25 18:26 04/28/25 18:48 04/28/25 19:25 Temperature 102.7 F H 101.1 F H Pulse Rate 92 Respiratory Rate 18 Blood Pressure 110/68 Pulse Oximetry 97 100 Oxygen Delivery Nasal Cannula Oxygen Flow Rate 1 04/28/25 20:00 04/28/25 20:00 04/28/25 20:25 Temperature 99.5 F Pulse Rate 92 87 Respiratory Rate 18 Blood Pressure 105/70 Pulse Oximetry 95 98 Oxygen Delivery Nasal Cannula Oxygen Flow Rate 2 04/28/25 21:25 04/28/25 22:46 04/29/25 00:00 Temperature 98.8 F Pulse Rate 87 91 Respiratory Rate 16 Blood Pressure 116/76 Pulse Oximetry 98 96 Oxygen Delivery Oxygen Flow Rate 04/29/25 01:19 04/29/25 01:30 04/29/25 01:57 Temperature 99 F 102.6 F H 102.6 F H Pulse Rate 100 102 H Respiratory Rate 18 20 Blood Pressure 146/70 H 127/68 Pulse Oximetry 97 100 Oxygen Delivery Oxygen Flow Rate 04/29/25 02:57 04/29/25 04:00 04/29/25 05:19 Temperature 98.9 F 98.6 F Pulse Rate 90 92 Respiratory Rate 18 Blood Pressure 109/77 Pulse Oximetry 98 Oxygen Delivery Oxygen Flow Rate 04/29/25 05:36 04/29/25 05:52 04/29/25 06:52 Temperature 98.6 F 98.1 F 98.6 F Pulse Rate 92 93 92 Respiratory Rate 18 16 18 Blood Pressure 109/77 114/82 94/55 L Pulse Oximetry 98 96 97 Oxygen Delivery Oxygen Flow Rate 04/29/25 08:04 04/29/25 08:30 04/29/25 09:53 Temperature 98.3 F Pulse Rate 90 Respiratory Rate Blood Pressure Pulse Oximetry 97 Oxygen Delivery Nasal Cannula Oxygen Flow Rate 1 04/29/25 09:54 04/29/25 10:18 04/29/25 10:25 Temperature 98.3 F Pulse Rate 94 83 85 Respiratory Rate 16 20 20 Blood Pressure 121/67 Pulse Oximetry 100 Oxygen Delivery Oxygen Flow Rate 04/29/25 10:25 04/29/25 10:40 04/29/25 10:53 Temperature 98.5 F 98.8 F 98.8 F Pulse Rate 96 97 Respiratory Rate 18 20 Blood Pressure 138/63 123/69 Pulse Oximetry 100 98 Oxygen Delivery Oxygen Flow Rate 04/29/25 12:05 04/29/25 13:40 04/29/25 16:04 Temperature 98.9 F Pulse Rate 91 96 98 Respiratory Rate 20 Blood Pressure 100/46 L Pulse Oximetry 100 Oxygen Delivery Oxygen Flow Rate Intake/Output Intake/Output: Intake & Output 04/26/25 04/27/25 04/28/25 04/29/25 23:59 23:59 23:59 23:59 Intake Total 1400 4440 2942.5 Output Total 1800 602 Balance 1400 2640 2340.5 Meds/Results Medications: Active Medications Generic Name Dose Route Start Last Admin Trade Name Freq PRN Reason Stop Dose Admin Acetaminophen 1,000 mg 04/27/25 22:00 04/29/25 09:53 Acetaminophen 500 Mg Tablet PO 1,000 mg Q6H PRN Administration Mild Pain (1-3) or Fever Hydrocodone Bitart/Acetaminophen 1 tab 04/28/25 11:33 04/29/25 05:49 Hydrocodone/Acetaminophen (*Crx) 7.5-325 Mg Tablet PO 1 tab Q6H PRN Administration pain of 7-10 Albuterol 2 puff 04/28/25 12:47 04/29/25 05:54 Albuterol Sulfate (*Sp) Aerosol 1 Puff INHALATION 2 puff Q4H PRN Administration shortness of breath or wheezing Albuterol/Ipratropium 3 ml 04/29/25 09:35 04/29/25 10:20 Ipratropium 0.5 Mg/Albuterol Sulfate 2.5 Mg Ampul.Neb 3 Ml INHALATION 3 ml Q6HRT PRN Administration Shortness Of Breath Or Wheezing Cyanocobalamin 500 mcg 04/29/25 09:00 04/29/25 08:30 Cyanocobalamin 500 Mcg Tablet PO 500 mcg DAILY CL Administration Dicyclomine HCl 10 mg 04/28/25 13:00 04/29/25 17:09 Dicyclomine Hcl 10 Mg Capsule PO 10 mg TID CL Administration Diphenhydramine HCl 25 mg 04/29/25 09:32 04/29/25 09:51 Diphenhydramine Hcl Inj 50 Mg/Ml Vial IV PUSH 25 mg Q4H PRN Administration Pre treat for blood products Famotidine 20 mg 04/29/25 09:32 04/29/25 09:51 Famotidine 20 Mg/2 Ml Vial IV PUSH 20 mg PRN PRN Administration Pre treat for blood products Ferrous Sulfate 325 mg 04/29/25 09:00 04/29/25 08:30 Ferrous Sulfate [address] BY MOUTH 325 mg DAILY CL Administration Cefepime HCl 2 gm/ Sodium 50 mls @ 100 mls/hr 04/28/25 02:00 04/29/25 17:10 Chloride IVPB 100 mls/hr Q8H CL Administration Azithromycin 500 mg/ Sodium 250 mls @ 250 mls/hr 04/29/25 04:00 04/29/25 03:08 Chloride IVPB 05/02/25 04:59 250 mls/hr Q24H CL Administration Methylprednisolone Sodium Succinate 80 mg 04/29/25 17:00 04/29/25 17:10 Methylprednisolone Sod Succ 125 Mg Vial IV PUSH 80 mg BID CL Administration Neomycin/Polymyxin/Bacitracin 1 applic 04/28/25 19:10 Neomycin/Polymyxin/Bacitracin Ointment 15 Gm Tube TOPICAL PRN PRN with dressing changes Pantoprazole Sodium 40 mg 04/28/25 02:05 04/29/25 08:31 Pantoprazole Sodium Iv 40 Mg Vial IV PUSH 40 mg Q12HR CL Administration Tramadol HCl 25 mg 04/28/25 02:43 04/28/25 03:07 Tramadol Hcl (*Crx) 25 Mg Tablet PO 25 mg Q4H PRN Administration Pain Rated 4-6 Radiology Results: ITS Impressions Chest X-Ray 04/27/25 17:22 IMPRESSION: Segmental left mid and lower lung consolidation/atelectasis. Moderate left pleural effusion Chest/Abdomen/Pelvis CT 04/28/25 05:38 Impression: 3.3 x 2.1 cm medial right breast mass is highly suspicious for breast carcinoma. Diagnostic mammogram/ultrasound recommended for further evaluation. Findings compatible osseous metastatic disease, especially in the iliac bones and spine, with probable pathologic compression fractures of T1 and T12. Single mildly prominent lymph node along the left common iliac chain, indeterminate for metastatic lymphadenopathy. Moderate to large left pleural effusion with complete left lower lobe atelectasis. Minimal right pleural effusion with minimal right basilar atelectasis. Mild left hydronephrosis. No obstructing mass or stone clearly evident. Labs Labs: Laboratory Results - last 24 hr 04/27/25 04/28/25 04/29/25 14:27 17:45 03:09 WBC 0.3 L* RBC 2.25 L Hgb 7.1 L Hct 20.3 L* MCV 90.2 MCH 31.6 MCHC 35.0 RDW 15.1 H Plt Count 5 L* MPV 9.8 Immature Gran % (Auto) 8.0 H Neut % (Auto) 28.0 L Lymph % (Auto) 52.0 H [place] % (Auto) 12.0 H Eos % (Auto) 0.0 Baso % (Auto) 0.0 L Lymph # (Auto) 0.13 L [place] # (Auto) 0.0 L Eos # (Auto) 0.0 Baso # (Auto) 0.0 Abs Immat Gran (auto) 0.02 Absolute Neuts (auto) 0.1 L* Absolute Nucleated RBC 0.000 Nucleated RBC % 0.0 % Immature Plt Fraction 3.8 Sodium 134 L Potassium 2.9 L Chloride 105 Carbon Dioxide 21 L Anion Gap 8 BUN 7 Creatinine 0.47 L Estim Creat Clear Calc 128 Estimated GFR > 60 Glucose 113 H Calcium 8.3 L Post-Trans Total Bili 1.3 Ur Blood, Post-Transfus Post-Trnsf Ur Hematuria Nasal MRSA (PCR) Not detected Direct Plt-Bound IgG Ab Blood Type O Positive Antibody Screen Negative Crossmatch See Detail Pre-Trans Antibody Scrn Post-Trans Antibody Scrn 04/29/25 04/29/25 04/29/25 03:15 05:00 09:00 WBC RBC Hgb Hct MCV MCH MCHC RDW Plt Count MPV Immature Gran % (Auto) Neut % (Auto) Lymph % (Auto) [place] % (Auto) Eos % (Auto) Baso % (Auto) Lymph # (Auto) [place] # (Auto) Eos # (Auto) Baso # (Auto) Abs Immat Gran (auto) Absolute Neuts (auto) Absolute Nucleated RBC Nucleated RBC % % Immature Plt Fraction Sodium Potassium Chloride Carbon Dioxide Anion Gap BUN Creatinine Estim Creat Clear Calc Estimated GFR Glucose Calcium Post-Trans Total Bili Ur Blood, Post-Transfus Trace H Negative Post-Trnsf Ur Hematuria 0-2 0-2 Nasal MRSA (PCR) Direct Plt-Bound IgG Ab Blood Type Antibody Screen Crossmatch Pre-Trans Antibody Scrn Negative Post-Trans Antibody Scrn Negative 04/29/25 04/29/25 09:01 10:53 WBC RBC Hgb Hct MCV MCH MCHC RDW Plt Count MPV Immature Gran % (Auto) Neut % (Auto) Lymph % (Auto) [place] % (Auto) Eos % (Auto) Baso % (Auto) Lymph # (Auto) [place] # (Auto) Eos # (Auto) Baso # (Auto) Abs Immat Gran (auto) Absolute Neuts (auto) Absolute Nucleated RBC Nucleated RBC % % Immature Plt Fraction Sodium Potassium Chloride Carbon Dioxide Anion Gap BUN Creatinine Estim Creat Clear Calc Estimated GFR Glucose Calcium Post-Trans Total Bili 1.0 Ur Blood, Post-Transfus Post-Trnsf Ur Hematuria Nasal MRSA (PCR) Direct Plt-Bound IgG Ab Cancelled Blood Type Antibody Screen Crossmatch Pre-Trans Antibody Scrn Post-Trans Antibody Scrn
[2025-04-30] VITALS (16 sets, daily range): BP systolic 126–137; BP diastolic 69–83; PULSE 57–107; RESP 18–24; TEMP 36.6–36.8; O2SAT 92–96
[2025-04-30] MEDS: IPRATROPIUM 0.5 MG/ALBUTEROL SULFATE 2.5 MG AMPUL.NEB 3 ML INHALATION ×3 (00:31→19:57)
[2025-04-30] MEDS: CEFEPIME 2 GM in SODIUM CHLORIDE 0.9% IV 50 ML 100 ML IVPB ×3 (03:11→17:03)
[2025-04-30] MEDS: AZITHROMYCIN IV 500 MG in SODIUM CHLORIDE 0.9% IV 250 ML IVPB (03:12)
[2025-04-30 07:18] LABS: Hematocrit 21.6 % (37.0-47.0); Hemoglobin 7.3 g/dL (12.0-15.0); Immature Granulocyte Percent A 13.7 % (0-0.5); Immature Platelet Fraction Pct 2.0 % (0.9-11.2); Lymphocytes Absolute Auto 0.20 K/mm3 (0.9-3.2); Mean Corpuscular HGB Conc 33.8 g/dl (32-36); Mean Corpuscular Hemoglobin 31.3 pg (26-34); Mean Corpuscular Volume 92.7 fl (80-100); Nucleated Red Blood Cells Absolute Auto 0.040 K/mm3 (0.0-0.012); Nucleated Red Blood Cells Perc 7.8 % (0.0-0.2); Platelet Count Result 79 k/mm3 (150-375); Red Blood Count 2.33 M/mm3 (4.2-5.4)
[2025-04-30 07:40] LABS: Anion Gap 8 mmol/L (4-12); Blood Urea Nitrogen 6 mg/dL (7-17); Calcium 8.9 mg/dL (8.4-10.2); Carbon Dioxide 24 mmol/L (22-30); Chloride 107 mmol/L (98-107); Estimated CRCL calculation 157 ml/min; Estimated Glomerular Filt Rate > 60; Glucose 147 mg/dL (65-110); Potassium 3.0 mmol/L (3.4-5.0); Sodium 139 mmol/L (137-145)
[2025-04-30 08:01] LABS: White Blood Count 0.5 K/mm3 (4.5-10.0)
[2025-04-30] MEDS: FERROUS SULFATE 325 MG TABLET DR BY MOUTH (09:02)
[2025-04-30] MEDS: CYANOCOBALAMIN 500 MCG TABLET PO (09:02)
[2025-04-30] MEDS: DICYCLOMINE HCL 10 MG CAPSULE PO ×3 (09:02→17:03)
[2025-04-30] MEDS: PANTOPRAZOLE SODIUM IV 40 MG VIAL IV PUSH ×2 (09:03→21:14)
[2025-04-30] MEDS: POTASSIUM CHLORIDE 20 MEQ PACKET (FOR LIQUID) 40 MEQ PO (09:14)
--- NOTE | 2025-04-30 13:59 | P.PNIM_ITS ---
Progress Note: A&P Assessment and Plan (1) Pancytopenia: Code(s): D61.818 - Other pancytopenia Status: Acute (2) Melena: Code(s): K92.1 - Melena Status: Acute (3) Hepatic steatosis: Code(s): K76.0 - Fatty (change of) liver, not elsewhere classified Status: Acute (4) Elevated liver transaminase level: Code(s): R74.01 - Elevation of levels of liver transaminase levels Status: Acute (5) Hyponatremia: Code(s): E87.1 - Hypo-osmolality and hyponatremia Status: Acute (6) Hypokalemia: Code(s): E87.6 - Hypokalemia Status: Acute Plan Neutropenic fever Continue with IV antibiotics Isolation Follow culture result Hematology-Oncology team on board Pancytopenia improving Oncology team on board.concern for underlying bone marrow infection are myeloid neoplasm or bone marrow infiltration with malignancy' plan for BM biopsy when able. not on Neupogen for possible BM biopsy Monitor CBC Transfuse a as needed Oncology team on board Black stool Patient is on iron pill. Follow-up with endoscopy as outpatient GI team on board Transaminitis CT shows hepatitis steatosis Follow with GI as outpatient Hypernatremia NS Hypokalemia Replace with po potassium Breast cancer On chemoradiation as outpatient Follow Oncology team recommendation SOB likely secondary to acute on chronic diastolic disfunction vs copd exacerbation hold of AVF Duoneb Azithromycin will continue to monitor Subjective Date/time seen: 04/30/25 13:59 Interval history: per HPI: Narrative: patient with history of stage IIIb invasive ductal carcinoma of right breast cancer diagnosed in 2023, HLD, anxiety presented with nausea vomiting, fever, black stool. Patient notes she has been on chemo radiation for breast cancer. She has been having intermittent diarrhea and nausea vomiting. She also has been having low appetite and weight loss. For past couple of days she has been having fever and also noticed to have dark stool. She as been on iron for iron deficiency. Presented to ER for further management. In the ER patient was found to have fever, tachypnea, tachycardia. Lab tests showed pancytopenia with WBC 0.9, hemoglobin 4.7 and platelet 13. Potassium 2.9, sodium 127 lactic acid 2.6, elevated liver enzyme. GI and oncology team was consulted. Dizziness started for neutropenia sepsis. GI team recommended to hold off on any endoscopy evaluation for now and follow up as outpatient. 04/29/25 Patient was seen and examined at bedside. she is feeling better. denies any chest pain. Has SOb. Will stop IVF. continue IV Abx. receiving PLT today. started on Neupogen Oncology team on board.concern for underlying bone marrow infection are myeloid neoplasm or bone marrow infiltration with malignancy' plan for BM biopsy when able. 04/30/25 patient was seen and examined at bedside. she is feeling better. her berthing is better. denies chest pain, N/V. no fever overnight. pancytopenia improving.K3 will give po potassium Review of Systems Review of Systems: All systems reviewed & are unremarkable except as noted in HPI and below Constitutional: Constitutional: Reports as per HPI, Reports fatigue and Reports lethargy ENT: Reports as per HPI Cardiovascular: Cardiovascular: Reports as per HPI, Denies chest pain, Denies leg edema and Denies dyspnea Respiratory: Respiratory: Denies cough and Denies dyspnea Gastrointestinal: Gastrointestinal: Reports as per HPI Musculoskeletal: Musculoskeletal: Reports as per HPI Integumentary/Breasts: Skin/Breast: Reports as per HPI Psychiatric: Psychiatric: Reports as per HPI Endocrine: Endocrine: Reports no additional endocrine complaints and Reports fatigue Hematologic/Lymphatic: Hematologic/Lymphatic: Reports no additional hematologic/lymphatic complaints Exam Narrative: EXAMINATION OF ORGAN SYSTEMS/BODY AREAS: Constitutional: Vital signs per nursing GENERAL: Appears tired and pale HEAD: Normal with no signs of head trauma. EYES: EOMI, conjunctiva normal ENT: Hearing grossly intact LUNGS: Nonlabored breathing. HEART: Tachycardic ABD: [Soft], [nontender to palpation] EXT: Normal range of motion SKIN: Pale NEURO: [Alert and oriented x 3. No gross focal sensory or strength deficits.] PSYCH: Normal affect Const: General: cooperative, healthy appearing, comfortable, no acute distress and well developed Orientation/consciousness: oriented to person, oriented to place, oriented to time and patient oriented x3 HENMT: Head: normal to inspection, normocephalic and atraumatic Mouth: Yes Normal oral and palatal mucosa present and Yes moist mucous membranes Eyes: General: appearance normal, both eyes and all related structures Conjunctivae: conjunctivae normal Sclera: sclerae normal Pupils: Equal, round and reactive pupils present Neck: Neck: normal visual inspection Chest: Chest palpation & inspection: normal inspection of the chest Resp: Effort & Inspection: normal respiratory effort and able to speak in complete sentences Auscultation: clear to auscultation bilaterally Cardio: Jugular venous distension: no JVD Rate: regular rate Rhythm: regular rhythm Heart sounds: S1 normal heart sound present and S2 normal heart sound present GI: Inspection: normal to inspection Auscultation: normal bowel sounds Rectal Exam: deferred Skin: General skin exam: normal color and no rashes or lesions noted Neuro: General: oriented to person, oriented to place, oriented to time and patient oriented x3 Cranial nerves: Yes Equal, round and reactive pupils present Speech: normal speech Extrem: General: normal to inspection and no clubbing, cyanosis or edema Psych: Appearance: grossly normal and well kempt Affect: normal affect Objective Data Vital Signs Vital Signs: Vital Signs - 24 hr 04/29/25 16:04 04/29/25 17:36 04/29/25 17:36 Temperature Pulse Rate 98 100 100 Respiratory Rate 20 20 Blood Pressure Pulse Oximetry 96 Oxygen Delivery Nasal Cannula Oxygen Flow Rate 1 04/29/25 17:44 04/29/25 20:00 04/29/25 20:00 Temperature Pulse Rate 99 105 H Respiratory Rate 20 Blood Pressure Pulse Oximetry 95 Oxygen Delivery Nasal Cannula Oxygen Flow Rate 2 04/29/25 22:00 04/30/25 00:00 04/30/25 00:32 Temperature 99.2 F Pulse Rate 103 H 88 87 Respiratory Rate 20 20 Blood Pressure 118/68 Pulse Oximetry 97 Oxygen Delivery Oxygen Flow Rate 04/30/25 00:47 04/30/25 00:48 04/30/25 04:00 Temperature Pulse Rate 89 87 87 Respiratory Rate 20 Blood Pressure Pulse Oximetry 96 Oxygen Delivery Nasal Cannula Oxygen Flow Rate 1 04/30/25 06:00 04/30/25 09:12 04/30/25 09:26 Temperature 98.3 F Pulse Rate 57 L Respiratory Rate 18 Blood Pressure 130/74 Pulse Oximetry 95 96 Oxygen Delivery Room Air Room Air Oxygen Flow Rate 04/30/25 09:26 Temperature Pulse Rate 100 Respiratory Rate 24 H Blood Pressure Pulse Oximetry Oxygen Delivery Oxygen Flow Rate Intake/Output Intake/Output: Intake & Output 04/27/25 04/28/25 04/29/25 04/30/25 23:59 23:59 23:59 23:59 Intake Total 1400 4440 3362.5 450 Output Total 1800 603 Balance 1400 2640 2759.5 450 Meds/Results Medications: Active Medications Generic Name Dose Route Start Last Admin Trade Name Freq PRN Reason Stop Dose Admin Acetaminophen 1,000 mg 04/27/25 22:00 04/29/25 09:53 Acetaminophen 500 Mg Tablet PO 1,000 mg Q6H PRN Administration Mild Pain (1-3) or Fever Hydrocodone Bitart/Acetaminophen 1 tab 04/28/25 11:33 04/29/25 21:21 Hydrocodone/Acetaminophen (*Crx) 7.5-325 Mg Tablet PO 1 tab Q6H PRN Administration pain of 7-10 Albuterol 2 puff 04/28/25 12:47 04/29/25 05:54 Albuterol Sulfate (*Sp) Aerosol 1 Puff INHALATION 2 puff Q4H PRN Administration shortness of breath or wheezing Albuterol/Ipratropium 3 ml 04/29/25 09:35 04/30/25 09:24 Ipratropium 0.5 Mg/Albuterol Sulfate 2.5 Mg Ampul.Neb 3 Ml INHALATION 3 ml Q6HRT PRN Administration Shortness Of Breath Or Wheezing Azithromycin 500 mg 04/30/25 21:00 Azithromycin 250 Mg Tablet PO 05/01/25 21:01 QHS CL Cyanocobalamin 500 mcg 04/29/25 09:00 04/30/25 09:02 Cyanocobalamin 500 Mcg Tablet PO 500 mcg DAILY CL Administration Dicyclomine HCl 10 mg 04/28/25 13:00 04/30/25 12:22 Dicyclomine Hcl 10 Mg Capsule PO 10 mg TID CL Administration Diphenhydramine HCl 25 mg 04/29/25 09:32 04/29/25 09:51 Diphenhydramine Hcl Inj 50 Mg/Ml Vial IV PUSH 25 mg Q4H PRN Administration Pre treat for blood products Famotidine 20 mg 04/29/25 09:32 04/29/25 09:51 Famotidine 20 Mg/2 Ml Vial IV PUSH 20 mg PRN PRN Administration Pre treat for blood products Ferrous Sulfate 325 mg 04/29/25 09:00 04/30/25 09:02 Ferrous Sulfate [address] BY MOUTH 325 mg DAILY CL Administration Cefepime HCl 2 gm/ Sodium 50 mls @ 100 mls/hr 04/28/25 02:00 04/30/25 09:03 Chloride IVPB 100 mls/hr Q8H CL Administration Methylprednisolone Sodium Succinate 80 mg 04/29/25 17:00 04/30/25 09:02 Methylprednisolone Sod Succ 125 Mg Vial IV PUSH 80 mg BID CL Administration Neomycin/Polymyxin/Bacitracin 1 applic 04/28/25 19:10 Neomycin/Polymyxin/Bacitracin Ointment 15 Gm Tube TOPICAL PRN PRN with dressing changes Pantoprazole Sodium 40 mg 04/28/25 02:05 04/30/25 09:03 Pantoprazole Sodium Iv 40 Mg Vial IV PUSH 40 mg Q12HR CL Administration Potassium Chloride 40 meq 04/30/25 09:00 04/30/25 09:14 Potassium Chloride 20 Meq Packet (For Liquid) PO 40 meq DAILY CL Administration Tramadol HCl 25 mg 04/28/25 02:43 04/28/25 03:07 Tramadol Hcl (*Crx) 25 Mg Tablet PO 25 mg Q4H PRN Administration Pain Rated 4-6 Radiology Results: ITS Impressions Chest X-Ray 04/27/25 17:22 IMPRESSION: Segmental left mid and lower lung consolidation/atelectasis. Moderate left pleural effusion Chest/Abdomen/Pelvis CT 04/28/25 05:38 Impression: 3.3 x 2.1 cm medial right breast mass is highly suspicious for breast carcinoma. Diagnostic mammogram/ultrasound recommended for further evaluation. Findings compatible osseous metastatic disease, especially in the iliac bones and spine, with probable pathologic compression fractures of T1 and T12. Single mildly prominent lymph node along the left common iliac chain, indeterminate for metastatic lymphadenopathy. Moderate to large left pleural effusion with complete left lower lobe atelectasis. Minimal right pleural effusion with minimal right basilar atelectasis. Mild left hydronephrosis. No obstructing mass or stone clearly evident. Labs Labs: Laboratory Results - last 24 hr 04/30/25 07:03 WBC 0.5 L* RBC 2.33 L Hgb 7.3 L Hct 21.6 L MCV 92.7 MCH 31.3 MCHC 33.8 RDW 15.7 H Plt Count 79 L D MPV 11.1 H Immature Gran % (Auto) 13.7 H Neut % (Auto) 35.3 L Lymph % (Auto) 39.2 [place] % (Auto) 9.8 H Eos % (Auto) 0.0 Baso % (Auto) 2.0 H Lymph # (Auto) 0.20 L [place] # (Auto) 0.1 Eos # (Auto) 0.0 Baso # (Auto) 0.0 Abs Immat Gran (auto) 0.07 H Absolute Neuts (auto) 0.2 L* Absolute Nucleated RBC 0.040 H Nucleated RBC % 7.8 H % Immature Plt Fraction 2.0 Sodium 139 Potassium 3.0 L Chloride 107 Carbon Dioxide 24 Anion Gap 8 BUN 6 L Creatinine 0.37 L Estim Creat Clear Calc 157 Estimated GFR > 60 Glucose 147 H Calcium 8.9
[2025-04-30] MEDS: HYDROcodone/acetaminophen (*CRX) 7.5-325 MG TABLET 1 TAB PO (17:02)
[2025-04-30] MEDS: AZITHROMYCIN 250 MG TABLET 500 MG PO (21:14)
[2025-05-01] VITALS (13 sets, daily range): BP systolic 146–153; BP diastolic 80–90; PULSE 76–103; RESP 16–22; TEMP 36.7–36.8; O2SAT 93–97
[2025-05-01] MEDS: CEFEPIME 2 GM in SODIUM CHLORIDE 0.9% IV 50 ML 100 ML IVPB ×3 (01:39→17:53)
[2025-05-01] MEDS: HYDROcodone/acetaminophen (*CRX) 7.5-325 MG TABLET 1 TAB PO ×3 (04:33→21:18)
[2025-05-01 05:34] LABS: Hemoglobin 7.1 g/dL (12.0-15.0); Immature Granulocyte Percent A 8.3 % (0-0.5); Immature Platelet Fraction Pct 1.7 % (0.9-11.2); Lymphocytes Absolute Auto 0.32 K/mm3 (0.9-3.2); Mean Corpuscular HGB Conc 34.0 g/dl (32-36); Mean Corpuscular Hemoglobin 31.3 pg (26-34); Mean Corpuscular Volume 92.1 fl (80-100); Nucleated Red Blood Cells Absolute Auto 0.070 K/mm3 (0.0-0.012); Nucleated Red Blood Cells Perc 8.3 % (0.0-0.2); Platelet Count Result 67 k/mm3 (150-375); Red Blood Count 2.27 M/mm3 (4.2-5.4)
[2025-05-01 05:58] LABS: Anion Gap 8 mmol/L (4-12); Blood Urea Nitrogen 9 mg/dL (7-17); Calcium 9.1 mg/dL (8.4-10.2); Carbon Dioxide 24 mmol/L (22-30); Chloride 108 mmol/L (98-107); Estimated CRCL calculation 144 ml/min; Estimated Glomerular Filt Rate > 60; Glucose 137 mg/dL (65-110); Potassium 3.0 mmol/L (3.4-5.0); Sodium 140 mmol/L (137-145)
[2025-05-01 06:41] LABS: Hematocrit 20.9 % (37.0-47.0); White Blood Count 0.8 K/mm3 (4.5-10.0)
[2025-05-01 06:42] LABS: Hypochromasia 1+
[2025-05-01 06:43] LABS: Ovalocytes 1+; Schistocytes None Seen
[2025-05-01] MEDS: IPRATROPIUM 0.5 MG/ALBUTEROL SULFATE 2.5 MG AMPUL.NEB 3 ML INHALATION ×2 (09:05→21:06)
[2025-05-01] MEDS: POTASSIUM CHLORIDE 20 MEQ PACKET (FOR LIQUID) 40 MEQ PO ×3 (09:42→17:54)
[2025-05-01] MEDS: FERROUS SULFATE 325 MG TABLET DR BY MOUTH (09:42)
[2025-05-01] MEDS: DICYCLOMINE HCL 10 MG CAPSULE PO ×3 (09:42→17:54)
[2025-05-01] MEDS: CYANOCOBALAMIN 500 MCG TABLET PO (09:42)
[2025-05-01] MEDS: PANTOPRAZOLE SODIUM IV 40 MG VIAL IV PUSH ×2 (09:43→21:17)
--- NOTE | 2025-05-01 13:16 | PM.IMPN ---
Progress Note: A&P Assessment and Plan (1) Pancytopenia: Code(s): D61.818 - Other pancytopenia Status: Acute (2) Melena: Code(s): K92.1 - Melena Status: Acute (3) Hepatic steatosis: Code(s): K76.0 - Fatty (change of) liver, not elsewhere classified Status: Acute (4) Elevated liver transaminase level: Code(s): R74.01 - Elevation of levels of liver transaminase levels Status: Acute (5) Hyponatremia: Code(s): E87.1 - Hypo-osmolality and hyponatremia Status: Acute (6) Hypokalemia: Code(s): E87.6 - Hypokalemia Status: Acute Plan Neutropenic fever Continue with IV antibiotics Isolation Follow culture result Hematology-Oncology team on board Pancytopenia stable Oncology team on board.concern for underlying bone marrow infection are myeloid neoplasm or bone marrow infiltration with malignancy' plan for BM biopsy when able. not on Neupogen for possible BM biopsy Monitor CBC Transfuse a as needed Oncology team on board Black stool Patient is on iron pill. Follow-up with endoscopy as outpatient GI team on board Transaminitis CT shows hepatitis steatosis Follow with GI as outpatient Hyponatremia improved NS Hypokalemia Replace with po potassium Breast cancer On chemoradiation as outpatient Follow Oncology team recommendation SOB likely secondary to acute on chronic diastolic disfunction vs copd exacerbation hold of IVF Duoneb Azithromycin will continue to monitor GERD PpI Obesity lifestyle modification Subjective Date/time seen: 05/01/25 13:16 Interval history: per HPI: Narrative: patient with history of stage IIIb invasive ductal carcinoma of right breast cancer diagnosed in 2023, HLD, anxiety presented with nausea vomiting, fever, black stool. Patient notes she has been on chemo radiation for breast cancer. She has been having intermittent diarrhea and nausea vomiting. She also has been having low appetite and weight loss. For past couple of days she has been having fever and also noticed to have dark stool. She as been on iron for iron deficiency. Presented to ER for further management. In the ER patient was found to have fever, tachypnea, tachycardia. Lab tests showed pancytopenia with WBC 0.9, hemoglobin 4.7 and platelet 13. Potassium 2.9, sodium 127 lactic acid 2.6, elevated liver enzyme. GI and oncology team was consulted. Dizziness started for neutropenia sepsis. GI team recommended to hold off on any endoscopy evaluation for now and follow up as outpatient. 04/29/25 Patient was seen and examined at bedside. she is feeling better. denies any chest pain. Has SOb. Will stop IVF. continue IV Abx. receiving PLT today. started on Neupogen Oncology team on board.concern for underlying bone marrow infection are myeloid neoplasm or bone marrow infiltration with malignancy' plan for BM biopsy when able. 04/30/25 patient was seen and examined at bedside. she is feeling better. her berthing is better. denies chest pain, N/V. no fever overnight. pancytopenia improving.K3 will give po potassium 05/01/25 Patient was seen and examined at bedside. she is feeling better. denies any chest pain, abd pain, N?V. still has SOB but no more wheezing today. blood tests stable. neutropenia improving. continue with IV Abx. plan for BM biopsy next week. Review of Systems Review of Systems: All systems reviewed & are unremarkable except as noted in HPI and below Constitutional: Constitutional: Reports as per HPI, Reports fatigue and Reports lethargy ENT: Reports as per HPI Cardiovascular: Cardiovascular: Reports as per HPI, Denies chest pain, Denies leg edema and Denies dyspnea Respiratory: Respiratory: Denies cough and Denies dyspnea Gastrointestinal: Gastrointestinal: Reports as per HPI Musculoskeletal: Musculoskeletal: Reports as per HPI Integumentary/Breasts: Skin/Breast: Reports as per HPI Psychiatric: Psychiatric: Reports as per HPI Endocrine: Endocrine: Reports no additional endocrine complaints and Reports fatigue Hematologic/Lymphatic: Hematologic/Lymphatic: Reports no additional hematologic/lymphatic complaints Exam Narrative: EXAMINATION OF ORGAN SYSTEMS/BODY AREAS: Constitutional: Vital signs per nursing GENERAL: Appears tired and pale HEAD: Normal with no signs of head trauma. EYES: EOMI, conjunctiva normal ENT: Hearing grossly intact LUNGS: Nonlabored breathing. HEART: Tachycardic ABD: [Soft], [nontender to palpation] EXT: Normal range of motion SKIN: Pale NEURO: [Alert and oriented x 3. No gross focal sensory or strength deficits.] PSYCH: Normal affect Const: General: cooperative, healthy appearing, comfortable, no acute distress and well developed Orientation/consciousness: oriented to person, oriented to place, oriented to time and patient oriented x3 HENMT: Head: normal to inspection, normocephalic and atraumatic Mouth: Yes Normal oral and palatal mucosa present and Yes moist mucous membranes Eyes: General: appearance normal, both eyes and all related structures Conjunctivae: conjunctivae normal Sclera: sclerae normal Pupils: Equal, round and reactive pupils present Neck: Neck: normal visual inspection Chest: Chest palpation & inspection: normal inspection of the chest Resp: Effort & Inspection: normal respiratory effort and able to speak in complete sentences Auscultation: clear to auscultation bilaterally Cardio: Jugular venous distension: no JVD Rate: regular rate Rhythm: regular rhythm Heart sounds: S1 normal heart sound present and S2 normal heart sound present GI: Inspection: normal to inspection Auscultation: normal bowel sounds Rectal Exam: deferred Skin: General skin exam: normal color and no rashes or lesions noted Neuro: General: oriented to person, oriented to place, oriented to time and patient oriented x3 Cranial nerves: Yes Equal, round and reactive pupils present Speech: normal speech Extrem: General: normal to inspection and no clubbing, cyanosis or edema Psych: Appearance: grossly normal and well kempt Affect: normal affect Objective Data Vital Signs Vital Signs: Vital Signs - 24 hr 04/30/25 14:00 04/30/25 16:04 04/30/25 19:57 Temperature 98.2 F Pulse Rate 98 93 95 Respiratory Rate 20 20 Blood Pressure 126/69 Pulse Oximetry 96 Oxygen Delivery Fraction of Inspired Oxygen 04/30/25 20:00 04/30/25 21:01 04/30/25 21:14 Temperature Pulse Rate 90 95 93 Respiratory Rate 20 18 Blood Pressure Pulse Oximetry 92 96 Oxygen Delivery Room Air Room Air Fraction of Inspired Oxygen 21 04/30/25 21:17 05/01/25 00:00 05/01/25 04:00 Temperature 98 F Pulse Rate 93 83 89 Respiratory Rate 18 Blood Pressure 137/83 Pulse Oximetry 96 Oxygen Delivery Fraction of Inspired Oxygen 05/01/25 04:26 05/01/25 08:00 05/01/25 08:03 Temperature 98.2 F Pulse Rate 87 84 Respiratory Rate 18 Blood Pressure 153/90 H Pulse Oximetry 95 93 Oxygen Delivery Room Air Fraction of Inspired Oxygen 05/01/25 09:05 05/01/25 09:05 05/01/25 09:11 Temperature Pulse Rate 97 82 Respiratory Rate 20 20 Blood Pressure Pulse Oximetry 95 Oxygen Delivery Room Air Fraction of Inspired Oxygen 05/01/25 12:00 07/18/25 12:20 Temperature Pulse Rate 82 Respiratory Rate Blood Pressure Pulse Oximetry Oxygen Delivery Room Air Fraction of Inspired Oxygen Intake/Output Intake/Output: Intake & Output 04/28/25 04/29/25 04/30/25 05/01/25 23:59 23:59 23:59 23:59 Intake Total 4440 3362.5 1240 686 Output Total 1800 603 1 Balance 2640 2759.5 1239 686 Meds/Results Medications: Active Medications Generic Name Dose Route Start Last Admin Trade Name Freq PRN Reason Stop Dose Admin Acetaminophen 1,000 mg 04/27/25 22:00 04/29/25 09:53 Acetaminophen 500 Mg Tablet PO 1,000 mg Q6H PRN Administration Mild Pain (1-3) or Fever Hydrocodone Bitart/Acetaminophen 1 tab 04/28/25 11:33 05/01/25 13:08 Hydrocodone/Acetaminophen (*Crx) 7.5-325 Mg Tablet PO 1 tab Q6H PRN Administration pain of 7-10 Albuterol 2 puff 04/28/25 12:47 04/29/25 05:54 Albuterol Sulfate (*Sp) Aerosol 1 Puff INHALATION 2 puff Q4H PRN Administration shortness of breath or wheezing Albuterol/Ipratropium 3 ml 04/29/25 09:35 05/01/25 09:05 Ipratropium 0.5 Mg/Albuterol Sulfate 2.5 Mg Ampul.Neb 3 Ml INHALATION 3 ml Q6HRT PRN Administration Shortness Of Breath Or Wheezing Azithromycin 500 mg 04/30/25 21:00 04/30/25 21:14 Azithromycin 250 Mg Tablet PO 05/01/25 21:01 500 mg QHS CL Administration Cyanocobalamin 500 mcg 04/29/25 09:00 05/01/25 09:42 Cyanocobalamin 500 Mcg Tablet PO 500 mcg DAILY CL Administration Dicyclomine HCl 10 mg 04/28/25 13:00 05/01/25 13:09 Dicyclomine Hcl 10 Mg Capsule PO 10 mg TID CL Administration Diphenhydramine HCl 25 mg 04/29/25 09:32 04/29/25 09:51 Diphenhydramine Hcl Inj 50 Mg/Ml Vial IV PUSH 25 mg Q4H PRN Administration Pre treat for blood products Famotidine 20 mg 04/29/25 09:32 04/29/25 09:51 Famotidine 20 Mg/2 Ml Vial IV PUSH 20 mg PRN PRN Administration Pre treat for blood products Ferrous Sulfate 325 mg 04/29/25 09:00 05/01/25 09:42 Ferrous Sulfate [address] BY MOUTH 325 mg DAILY CL Administration Cefepime HCl 2 gm/ Sodium 50 mls @ 100 mls/hr 04/28/25 02:00 05/01/25 10:11 Chloride IVPB Infused Q8H CL Infusion Methylprednisolone Sodium Succinate 80 mg 04/29/25 17:00 05/01/25 09:42 Methylprednisolone Sod Succ 125 Mg Vial IV PUSH 80 mg BID CL Administration Neomycin/Polymyxin/Bacitracin 1 applic 04/28/25 19:10 Neomycin/Polymyxin/Bacitracin Ointment 15 Gm Tube TOPICAL PRN PRN with dressing changes Pantoprazole Sodium 40 mg 04/28/25 02:05 05/01/25 09:43 Pantoprazole Sodium Iv 40 Mg Vial IV PUSH 40 mg Q12HR CL Administration Polyethylene Glycol 17 gm 05/01/25 08:40 Polyethylene Glycol 3350 17 Gm Powd.Pack PO QAM PRN Constipation Potassium Chloride 40 meq 05/01/25 09:00 05/01/25 13:09 Potassium Chloride 20 Meq Packet (For Liquid) PO 05/02/25 05:00 40 meq TID CL Administration Tramadol HCl 25 mg 04/28/25 02:43 04/28/25 03:07 Tramadol Hcl (*Crx) 25 Mg Tablet PO 25 mg Q4H PRN Administration Pain Rated 4-6 Radiology Results: ITS Impressions Chest X-Ray 04/27/25 17:22 IMPRESSION: Segmental left mid and lower lung consolidation/atelectasis. Moderate left pleural effusion Chest/Abdomen/Pelvis CT 04/28/25 05:38 Impression: 3.3 x 2.1 cm medial right breast mass is highly suspicious for breast carcinoma. Diagnostic mammogram/ultrasound recommended for further evaluation. Findings compatible osseous metastatic disease, especially in the iliac bones and spine, with probable pathologic compression fractures of T1 and T12. Single mildly prominent lymph node along the left common iliac chain, indeterminate for metastatic lymphadenopathy. Moderate to large left pleural effusion with complete left lower lobe atelectasis. Minimal right pleural effusion with minimal right basilar atelectasis. Mild left hydronephrosis. No obstructing mass or stone clearly evident. Labs Labs: Laboratory Results - last 24 hr 05/01/25 05:10 WBC 0.8 L* RBC 2.27 L Hgb 7.1 L Hct 20.9 L* MCV 92.1 MCH 31.3 MCHC 34.0 RDW 15.4 H Plt Count 67 L MPV 11.0 H Immature Gran % (Auto) 8.3 H Neut % (Auto) 34.5 L Lymph % (Auto) 38.1 [place] % (Auto) 16.7 H Eos % (Auto) 1.2 Baso % (Auto) 1.2 Lymph # (Auto) 0.32 L [place] # (Auto) 0.1 Eos # (Auto) 0.0 Baso # (Auto) 0.0 Abs Immat Gran (auto) 0.07 H Absolute Neuts (auto) 0.3 L* Absolute Nucleated RBC 0.070 H Band Neutrophils % Not Reportable Nucleated RBC % 8.3 H Platelet Estimate Decreased % Immature Plt Fraction 1.7 Hypochromasia 1+ Ovalocytes 1+ Schistocytes None seen Sodium 140 Potassium 3.0 L Chloride 108 H Carbon Dioxide 24 Anion Gap 8 BUN 9 Creatinine 0.41 L Estim Creat Clear Calc 144 Estimated GFR > 60 Glucose 137 H Calcium 9.1
[2025-05-01] MEDS: AZITHROMYCIN 250 MG TABLET 500 MG PO (21:19)
[2025-05-02] VITALS (11 sets, daily range): BP systolic 150–156; BP diastolic 85–90; PULSE 79–91; RESP 16–20; TEMP 36.4–36.6; O2SAT 95–98
[2025-05-02] MEDS: CEFEPIME 2 GM in SODIUM CHLORIDE 0.9% IV 50 ML 100 ML IVPB ×3 (02:44→17:02)
[2025-05-02] MEDS: HYDROcodone/acetaminophen (*CRX) 7.5-325 MG TABLET 1 TAB PO ×3 (03:21→21:38)
[2025-05-02 06:12] LABS: Hematocrit 21.4 % (37.0-47.0); Hemoglobin 7.2 g/dL (12.0-15.0); Immature Granulocyte Percent A 10.0 % (0-0.5); Immature Platelet Fraction Pct 2.4 % (0.9-11.2); Lymphocytes Absolute Auto 0.39 K/mm3 (0.9-3.2); Mean Corpuscular HGB Conc 33.6 g/dl (32-36); Mean Corpuscular Hemoglobin 31.4 pg (26-34); Mean Corpuscular Volume 93.4 fl (80-100); Nucleated Red Blood Cells Absolute Auto 0.080 K/mm3 (0.0-0.012); Nucleated Red Blood Cells Perc 6.7 % (0.0-0.2); Platelet Count Result 51 k/mm3 (150-375); Red Blood Count 2.29 M/mm3 (4.2-5.4)
[2025-05-02 06:31] LABS: White Blood Count 1.2 K/mm3 (4.5-10.0)
[2025-05-02 06:45] LABS: Anisocytosis 1+; Hypochromasia 1+; Ovalocytes 1+; Schistocytes None Seen
[2025-05-02 07:06] LABS: Anion Gap 8 mmol/L (4-12); Blood Urea Nitrogen 15 mg/dL (7-17); Calcium 9.1 mg/dL (8.4-10.2); Carbon Dioxide 24 mmol/L (22-30); Chloride 108 mmol/L (98-107); Estimated CRCL calculation 144 ml/min; Estimated Glomerular Filt Rate > 60; Glucose 125 mg/dL (65-110); Potassium 4.0 mmol/L (3.4-5.0); Sodium 140 mmol/L (137-145)
[2025-05-02] MEDS: PANTOPRAZOLE SODIUM IV 40 MG VIAL IV PUSH (08:56)
[2025-05-02] MEDS: DICYCLOMINE HCL 10 MG CAPSULE PO ×3 (08:56→16:51)
[2025-05-02] MEDS: CYANOCOBALAMIN 500 MCG TABLET PO (08:56)
[2025-05-02] MEDS: FERROUS SULFATE 325 MG TABLET DR BY MOUTH (08:56)
[2025-05-02] MEDS: SENNA/DOCUSATE SODIUM TABLET 1 TAB PO (09:52)
--- NOTE | 2025-05-02 11:46 | PM.IMPN ---
Progress Note: A&P Assessment and Plan (1) Pancytopenia: Code(s): D61.818 - Other pancytopenia Status: Acute (2) Melena: Code(s): K92.1 - Melena Status: Acute (3) Hepatic steatosis: Code(s): K76.0 - Fatty (change of) liver, not elsewhere classified Status: Acute (4) Elevated liver transaminase level: Code(s): R74.01 - Elevation of levels of liver transaminase levels Status: Acute (5) Hyponatremia: Code(s): E87.1 - Hypo-osmolality and hyponatremia Status: Acute (6) Hypokalemia: Code(s): E87.6 - Hypokalemia Status: Acute Plan Neutropenic fever Continue with IV antibiotics Isolation Follow culture result Hematology-Oncology team on board Pancytopenia stable/improving Oncology team on board.concern for underlying bone marrow infection are myeloid neoplasm or bone marrow infiltration with malignancy' plan for BM biopsy when able. not on Neupogen for possible BM biopsy Monitor CBC Transfuse a as needed Oncology team on board Black stool Patient is on iron pill. Follow-up with endoscopy as outpatient GI team on board Transaminitis CT shows hepatitis steatosis Follow with GI as outpatient Hyponatremia improved NS Hypokalemia Replace with po potassium Breast cancer On chemoradiation as outpatient Follow Oncology team recommendation SOB improving likely secondary to acute on chronic diastolic disfunction vs copd exacerbation hold of IVF Duoneb Azithromycin will continue to monitor GERD PpI Obesity lifestyle modification Subjective Date/time seen: 05/02/25 11:46 Interval history: per HPI: Narrative: patient with history of stage IIIb invasive ductal carcinoma of right breast cancer diagnosed in 2023, HLD, anxiety presented with nausea vomiting, fever, black stool. Patient notes she has been on chemo radiation for breast cancer. She has been having intermittent diarrhea and nausea vomiting. She also has been having low appetite and weight loss. For past couple of days she has been having fever and also noticed to have dark stool. She as been on iron for iron deficiency. Presented to ER for further management. In the ER patient was found to have fever, tachypnea, tachycardia. Lab tests showed pancytopenia with WBC 0.9, hemoglobin 4.7 and platelet 13. Potassium 2.9, sodium 127 lactic acid 2.6, elevated liver enzyme. GI and oncology team was consulted. Dizziness started for neutropenia sepsis. GI team recommended to hold off on any endoscopy evaluation for now and follow up as outpatient. 04/29/25 Patient was seen and examined at bedside. she is feeling better. denies any chest pain. Has SOb. Will stop IVF. continue IV Abx. receiving PLT today. started on Neupogen Oncology team on board.concern for underlying bone marrow infection are myeloid neoplasm or bone marrow infiltration with malignancy' plan for BM biopsy when able. 04/30/25 patient was seen and examined at bedside. she is feeling better. her berthing is better. denies chest pain, N/V. no fever overnight. pancytopenia improving.K3 will give po potassium 05/01/25 Patient was seen and examined at bedside. she is feeling better. denies any chest pain, abd pain, N?V. still has SOB but no more wheezing today. blood tests stable. neutropenia improving. continue with IV Abx. plan for BM biopsy next week. 05/02/25 Patient was seen and examined at bedside. she is feeling better. her breathing is better. denies any chest pain, SOb,a bd pain, N/V. no acute event overnight. lab test improving except Plt level. no bleeding reported. continue to monitor. no fever overnight. Review of Systems Review of Systems: All systems reviewed & are unremarkable except as noted in HPI and below Constitutional: Constitutional: Reports as per HPI, Reports fatigue and Reports lethargy ENT: Reports as per HPI Cardiovascular: Cardiovascular: Reports as per HPI, Denies chest pain, Denies leg edema and Denies dyspnea Respiratory: Respiratory: Denies cough and Denies dyspnea Gastrointestinal: Gastrointestinal: Reports as per HPI Musculoskeletal: Musculoskeletal: Reports as per HPI Integumentary/Breasts: Skin/Breast: Reports as per HPI Psychiatric: Psychiatric: Reports as per HPI Endocrine: Endocrine: Reports no additional endocrine complaints and Reports fatigue Hematologic/Lymphatic: Hematologic/Lymphatic: Reports no additional hematologic/lymphatic complaints Exam Narrative: EXAMINATION OF ORGAN SYSTEMS/BODY AREAS: Constitutional: Vital signs per nursing GENERAL: Appears tired and pale HEAD: Normal with no signs of head trauma. EYES: EOMI, conjunctiva normal ENT: Hearing grossly intact LUNGS: Nonlabored breathing. HEART: Tachycardic ABD: [Soft], [nontender to palpation] EXT: Normal range of motion SKIN: Pale NEURO: [Alert and oriented x 3. No gross focal sensory or strength deficits.] PSYCH: Normal affect Const: General: cooperative, healthy appearing, comfortable, no acute distress and well developed Orientation/consciousness: oriented to person, oriented to place, oriented to time and patient oriented x3 HENMT: Head: normal to inspection, normocephalic and atraumatic Mouth: Yes Normal oral and palatal mucosa present and Yes moist mucous membranes Eyes: General: appearance normal, both eyes and all related structures Conjunctivae: conjunctivae normal Sclera: sclerae normal Pupils: Equal, round and reactive pupils present Neck: Neck: normal visual inspection Chest: Chest palpation & inspection: normal inspection of the chest Resp: Effort & Inspection: normal respiratory effort and able to speak in complete sentences Auscultation: clear to auscultation bilaterally Cardio: Jugular venous distension: no JVD Rate: regular rate Rhythm: regular rhythm Heart sounds: S1 normal heart sound present and S2 normal heart sound present GI: Inspection: normal to inspection Auscultation: normal bowel sounds Rectal Exam: deferred Skin: General skin exam: normal color and no rashes or lesions noted Neuro: General: oriented to person, oriented to place, oriented to time and patient oriented x3 Cranial nerves: Yes Equal, round and reactive pupils present Speech: normal speech Extrem: General: normal to inspection and no clubbing, cyanosis or edema Psych: Appearance: grossly normal and well kempt Affect: normal affect Objective Data Vital Signs Vital Signs: Vital Signs - 24 hr 05/01/25 12:00 05/01/25 12:20 05/01/25 14:00 Temperature 98.1 F Pulse Rate 82 76 Respiratory Rate 16 Blood Pressure 146/80 H Pulse Oximetry 95 Oxygen Delivery Room Air 05/01/25 16:00 05/01/25 20:16 05/01/25 21:06 Temperature 98.2 F Pulse Rate 92 87 Respiratory Rate 18 Blood Pressure 147/81 H Pulse Oximetry 97 96 Oxygen Delivery Room Air 05/01/25 21:06 05/01/25 21:13 05/01/25 21:15 Temperature Pulse Rate 98 103 H Respiratory Rate 22 H 22 H Blood Pressure Pulse Oximetry Oxygen Delivery Room Air 05/02/25 00:00 05/02/25 04:00 05/02/25 06:00 Temperature 97.6 F Pulse Rate 79 86 86 Respiratory Rate 16 Blood Pressure 150/86 H Pulse Oximetry 95 Oxygen Delivery 05/02/25 08:04 05/02/25 08:54 Temperature Pulse Rate 87 Respiratory Rate Blood Pressure Pulse Oximetry Oxygen Delivery Room Air Intake/Output Intake/Output: Intake & Output 04/29/25 04/30/25 05/01/25 05/02/25 23:59 23:59 23:59 23:59 Intake Total 3362.5 1240 1756 390 Output Total 603 1 Balance 2759.5 1239 1756 390 Meds/Results Medications: Active Medications Generic Name Dose Route Start Last Admin Trade Name Freq PRN Reason Stop Dose Admin Acetaminophen 1,000 mg 04/27/25 22:00 04/29/25 09:53 Acetaminophen 500 Mg Tablet PO 1,000 mg Q6H PRN Administration Mild Pain (1-3) or Fever Hydrocodone Bitart/Acetaminophen 1 tab 04/28/25 11:33 05/02/25 03:21 Hydrocodone/Acetaminophen (*Crx) 7.5-325 Mg Tablet PO 1 tab Q6H PRN Administration pain of 7-10 Albuterol 2 puff 04/28/25 12:47 04/29/25 05:54 Albuterol Sulfate (*Sp) Aerosol 1 Puff INHALATION 2 puff Q4H PRN Administration shortness of breath or wheezing Albuterol/Ipratropium 3 ml 04/29/25 09:35 05/01/25 21:06 Ipratropium 0.5 Mg/Albuterol Sulfate 2.5 Mg Ampul.Neb 3 Ml INHALATION 3 ml Q6HRT PRN Administration Shortness Of Breath Or Wheezing Cyanocobalamin 500 mcg 04/29/25 09:00 05/02/25 08:56 Cyanocobalamin 500 Mcg Tablet PO 500 mcg DAILY CL Administration Dicyclomine HCl 10 mg 04/28/25 13:00 05/02/25 08:56 Dicyclomine Hcl 10 Mg Capsule PO 10 mg TID CL Administration Diphenhydramine HCl 25 mg 04/29/25 09:32 04/29/25 09:51 Diphenhydramine Hcl Inj 50 Mg/Ml Vial IV PUSH 25 mg Q4H PRN Administration Pre treat for blood products Famotidine 20 mg 04/29/25 09:32 04/29/25 09:51 Famotidine 20 Mg/2 Ml Vial IV PUSH 20 mg PRN PRN Administration Pre treat for blood products Ferrous Sulfate 325 mg 04/29/25 09:00 05/02/25 08:56 Ferrous Sulfate [address] BY MOUTH 325 mg DAILY CL Administration Cefepime HCl 2 gm/ Sodium 50 mls @ 100 mls/hr 04/28/25 02:00 05/02/25 09:52 Chloride IVPB 100 mls/hr Q8H CL Administration Methylprednisolone Sodium Succinate 80 mg 04/29/25 17:00 05/02/25 08:56 Methylprednisolone Sod Succ 125 Mg Vial IV PUSH 80 mg BID CL Administration Neomycin/Polymyxin/Bacitracin 1 applic 04/28/25 19:10 Neomycin/Polymyxin/Bacitracin Ointment 15 Gm Tube TOPICAL PRN PRN with dressing changes Pantoprazole Sodium 40 mg 05/02/25 21:00 Pantoprazole 40 Mg Tablet PO Q12HR CL Polyethylene Glycol 17 gm 05/01/25 08:40 Polyethylene Glycol 3350 17 Gm Powd.Pack PO QAM PRN Constipation Polyethylene Glycol 17 gm 05/02/25 09:00 05/02/25 09:52 Polyethylene Glycol 3350 17 Gm Powd.Pack PO 17 gm BID CL Administration Tramadol HCl 25 mg 04/28/25 02:43 04/28/25 03:07 Tramadol Hcl (*Crx) 25 Mg Tablet PO 25 mg Q4H PRN Administration Pain Rated 4-6 Radiology Results: ITS Impressions Chest X-Ray 04/27/25 17:22 IMPRESSION: Segmental left mid and lower lung consolidation/atelectasis. Moderate left pleural effusion Chest/Abdomen/Pelvis CT 04/28/25 05:38 Impression: 3.3 x 2.1 cm medial right breast mass is highly suspicious for breast carcinoma. Diagnostic mammogram/ultrasound recommended for further evaluation. Findings compatible osseous metastatic disease, especially in the iliac bones and spine, with probable pathologic compression fractures of T1 and T12. Single mildly prominent lymph node along the left common iliac chain, indeterminate for metastatic lymphadenopathy. Moderate to large left pleural effusion with complete left lower lobe atelectasis. Minimal right pleural effusion with minimal right basilar atelectasis. Mild left hydronephrosis. No obstructing mass or stone clearly evident. Labs Labs: Laboratory Results - last 24 hr 05/02/25 05:35 WBC 1.2 L* RBC 2.29 L Hgb 7.2 L Hct 21.4 L MCV 93.4 MCH 31.4 MCHC 33.6 RDW 15.4 H Plt Count 51 L MPV 11.1 H Immature Gran % (Auto) 10.0 H Neut % (Auto) 46.7 Lymph % (Auto) 32.5 [place] % (Auto) 10.0 H Eos % (Auto) 0.0 Baso % (Auto) 0.8 Lymph # (Auto) 0.39 L [place] # (Auto) 0.1 Eos # (Auto) 0.0 Baso # (Auto) 0.0 Abs Immat Gran (auto) 0.12 H Absolute Neuts (auto) 0.6 L Absolute Nucleated RBC 0.080 H Band Neutrophils % Not Reportable Nucleated RBC % 6.7 H Platelet Estimate Decreased % Immature Plt Fraction 2.4 Hypochromasia 1+ Anisocytosis 1+ Ovalocytes 1+ Schistocytes None seen Sodium 140 Potassium 4.0 Chloride 108 H Carbon Dioxide 24 Anion Gap 8 BUN 15 D Creatinine 0.41 L Estim Creat Clear Calc 144 Estimated GFR > 60 Glucose 125 H Calcium 9.1
[2025-05-02] MEDS: IPRATROPIUM 0.5 MG/ALBUTEROL SULFATE 2.5 MG AMPUL.NEB 3 ML INHALATION (14:05)
[2025-05-02] MEDS: PANTOPRAZOLE 40 MG TABLET PO (21:36)
[2025-05-03] VITALS (9 sets, daily range): BP systolic 153–167; BP diastolic 89–100; PULSE 81–106; RESP 16–20; TEMP 36.6; O2SAT 95–97
[2025-05-03] MEDS: CEFEPIME 2 GM in SODIUM CHLORIDE 0.9% IV 50 ML 100 ML IVPB ×3 (02:38→18:15)
[2025-05-03] MEDS: HYDROcodone/acetaminophen (*CRX) 7.5-325 MG TABLET 1 TAB PO ×3 (03:58→21:02)
[2025-05-03 05:58] LABS: Hematocrit 23.6 % (37.0-47.0); Hemoglobin 7.8 g/dL (12.0-15.0); Immature Granulocyte Percent A 14.4 % (0-0.5); Immature Platelet Fraction Pct 2.9 % (0.9-11.2); Lymphocytes Absolute Auto 0.42 K/mm3 (0.9-3.2); Mean Corpuscular HGB Conc 33.1 g/dl (32-36); Mean Corpuscular Hemoglobin 30.7 pg (26-34); Mean Corpuscular Volume 92.9 fl (80-100); Nucleated Red Blood Cells Absolute Auto 0.130 K/mm3 (0.0-0.012); Nucleated Red Blood Cells Perc 7.0 % (0.0-0.2); Platelet Count Result 38 k/mm3 (150-375); Red Blood Count 2.54 M/mm3 (4.2-5.4)
[2025-05-03 06:05] LABS: White Blood Count 1.9 K/mm3 (4.5-10.0)
[2025-05-03 06:18] LABS: Anion Gap 9 mmol/L (4-12); Blood Urea Nitrogen 17 mg/dL (7-17); Calcium 9.1 mg/dL (8.4-10.2); Carbon Dioxide 25 mmol/L (22-30); Chloride 105 mmol/L (98-107); Estimated CRCL calculation 138 ml/min; Estimated Glomerular Filt Rate > 60; Glucose 121 mg/dL (65-110); Potassium 3.9 mmol/L (3.4-5.0); Sodium 139 mmol/L (137-145)
[2025-05-03 06:33] LABS: Schistocytes None Seen
[2025-05-03 06:34] LABS: Anisocytosis 1+
[2025-05-03 06:35] LABS: Ovalocytes 1+
--- NOTE | 2025-05-03 06:45 | PC.NURSE ---
Bone marrow instructions added to discharge. Copy provided to patient.
[2025-05-03] MEDS: PANTOPRAZOLE 40 MG TABLET PO ×2 (09:41→21:02)
[2025-05-03] MEDS: DICYCLOMINE HCL 10 MG CAPSULE PO ×3 (09:41→18:15)
[2025-05-03] MEDS: FERROUS SULFATE 325 MG TABLET DR BY MOUTH (09:41)
[2025-05-03] MEDS: CYANOCOBALAMIN 500 MCG TABLET PO (09:41)
--- NOTE | 2025-05-03 10:45 | PM.IMPN ---
Progress Note: A&P Assessment and Plan (1) Pancytopenia: Code(s): D61.818 - Other pancytopenia Status: Acute (2) Melena: Code(s): K92.1 - Melena Status: Acute (3) Hepatic steatosis: Code(s): K76.0 - Fatty (change of) liver, not elsewhere classified Status: Acute (4) Elevated liver transaminase level: Code(s): R74.01 - Elevation of levels of liver transaminase levels Status: Acute (5) Hyponatremia: Code(s): E87.1 - Hypo-osmolality and hyponatremia Status: Acute (6) Hypokalemia: Code(s): E87.6 - Hypokalemia Status: Acute Plan Neutropenic fever Continue with IV antibiotics Isolation Follow culture result Hematology-Oncology team on board Pancytopenia stable/improving Oncology team on board.concern for underlying bone marrow infection are myeloid neoplasm or bone marrow infiltration with malignancy' plan for BM biopsy when able. not on Neupogen for possible BM biopsy Monitor CBC Thrombocytopenia getting worse. [place] [address]. [place] [address] or bleeding Transfuse a as needed Oncology team on board Black stool Patient is on iron pill. Follow-up with endoscopy as outpatient GI team on board Transaminitis CT shows hepatitis steatosis Follow with GI as outpatient Hyponatremia improved NS Hypokalemia Replace with po potassium Breast cancer On chemoradiation as outpatient Follow Oncology team recommendation SOB improving likely secondary to acute on chronic diastolic disfunction vs copd exacerbation hold of IVF Duoneb Azithromycin will continue to monitor GERD PpI Obesity lifestyle modification Subjective Date/time seen: 05/03/25 10:45 Interval history: per HPI: Narrative: patient with history of stage IIIb invasive ductal carcinoma of right breast cancer diagnosed in 2023, HLD, anxiety presented with nausea vomiting, fever, black stool. Patient notes she has been on chemo radiation for breast cancer. She has been having intermittent diarrhea and nausea vomiting. She also has been having low appetite and weight loss. For past couple of days she has been having fever and also noticed to have dark stool. She as been on iron for iron deficiency. Presented to ER for further management. In the ER patient was found to have fever, tachypnea, tachycardia. Lab tests showed pancytopenia with WBC 0.9, hemoglobin 4.7 and platelet 13. Potassium 2.9, sodium 127 lactic acid 2.6, elevated liver enzyme. GI and oncology team was consulted. Dizziness started for neutropenia sepsis. GI team recommended to hold off on any endoscopy evaluation for now and follow up as outpatient. 04/29/25 Patient was seen and examined at bedside. she is feeling better. denies any chest pain. Has SOb. Will stop IVF. continue IV Abx. [facility] today[facility] team on board.concern for underlying bone marrow infection are myeloid neoplasm or bone marrow infiltration with malignancy' plan for BM biopsy when able. 04/30/25 patient was seen and examined at bedside. she is feeling better. her berthing is better. denies chest pain, N/V. no fever overnight. pancytopenia improving.K3 will give po potassium 05/01/25 Patient was seen and examined at bedside. she is feeling better. denies any chest pain, abd pain, N?V. still has SOB but no more wheezing today. blood tests stable. neutropenia improving. continue with IV Abx. plan for BM biopsy next week. 05/02/25 Patient was seen and examined at bedside. she is feeling better. her breathing is better. denies any chest pain, SOb,a bd pain, N/V. no acute event overnight. lab test improving except Plt level. no bleeding reported. continue to monitor. no fever overnight. 05/03/25 Patient was seen and examined at bedside. she is feeling better. her breathing is better. denies any chest pain, SOB, abd pain, No bleeding. LAb test improving except for PLT. Continue to monitor Review of Systems Review of Systems: All systems reviewed & are unremarkable except as noted in HPI and below Constitutional: Constitutional: Reports as per HPI, Reports fatigue and Reports lethargy ENT: Reports as per HPI Cardiovascular: Cardiovascular: Reports as per HPI, Denies chest pain, Denies leg edema and Denies dyspnea Respiratory: Respiratory: Denies cough and Denies dyspnea Gastrointestinal: Gastrointestinal: Reports as per HPI Musculoskeletal: Musculoskeletal: Reports as per HPI Integumentary/Breasts: Skin/Breast: Reports as per HPI Psychiatric: Psychiatric: Reports as per HPI Endocrine: Endocrine: Reports no additional endocrine complaints and Reports fatigue Hematologic/Lymphatic: Hematologic/Lymphatic: Reports no additional hematologic/lymphatic complaints Exam Narrative: EXAMINATION OF ORGAN SYSTEMS/BODY AREAS: Constitutional: Vital signs per nursing GENERAL: Appears tired and pale HEAD: Normal with no signs of head trauma. EYES: EOMI, conjunctiva normal ENT: Hearing grossly intact LUNGS: Nonlabored breathing. HEART: Tachycardic ABD: [Soft], [nontender to palpation] EXT: Normal range of motion SKIN: Pale NEURO: [Alert and oriented x 3. No gross focal sensory or strength deficits.] PSYCH: Normal affect Const: General: cooperative, healthy appearing, comfortable, no acute distress and well developed Orientation/consciousness: oriented to person, oriented to place, oriented to time and patient oriented x3 HENMT: Head: normal to inspection, normocephalic and atraumatic Mouth: Yes Normal oral and palatal mucosa present and Yes moist mucous membranes Eyes: General: appearance normal, both eyes and all related structures Conjunctivae: conjunctivae normal Sclera: sclerae normal Pupils: Equal, round and reactive pupils present Neck: Neck: normal visual inspection Chest: Chest palpation & inspection: normal inspection of the chest Resp: Effort & Inspection: normal respiratory effort and able to speak in complete sentences Auscultation: clear to auscultation bilaterally Cardio: Jugular venous distension: no JVD Rate: regular rate Rhythm: regular rhythm Heart sounds: S1 normal heart sound present and S2 normal heart sound present GI: Inspection: normal to inspection Auscultation: normal bowel sounds Rectal Exam: deferred Skin: General skin exam: normal color and no rashes or lesions noted Neuro: General: oriented to person, oriented to place, oriented to time and patient oriented x3 Cranial nerves: Yes Equal, round and reactive pupils present Speech: normal speech Extrem: General: normal to inspection and no clubbing, cyanosis or edema Psych: Appearance: grossly normal and well kempt Affect: normal affect Objective Data Vital Signs Vital Signs: Vital Signs - 24 hr 05/02/25 12:05 05/02/25 14:00 05/02/25 14:05 Temperature 97.7 F Pulse Rate 81 87 85 Respiratory Rate 16 20 Blood Pressure 150/90 H Pulse Oximetry 98 Oxygen Delivery Fraction of Inspired Oxygen 05/02/25 14:15 05/02/25 16:04 05/02/25 20:00 Temperature Pulse Rate 91 88 Respiratory Rate 20 Blood Pressure Pulse Oximetry Oxygen Delivery Room Air Fraction of Inspired Oxygen 21 05/02/25 20:00 05/02/25 21:38 05/03/25 00:00 Temperature 97.9 F Pulse Rate 85 85 82 Respiratory Rate 18 Blood Pressure 156/85 H Pulse Oximetry 95 Oxygen Delivery Fraction of Inspired Oxygen 05/03/25 04:00 05/03/25 04:30 05/03/25 08:21 Temperature 97.8 F Pulse Rate 90 89 Respiratory Rate 16 Blood Pressure 153/89 H Pulse Oximetry 97 Oxygen Delivery Room Air Fraction of Inspired Oxygen Intake/Output Intake/Output: Intake & Output 04/30/25 05/01/25 05/02/25 05/03/25 23:59 23:59 23:59 23:59 Intake Total 1240 1756 1110 830 Output Total 1 Balance 1239 1756 1110 830 Meds/Results Medications: Active Medications Generic Name Dose Route Start Last Admin Trade Name Freq PRN Reason Stop Dose Admin Acetaminophen 1,000 mg 04/27/25 22:00 04/29/25 09:53 Acetaminophen 500 Mg Tablet PO 1,000 mg Q6H PRN Administration Mild Pain (1-3) or Fever Hydrocodone Bitart/Acetaminophen 1 tab 04/28/25 11:33 05/03/25 03:58 Hydrocodone/Acetaminophen (*Crx) 7.5-325 Mg Tablet PO 1 tab Q6H PRN Administration pain of 7-10 Albuterol 2 puff 04/28/25 12:47 04/29/25 05:54 Albuterol Sulfate (*Sp) Aerosol 1 Puff INHALATION 2 puff Q4H PRN Administration shortness of breath or wheezing Albuterol/Ipratropium 3 ml 04/29/25 09:35 05/02/25 14:05 Ipratropium 0.5 Mg/Albuterol Sulfate 2.5 Mg Ampul.Neb 3 Ml INHALATION 3 ml Q6HRT PRN Administration Shortness Of Breath Or Wheezing Cyanocobalamin 500 mcg 04/29/25 09:00 05/03/25 09:41 Cyanocobalamin 500 Mcg Tablet PO 500 mcg DAILY CL Administration Dicyclomine HCl 10 mg 04/28/25 13:00 05/03/25 09:41 Dicyclomine Hcl 10 Mg Capsule PO 10 mg TID CL Administration Diphenhydramine HCl 25 mg 04/29/25 09:32 04/29/25 09:51 Diphenhydramine Hcl Inj 50 Mg/Ml Vial IV PUSH 25 mg Q4H PRN Administration Pre treat for blood products Famotidine 20 mg 04/29/25 09:32 04/29/25 09:51 Famotidine 20 Mg/2 Ml Vial IV PUSH 20 mg PRN PRN Administration Pre treat for blood products Ferrous Sulfate 325 mg 04/29/25 09:00 05/03/25 09:41 Ferrous Sulfate [address] BY MOUTH 325 mg DAILY CL Administration Cefepime HCl 2 gm/ Sodium 50 mls @ 100 mls/hr 04/28/25 02:00 05/03/25 09:42 Chloride IVPB 100 mls/hr Q8H CL Administration Methylprednisolone Sodium Succinate 80 mg 04/29/25 17:00 05/03/25 09:41 Methylprednisolone Sod Succ 125 Mg Vial IV PUSH 80 mg BID CL Administration Neomycin/Polymyxin/Bacitracin 1 applic 04/28/25 19:10 Neomycin/Polymyxin/Bacitracin Ointment 15 Gm Tube TOPICAL PRN PRN with dressing changes Pantoprazole Sodium 40 mg 05/02/25 21:00 05/03/25 09:41 Pantoprazole 40 Mg Tablet PO 40 mg Q12HR CL Administration Polyethylene Glycol 17 gm 05/01/25 08:40 Polyethylene Glycol 3350 17 Gm Powd.Pack PO QAM PRN Constipation Polyethylene Glycol 17 gm 05/02/25 09:00 05/03/25 09:41 Polyethylene Glycol 3350 17 Gm Powd.Pack PO 17 gm BID CL Administration Tramadol HCl 25 mg 04/28/25 02:43 04/28/25 03:07 Tramadol Hcl (*Crx) 25 Mg Tablet PO 25 mg Q4H PRN Administration Pain Rated 4-6 Radiology Results: ITS Impressions Chest X-Ray 04/27/25 17:22 IMPRESSION: Segmental left mid and lower lung consolidation/atelectasis. Moderate left pleural effusion Chest/Abdomen/Pelvis CT 04/28/25 05:38 Impression: 3.3 x 2.1 cm medial right breast mass is highly suspicious for breast carcinoma. Diagnostic mammogram/ultrasound recommended for further evaluation. Findings compatible osseous metastatic disease, especially in the iliac bones and spine, with probable pathologic compression fractures of T1 and T12. Single mildly prominent lymph node along the left common iliac chain, indeterminate for metastatic lymphadenopathy. Moderate to large left pleural effusion with complete left lower lobe atelectasis. Minimal right pleural effusion with minimal right basilar atelectasis. Mild left hydronephrosis. No obstructing mass or stone clearly evident. Labs Labs: Laboratory Results - last 24 hr 05/03/25 05/03/25 05:21 05:22 WBC 1.9 L* RBC 2.54 L Hgb 7.8 L Hct 23.6 L MCV 92.9 MCH 30.7 MCHC 33.1 RDW 14.6 H Plt Count 38 L MPV 11.4 H Immature Gran % (Auto) 14.4 H Neut % (Auto) 47.1 Lymph % (Auto) 22.5 [place] % (Auto) 13.9 H Eos % (Auto) 0.5 Baso % (Auto) 1.6 H Lymph # (Auto) 0.42 L [place] # (Auto) 0.3 Eos # (Auto) 0.0 Baso # (Auto) 0.0 Abs Immat Gran (auto) 0.27 H Absolute Neuts (auto) 0.9 L Absolute Nucleated RBC 0.130 H Band Neutrophils % Not Reportable Nucleated RBC % 7.0 H Platelet Estimate Decreased % Immature Plt Fraction 2.9 Anisocytosis 1+ Ovalocytes 1+ Schistocytes None seen Sodium 139 Potassium 3.9 Chloride 105 Carbon Dioxide 25 Anion Gap 9 BUN 17 Creatinine 0.43 L Estim Creat Clear Calc 138 Estimated GFR > 60 Glucose 121 H Calcium 9.1
[2025-05-04] VITALS (9 sets, daily range): BP systolic 151–160; BP diastolic 81–100; PULSE 84–108; RESP 16–20; TEMP 35.9–36.7; O2SAT 95–97; BMI 29.7
[2025-05-04] MEDS: CEFEPIME 2 GM in SODIUM CHLORIDE 0.9% IV 50 ML 100 ML IVPB ×2 (01:08→09:33)
[2025-05-04] MEDS: HYDROcodone/acetaminophen (*CRX) 7.5-325 MG TABLET 1 TAB PO ×4 (03:38→22:04)
[2025-05-04 05:53] LABS: Hematocrit 24.6 % (37.0-47.0); Hemoglobin 8.2 g/dL (12.0-15.0); Immature Granulocyte Percent A 14.1 % (0-0.5); Immature Platelet Fraction Pct 5.4 % (0.9-11.2); Lymphocytes Absolute Auto 0.49 K/mm3 (0.9-3.2); Mean Corpuscular HGB Conc 33.3 g/dl (32-36); Mean Corpuscular Hemoglobin 30.6 pg (26-34); Mean Corpuscular Volume 91.8 fl (80-100); Nucleated Red Blood Cells Absolute Auto 0.170 K/mm3 (0.0-0.012); Nucleated Red Blood Cells Perc 6.6 % (0.0-0.2); Red Blood Count 2.68 M/mm3 (4.2-5.4); White Blood Count 2.6 K/mm3 (4.5-10.0)
[2025-05-04 06:07] LABS: Anion Gap 7 mmol/L (4-12); Blood Urea Nitrogen 17 mg/dL (7-17); Calcium 9.1 mg/dL (8.4-10.2); Carbon Dioxide 27 mmol/L (22-30); Chloride 103 mmol/L (98-107); Estimated CRCL calculation 138 ml/min; Estimated Glomerular Filt Rate > 60; Glucose 111 mg/dL (65-110); Potassium 3.8 mmol/L (3.4-5.0); Sodium 137 mmol/L (137-145)
[2025-05-04 07:03] LABS: Platelet Count Result 22 k/mm3 (150-375)
[2025-05-04] MEDS: CYANOCOBALAMIN 500 MCG TABLET PO (09:34)
[2025-05-04] MEDS: FERROUS SULFATE 325 MG TABLET DR BY MOUTH (09:34)
[2025-05-04] MEDS: DICYCLOMINE HCL 10 MG CAPSULE PO ×2 (09:34→16:38)
[2025-05-04] MEDS: PANTOPRAZOLE 40 MG TABLET PO ×2 (09:34→20:36)
--- NOTE | 2025-05-04 13:13 | PCOTNOTE ---
Attempted to see Patient at this time. Patient sleeping, Patient had a male family member present, stated she has been wanting to take a nap all day, check in with her. Patient awoke and declined to participate this afternoon. Patient stated come back tomorrow.
--- NOTE | 2025-05-04 14:55 | P.PNIM_ITS ---
Progress Note: A&P Assessment and Plan (1) Pancytopenia: Code(s): D61.818 - Other pancytopenia Status: Acute (2) Hepatic steatosis: Code(s): K76.0 - Fatty (change of) liver, not elsewhere classified Status: Acute (3) Elevated liver transaminase level: Code(s): R74.01 - Elevation of levels of liver transaminase levels Status: Acute (4) Hyponatremia: Code(s): E87.1 - Hypo-osmolality and hyponatremia Status: Acute (5) Hypokalemia: Code(s): E87.6 - Hypokalemia Status: Acute Plan Neutropenic fever Continue with IV antibiotics, switched to Levaquin today Isolation Follow culture result Hematology-Oncology team on board Pancytopenia stable/improving Oncology team on board.concern for underlying bone marrow infection are myeloid neoplasm or bone marrow infiltration with malignancy' plan for BM biopsy possible tomorrow. not on Neupogen for possible BM biopsy Monitor CBC Thrombocytopenia getting worse. [place] [id number]. transfuse if less than [id number] or bleeding Transfuse a as needed Oncology team on board Black stool, resolved Patient is on iron pill. Follow-up with endoscopy as outpatient GI team on board Transaminitis CT shows hepatitis steatosis Follow with GI as outpatient Hyponatremia improved NS Hypokalemia Replace with po potassium Breast cancer On chemoradiation as outpatient Follow Oncology team recommendation SOB improving likely secondary to acute on chronic diastolic disfunction vs copd exacerbation hold of IVF Duoneb Levaquin will continue to monitor GERD PPI Obesity lifestyle modification Subjective Date/time seen: 05/04/25 14:55 Interval history: per HPI: Narrative: patient with history of stage IIIb invasive ductal carcinoma of right breast cancer diagnosed in 2023, HLD, anxiety presented with nausea vomiting, fever, black stool. Patient notes she has been on chemo radiation for breast cancer. She has been having intermittent diarrhea and nausea vomiting. She also has been having low appetite and weight loss. For past couple of days she has been having fever and also noticed to have dark stool. She as been on iron for iron deficiency. Presented to ER for further management. In the ER patient was found to have fever, tachypnea, tachycardia. Lab tests showed pancytopenia with WBC 0.9, hemoglobin 4.7 and platelet 13. Potassium 2.9, sodium 127 lactic acid 2.6, elevated liver enzyme. GI and oncology team was consulted. Dizziness started for neutropenia sepsis. GI team recommended to hold off on any endoscopy evaluation for now and follow up as outpatient. 04/29/25 Patient was seen and examined at bedside. she is feeling better. denies any chest pain. Has SOb. Will stop IVF. continue IV Abx. receiving PLT today. started on [facility] Oncology team on board.concern for underlying bone marrow infection are myeloid neoplasm or bone marrow infiltration with malignancy' plan for BM biopsy when able. 04/30/25 patient was seen and examined at bedside. she is feeling better. her berthing is better. denies chest pain, N/V. no fever overnight. pancytopenia improving.K3 will give po potassium 05/01/25 Patient was seen and examined at bedside. she is feeling better. denies any chest pain, abd pain, N?V. still has SOB but no more wheezing today. blood tests stable. neutropenia improving. continue with IV Abx. plan for BM biopsy next week. 05/02/25 Patient was seen and examined at bedside. she is feeling better. her breathing is better. denies any chest pain, SOb,a bd pain, N/V. no acute event overnight. lab test improving except Plt level. no bleeding reported. continue to monitor. no fever overnight. 05/03/25 Patient was seen and examined at bedside. she is feeling better. her breathing is better. denies any chest pain, SOB, abd pain, No bleeding. LAb test improving except for PLT. Continue to monitor 05/04/25 Patient was seen and examined at bedside. she is feeling better. her breathing is better. denies any chest pain, SOb,abd pain, N/V. no acute event overnight. Lab test improving except PLT. will continue to monitor for now. no bleeding reported. plan for possible BM biopsy tomorrow. Review of Systems Review of Systems: All systems reviewed & are unremarkable except as noted in HPI and below Constitutional: Constitutional: Reports as per HPI, Reports fatigue and Reports lethargy ENT: Reports as per HPI Cardiovascular: Cardiovascular: Reports as per HPI, Denies chest pain, Denies leg edema and Denies dyspnea Respiratory: Respiratory: Denies cough and Denies dyspnea Gastrointestinal: Gastrointestinal: Reports as per HPI Musculoskeletal: Musculoskeletal: Reports as per HPI Integumentary/Breasts: Skin/Breast: Reports as per HPI Psychiatric: Psychiatric: Reports as per HPI Endocrine: Endocrine: Reports no additional endocrine complaints and Reports fatigue Hematologic/Lymphatic: Hematologic/Lymphatic: Reports no additional hematologic/lymphatic complaints Exam Narrative: EXAMINATION OF ORGAN SYSTEMS/BODY AREAS: Constitutional: Vital signs per nursing GENERAL: Appears tired and pale HEAD: Normal with no signs of head trauma. EYES: EOMI, conjunctiva normal ENT: Hearing grossly intact LUNGS: Nonlabored breathing. HEART: Tachycardic ABD: [Soft], [nontender to palpation] EXT: Normal range of motion SKIN: Pale NEURO: [Alert and oriented x 3. No gross focal sensory or strength deficits.] PSYCH: Normal affect Const: General: cooperative, healthy appearing, comfortable, no acute distress and well developed Orientation/consciousness: oriented to person, oriented to place, oriented to time and patient oriented x3 HENMT: Head: normal to inspection, normocephalic and atraumatic Mouth: Yes Normal oral and palatal mucosa present and Yes moist mucous membranes Eyes: General: appearance normal, both eyes and all related structures Conjunctivae: conjunctivae normal Sclera: sclerae normal Pupils: Equal, round and reactive pupils present Neck: Neck: normal visual inspection Chest: Chest palpation & inspection: normal inspection of the chest Resp: Effort & Inspection: normal respiratory effort and able to speak in complete sentences Auscultation: clear to auscultation bilaterally Cardio: Jugular venous distension: no JVD Rate: regular rate Rhythm: regular rhythm Heart sounds: S1 normal heart sound present and S2 normal heart sound present GI: Inspection: normal to inspection Auscultation: normal bowel sounds Rectal Exam: deferred Skin: General skin exam: normal color and no rashes or lesions noted Neuro: General: oriented to person, oriented to place, oriented to time and patient oriented x3 Cranial nerves: Yes Equal, round and reactive pupils present Speech: normal speech Extrem: General: normal to inspection and no clubbing, cyanosis or edema Psych: Appearance: grossly normal and well kempt Affect: normal affect Objective Data Vital Signs Vital Signs: Vital Signs - 24 hr 05/03/25 16:00 05/03/25 20:00 05/03/25 20:00 Temperature Pulse Rate 85 86 Respiratory Rate Blood Pressure Pulse Oximetry Oxygen Delivery Room Air 05/03/25 21:22 05/04/25 00:00 05/04/25 04:00 Temperature 97.9 F Pulse Rate 81 88 84 Respiratory Rate 20 Blood Pressure 167/100 H Pulse Oximetry 95 Oxygen Delivery 05/04/25 06:00 05/04/25 09:34 05/04/25 09:34 Temperature 97.9 F Pulse Rate 88 93 Respiratory Rate 20 Blood Pressure 155/100 H Pulse Oximetry 97 Oxygen Delivery Room Air 05/04/25 12:00 Temperature Pulse Rate 108 H Respiratory Rate Blood Pressure Pulse Oximetry Oxygen Delivery Intake/Output Intake/Output: Intake & Output 05/01/25 05/02/25 05/03/25 05/04/25 23:59 23:59 23:59 23:59 Intake Total 1756 1110 2630 460 Output Total 1 Balance 1756 1110 2630 459 Meds/Results Medications: Active Medications Generic Name Dose Route Start Last Admin Trade Name Freq PRN Reason Stop Dose Admin Acetaminophen 1,000 mg 04/27/25 22:00 04/29/25 09:53 Acetaminophen 500 Mg Tablet PO 1,000 mg Q6H PRN Administration Mild Pain (1-3) or Fever Hydrocodone Bitart/Acetaminophen 1 tab 04/28/25 11:33 05/04/25 09:40 Hydrocodone/Acetaminophen (*Crx) 7.5-325 Mg Tablet PO 1 tab Q6H PRN Administration pain of 7-10 Albuterol 2 puff 04/28/25 12:47 04/29/25 05:54 Albuterol Sulfate (*Sp) Aerosol 1 Puff INHALATION 2 puff Q4H PRN Administration shortness of breath or wheezing Albuterol/Ipratropium 3 ml 04/29/25 09:35 05/02/25 14:05 Ipratropium 0.5 Mg/Albuterol Sulfate 2.5 Mg Ampul.Neb 3 Ml INHALATION 3 ml Q6HRT PRN Administration Shortness Of Breath Or Wheezing Cyanocobalamin 500 mcg 04/29/25 09:00 05/04/25 09:34 Cyanocobalamin 500 Mcg Tablet PO 500 mcg DAILY CL Administration Dicyclomine HCl 10 mg 04/28/25 13:00 05/04/25 13:42 Dicyclomine Hcl 10 Mg Capsule PO Not Given TID CL Diphenhydramine HCl 25 mg 04/29/25 09:32 04/29/25 09:51 Diphenhydramine Hcl Inj 50 Mg/Ml Vial IV PUSH 25 mg Q4H PRN Administration Pre treat for blood products Famotidine 20 mg 04/29/25 09:32 04/29/25 09:51 Famotidine 20 Mg/2 Ml Vial IV PUSH 20 mg PRN PRN Administration Pre treat for blood products Ferrous Sulfate 325 mg 04/29/25 09:00 05/04/25 09:34 Ferrous Sulfate [address] BY MOUTH 325 mg DAILY CL Administration Levofloxacin 750 mg 05/04/25 21:00 Levofloxacin 750 Mg Tablet PO 05/07/25 21:01 QHS [facility] Methylprednisolone Sodium Succinate 80 mg 04/29/25 17:00 05/04/25 09:34 Methylprednisolone Sod Succ 125 Mg Vial IV PUSH 80 mg BID CL Administration Neomycin/Polymyxin/Bacitracin 1 applic 04/28/25 19:10 Neomycin/Polymyxin/Bacitracin Ointment 15 Gm Tube TOPICAL PRN PRN with dressing changes Pantoprazole Sodium 40 mg 05/02/25 21:00 05/04/25 09:34 Pantoprazole 40 Mg Tablet PO 40 mg Q12HR CL Administration Polyethylene Glycol 17 gm 05/01/25 08:40 Polyethylene Glycol 3350 17 Gm Powd.Pack PO QAM PRN Constipation Polyethylene Glycol 17 gm 05/02/25 09:00 05/04/25 09:34 Polyethylene Glycol 3350 17 Gm Powd.Pack PO 17 gm BID CL Administration Tramadol HCl 25 mg 04/28/25 02:43 04/28/25 03:07 Tramadol Hcl (*Crx) 25 Mg Tablet PO 25 mg Q4H PRN Administration Pain Rated 4-6 Radiology Results: ITS Impressions Chest X-Ray 04/27/25 17:22 IMPRESSION: Segmental left mid and lower lung consolidation/atelectasis. Moderate left pleural effusion Chest/Abdomen/Pelvis CT 04/28/25 05:38 Impression: 3.3 x 2.1 cm medial right breast mass is highly suspicious for breast carcinoma. Diagnostic mammogram/ultrasound recommended for further evaluation. Findings compatible osseous metastatic disease, especially in the iliac bones and spine, with probable pathologic compression fractures of T1 and T12. Single mildly prominent lymph node along the left common iliac chain, indeterminate for metastatic lymphadenopathy. Moderate to large left pleural effusion with complete left lower lobe atelectasis. Minimal right pleural effusion with minimal right basilar atelectasis. Mild left hydronephrosis. No obstructing mass or stone clearly evident. Labs Labs: Laboratory Results - last 24 hr 04/28/25 05/04/25 10:37 05:28 WBC 2.6 L RBC 2.68 L Hgb 8.2 L Hct 24.6 L MCV 91.8 MCH 30.6 MCHC 33.3 RDW 14.1 Plt Count 22 L* MPV 11.7 H Immature Gran % (Auto) 14.1 H Neut % (Auto) 51.5 Lymph % (Auto) 19.1 [place] % (Auto) 14.1 H Eos % (Auto) 0.4 Baso % (Auto) 0.8 Lymph # (Auto) 0.49 L [place] # (Auto) 0.4 Eos # (Auto) 0.0 Baso # (Auto) 0.0 Abs Immat Gran (auto) 0.36 H Absolute Neuts (auto) 1.3 Absolute Nucleated RBC 0.170 H Nucleated RBC % 6.6 H % Immature Plt Fraction 5.4 Sodium 137 Potassium 3.8 Chloride 103 Carbon Dioxide 27 Anion Gap 7 BUN 17 Creatinine 0.43 L Estim Creat Clear Calc 138 Estimated GFR > 60 Glucose 111 H Calcium 9.1 Anti-Plt HLA Class I Ab Negative Anti-Plt GP IV Negative Plasma Anti-Plt IIb/IIIa Negative Plasma Anti-Plt Ia/IIa Negative Plasma Anti-Plt Ib/IX Negative
[2025-05-05] VITALS (18 sets, daily range): BP systolic 135–165; BP diastolic 73–94; PULSE 79–101; RESP 16–18; TEMP 35.8–37.1; O2SAT 94–97
[2025-05-05 05:54] LABS: Hematocrit 24.3 % (37.0-47.0); Hemoglobin 8.1 g/dL (12.0-15.0); Immature Granulocyte Percent A 14.2 % (0-0.5); Immature Platelet Fraction Pct 8.6 % (0.9-11.2); Lymphocytes Absolute Auto 0.53 K/mm3 (0.9-3.2); Mean Corpuscular HGB Conc 33.3 g/dl (32-36); Mean Corpuscular Hemoglobin 30.5 pg (26-34); Mean Corpuscular Volume 91.4 fl (80-100); Nucleated Red Blood Cells Absolute Auto 0.190 K/mm3 (0.0-0.012); Nucleated Red Blood Cells Perc 6.6 % (0.0-0.2); Red Blood Count 2.66 M/mm3 (4.2-5.4); White Blood Count 2.9 K/mm3 (4.5-10.0)
[2025-05-05] MEDS: HYDROcodone/acetaminophen (*CRX) 7.5-325 MG TABLET 1 TAB PO ×3 (06:04→19:50)
[2025-05-05 06:12] LABS: Anion Gap 5 mmol/L (4-12); Blood Urea Nitrogen 20 mg/dL (7-17); Calcium 9.2 mg/dL (8.4-10.2); Carbon Dioxide 29 mmol/L (22-30); Chloride 99 mmol/L (98-107); Estimated CRCL calculation 135 ml/min; Estimated Glomerular Filt Rate > 60; Glucose 97 mg/dL (65-110); Potassium 3.6 mmol/L (3.4-5.0); Sodium 133 mmol/L (137-145)
[2025-05-05 06:22] LABS: Platelet Count Result 11 k/mm3 (150-375)
--- NOTE | 2025-05-05 07:02 | P.CDI_ITS ---
CDI Query Clarification Request BMI: 29.8 Nutritional Diagnostic Statement: Please refer to the comprehensive nutrition assessment for further information. If you agree with diagnosis of Severe protein calorie malnutrition related to chronic metastatic cancer as evidenced by weight loss 13%/3 months; intakes<75% needs >1 month. Please specify severity if known: * Mild * Moderate * Severe * Other/Unknown <Susie Torre RN - Last Filed: 05/05/25 07:02> Clarified Diagnosis Clarified Diagnosis: * Severe <Harmeet Beckett MD - Last Filed: 05/05/25 07:32>
[2025-05-05] MEDS: SODIUM CHLORIDE 0.9% IV 250 ML 30 ML IV CONT (08:25)
--- NOTE | 2025-05-05 08:30 | BM_PTH ---
PATIENT: Mandy Rosales LOC: [id number] U#:[id number] AGE/SX: 55/F ROOM: 344 RE04/27/[address]: Rasheed Munoz MD : 1970 BED: 01 DIS: 05/15/2025 SPEC #: [id number] RECD: 05/05/25 09:47 STATUS: PAMLEA REQ #: [id number] DECLAN: 05/05/25 08:[address]: Nik Easley DEPT: [facility] Bone Marrow RECD BY: David Harding ENTERED: 05/05/25 09:48 SP TYPE: Bone Marro OTHR DR: MD Quoc Ramirez APRN Amardeep Shrestha, MD Tissues: A - Bone Marrow Aspiration B - Bone Marrow Biopsy Procedures: Unstained Slides Hematoxylin and Eosin Stain Gross and Microscopic Level 4 Bone Marrow Smear Decalcification Iron Stain
--- NOTE | 2025-05-05 08:31 | PC.NURSE ---
Patient off of unit to biopsy
--- NOTE | 2025-05-05 09:30 | PCOTNOTE ---
Patient out of the room at this time. Patient down having a bone marrow biopsy. Will check back at a later time.
--- NOTE | 2025-05-05 11:58 | PC.NURSE ---
RN hung platelets. Patient was then taken to chest pain center for bone marrow biopsy. RN unable to obtain vitals for TAR while patient was off unit. Patient returned to unit at 1030. Vitals were taken then for TAR vitals.
--- NOTE | 2025-05-05 12:39 | PM.IMPN ---
Progress Note: A&P Assessment and Plan (1) Pancytopenia: Code(s): D61.818 - Other pancytopenia Status: Acute (2) Hepatic steatosis: Code(s): K76.0 - Fatty (change of) liver, not elsewhere classified Status: Acute (3) Elevated liver transaminase level: Code(s): R74.01 - Elevation of levels of liver transaminase levels Status: Acute (4) Hyponatremia: Code(s): E87.1 - Hypo-osmolality and hyponatremia Status: Acute (5) Hypokalemia: Code(s): E87.6 - Hypokalemia Status: Acute Plan Neutropenic fever Continue with IV antibiotics, switched to Levaquin today Isolation Follow culture result Hematology-Oncology team on board Pancytopenia stable/improving hb 8.1, WBC 2.9, Plts 11 Receiving 2 units of platelets for bone marrow biopsy today Oncology team on board Black stool, resolved Patient is on iron pill. likely from thrombocytopenia GI team on board Transaminitis CT shows hepatitis steatosis Follow with GI as outpatient Hyponatremia Na 133 monitor Hypokalemia Replaced, resolved Breast cancer On chemoradiation as outpatient Follow Oncology team recommendation Left pleural effusion r/o Pneumonia vs metastasis hold of IVF Duoneb Continue Levaquin will continue to monitor GERD PPI Obesity lifestyle modification DVT prophylaxis no AC due thrombocytopenia Subjective Date/time seen: 05/05/25 12:39 Interval history: Comfortable at bedside for BM biopsy Review of Systems Review of Systems: All systems reviewed & are unremarkable except as noted in HPI and below Constitutional: Constitutional: Reports as per HPI, Reports fatigue and Reports lethargy ENT: Reports as per HPI Cardiovascular: Cardiovascular: Reports as per HPI, Denies chest pain, Denies leg edema and Denies dyspnea Respiratory: Respiratory: Denies cough and Denies dyspnea Gastrointestinal: Gastrointestinal: Reports as per HPI Musculoskeletal: Musculoskeletal: Reports as per HPI Integumentary/Breasts: Skin/Breast: Reports as per HPI Psychiatric: Psychiatric: Reports as per HPI Endocrine: Endocrine: Reports no additional endocrine complaints and Reports fatigue Hematologic/Lymphatic: Hematologic/Lymphatic: Reports no additional hematologic/lymphatic complaints Exam Narrative: EXAMINATION OF ORGAN SYSTEMS/BODY AREAS: Constitutional: Vital signs per nursing GENERAL: Appears tired and pale HEAD: Normal with no signs of head trauma. EYES: EOMI, conjunctiva normal ENT: Hearing grossly intact LUNGS: Nonlabored breathing. HEART: Tachycardic ABD: [Soft], [nontender to palpation] EXT: Normal range of motion SKIN: Pale NEURO: [Alert and oriented x 3. No gross focal sensory or strength deficits.] PSYCH: Normal affect Const: General: cooperative, healthy appearing, comfortable, no acute distress and well developed Orientation/consciousness: oriented to person, oriented to place, oriented to time and patient oriented x3 HENMT: Head: normal to inspection, normocephalic and atraumatic Mouth: Yes Normal oral and palatal mucosa present and Yes moist mucous membranes Eyes: General: appearance normal, both eyes and all related structures Conjunctivae: conjunctivae normal Sclera: sclerae normal Pupils: Equal, round and reactive pupils present Neck: Neck: normal visual inspection Chest: Chest palpation & inspection: normal inspection of the chest Resp: Effort & Inspection: normal respiratory effort and able to speak in complete sentences Auscultation: clear to auscultation bilaterally Cardio: Jugular venous distension: no JVD Rate: regular rate Rhythm: regular rhythm Heart sounds: S1 normal heart sound present and S2 normal heart sound present GI: Inspection: normal to inspection Auscultation: normal bowel sounds Rectal Exam: deferred Skin: General skin exam: normal color and no rashes or lesions noted Neuro: General: oriented to person, oriented to place, oriented to time and patient oriented x3 Cranial nerves: Yes Equal, round and reactive pupils present Speech: normal speech Extrem: General: normal to inspection and no clubbing, cyanosis or edema Psych: Appearance: grossly normal and well kempt Affect: normal affect Objective Data Vital Signs Vital Signs: Vital Signs - 24 hr 05/04/25 14:00 05/04/25 16:00 05/04/25 20:00 Temperature 98.1 F Pulse Rate 97 92 Respiratory Rate 18 Blood Pressure 151/81 H Pulse Oximetry 95 Oxygen Delivery Room Air 05/04/25 20:00 05/04/25 20:27 05/05/25 00:00 Temperature 96.6 F L Pulse Rate 86 85 84 Respiratory Rate 16 Blood Pressure 160/96 H Pulse Oximetry 96 Oxygen Delivery 05/05/25 04:00 05/05/25 05:35 05/05/25 08:20 Temperature 96.4 F L Pulse Rate 79 98 Respiratory Rate 16 Blood Pressure 161/94 H Pulse Oximetry 97 Oxygen Delivery Room Air 05/05/25 08:20 05/05/25 08:25 05/05/25 09:50 Temperature 98.1 F Pulse Rate 88 91 92 Respiratory Rate 16 18 Blood Pressure 154/91 H 153/80 H Pulse Oximetry 97 96 Oxygen Delivery Room Air 05/05/25 10:00 05/05/25 10:15 05/05/25 10:30 Temperature 98.5 F Pulse Rate 94 91 92 Respiratory Rate 16 16 18 Blood Pressure 147/86 H 141/81 H 165/85 H Pulse Oximetry 96 95 95 Oxygen Delivery Room Air Room Air 05/05/25 11:30 Temperature 98.1 F Pulse Rate 88 Respiratory Rate 18 Blood Pressure 135/75 Pulse Oximetry 95 Oxygen Delivery Intake/Output Intake/Output: Intake & Output 05/02/25 05/03/25 05/04/25 05/05/25 23:59 23:59 23:59 23:59 Intake Total 1110 2630 1250 150 Output Total 1 Balance 1110 2630 1249 150 Meds/Results Medications: Active Medications Generic Name Dose Route Start Last Admin Trade Name Freq PRN Reason Stop Dose Admin Acetaminophen 1,000 mg 04/27/25 22:00 04/29/25 09:53 Acetaminophen 500 Mg Tablet PO 1,000 mg Q6H PRN Administration Mild Pain (1-3) or Fever Hydrocodone Bitart/Acetaminophen 1 tab 04/28/25 11:33 05/05/25 06:04 Hydrocodone/Acetaminophen (*Crx) 7.5-325 Mg Tablet PO 1 tab Q6H PRN Administration pain of 7-10 Albuterol 2 puff 04/28/25 12:47 04/29/25 05:54 Albuterol Sulfate (*Sp) Aerosol 1 Puff INHALATION 2 puff Q4H PRN Administration shortness of breath or wheezing Albuterol/Ipratropium 3 ml 04/29/25 09:35 05/02/25 14:05 Ipratropium 0.5 Mg/Albuterol Sulfate 2.5 Mg Ampul.Neb 3 Ml INHALATION 3 ml Q6HRT PRN Administration Shortness Of Breath Or Wheezing Cyanocobalamin 500 mcg 04/29/25 09:00 05/05/25 08:30 Cyanocobalamin 500 Mcg Tablet PO Not Given DAILY CL Dicyclomine HCl 10 mg 04/28/25 13:00 05/05/25 12:12 Dicyclomine Hcl 10 Mg Capsule PO Not Given TID CL Diphenhydramine HCl 25 mg 04/29/25 09:32 04/29/25 09:51 Diphenhydramine Hcl Inj 50 Mg/Ml Vial IV PUSH 25 mg Q4H PRN Administration Pre treat for blood products Famotidine 20 mg 04/29/25 09:32 04/29/25 09:51 Famotidine 20 Mg/2 Ml Vial IV PUSH 20 mg PRN PRN Administration Pre treat for blood products Ferrous Sulfate 325 mg 04/29/25 09:00 05/05/25 08:30 Ferrous Sulfate [address] BY MOUTH Not Given DAILY CL Sodium Chloride 250 mls @ 30 mls/hr 05/05/25 06:34 05/05/25 08:25 Normal Saline Iv IV CONT 05/05/25 14:53 30 mls/hr .Q8H20M STA Administration Levofloxacin 750 mg 05/04/25 21:00 05/04/25 20:36 Levofloxacin 750 Mg Tablet PO 05/07/25 21:01 750 mg QHS CL Administration Methylprednisolone Sodium Succinate 80 mg 04/29/25 17:00 05/05/25 08:31 Methylprednisolone Sod Succ 125 Mg Vial IV PUSH Not Given BID CL Neomycin/Polymyxin/Bacitracin 1 applic 04/28/25 19:10 Neomycin/Polymyxin/Bacitracin Ointment 15 Gm Tube TOPICAL PRN PRN with dressing changes Pantoprazole Sodium 40 mg 05/02/25 21:00 05/05/25 08:31 Pantoprazole 40 Mg Tablet PO Not Given Q12HR CL Polyethylene Glycol 17 gm 05/01/25 08:40 Polyethylene Glycol 3350 17 Gm Powd.Pack PO QAM PRN Constipation Polyethylene Glycol 17 gm 05/02/25 09:00 05/05/25 08:31 Polyethylene Glycol 3350 17 Gm Powd.Pack PO Not Given BID CL Tramadol HCl 25 mg 04/28/25 02:43 04/28/25 03:07 Tramadol Hcl (*Crx) 25 Mg Tablet PO 25 mg Q4H PRN Administration Pain Rated 4-6 Radiology Results: ITS Impressions Chest X-Ray 04/27/25 17:22 IMPRESSION: Segmental left mid and lower lung consolidation/atelectasis. Moderate left pleural effusion Chest/Abdomen/Pelvis CT 04/28/25 05:38 Impression: 3.3 x 2.1 cm medial right breast mass is highly suspicious for breast carcinoma. Diagnostic mammogram/ultrasound recommended for further evaluation. Findings compatible osseous metastatic disease, especially in the iliac bones and spine, with probable pathologic compression fractures of T1 and T12. Single mildly prominent lymph node along the left common iliac chain, indeterminate for metastatic lymphadenopathy. Moderate to large left pleural effusion with complete left lower lobe atelectasis. Minimal right pleural effusion with minimal right basilar atelectasis. Mild left hydronephrosis. No obstructing mass or stone clearly evident. Labs Labs: Laboratory Results - last 24 hr 05/05/25 05/05/25 05:15 06:33 WBC 2.9 L RBC 2.66 L Hgb 8.1 L Hct 24.3 L MCV 91.4 MCH 30.5 MCHC 33.3 RDW 14.2 Plt Count 11 L* MPV TNP Immature Gran % (Auto) 14.2 H Neut % (Auto) 55.1 Lymph % (Auto) 18.3 [place] % (Auto) 11.1 H Eos % (Auto) 0.3 Baso % (Auto) 1.0 Lymph # (Auto) 0.53 L [place] # (Auto) 0.3 Eos # (Auto) 0.0 Baso # (Auto) 0.0 Abs Immat Gran (auto) 0.41 H Absolute Neuts (auto) 1.6 Absolute Nucleated RBC 0.190 H Nucleated RBC % 6.6 H % Immature Plt Fraction 8.6 Sodium 133 L Potassium 3.6 Chloride 99 Carbon Dioxide 29 Anion Gap 5 BUN 20 H Creatinine 0.44 L Estim Creat Clear Calc 135 Estimated GFR > 60 Glucose 97 Calcium 9.2 Blood Type O Positive Antibody Screen Negative
[2025-05-05 15:11] LABS: Hematocrit 23.0 % (37.0-47.0); Hemoglobin 7.9 g/dL (12.0-15.0); Immature Platelet Fraction Pct 6.0 % (0.9-11.2); Mean Corpuscular HGB Conc 34.3 g/dl (32-36); Mean Corpuscular Hemoglobin 31.1 pg (26-34); Mean Corpuscular Volume 90.6 fl (80-100); Red Blood Count 2.54 M/mm3 (4.2-5.4); White Blood Count 2.4 K/mm3 (4.5-10.0)
--- NOTE | 2025-05-05 15:12 | PC.NURSE ---
RN waiting to hang second bag of platelets. If patient gets thoracentesis today - radiology wants a bag of platelets to be running while patient is down there. RN spoke with Dr. Beckett and asked for him to talk to patient about thoracentesis procedure. Dr. Beckett stated he would come to unit to speak with her. RN waiting for Dr. Beckett to talk to patient.
[2025-05-05 15:14] LABS: INR 1.2; Prothrombin Time 14.9 Seconds (11.1-14.7)
[2025-05-05 15:15] LABS: Partial Thromboplastin Time 20.6 Seconds (22.3-36.8)
[2025-05-05 15:26] LABS: NT Pro B Type Natriuretic Pept 624 pg/mL (19.9-100)
[2025-05-05 15:39] LABS: Platelet Count Result 12 k/mm3 (150-375)
[2025-05-05 15:40] LABS: Band Neutrophils Percent 5 % (0-6); Basophils Absolute Manual 0.00 K/mm3 (0.0-0.1); Basophils Percent Manual 0 % (0-1); Eosinophils Absolute Manual 0.02 K/mm3 (0.02-0.50); Eosinophils Percent Manual 1 % (0-4); Lymphocytes Absolute Manual 0.40 K/mm3 (1.1-4.5); Lymphocytes Percent Manual 17 % (18-44); Metamyelocytes Percent 1 %; Monocytes Absolute Manual 0.19 K/mm3 (0.1-0.90); Monocytes Percent Manual 8 % (3-9); Neutrophils Absolute Manual 1.75 K/mm3 (1.3-6.7); Neutrophils Percent Manual 68 % (46-73); Total Cells Counted 100
[2025-05-05 15:41] LABS: Hypochromasia 1+; Ovalocytes 1+
[2025-05-05 15:42] LABS: Schistocytes None Seen
[2025-05-05] MEDS: SODIUM CHLORIDE 0.9% IV 250 ML 30 ML (16:54)
--- NOTE | 2025-05-05 17:41 | CY_PTH ---
PATIENT: Mandy Rosales LOC: [id number] #:[id number] AGE/SX: 55/F ROOM: 344 RE04/27/[address]: Rasheed Munoz MD : 1970 BED: 01 DIS: 05/15/2025 SPEC #: [id number] RECD: 05/06/25 07:07 STATUS: PAMELA REQ #: [id number] DECLAN: 05/05/25 17:[address]: Harmeet Beckett DEPT: [facility] Cytology RECD BY: Adelaide Paez ENTERED: 05/06/25 07:08 SP TYPE: Cytology OTHR DR: MD Rasheed Santos MD David E. Johnson, APRN Amardeep Shrestha, MD Tissues: A - Pleural Fluid Procedures: Hematoxylin and Eosin Stain Estrogen Receptor Immuno Cell Block CD68 [id number] Calretinin Cytopathology Cytospin
--- NOTE | 2025-05-05 17:52 | PC.NURSE ---
Patient left unit for thoracentesis after platelets started. Radiology wanted platelets running while thoracentesis took place. Vitals taken once patient arrived back to unit.
[2025-05-05] MEDS: PANTOPRAZOLE 40 MG TABLET PO (19:50)
[2025-05-06] VITALS (8 sets, daily range): BP systolic 149–152; BP diastolic 87–92; PULSE 92–101; RESP 16–18; TEMP 36.8; O2SAT 95–98
[2025-05-06] MEDS: HYDROcodone/acetaminophen (*CRX) 7.5-325 MG TABLET 1 TAB PO ×2 (02:40→21:19)
[2025-05-06 06:01] LABS: Hematocrit 22.4 % (37.0-47.0); Hemoglobin 7.6 g/dL (12.0-15.0); Immature Granulocyte Percent A 10.5 % (0-0.5); Immature Platelet Fraction Pct 2.3 % (0.9-11.2); Lymphocytes Absolute Auto 0.36 K/mm3 (0.9-3.2); Mean Corpuscular HGB Conc 33.9 g/dl (32-36); Mean Corpuscular Hemoglobin 31.4 pg (26-34); Mean Corpuscular Volume 92.6 fl (80-100); Nucleated Red Blood Cells Absolute Auto 0.140 K/mm3 (0.0-0.012); Nucleated Red Blood Cells Perc 7.4 % (0.0-0.2); Platelet Count Result 39 k/mm3 (150-375); Red Blood Count 2.42 M/mm3 (4.2-5.4)
[2025-05-06 06:27] LABS: White Blood Count 1.9 K/mm3 (4.5-10.0)
[2025-05-06 06:28] LABS: Hypochromasia 1+; Ovalocytes 1+; Schistocytes None Seen
[2025-05-06 06:30] LABS: Alanine Aminotransferase 79 U/L (6-35); Albumin Level 3.0 g/dL (3.5-5.1); Alkaline Phosphatase 112 U/L (38-126); Anion Gap 6 mmol/L (4-12); Aspartate Amino Transferase 216 U/L (14-36); Bilirubin,Total 0.7 mg/dL (0.2-1.3); Blood Urea Nitrogen 16 mg/dL (7-17); Calcium 9.3 mg/dL (8.4-10.2); Carbon Dioxide 30 mmol/L (22-30); Chloride 100 mmol/L (98-107); Estimated CRCL calculation 128 ml/min; Estimated Glomerular Filt Rate > 60; Glucose 87 mg/dL (65-110); Magnesium 2.1 mg/dL (1.6-2.3); Potassium 3.1 mmol/L (3.4-5.0); Sodium 136 mmol/L (137-145); Total Protein 6.1 g/dL (6.3-8.2)
[2025-05-06] MEDS: PANTOPRAZOLE 40 MG TABLET PO ×2 (08:23→21:20)
[2025-05-06] MEDS: PROMETHAZINE HCL 12.5 MG TABLET PO (09:12)
--- NOTE | 2025-05-06 09:30 | PCPTNOTE ---
Patient refused treatment this session due to feeling nauseous and unwell. Patient reported she has been getting up and walker with family or nursing when able.
[2025-05-06] MEDS: POTASSIUM CHLORIDE INJ 40 MEQ in SODIUM CHLORIDE 0.9% IV 500 ML 130 MEQ IVPB (12:02)
[2025-05-06] MEDS: PROCHLORPERAZINE EDISYLATE 10 MG/2 ML VIAL IV PUSH (12:02)
[2025-05-06] MEDS: FERROUS SULFATE 325 MG TABLET DR BY MOUTH (12:38)
[2025-05-06] MEDS: DICYCLOMINE HCL 10 MG CAPSULE PO ×2 (12:38→16:20)
[2025-05-06] MEDS: POTASSIUM CHLORIDE 20 MEQ PACKET (FOR LIQUID) 40 MEQ PO (12:38)
[2025-05-06] MEDS: CYANOCOBALAMIN 500 MCG TABLET PO (12:38)
[2025-05-06] MEDS: traMADol HCL (*CRX) 25 MG TABLET PO (16:23)
--- NOTE | 2025-05-06 16:59 | PM.IMPN ---
Progress Note: A&P Assessment and Plan (1) Pancytopenia: Code(s): D61.818 - Other pancytopenia Status: Acute (2) Hepatic steatosis: Code(s): K76.0 - Fatty (change of) liver, not elsewhere classified Status: Acute (3) Elevated liver transaminase level: Code(s): R74.01 - Elevation of levels of liver transaminase levels Status: Acute (4) Hyponatremia: Code(s): E87.1 - Hypo-osmolality and hyponatremia Status: Acute (5) Hypokalemia: Code(s): E87.6 - Hypokalemia Status: Acute Plan Neutropenic fever Continue with IV antibiotics, switched to Levaquin today Isolation Follow culture result Hematology-Oncology team on board Pancytopenia stable/improving hb 8.1, WBC 2.9, Plts 11 Today hB 7.6, WBC 1.9, plts 39 Receiving 2 units of platelets S/p bone marrow biopsy Oncology team on board severe nausea On Promethazine patient was unable to eat this mornign monitor one more night Black stool, resolved Patient is on iron pill. likely from thrombocytopenia GI team on board Transaminitis CT shows hepatitis steatosis AST/ALT 216/79 Follow with GI as outpatient Hyponatremia Na 136 monitor Hypokalemia K 3.1 Replaced, moniitor Breast cancer On chemoradiation as outpatient Follow Oncology team recommendation Left pleural effusion r/o Pneumonia vs metastasis s/p Thoracentesis, pleural fluid studies pending Duoneb Continue Levaquin will continue to monitor GERD PPI Obesity lifestyle modification DVT prophylaxis no AC due thrombocytopenia Subjective Date/time seen: 05/06/25 16:59 Interval history: Comfortable at bedside s/p BM biopsy having extreme nauseous Review of Systems Review of Systems: All systems reviewed & are unremarkable except as noted in HPI and below Constitutional: Constitutional: Reports as per HPI, Reports fatigue and Reports lethargy ENT: Reports as per HPI Cardiovascular: Cardiovascular: Reports as per HPI, Denies chest pain, Denies leg edema and Denies dyspnea Respiratory: Respiratory: Denies cough and Denies dyspnea Gastrointestinal: Gastrointestinal: Reports as per HPI Musculoskeletal: Musculoskeletal: Reports as per HPI Integumentary/Breasts: Skin/Breast: Reports as per HPI Psychiatric: Psychiatric: Reports as per HPI Endocrine: Endocrine: Reports no additional endocrine complaints and Reports fatigue Hematologic/Lymphatic: Hematologic/Lymphatic: Reports no additional hematologic/lymphatic complaints Exam Narrative: EXAMINATION OF ORGAN SYSTEMS/BODY AREAS: Constitutional: Vital signs per nursing GENERAL: Appears tired and pale HEAD: Normal with no signs of head trauma. EYES: EOMI, conjunctiva normal ENT: Hearing grossly intact LUNGS: Nonlabored breathing. HEART: Tachycardic ABD: [Soft], [nontender to palpation] EXT: Normal range of motion SKIN: Pale NEURO: [Alert and oriented x 3. No gross focal sensory or strength deficits.] PSYCH: Normal affect Const: General: cooperative, healthy appearing, comfortable, no acute distress and well developed Orientation/consciousness: oriented to person, oriented to place, oriented to time and patient oriented x3 HENMT: Head: normal to inspection, normocephalic and atraumatic Mouth: Yes Normal oral and palatal mucosa present and Yes moist mucous membranes Eyes: General: appearance normal, both eyes and all related structures Conjunctivae: conjunctivae normal Sclera: sclerae normal Pupils: Equal, round and reactive pupils present Neck: Neck: normal visual inspection Chest: Chest palpation & inspection: normal inspection of the chest Resp: Effort & Inspection: normal respiratory effort and able to speak in complete sentences Auscultation: clear to auscultation bilaterally Cardio: Jugular venous distension: no JVD Rate: regular rate Rhythm: regular rhythm Heart sounds: S1 normal heart sound present and S2 normal heart sound present GI: Inspection: normal to inspection Auscultation: normal bowel sounds Rectal Exam: deferred Skin: General skin exam: normal color and no rashes or lesions noted Neuro: General: oriented to person, oriented to place, oriented to time and patient oriented x3 Cranial nerves: Yes Equal, round and reactive pupils present Speech: normal speech Extrem: General: normal to inspection and no clubbing, cyanosis or edema Psych: Appearance: grossly normal and well kempt Affect: normal affect Objective Data Vital Signs Vital Signs: Vital Signs - 24 hr 05/05/25 17:48 05/05/25 20:00 05/05/25 20:00 Temperature 97.0 F L Pulse Rate 95 97 Respiratory Rate 16 Blood Pressure 161/78 H Pulse Oximetry 95 Oxygen Delivery Room Air 05/05/25 21:12 05/06/25 00:00 05/06/25 04:00 Temperature 98.8 F Pulse Rate 101 H 94 92 Respiratory Rate 17 Blood Pressure 151/73 H Pulse Oximetry 95 Oxygen Delivery 05/06/25 05:07 05/06/25 08:03 05/06/25 08:24 Temperature 98.3 F Pulse Rate 101 H 92 Respiratory Rate 18 Blood Pressure 149/87 H Pulse Oximetry 98 Oxygen Delivery Room Air 05/06/25 12:04 Temperature Pulse Rate 100 Respiratory Rate Blood Pressure Pulse Oximetry Oxygen Delivery Intake/Output Intake/Output: Intake & Output 05/03/25 05/04/25 05/05/25 05/06/25 23:59 23:59 23:59 23:59 Intake Total 2630 1250 1052 210 Output Total 1 1000 Balance 2630 1249 52 210 Meds/Results Medications: Active Medications Generic Name Dose Route Start Last Admin Trade Name Freq PRN Reason Stop Dose Admin Acetaminophen 1,000 mg 04/27/25 22:00 04/29/25 09:53 Acetaminophen 500 Mg Tablet PO 1,000 mg Q6H PRN Administration Mild Pain (1-3) or Fever Hydrocodone Bitart/Acetaminophen 1 tab 04/28/25 11:33 05/06/25 02:40 Hydrocodone/Acetaminophen (*Crx) 7.5-325 Mg Tablet PO 1 tab Q6H PRN Administration pain of 7-10 Albuterol 2 puff 04/28/25 12:47 04/29/25 05:54 Albuterol Sulfate (*Sp) Aerosol 1 Puff INHALATION 2 puff Q4H PRN Administration shortness of breath or wheezing Albuterol/Ipratropium 3 ml 04/29/25 09:35 05/02/25 14:05 Ipratropium 0.5 Mg/Albuterol Sulfate 2.5 Mg Ampul.Neb 3 Ml INHALATION 3 ml Q6HRT PRN Administration Shortness Of Breath Or Wheezing Cyanocobalamin 500 mcg 04/29/25 09:00 05/06/25 12:38 Cyanocobalamin 500 Mcg Tablet PO 500 mcg DAILY CL Administration Dicyclomine HCl 10 mg 04/28/25 13:00 05/06/25 16:20 Dicyclomine Hcl 10 Mg Capsule PO 10 mg TID CL Administration Diphenhydramine HCl 25 mg 04/29/25 09:32 04/29/25 09:51 Diphenhydramine Hcl Inj 50 Mg/Ml Vial IV PUSH 25 mg Q4H PRN Administration Pre treat for blood products Famotidine 20 mg 04/29/25 09:32 04/29/25 09:51 Famotidine 20 Mg/2 Ml Vial IV PUSH 20 mg PRN PRN Administration Pre treat for blood products Ferrous Sulfate 325 mg 04/29/25 09:00 05/06/25 12:38 Ferrous Sulfate [address] BY MOUTH 325 mg DAILY CL Administration Levofloxacin 750 mg 05/04/25 21:00 05/05/25 19:50 Levofloxacin 750 Mg Tablet PO 05/07/25 21:01 750 mg QHS CL Administration Methylprednisolone Sodium Succinate 80 mg 04/29/25 17:00 05/06/25 16:20 Methylprednisolone Sod Succ 125 Mg Vial IV PUSH 80 mg BID CL Administration Neomycin/Polymyxin/Bacitracin 1 applic 04/28/25 19:10 Neomycin/Polymyxin/Bacitracin Ointment 15 Gm Tube TOPICAL PRN PRN with dressing changes Pantoprazole Sodium 40 mg 05/02/25 21:00 05/06/25 08:23 Pantoprazole 40 Mg Tablet PO 40 mg Q12HR CL Administration Polyethylene Glycol 17 gm 05/01/25 08:40 Polyethylene Glycol 3350 17 Gm Powd.Pack PO QAM PRN Constipation Prochlorperazine Edisylate 10 mg 05/06/25 10:57 05/06/25 12:02 Prochlorperazine Edisylate 10 Mg/2 Ml Vial IV PUSH 10 mg Q6H PRN Administration Nausea And Vomiting Promethazine HCl 12.5 mg 05/06/25 08:02 05/06/25 09:12 Promethazine Hcl 12.5 Mg Tablet PO 12.5 mg Q6HR PRN Administration Nausea And Vomiting Tramadol HCl 25 mg 04/28/25 02:43 05/06/25 16:23 Tramadol Hcl (*Crx) 25 Mg Tablet PO 25 mg Q4H PRN Administration Pain Rated 4-6 Radiology Results: ITS Impressions Chest/Abdomen/Pelvis CT 04/28/25 05:38 Impression: 3.3 x 2.1 cm medial right breast mass is highly suspicious for breast carcinoma. Diagnostic mammogram/ultrasound recommended for further evaluation. Findings compatible osseous metastatic disease, especially in the iliac bones and spine, with probable pathologic compression fractures of T1 and T12. Single mildly prominent lymph node along the left common iliac chain, indeterminate for metastatic lymphadenopathy. Moderate to large left pleural effusion with complete left lower lobe atelectasis. Minimal right pleural effusion with minimal right basilar atelectasis. Mild left hydronephrosis. No obstructing mass or stone clearly evident. Cardiac Catheterization 05/05/25 18:44 IMPRESSION: 1. Fluoro-guided bone marrow aspiration. 2. Fluoro-guided bone marrow core biopsy. 3. 35 minutes of moderate sedation. Chest X-Ray 05/05/25 19:06 IMPRESSION: No pneumothorax following left-sided thoracentesis, as detailed above. Thoracentesis Ultrasound 05/05/25 19:10 IMPRESSION: 1. Successful ultrasound-guided thoracentesis yielding 1000 mL of dark taz fluid. Labs Labs: Laboratory Results - last 24 hr 05/05/25 05/06/25 17:07 05:22 WBC 1.9 L* RBC 2.42 L Hgb 7.6 L Hct 22.4 L MCV 92.6 MCH 31.4 MCHC 33.9 RDW 14.1 Plt Count 39 L D MPV 10.1 Immature Gran % (Auto) 10.5 H Neut % (Auto) 56.4 Lymph % (Auto) 18.9 [place] % (Auto) 13.2 H Eos % (Auto) 0.5 Baso % (Auto) 0.5 Lymph # (Auto) 0.36 L [place] # (Auto) 0.3 Eos # (Auto) 0.0 Baso # (Auto) 0.0 Abs Immat Gran (auto) 0.20 H Absolute Neuts (auto) 1.1 L Absolute Nucleated RBC 0.140 H Band Neutrophils % Not Reportable Nucleated RBC % 7.4 H Platelet Estimate Decreased % Immature Plt Fraction 2.3 Hypochromasia 1+ Ovalocytes 1+ Schistocytes None seen Sodium 136 L Potassium 3.1 L Chloride 100 Carbon Dioxide 30 Anion Gap 6 BUN 16 Creatinine 0.47 L Estim Creat Clear Calc 128 Estimated GFR > 60 Glucose 87 Calcium 9.3 Magnesium 2.1 Total Bilirubin 0.7 AST 216 H ALT 79 H Alkaline Phosphatase 112 Total Protein 6.1 L Albumin 3.0 L Pleural pH > 7.500 H
[2025-05-07] VITALS (9 sets, daily range): BP systolic 151–156; BP diastolic 79–93; PULSE 88–112; RESP 12–18; TEMP 36.6–37; O2SAT 95–97
[2025-05-07 06:40] LABS: Alanine Aminotransferase 95 U/L (6-35); Albumin Level 3.3 g/dL (3.5-5.1); Alkaline Phosphatase 125 U/L (38-126); Anion Gap 7 mmol/L (4-12); Aspartate Amino Transferase 224 U/L (14-36); Bilirubin,Total 0.5 mg/dL (0.2-1.3); Blood Urea Nitrogen 13 mg/dL (7-17); Calcium 9.8 mg/dL (8.4-10.2); Carbon Dioxide 28 mmol/L (22-30); Chloride 100 mmol/L (98-107); Estimated CRCL calculation 130 ml/min; Estimated Glomerular Filt Rate > 60; Glucose 129 mg/dL (65-110); Magnesium 2.1 mg/dL (1.6-2.3); Potassium 3.8 mmol/L (3.4-5.0); Sodium 135 mmol/L (137-145); Total Protein 6.4 g/dL (6.3-8.2)
[2025-05-07 07:10] LABS: Hematocrit 23.9 % (37.0-47.0); Hemoglobin 8.1 g/dL (12.0-15.0); Immature Platelet Fraction Pct 5.1 % (0.9-11.2); Mean Corpuscular HGB Conc 33.9 g/dl (32-36); Mean Corpuscular Hemoglobin 31.0 pg (26-34); Mean Corpuscular Volume 91.6 fl (80-100); Red Blood Count 2.61 M/mm3 (4.2-5.4); White Blood Count 3.2 K/mm3 (4.5-10.0)
[2025-05-07 07:33] LABS: Platelet Count Result 24 k/mm3 (150-375)
[2025-05-07 07:40] LABS: Neutrophils Percent Manual 74 % (46-73); Total Cells Counted 100
[2025-05-07 07:41] LABS: Band Neutrophils Percent 10 % (0-6); Lymphocytes Absolute Manual 0.35 K/mm3 (1.1-4.5); Lymphocytes Percent Manual 11 % (18-44); Monocytes Absolute Manual 0.16 K/mm3 (0.1-0.90); Monocytes Percent Manual 5 % (3-9); Neutrophils Absolute Manual 2.68 K/mm3 (1.3-6.7)
[2025-05-07 07:43] LABS: Hypochromasia 1+; Ovalocytes 1+; Schistocytes None Seen
[2025-05-07] MEDS: FERROUS SULFATE 325 MG TABLET DR BY MOUTH (08:18)
[2025-05-07] MEDS: HYDROcodone/acetaminophen (*CRX) 7.5-325 MG TABLET 1 TAB PO ×3 (08:18→22:07)
[2025-05-07] MEDS: DICYCLOMINE HCL 10 MG CAPSULE PO ×3 (08:18→17:56)
[2025-05-07] MEDS: CYANOCOBALAMIN 500 MCG TABLET PO (08:18)
[2025-05-07] MEDS: PANTOPRAZOLE 40 MG TABLET PO ×2 (08:18→22:08)
[2025-05-07 10:56] LABS: Hematocrit 23.7 % (37.0-47.0); Hemoglobin 7.9 g/dL (12.0-15.0); Immature Platelet Fraction Pct 5.2 % (0.9-11.2); Mean Corpuscular HGB Conc 33.3 g/dl (32-36); Mean Corpuscular Hemoglobin 30.4 pg (26-34); Mean Corpuscular Volume 91.2 fl (80-100); Red Blood Count 2.60 M/mm3 (4.2-5.4); White Blood Count 3.2 K/mm3 (4.5-10.0)
[2025-05-07 10:59] LABS: Platelet Count Result 20 k/mm3 (150-375)
[2025-05-07 12:08] LABS: Glucose, Body Fluid 73 mg/dL (.); LD, Body Fluid 158 IU/L (.)
--- NOTE | 2025-05-07 14:06 | P.PNIM_ITS ---
Progress Note: A&P Assessment and Plan (1) Pancytopenia: Code(s): D61.818 - Other pancytopenia Status: Acute (2) Hepatic steatosis: Code(s): K76.0 - Fatty (change of) liver, not elsewhere classified Status: Acute (3) Elevated liver transaminase level: Code(s): R74.01 - Elevation of levels of liver transaminase levels Status: Acute (4) Hyponatremia: Code(s): E87.1 - Hypo-osmolality and hyponatremia Status: Acute (5) Hypokalemia: Code(s): E87.6 - Hypokalemia Status: Acute Plan Neutropenic fever Continue with IV antibiotics, switched to Levaquin today Isolation Follow culture result Hematology-Oncology team on board Pancytopenia stable/improving hb 8.1, WBC 2.9, Plts 11 Today hB 7.9, WBC 3.2, plts 20 Receiving 2 units of platelets S/p bone marrow biopsy Oncology team on board severe nausea On Promethazine patient was unable to eat this morning monitor one more night Black stool, resolved Patient is on iron pill. likely from thrombocytopenia GI team on board Transaminitis CT shows hepatitis steatosis AST/ALT 216/79 Follow with GI as outpatient Hyponatremia Na 135 monitor Hypokalemia K 3.8 Replaced, monitor Breast cancer On chemoradiation as outpatient Follow Oncology team recommendation Left pleural effusion r/o Pneumonia vs metastasis s/p Thoracentesis, pleural fluid studies pending Duoneb Continue Levaquin will continue to monitor GERD PPI Obesity lifestyle modification DVT prophylaxis no AC due thrombocytopenia Subjective Date/time seen: 05/07/25 14:06 Interval history: Comfortable at bedside s/p BM biopsy having extreme nauseous Review of Systems Review of Systems: All systems reviewed & are unremarkable except as noted in HPI and below Constitutional: Constitutional: Reports as per HPI, Reports fatigue and Reports lethargy ENT: Reports as per HPI Cardiovascular: Cardiovascular: Reports as per HPI, Denies chest pain, Denies leg edema and Denies dyspnea Respiratory: Respiratory: Denies cough and Denies dyspnea Gastrointestinal: Gastrointestinal: Reports as per HPI Musculoskeletal: Musculoskeletal: Reports as per HPI Integumentary/Breasts: Skin/Breast: Reports as per HPI Psychiatric: Psychiatric: Reports as per HPI Endocrine: Endocrine: Reports no additional endocrine complaints and Reports fatigue Hematologic/Lymphatic: Hematologic/Lymphatic: Reports no additional hematologic/lymphatic complaints Exam Narrative: EXAMINATION OF ORGAN SYSTEMS/BODY AREAS: Constitutional: Vital signs per nursing GENERAL: Appears tired and pale HEAD: Normal with no signs of head trauma. EYES: EOMI, conjunctiva normal ENT: Hearing grossly intact LUNGS: Nonlabored breathing. HEART: Tachycardic ABD: [Soft], [nontender to palpation] EXT: Normal range of motion SKIN: Pale NEURO: [Alert and oriented x 3. No gross focal sensory or strength deficits.] PSYCH: Normal affect Const: General: cooperative, healthy appearing, comfortable, no acute distress and well developed Orientation/consciousness: oriented to person, oriented to place, oriented to time and patient oriented x3 HENMT: Head: normal to inspection, normocephalic and atraumatic Mouth: Yes Normal oral and palatal mucosa present and Yes moist mucous membranes Eyes: General: appearance normal, both eyes and all related structures Conjunctivae: conjunctivae normal Sclera: sclerae normal Pupils: Equal, round and reactive pupils present Neck: Neck: normal visual inspection Chest: Chest palpation & inspection: normal inspection of the chest Resp: Effort & Inspection: normal respiratory effort and able to speak in complete sentences Auscultation: clear to auscultation bilaterally Cardio: Jugular venous distension: no JVD Rate: regular rate Rhythm: re gular rhythm Heart sounds: S1 normal heart sound present and S2 normal heart sound present GI: Inspection: normal to inspection Auscultation: normal bowel sounds Rectal Exam: deferred Skin: General skin exam: normal color and no rashes or lesions noted Neuro: General: oriented to person, oriented to place, oriented to time and patient oriented x3 Cranial nerves: Yes Equal, round and reactive pupils present Speech: normal speech Extrem: General: normal to inspection and no clubbing, cyanosis or edema Psych: Appearance: grossly normal and well kempt Affect: normal affect Objective Data Vital Signs Vital Signs: Vital Signs - 24 hr 05/06/25 16:04 05/06/25 20:00 05/06/25 20:00 Temperature Pulse Rate 101 H 94 Respiratory Rate Blood Pressure Pulse Oximetry Oxygen Delivery Room Air 05/06/25 22:00 05/07/25 00:00 05/07/25 04:00 Temperature 98.2 F Pulse Rate 99 88 101 H Respiratory Rate 16 Blood Pressure 152/92 H Pulse Oximetry 95 Oxygen Delivery 05/07/25 05:41 05/07/25 08:04 05/07/25 08:20 Temperature 98.1 F Pulse Rate 102 H 98 Respiratory Rate 18 Blood Pressure 152/79 H Pulse Oximetry 95 Oxygen Delivery Room Air 05/07/25 12:05 Temperature Pulse Rate 112 H Respiratory Rate Blood Pressure Pulse Oximetry Oxygen Delivery Intake/Output Intake/Output: Intake & Output 05/04/25 05/05/25 05/06/25 05/07/25 23:59 23:59 23:59 23:59 Intake Total 1250 1052 1090 510 Output Total 1 1000 Balance 1249 52 1090 510 Meds/Results Medications: Active Medications Generic Name Dose Route Start Last Admin Trade Name Freq PRN Reason Stop Dose Admin Acetaminophen 1,000 mg 04/27/25 22:00 04/29/25 09:53 Acetaminophen 500 Mg Tablet PO 1,000 mg Q6H PRN Administration Mild Pain (1-3) or Fever Hydrocodone Bitart/Acetaminophen 1 tab 04/28/25 11:33 05/07/25 08:18 Hydrocodone/Acetaminophen (*Crx) 7.5-325 Mg Tablet PO 05/17/25 23:59 1 tab Q6H PRN Administration pain of 7-10 Albuterol 2 puff 04/28/25 12:47 04/29/25 05:54 Albuterol Sulfate (*Sp) Aerosol 1 Puff INHALATION 2 puff Q4H PRN Administration shortness of breath or wheezing Albuterol/Ipratropium 3 ml 04/29/25 09:35 05/02/25 14:05 Ipratropium 0.5 Mg/Albuterol Sulfate 2.5 Mg Ampul.Neb 3 Ml INHALATION 3 ml Q6HRT PRN Administration Shortness Of Breath Or Wheezing Cyanocobalamin 500 mcg 04/29/25 09:00 05/07/25 08:18 Cyanocobalamin 500 Mcg Tablet PO 500 mcg DAILY CL Administration Dicyclomine HCl 10 mg 04/28/25 13:00 05/07/25 12:37 Dicyclomine Hcl 10 Mg Capsule PO 10 mg TID CL Administration Diphenhydramine HCl 25 mg 04/29/25 09:32 04/29/25 09:51 Diphenhydramine Hcl Inj 50 Mg/Ml Vial IV PUSH 25 mg Q4H PRN Administration Pre treat for blood products Famotidine 20 mg 04/29/25 09:32 04/29/25 09:51 Famotidine 20 Mg/2 Ml Vial IV PUSH 20 mg PRN PRN Administration Pre treat for blood products Ferrous Sulfate 325 mg 04/29/25 09:00 05/07/25 08:18 Ferrous Sulfate [address] BY MOUTH 325 mg DAILY CL Administration Levofloxacin 750 mg 05/04/25 21:00 05/06/25 21:20 Levofloxacin 750 Mg Tablet PO 05/07/25 21:01 750 mg QHS CL Administration Methylprednisolone Sodium Succinate 80 mg 04/29/25 17:00 05/07/25 08:19 Methylprednisolone Sod Succ 125 Mg Vial IV PUSH 80 mg BID CL Administration Neomycin/Polymyxin/Bacitracin 1 applic 04/28/25 19:10 Neomycin/Polymyxin/Bacitracin Ointment 15 Gm Tube TOPICAL PRN PRN with dressing changes Pantoprazole Sodium 40 mg 05/02/25 21:00 05/07/25 08:18 Pantoprazole 40 Mg Tablet PO 40 mg Q12HR CL Administration Polyethylene Glycol 17 gm 05/01/25 08:40 Polyethylene Glycol 3350 17 Gm Powd.Pack PO QAM PRN Constipation Prochlorperazine Edisylate 10 mg 05/06/25 10:57 05/06/25 12:02 Prochlorperazine Edisylate 10 Mg/2 Ml Vial IV PUSH 10 mg Q6H PRN Administration Nausea And Vomiting Promethazine HCl 12.5 mg 05/06/25 08:02 05/06/25 09:12 Promethazine Hcl 12.5 Mg Tablet PO 12.5 mg Q6HR PRN Administration Nausea And Vomiting Tramadol HCl 25 mg 04/28/25 02:43 05/06/25 16:23 Tramadol Hcl (*Crx) 25 Mg Tablet PO 05/17/25 23:59 25 mg Q4H PRN Administration Pain Rated 4-6 Radiology Results: ITS Impressions Chest/Abdomen/Pelvis CT 04/28/25 05:38 Impression: 3.3 x 2.1 cm medial right breast mass is highly suspicious for breast carcinoma. Diagnostic mammogram/ultrasound recommended for further evaluation. Findings compatible osseous metastatic disease, especially in the iliac bones and spine, with probable pathologic compression fractures of T1 and T12. Single mildly prominent lymph node along the left common iliac chain, indeterminate for metastatic lymphadenopathy. Moderate to large left pleural effusion with complete left lower lobe atelectasis. Minimal right pleural effusion with minimal right basilar atel ectasis. Mild left hydronephrosis. No obstructing mass or stone clearly evident. Cardiac Catheterization 05/05/25 18:44 IMPRESSION: 1. Fluoro-guided bone marrow aspiration. 2. Fluoro-guided bone marrow core biopsy. 3. 35 minutes of moderate sedation. Chest X-Ray 05/05/25 19:06 IMPRESSION: No pneumothorax following left-sided thoracentesis, as detailed above. Thoracentesis Ultrasound 05/05/25 19:10 IMPRESSION: 1. Successful ultrasound-guided thoracentesis yielding 1000 mL of dark taz fluid. Labs Labs: Laboratory Results - last 24 hr 05/05/25 05/07/25 05/07/25 17:07 05:56 10:40 WBC 3.2 L 3.2 L RBC 2.61 L 2.60 L Hgb 8.1 L 7.9 L Hct 23.9 L 23.7 L MCV 91.6 91.2 MCH 31.0 30.4 MCHC 33.9 33.3 RDW 14.3 14.2 Plt Count 24 L* 20 L* MPV 11.6 H 11.5 H Immature Gran % (Auto) Not Reportable Neut % (Auto) Not Reportable Lymph % (Auto) Not Reportable [place] % (Auto) Not Reportable Eos % (Auto) Not Reportable Baso % (Auto) Not Reportable Lymph # (Auto) Not Reportable [place] # (Auto) Not Reportable Eos # (Auto) Not Reportable Baso # (Auto) Not Reportable Abs Immat Gran (auto) Not Reportable Absolute Neuts (auto) Not Reportable Absolute Nucleated RBC Not Reportable Total Counted 100 Neutrophils % (Manual) 74 H Band Neutrophils % 10 H Lymphocytes % (Manual) 11 L Monocytes % (Manual) 5 Nucleated RBC % Not Reportable Abs Neuts (Manual) 2.68 Abs Lymphs (Manual) 0.35 L Abs Monocytes (Manual) 0.16 Nucleated RBCs 9 Platelet Estimate Decreased % Immature Plt Fraction 5.1 5.2 Hypochromasia 1+ Ovalocytes 1+ Schistocytes None seen Sodium 135 L Potassium 3.8 Chloride 100 Carbon Dioxide 28 Anion Gap 7 BUN 13 Creatinine 0.46 L Estim Creat Clear Calc 130 Estimated GFR > 60 Glucose 129 H Calcium 9.8 Magnesium 2.1 Total Bilirubin 0.5 AST 224 H ALT 95 H Alkaline Phosphatase 125 Total Protein 6.4 Albumin 3.3 L Fluid Glucose 73 Fluid Total Protein 2.5 Fluid LDH 158
[2025-05-07 16:17] LABS: Hematocrit 23.9 % (37.0-47.0); Hemoglobin 8.0 g/dL (12.0-15.0); Immature Platelet Fraction Pct 6.4 % (0.9-11.2); Mean Corpuscular HGB Conc 33.5 g/dl (32-36); Mean Corpuscular Hemoglobin 30.7 pg (26-34); Mean Corpuscular Volume 91.6 fl (80-100); Red Blood Count 2.61 M/mm3 (4.2-5.4); White Blood Count 3.2 K/mm3 (4.5-10.0)
[2025-05-07 16:20] LABS: Platelet Count Result 16 k/mm3 (150-375)
--- NOTE | 2025-05-07 17:52 | WPDONCPN ---
Progress Note: A&P Assessment and Plan (1) Pancytopenia: Code(s): D61.818 - Other pancytopenia Status: Acute Assessment and Plan: Bone marrow biopsy was performed and showed no evidence of monoclonal B-cell, increased blast, plasma cells or malignancy. Bone marrow core biopsy was nondiagnostic. Labs showed improvement in the WBC count with WBC of 3.2 an ANC of 1100. Hemoglobin also stable at 8.0 platelet count remains low at 16,000 thousand. 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 Hopefully in next 24-48 hours her platelet count will improve that she will be able to go home on prednisone 60 mg twice a day with a tapering schedule of 10 mg every 3 days. I will see her in the office for further management. I will continue to hold Ibrance. She can start taking anastrozole on discharge. Based upon the platelet recovery we will add Ibrance at a lower dose. (2) Metastasis to bone: Code(s): C79.51 - Secondary malignant neoplasm of bone Status: Acute Assessment and Plan: Pleural fluid cytology came back positive for metastatic breast cancer. Bone marrow biopsy did not show metastatic breast cancer. I will continue to hold Ibrance due to thrombocytopenia. She will restart anastrozole after the discharge and will follow-up in the office for repeat blood check. Subjective Date/time seen: 05/07/25 17:52 Interval history: Patient seems to be quite comfortable and denies any abdominal pain and chest pain. No bone pain. She has some bruising in the upper extremities. No bleeding. No fevers and chills. No other new complaints. Review of Systems Review of Systems Twelve point review of system was reviewed Exam Narrative: Lungs are clear to auscultation bilaterally Cardiovascular regular rate rhythm no murmurs Abdomen soft nontender nondistended Extremities no edema Objective Data Vital Signs Vital Signs: Vital Signs - 24 hr 05/06/25 20:00 05/06/25 20:00 05/06/25 22:00 Temperature 36.8 C Pulse Rate 94 99 Respiratory Rate 16 Blood Pressure 152/92 H Pulse Oximetry 95 Oxygen Delivery Room Air 05/07/25 00:00 05/07/25 04:00 05/07/25 05:41 Temperature 36.7 C Pulse Rate 88 101 H 102 H Respiratory Rate 18 Blood Pressure 152/79 H Pulse Oximetry 95 Oxygen Delivery 05/07/25 08:04 05/07/25 08:20 05/07/25 12:05 Temperature Pulse Rate 98 112 H Respiratory Rate Blood Pressure Pulse Oximetry Oxygen Delivery Room Air 05/07/25 14:00 05/07/25 16:04 Temperature 37.0 C Pulse Rate 88 89 Respiratory Rate 12 Blood Pressure 151/92 H Pulse Oximetry 97 Oxygen Delivery Intake/Output Intake/Output: Intake & Output 05/04/25 05/05/25 05/06/25 05/07/25 23:59 23:59 23:59 23:59 Intake Total 1250 1052 1090 1110 Output Total 1 1000 Balance 1249 52 1090 1110 Meds/Results Medications: Active Medications Generic Name Dose Route Start Last Admin Trade Name Freq PRN Reason Stop Dose Admin Acetaminophen 1,000 mg 04/27/25 22:00 04/29/25 09:53 Acetaminophen 500 Mg Tablet PO 1,000 mg Q6H PRN Administration Mild Pain (1-3) or Fever Hydrocodone Bitart/Acetaminophen 1 tab 04/28/25 11:33 05/07/25 14:18 Hydrocodone/Acetaminophen (*Crx) 7.5-325 Mg Tablet PO 05/17/25 23:59 1 tab Q6H PRN Administration pain of 7-10 Albuterol 2 puff 04/28/25 12:47 04/29/25 05:54 Albuterol Sulfate (*Sp) Aerosol 1 Puff INHALATION 2 puff Q4H PRN Administration shortness of breath or wheezing Albuterol/Ipratropium 3 ml 04/29/25 09:35 05/02/25 14:05 Ipratropium 0.5 Mg/Albuterol Sulfate 2.5 Mg Ampul.Neb 3 Ml INHALATION 3 ml Q6HRT PRN Administration Shortness Of Breath Or Wheezing Cyanocobalamin 500 mcg 04/29/25 09:00 05/07/25 08:18 Cyanocobalamin 500 Mcg Tablet PO 500 mcg DAILY CL Administration Dicyclomine HCl 10 mg 04/28/25 13:00 05/07/25 12:37 Dicyclomine Hcl 10 Mg Capsule PO 10 mg TID CL Administration Diphenhydramine HCl 25 mg 04/29/25 09:32 04/29/25 09:51 Diphenhydramine Hcl Inj 50 Mg/Ml Vial IV PUSH 25 mg Q4H PRN Administration Pre treat for blood products Famotidine 20 mg 04/29/25 09:32 04/29/25 09:51 Famotidine 20 Mg/2 Ml Vial IV PUSH 20 mg PRN PRN Administration Pre treat for blood products Ferrous Sulfate 325 mg 04/29/25 09:00 05/07/25 08:18 Ferrous Sulfate [address] BY MOUTH 325 mg DAILY CL Administration Levofloxacin 750 mg 05/04/25 21:00 05/06/25 21:20 Levofloxacin 750 Mg Tablet PO 05/07/25 21:01 750 mg QHS CL Administration Methylprednisolone Sodium Succinate 80 mg 04/29/25 17:00 05/07/25 08:19 Methylprednisolone Sod Succ 125 Mg Vial IV PUSH 80 mg BID CL Administration Neomycin/Polymyxin/Bacitracin 1 applic 04/28/25 19:10 Neomycin/Polymyxin/Bacitracin Ointment 15 Gm Tube TOPICAL PRN PRN with dressing changes Pantoprazole Sodium 40 mg 05/02/25 21:00 05/07/25 08:18 Pantoprazole 40 Mg Tablet PO 40 mg Q12HR CL Administration Polyethylene Glycol 17 gm 05/01/25 08:40 Polyethylene Glycol 3350 17 Gm Powd.Pack PO QAM PRN Constipation Prochlorperazine Edisylate 10 mg 05/06/25 10:57 05/06/25 12:02 Prochlorperazine Edisylate 10 Mg/2 Ml Vial IV PUSH 10 mg Q6H PRN Administration Nausea And Vomiting Promethazine HCl 12.5 mg 05/06/25 08:02 05/06/25 09:12 Promethazine Hcl 12.5 Mg Tablet PO 12.5 mg Q6HR PRN Administration Nausea And Vomiting Tramadol HCl 25 mg 04/28/25 02:43 05/06/25 16:23 Tramadol Hcl (*Crx) 25 Mg Tablet PO 05/17/25 23:59 25 mg Q4H PRN Administration Pain Rated 4-6 Radiology Results: ITS Impressions Chest/Abdomen/Pelvis CT 04/28/25 05:38 Impression: 3.3 x 2.1 cm medial right breast mass is highly suspicious for breast carcinoma. Diagnostic mammogram/ultrasound recommended for further evaluation. Findings compatible osseous metastatic disease, especially in the iliac bones and spine, with probable pathologic compression fractures of T1 and T12. Single mildly prominent lymph node along the left common iliac chain, indeterminate for metastatic lymphadenopathy. Moderate to large left pleural effusion with complete left lower lobe atelectasis. Minimal right pleural effusion with minimal right basilar atelectasis. Mild left hydronephrosis. No obstructing mass or stone clearly evident. Cardiac Catheterization 05/05/25 18:44 IMPRESSION: 1. Fluoro-guided bone marrow aspiration. 2. Fluoro-guided bone marrow core biopsy. 3. 35 minutes of moderate sedation. Chest X-Ray 05/05/25 19:06 IMPRESSION: No pneumothorax following left-sided thoracentesis, as detailed above. Thoracentesis Ultrasound 05/05/25 19:10 IMPRESSION: 1. Successful ultrasound-guided thoracentesis yielding 1000 mL of dark taz fluid. Labs Labs: Laboratory Results - last 24 hr 05/05/25 05/07/25 05/07/25 17:07 05:56 10:40 WBC 3.2 L 3.2 L RBC 2.61 L 2.60 L Hgb 8.1 L 7.9 L Hct 23.9 L 23.7 L MCV 91.6 91.2 MCH 31.0 30.4 MCHC 33.9 33.3 RDW 14.3 14.2 Plt Count 24 L* 20 L* MPV 11.6 H 11.5 H Immature Gran % (Auto) Not Reportable Neut % (Auto) Not Reportable Lymph % (Auto) Not Reportable [place] % (Auto) Not Reportable Eos % (Auto) Not Reportable Baso % (Auto) Not Reportable Lymph # (Auto) Not Reportable [place] # (Auto) Not Reportable Eos # (Auto) Not Reportable Baso # (Auto) Not Reportable Abs Immat Gran (auto) Not Reportable Absolute Neuts (auto) Not Reportable Absolute Nucleated RBC Not Reportable Total Counted 100 Neutrophils % (Manual) 74 H Band Neutrophils % 10 H Lymphocytes % (Manual) 11 L Monocytes % (Manual) 5 Nucleated RBC % Not Reportable Abs Neuts (Manual) 2.68 Abs Lymphs (Manual) 0.35 L Abs Monocytes (Manual) 0.16 Nucleated RBCs 9 Platelet Estimate Decreased % Immature Plt Fraction 5.1 5.2 Hypochromasia 1+ Ovalocytes 1+ Schistocytes None seen Sodium 135 L Potassium 3.8 Chloride 100 Carbon Dioxide 28 Anion Gap 7 BUN 13 Creatinine 0.46 L Estim Creat Clear Calc 130 Estimated GFR > 60 Glucose 129 H Calcium 9.8 Magnesium 2.1 Total Bilirubin 0.5 AST 224 H ALT 95 H Alkaline Phosphatase 125 Total Protein 6.4 Albumin 3.3 L Fluid Glucose 73 Fluid Total Protein 2.5 Fluid LDH 158 05/07/25 16:11 WBC 3.2 L RBC 2.61 L Hgb 8.0 L Hct 23.9 L MCV 91.6 MCH 30.7 MCHC 33.5 RDW 14.4 Plt Count 16 L* MPV 12.2 H Immature Gran % (Auto) Neut % (Auto) Lymph % (Auto) [place] % (Auto) Eos % (Auto) Baso % (Auto) Lymph # (Auto) [place] # (Auto) Eos # (Auto) Baso # (Auto) Abs Immat Gran (auto) Absolute Neuts (auto) Absolute Nucleated RBC Total Counted Neutrophils % (Manual) Band Neutrophils % Lymphocytes % (Manual) Monocytes % (Manual) Nucleated RBC % Abs Neuts (Manual) Abs Lymphs (Manual) Abs Monocytes (Manual) Nucleated RBCs Platelet Estimate % Immature Plt Fraction 6.4 Hypochromasia Ovalocytes Schistocytes Sodium Potassium Chloride Carbon Dioxide Anion Gap BUN Creatinine Estim Creat Clear Calc Estimated GFR Glucose Calcium Magnesium Total Bilirubin AST ALT Alkaline Phosphatase Total Protein Albumin Fluid Glucose Fluid Total Protein Fluid LDH
[2025-05-08] VITALS (8 sets, daily range): BP systolic 146–157; BP diastolic 68–93; PULSE 77–93; RESP 18; TEMP 36.4–37; O2SAT 95–97
[2025-05-08 06:39] LABS: Hematocrit 25.3 % (37.0-47.0); Hemoglobin 8.5 g/dL (12.0-15.0); Immature Platelet Fraction Pct 5.5 % (0.9-11.2); Mean Corpuscular HGB Conc 33.6 g/dl (32-36); Mean Corpuscular Hemoglobin 30.9 pg (26-34); Mean Corpuscular Volume 92.0 fl (80-100); Red Blood Count 2.75 M/mm3 (4.2-5.4); White Blood Count 3.6 K/mm3 (4.5-10.0)
[2025-05-08 07:03] LABS: Platelet Count Result 14 k/mm3 (150-375)
[2025-05-08 07:14] LABS: Band Neutrophils Percent 11 % (0-6); Lymphocytes Absolute Manual 0.46 K/mm3 (1.1-4.5); Lymphocytes Percent Manual 13 % (18-44); Monocytes Absolute Manual 0.10 K/mm3 (0.1-0.90); Monocytes Percent Manual 3 % (3-9); Neutrophils Absolute Manual 3.02 K/mm3 (1.3-6.7); Neutrophils Percent Manual 73 % (46-73); Smudge Cells FEW; Total Cells Counted 100
[2025-05-08 07:15] LABS: Anisocytosis 1+; Ovalocytes 1+; Schistocytes None Seen
[2025-05-08 07:17] LABS: Alanine Aminotransferase 102 U/L (6-35); Albumin Level 3.3 g/dL (3.5-5.1); Alkaline Phosphatase 135 U/L (38-126); Anion Gap 11 mmol/L (4-12); Aspartate Amino Transferase 247 U/L (14-36); Bilirubin,Total 0.6 mg/dL (0.2-1.3); Blood Urea Nitrogen 17 mg/dL (7-17); Calcium 10.1 mg/dL (8.4-10.2); Carbon Dioxide 24 mmol/L (22-30); Chloride 102 mmol/L (98-107); Estimated CRCL calculation 125 ml/min; Estimated Glomerular Filt Rate > 60; Glucose 135 mg/dL (65-110); Magnesium 2.1 mg/dL (1.6-2.3); Potassium 3.9 mmol/L (3.4-5.0); Sodium 137 mmol/L (137-145); Total Protein 6.6 g/dL (6.3-8.2)
[2025-05-08] MEDS: DICYCLOMINE HCL 10 MG CAPSULE PO ×3 (08:14→16:39)
[2025-05-08] MEDS: CYANOCOBALAMIN 500 MCG TABLET PO (08:14)
[2025-05-08] MEDS: FERROUS SULFATE 325 MG TABLET DR BY MOUTH (08:14)
[2025-05-08] MEDS: PANTOPRAZOLE 40 MG TABLET PO ×2 (08:14→21:57)
[2025-05-08] MEDS: HYDROcodone/acetaminophen (*CRX) 7.5-325 MG TABLET 1 TAB PO ×3 (09:41→21:57)
--- NOTE | 2025-05-08 11:14 | PCNFU ---
Nutrition Follow-Up Complete: Severe protein calorie malnutrition related to chronic metastatic cancer as evidenced by weight loss 13%/3 months; intakes<75% needs >1 month Intakes>75% - Progressing with intakes. Continue current goal Goal: Pt current nutrition is Heart healthy diet. Pt declines supplements. Nutrition recommendation: No new recommendations. Continue current nutrition care plan and orders. Agree with orders Last recorded weight is 88.8 kg. Bowel Motility: Last BM 05/06 Labs Reviewed: Hgb 8.5, Hct 25.3, Alb 3.3, Cre 0.48, Glu 135 Meds Noted: Vit B12, Bentyl, Protonix Skin: No skin issues Additional Notes: Progressing with intakes 25-80%. Pt did not want any supplements. Continue to monitor Monitoring intakes, weights, labs, plan of care Follow up in 5 days
[2025-05-08 12:01] LABS: Immature Platelet Fraction Pct 7.9 % (0.9-11.2)
[2025-05-08 12:12] LABS: Platelet Count Result 15 k/mm3 (150-375)
--- NOTE | 2025-05-08 14:50 | P.PNIM_ITS ---
Progress Note: A&P Assessment and Plan (1) Pancytopenia: Code(s): D61.818 - Other pancytopenia Status: Acute (2) Hepatic steatosis: Code(s): K76.0 - Fatty (change of) liver, not elsewhere classified Status: Acute (3) Elevated liver transaminase level: Code(s): R74.01 - Elevation of levels of liver transaminase levels Status: Acute (4) Hyponatremia: Code(s): E87.1 - Hypo-osmolality and hyponatremia Status: Acute (5) Hypokalemia: Code(s): E87.6 - Hypokalemia Status: Acute Plan Neutropenic fever Continue with IV antibiotics, switched to Levaquin today Isolation Follow culture result Hematology-Oncology team on board Pancytopenia stable/improving hb 8.5, WBC 3.6, Plts 15 Today hB 7.9, WBC 3.2, plts 20 Receiving 2 units of platelets S/p bone marrow biopsy Oncology team on board severe nausea On Promethazine patient was unable to eat this morning monitor one more night Black stool, resolved Patient is on iron pill. likely from thrombocytopenia GI team on board Transaminitis CT shows hepatitis steatosis AST/ALT 216/79 Follow with GI as outpatient Hyponatremia Na 135 monitor Hypokalemia K 3.9 Replaced, monitor Breast cancer On chemoradiation as outpatient Follow Oncology team recommendation Left pleural effusion r/o Pneumonia vs metastasis s/p Thoracentesis, pleural fluid studies pending Duoneb Continue Levaquin will continue to monitor GERD PPI Obesity lifestyle modification DVT prophylaxis no AC due thrombocytopenia Subjective Date/time seen: 05/08/25 14:50 Interval history: Comfortable at bedside and plts still below 20 will continue monitoring Review of Systems Review of Systems: All systems reviewed & are unremarkable except as noted in HPI and below Constitutional: Constitutional: Reports as per HPI, Reports fatigue and Reports lethargy ENT: Reports as per HPI Cardiovascular: Cardiovascular: Reports as per HPI, Denies chest pain, Denies leg edema and Denies dyspnea Respiratory: Respiratory: Denies cough and Denies dyspnea Gastrointestinal: Gastrointestinal: Reports as per HPI Musculoskeletal: Musculoskeletal: Reports as per HPI Integumentary/Breasts: Skin/Breast: Reports as per HPI Psychiatric: Psychiatric: Reports as per HPI Endocrine: Endocrine: Reports no additional endocrine complaints and Reports fatigue Hematologic/Lymphatic: Hematologic/Lymphatic: Reports no additional hematologic/lymphatic complaints Exam Narrative: EXAMINATION OF ORGAN SYSTEMS/BODY AREAS: Constitutional: Vital signs per nursing GENERAL: Appears tired and pale HEAD: Normal with no signs of head trauma. EYES: EOMI, conjunctiva normal ENT: Hearing grossly intact LUNGS: Nonlabored breathing. HEART: Tachycardic ABD: [Soft], [nontender to palpation] EXT: Normal range of motion SKIN: Pale NEURO: [Alert and oriented x 3. No gross focal sensory or strength deficits.] PSYCH: Normal affect Const: General: cooperative, healthy appearing, comfortable, no acute distress and well developed Orientation/consciousness: oriented to person, oriented to place, oriented to time and patient oriented x3 HENMT: Head: normal to inspection, normocephalic and atraumatic Mouth: Yes Normal oral and palatal mucosa present and Yes moist mucous membranes Eyes: General: appearance normal, both eyes and all related structures Conjunctivae: conjunctivae normal Sclera: sclerae normal Pupils: Equal, round and reactive pupils present Neck: Neck: normal visual inspection Chest: Chest palpation & inspection: normal inspection of the chest Resp: Effort & Inspection: normal respiratory effort and able to speak in complete sentences Auscultation: clear to auscultation bilaterally Cardio: Jugular venous distension: no JVD Rate: regular rate Rhythm: regular rhythm Heart sounds: S1 normal heart sound present and S2 normal heart sound present GI: Inspection: normal to inspection Auscultation: normal bowel sounds Rectal Exam: deferred Skin: General skin exam: normal color and no rashes or lesions noted Neuro: General: oriented to person, oriented to place, oriented to time and patient oriented x3 Cranial nerves: Yes Equal, round and reactive pupils present Speech: normal speech Extrem: General: normal to inspection and no clubbing, cyanosis or edema Psych: Appearance: grossly normal and well kempt Affect: normal affect Objective Data Vital Signs Vital Signs: Vital Signs - 24 hr 05/07/25 16:04 05/07/25 20:00 05/07/25 20:00 Temperature Pulse Rate 89 91 Respiratory Rate Blood Pressure Pulse Oximetry Oxygen Delivery Room Air 05/07/25 22:00 05/08/25 00:00 05/08/25 04:00 Temperature 97.9 F Pulse Rate 97 77 85 Respiratory Rate 18 Blood Pressure 156/93 H Pulse Oximetry 95 Oxygen Delivery 05/08/25 06:00 05/08/25 08:00 05/08/25 08:00 Temperature 98.2 F Pulse Rate 93 92 Respiratory Rate 18 Blood Pressure 157/93 H Pulse Oximetry 95 Oxygen Delivery Room Air Intake/Output Intake/Output: Intake & Output 05/05/25 05/06/25 05/07/25 05/08/25 23:59 23:59 23:59 23:59 Intake Total 1052 1090 1350 710 Output Total 1000 Balance 52 1090 1350 710 Meds/Results Medications: Active Medications Generic Name Dose Route Start Last Admin Trade Name Freq PRN Reason Stop Dose Admin Acetaminophen 1,000 mg 04/27/25 22:00 04/29/25 09:53 Acetaminophen 500 Mg Tablet PO 1,000 mg Q6H PRN Administration Mild Pain (1-3) or Fever Hydrocodone Bitart/Acetaminophen 1 tab 04/28/25 11:33 05/08/25 09:41 Hydrocodone/Acetaminophen (*Crx) 7.5-325 Mg Tablet PO 05/17/25 23:59 1 tab Q6H PRN Administration pain of 7-10 Albuterol 2 puff 04/28/25 12:47 04/29/25 05:54 Albuterol Sulfate (*Sp) Aerosol 1 Puff INHALATION 2 puff Q4H PRN Administration shortness of breath or wheezing Albuterol/Ipratropium 3 ml 04/29/25 09:35 05/02/25 14:05 Ipratropium 0.5 Mg/Albuterol Sulfate 2.5 Mg Ampul.Neb 3 Ml INHALATION 3 ml Q6HRT PRN Administration Shortness Of Breath Or Wheezing Cyanocobalamin 500 mcg 04/29/25 09:00 05/08/25 08:14 Cyanocobalamin 500 Mcg Tablet PO 500 mcg DAILY CL Administration Dicyclomine HCl 10 mg 04/28/25 13:00 05/08/25 12:43 Dicyclomine Hcl 10 Mg Capsule PO 10 mg TID CL Administration Diphenhydramine HCl 25 mg 04/29/25 09:32 04/29/25 09:51 Diphenhydramine Hcl Inj 50 Mg/Ml Vial IV PUSH 25 mg Q4H PRN Administration Pre treat for blood products Famotidine 20 mg 04/29/25 09:32 04/29/25 09:51 Famotidine 20 Mg/2 Ml Vial IV PUSH 20 mg PRN PRN Administration Pre treat for blood products Ferrous Sulfate 325 mg 04/29/25 09:00 05/08/25 08:14 Ferrous Sulfate [address] BY MOUTH 325 mg DAILY CL Administration Methylprednisolone Sodium Succinate 80 mg 05/07/25 22:00 05/08/25 14:19 Methylprednisolone Sod Succ 125 Mg Vial IV PUSH 80 mg Q8HR CL Administration Miscellaneous Information 1 each 05/08/25 00:01 Please Renew Neosporin. Per [employer] Procedure, It Will Discontinue If Not Renewed XX 06/07/25 00:00 CLARIFY CL Neomycin/Polymyxin/Bacitracin 1 applic 04/28/25 19:10 Neomycin/Polymyxin/Bacitracin Ointment 15 Gm Tube TOPICAL PRN PRN with dressing changes Pantoprazole Sodium 40 mg 05/02/25 21:00 05/08/25 08:14 Pantoprazole 40 Mg Tablet PO 40 mg Q12HR CL Administration Polyethylene Glycol 17 gm 05/01/25 08:40 Polyethylene Glycol 3350 17 Gm Powd.Pack PO QAM PRN Constipation Prochlorperazine Edisylate 10 mg 05/06/25 10:57 05/06/25 12:02 Prochlorperazine Edisylate 10 Mg/2 Ml Vial IV PUSH 10 mg Q6H PRN Administration Nausea And Vomiting Promethazine HCl 12.5 mg 05/06/25 08:02 05/06/25 09:12 Promethazine Hcl 12.5 Mg Tablet PO 12.5 mg Q6HR PRN Administration Nausea And Vomiting Tramadol HCl 25 mg 04/28/25 02:43 05/06/25 16:23 Tramadol Hcl (*Crx) 25 Mg Tablet PO 05/17/25 23:59 25 mg Q4H PRN Administration Pain Rated 4-6 Radiology Results: ITS Impressions Chest/Abdomen/Pelvis CT 04/28/25 05:38 Impression: 3.3 x 2.1 cm medial right breast mass is highly suspicious for breast carcinoma. Diagnostic mammogram/ultrasound recommended for further evaluation. Findings compatible osseous metastatic disease, especially in the iliac bones and spine, with probable pathologic compression fractures of T1 and T12. Single mildly prominent lymph node along the left common iliac chain, indeterminate for metastatic lymphadenopathy. Moderate to large left pleural effusion with complete left lower lobe atelectasis. Minimal right pleural effusion with minimal right basilar atelectasis. Mild left hydronephrosis. No obstructing mass or stone clearly evident. Cardiac Catheterization 05/05/25 18:44 IMPRESSION: 1. Fluoro-guided bone marrow aspiration. 2. Fluoro-guided bone marrow core biopsy. 3. 35 minutes of moderate sedation. Chest X-Ray 05/05/25 19:06 IMPRESSION: No pneumothorax following left-sided thoracentesis, as detailed above. Thoracentesis Ultrasound 05/05/25 19:10 IMPRESSION: 1. Successful ultrasound-guided thoracentesis yielding 1000 mL of dark taz fluid. Labs Labs: Laboratory Results - last 24 hr 05/07/25 05/08/25 05/08/25 16:11 06:13 11:51 WBC 3.2 L 3.6 L RBC 2.61 L 2.75 L Hgb 8.0 L 8.5 L Hct 23.9 L 25.3 L MCV 91.6 92.0 MCH 30.7 30.9 MCHC 33.5 33.6 RDW 14.4 14.3 Plt Count 16 L* 14 L* 15 L* MPV 12.2 H 12.0 H TNP Immature Gran % (Auto) Not Reportable Neut % (Auto) Not Reportable Lymph % (Auto) Not Reportable [place] % (Auto) Not Reportable Eos % (Auto) Not Reportable Baso % (Auto) Not Reportable Lymph # (Auto) Not Reportable [place] # (Auto) Not Reportable Eos # (Auto) Not Reportable Baso # (Auto) Not Reportable Abs Immat Gran (auto) Not Reportable Absolute Neuts (auto) Not Reportable Absolute Nucleated RBC Not Reportable Total Counted 100 Neutrophils % (Manual) 73 Band Neutrophils % 11 H Lymphocytes % (Manual) 13 L Monocytes % (Manual) 3 Nucleated RBC % Not Reportable Abs Neuts (Manual) 3.02 Abs Lymphs (Manual) 0.46 L Abs Monocytes (Manual) 0.10 Nucleated RBCs 4 Smudge Cells Few Platelet Estimate Decreased % Immature Plt Fraction 6.4 5.5 7.9 Anisocytosis 1+ Ovalocytes 1+ Schistocytes None seen Sodium 137 Potassium 3.9 Chloride 102 Carbon Dioxide 24 Anion Gap 11 BUN 17 Creatinine 0.48 L Estim Creat Clear Calc 125 Estimated GFR > 60 Glucose 135 H Calcium 10.1 Magnesium 2.1 Total Bilirubin 0.6 AST 247 H ALT 102 H Alkaline Phosphatase 135 H Total Protein 6.6 Albumin 3.3 L
[2025-05-09] VITALS (13 sets, daily range): BP systolic 155–172; BP diastolic 82–94; PULSE 78–100; RESP 16–20; TEMP 35.9–36.9; O2SAT 95–98
[2025-05-09] MEDS: PANTOPRAZOLE 40 MG TABLET PO ×2 (09:46→20:23)
[2025-05-09] MEDS: CYANOCOBALAMIN 500 MCG TABLET PO (09:46)
[2025-05-09] MEDS: FERROUS SULFATE 325 MG TABLET DR BY MOUTH (09:46)
[2025-05-09] MEDS: DICYCLOMINE HCL 10 MG CAPSULE PO ×3 (09:46→16:55)
[2025-05-09] MEDS: HYDROcodone/acetaminophen (*CRX) 7.5-325 MG TABLET 1 TAB PO ×3 (09:50→23:14)
[2025-05-09 10:17] LABS: Hematocrit 25.4 % (37.0-47.0); Hemoglobin 8.5 g/dL (12.0-15.0); Immature Platelet Fraction Pct 7.5 % (0.9-11.2); Mean Corpuscular HGB Conc 33.5 g/dl (32-36); Mean Corpuscular Hemoglobin 30.7 pg (26-34); Mean Corpuscular Volume 91.7 fl (80-100); Red Blood Count 2.77 M/mm3 (4.2-5.4); White Blood Count 3.7 K/mm3 (4.5-10.0)
[2025-05-09 11:39] LABS: Platelet Count Result 11 k/mm3 (150-375)
[2025-05-09 11:51] LABS: Band Neutrophils Percent 5 % (0-6); Lymphocytes Absolute Manual 0.44 K/mm3 (1.1-4.5); Lymphocytes Percent Manual 12.0 % (18-44); Metamyelocytes Percent 2 %; Monocytes Absolute Manual 0.25 K/mm3 (0.1-0.90); Monocytes Percent Manual 7 % (3-9); Neutrophils Absolute Manual 2.92 K/mm3 (1.3-6.7); Neutrophils Percent Manual 74 % (46-73); Schistocytes None Seen; Smudge Cells FEW; Total Cells Counted 100
--- NOTE | 2025-05-09 13:24 | P.PNIM_ITS ---
Progress Note: A&P Assessment and Plan (1) Pancytopenia: Code(s): D61.818 - Other pancytopenia Status: Acute (2) Hepatic steatosis: Code(s): K76.0 - Fatty (change of) liver, not elsewhere classified Status: Acute (3) Elevated liver transaminase level: Code(s): R74.01 - Elevation of levels of liver transaminase levels Status: Acute (4) Hyponatremia: Code(s): E87.1 - Hypo-osmolality and hyponatremia Status: Acute (5) Hypokalemia: Code(s): E87.6 - Hypokalemia Status: Acute Plan Neutropenic fever completed antibiotics WBC 3.7 Follow culture result Hematology-Oncology team on board Pancytopenia stable/improving hb 8.5, WBC 3.6, Plts 15 Today hB 8.5, WBC 3.7, plts 11 Receiving 2 units of platelets S/p bone marrow biopsy pathology non diagnostic Oncology team on board Severe nausea On Promethazine patient was unable to eat this morning monitor one more night Black stool, resolved Patient is on iron pill. likely from thrombocytopenia GI team on board Transaminitis CT shows hepatitis steatosis AST/ALT 216/79 Follow with GI as outpatient Hyponatremia Na 135 monitor Hypokalemia K 3.9 Replaced, monitor Breast cancer On chemoradiation as outpatient Follow Oncology team recommendation Malignant Left pleural effusion breaet ca metastasis from cytology s/p Thoracentesis, pleural fluid showed breast ca mets will continue to monitor GERD PPI Obesity lifestyle modification DVT prophylaxis no AC due thrombocytopenia Subjective Date/time seen: 05/09/25 13:24 Interval history: Comfortable at bedside and plts still below 20 will continue monitoring Review of Systems Review of Systems: All systems reviewed & are unremarkable except as noted in HPI and below Constitutional: Constitutional: Reports as per HPI, Reports fatigue and Reports lethargy ENT: Reports as per HPI Cardiovascular: Cardiovascular: Reports as per HPI, Denies chest pain, Denies leg edema and Denies dyspnea Respiratory: Respiratory: Denies cough and Denies dyspnea Gastrointestinal: Gastrointestinal: Reports as per HPI Musculoskeletal: Musculoskeletal: Reports as per HPI Integumentary/Breasts: Skin/Breast: Reports as per HPI Psychiatric: Psychiatric: Reports as per HPI Endocrine: Endocrine: Reports no additional endocrine complaints and Reports fatigue Hematologic/Lymphatic: Hematologic/Lymphatic: Reports no additional hematologic/lymphatic complaints Exam Narrative: EXAMINATION OF ORGAN SYSTEMS/BODY AREAS: Constitutional: Vital signs per nursing GENERAL: Appears tired and pale HEAD: Normal with no signs of head trauma. EYES: EOMI, conjunctiva normal ENT: Hearing grossly intact LUNGS: Nonlabored breathing. HEART: Tachycardic ABD: [Soft], [nontender to palpation] EXT: Normal range of motion SKIN: Pale NEURO: [Alert and oriented x 3. No gross focal sensory or strength deficits.] PSYCH: Normal affect Const: General: cooperative, healthy appearing, comfortable, no acute distress and well developed Orientation/consciousness: oriented to person, oriented to place, oriented to time and patient oriented x3 HENMT: Head: normal to inspection, normocephalic and atraumatic Mouth: Yes Normal oral and palatal mucosa present and Yes moist mucous membranes Eyes: General: appearance normal, both eyes and all related structures Conjunctivae: conjunctivae normal Sclera: sclerae normal Pupils: Equal, round and reactive pupils present Neck: Neck: normal visual inspection Chest: Chest palpation & inspection: normal inspection of the chest Resp: Effort & Inspection: normal respiratory effort and able to speak in complete sentences Auscultation: clear to auscultation bilaterally Cardio: Jugular venous distension: no JVD Rate: regular rate Rhythm: regular rhythm Heart sounds: S1 normal heart sound present and S2 normal heart sound present GI: Inspection: normal to inspection Auscultation: normal bowel sounds Rectal Exam: deferred Skin: General skin exam: normal color and no rashes or lesions noted Neuro: General: oriented to person, oriented to place, oriented to time and patient oriented x3 Cranial nerves: Yes Equal, round and reactive pupils present Speech: normal speech Extrem: General: normal to inspection and no clubbing, cyanosis or edema Psych: Appearance: grossly normal and well kempt Affect: normal affect Objective Data Vital Signs Vital Signs: Vital Signs - 24 hr 05/08/25 14:00 05/08/25 16:00 05/08/25 20:00 Temperature 97.5 F L Pulse Rate 89 92 Respiratory Rate 18 Blood Pressure 146/68 H Pulse Oximetry 97 Oxygen Delivery Room Air 05/08/25 22:00 05/09/25 00:00 05/09/25 04:00 Temperature 98.6 F Pulse Rate 90 85 98 Respiratory Rate 18 Blood Pressure 154/93 H Pulse Oximetry 97 Oxygen Delivery 05/09/25 06:00 Temperature 98.4 F Pulse Rate 100 Respiratory Rate 18 Blood Pressure 155/82 H Pulse Oximetry 97 Oxygen Delivery Intake/Output Intake/Output: Intake & Output 05/06/25 05/07/25 05/08/25 05/09/25 23:59 23:59 23:59 23:59 Intake Total 1090 1350 1500 520 Balance 1090 1350 1500 520 Meds/Results Medications: Active Medications Generic Name Dose Route Start Last Admin Trade Name Freq PRN Reason Stop Dose Admin Acetaminophen 1,000 mg 04/27/25 22:00 04/29/25 09:53 Acetaminophen 500 Mg Tablet PO 1,000 mg Q6H PRN Administration Mild Pain (1-3) or Fever Hydrocodone Bitart/Acetaminophen 1 tab 04/28/25 11:33 05/09/25 09:50 Hydrocodone/Acetaminophen (*Crx) 7.5-325 Mg Tablet PO 05/17/25 23:59 1 tab Q6H PRN Administration pain of 7-10 Albuterol 2 puff 04/28/25 12:47 04/29/25 05:54 Albuterol Sulfate (*Sp) Aerosol 1 Puff INHALATION 2 puff Q4H PRN Administration shortness of breath or wheezing Albuterol/Ipratropium 3 ml 04/29/25 09:35 05/02/25 14:05 Ipratropium 0.5 Mg/Albuterol Sulfate 2.5 Mg Ampul.Neb 3 Ml INHALATION 3 ml Q6HRT PRN Administration Shortness Of Breath Or Wheezing Cyanocobalamin 500 mcg 04/29/25 09:00 05/09/25 09:46 Cyanocobalamin 500 Mcg Tablet PO 500 mcg DAILY CL Administration Dicyclomine HCl 10 mg 04/28/25 13:00 05/09/25 13:04 Dicyclomine Hcl 10 Mg Capsule PO 10 mg TID CL Administration Diphenhydramine HCl 25 mg 04/29/25 09:32 04/29/25 09:51 Diphenhydramine Hcl Inj 50 Mg/Ml Vial IV PUSH 25 mg Q4H PRN Administration Pre treat for blood products Famotidine 20 mg 04/29/25 09:32 04/29/25 09:51 Famotidine 20 Mg/2 Ml Vial IV PUSH 20 mg PRN PRN Administration Pre treat for blood products Ferrous Sulfate 325 mg 04/29/25 09:00 05/09/25 09:46 Ferrous Sulfate [address] BY MOUTH 325 mg DAILY CL Administration Methylprednisolone Sodium Succinate 80 mg 05/07/25 22:00 05/09/25 13:04 Methylprednisolone Sod Succ 125 Mg Vial IV PUSH 80 mg Q8HR CL Administration Miscellaneous Information 1 each 05/08/25 00:01 Please Renew Neosporin. Per [employer] Procedure, It Will Discontinue If Not Renewed XX 06/07/25 00:00 CLARIFY CL Pantoprazole Sodium 40 mg 05/02/25 21:00 05/09/25 09:46 Pantoprazole 40 Mg Tablet PO 40 mg Q12HR CL Administration Polyethylene Glycol 17 gm 05/01/25 08:40 Polyethylene Glycol 3350 17 Gm Powd.Pack PO QAM PRN Constipation Prochlorperazine Edisylate 10 mg 05/06/25 10:57 05/06/25 12:02 Prochlorperazine Edisylate 10 Mg/2 Ml Vial IV PUSH 10 mg Q6H PRN Administration Nausea And Vomiting Promethazine HCl 12.5 mg 05/06/25 08:02 05/06/25 09:12 Promethazine Hcl 12.5 Mg Tablet PO 12.5 mg Q6HR PRN Administration Nausea And Vomiting Tramadol HCl 25 mg 04/28/25 02:43 05/06/25 16:23 Tramadol Hcl (*Crx) 25 Mg Tablet PO 05/17/25 23:59 25 mg Q4H PRN Administration Pain Rated 4-6 Radiology Results: ITS Impressions Chest/Abdomen/Pelvis CT 04/28/25 05:38 Impression: 3.3 x 2.1 cm medial right breast mass is highly suspicious for breast carcinoma. Diagnostic mammogram/ultrasound recommended for further evaluation. Findings compatible osseous metastatic disease, especially in the iliac bones and spine, with probable pathologic compression fractures of T1 and T12. Single mildly prominent lymph node along the left common iliac chain, indeterminate for metastatic lymphadenopathy. Moderate to large left pleural effusion with complete left lower lobe atelect asis. Minimal right pleural effusion with minimal right basilar atelectasis. Mild left hydronephrosis. No obstructing mass or stone clearly evident. Cardiac Catheterization 05/05/25 18:44 IMPRESSION: 1. Fluoro-guided bone marrow aspiration. 2. Fluoro-guided bone marrow core biopsy. 3. 35 minutes of moderate sedation. Chest X-Ray 05/05/25 19:06 IMPRESSION: No pneumothorax following left-sided thoracentesis, as detailed above. Thoracentesis Ultrasound 05/05/25 19:10 IMPRESSION: 1. Successful ultrasound-guided thoracentesis yielding 1000 mL of dark taz fluid. Labs Labs: Laboratory Results - last 24 hr 05/09/25 10:10 WBC 3.7 L RBC 2.77 L Hgb 8.5 L Hct 25.4 L MCV 91.7 MCH 30.7 MCHC 33.5 RDW 14.1 Plt Count 11 L* MPV TNP Immature Gran % (Auto) Not Reportable Neut % (Auto) Not Reportable Lymph % (Auto) Not Reportable [place] % (Auto) Not Reportable Eos % (Auto) Not Reportable Baso % (Auto) Not Reportable Lymph # (Auto) Not Reportable [place] # (Auto) Not Reportable Eos # (Auto) Not Reportable Baso # (Auto) Not Reportable Abs Immat Gran (auto) Not Reportable Absolute Neuts (auto) Not Reportable Absolute Nucleated RBC Not Reportable Total Counted 100 Neutrophils % (Manual) 74 H Band Neutrophils % 5 Lymphocytes % (Manual) 12.0 L Monocytes % (Manual) 7 Metamyelocytes % 2 Nucleated RBC % Not Reportable Abs Neuts (Manual) 2.92 Abs Lymphs (Manual) 0.44 L Abs Monocytes (Manual) 0.25 Nucleated RBCs 3 Smudge Cells Few Platelet Estimate Decreased % Immature Plt Fraction 7.5 Schistocytes None seen
[2025-05-09 16:17] LABS: Hematocrit 23.7 % (37.0-47.0); Hemoglobin 7.9 g/dL (12.0-15.0); Immature Platelet Fraction Pct 7.7 % (0.9-11.2); Mean Corpuscular HGB Conc 33.3 g/dl (32-36); Mean Corpuscular Hemoglobin 30.5 pg (26-34); Mean Corpuscular Volume 91.5 fl (80-100); Red Blood Count 2.59 M/mm3 (4.2-5.4); White Blood Count 3.2 K/mm3 (4.5-10.0)
[2025-05-09 16:59] LABS: Platelet Count Result 9 k/mm3 (150-375)
[2025-05-09 17:02] LABS: Band Neutrophils Percent 5 % (0-6); Lymphocytes Absolute Manual 0.41 K/mm3 (1.1-4.5); Lymphocytes Percent Manual 13.0 % (18-44); Monocytes Absolute Manual 0.25 K/mm3 (0.1-0.90); Monocytes Percent Manual 8 % (3-9); Neutrophils Absolute Manual 2.52 K/mm3 (1.3-6.7); Neutrophils Percent Manual 74 % (46-73); Schistocytes None Seen; Total Cells Counted 100
[2025-05-09] MEDS: SODIUM CHLORIDE 0.9% IV 250 ML 30 ML IV CONT (20:25)
[2025-05-09] MEDS: traMADol HCL (*CRX) 25 MG TABLET PO (20:27)
[2025-05-10] VITALS (20 sets, daily range): BP systolic 147–170; BP diastolic 74–94; PULSE 76–102; RESP 18–20; TEMP 36.7–36.9; O2SAT 96–98
[2025-05-10 05:46] LABS: Hematocrit 21.8 % (37.0-47.0); Hemoglobin 7.4 g/dL (12.0-15.0); Immature Granulocyte Percent A 9.4 % (0-0.5); Immature Platelet Fraction Pct 7.7 % (0.9-11.2); Lymphocytes Absolute Auto 0.40 K/mm3 (0.9-3.2); Mean Corpuscular HGB Conc 33.9 g/dl (32-36); Mean Corpuscular Hemoglobin 31.2 pg (26-34); Mean Corpuscular Volume 92.0 fl (80-100); Nucleated Red Blood Cells Absolute Auto 0.280 K/mm3 (0.0-0.012); Nucleated Red Blood Cells Perc 11.0 % (0.0-0.2); Red Blood Count 2.37 M/mm3 (4.2-5.4); White Blood Count 2.6 K/mm3 (4.5-10.0)
[2025-05-10] MEDS: HYDROcodone/acetaminophen (*CRX) 7.5-325 MG TABLET 1 TAB PO ×3 (05:55→18:12)
[2025-05-10 06:07] LABS: Alanine Aminotransferase 108 U/L (6-35); Albumin Level 3.1 g/dL (3.5-5.1); Alkaline Phosphatase 133 U/L (38-126); Anion Gap 8 mmol/L (4-12); Aspartate Amino Transferase 241 U/L (14-36); Bilirubin,Total 0.6 mg/dL (0.2-1.3); Blood Urea Nitrogen 19 mg/dL (7-17); Calcium 10.0 mg/dL (8.4-10.2); Carbon Dioxide 26 mmol/L (22-30); Chloride 102 mmol/L (98-107); Estimated CRCL calculation 111 ml/min; Estimated Glomerular Filt Rate > 60; Glucose 128 mg/dL (65-110); Magnesium 2.2 mg/dL (1.6-2.3); Sodium 136 mmol/L (137-145); Total Protein 6.1 g/dL (6.3-8.2)
[2025-05-10 06:15] LABS: Potassium 3.7 mmol/L (3.4-5.0)
[2025-05-10 07:25] LABS: Platelet Count Result 7 k/mm3 (150-375)
[2025-05-10 07:27] LABS: Anisocytosis 1+; Microcytosis 1+ (NORMAL); Ovalocytes 1+; Schistocytes None Seen
[2025-05-10 09:06] LABS: Hepatitis B Surface Antigen Negative (Negative)
[2025-05-10 09:12] LABS: HAV RESULT Negative (Negative); Hepatitis B Core IgM Result Negative (Negative)
[2025-05-10] MEDS: FERROUS SULFATE 325 MG TABLET DR BY MOUTH (10:10)
[2025-05-10] MEDS: CYANOCOBALAMIN 500 MCG TABLET PO (10:11)
[2025-05-10] MEDS: DICYCLOMINE HCL 10 MG CAPSULE PO ×3 (10:11→17:20)
[2025-05-10] MEDS: PANTOPRAZOLE 40 MG TABLET PO ×2 (10:11→22:07)
[2025-05-10] MEDS: SODIUM CHLORIDE 0.9% IV 250 ML 30 ML IV CONT (12:10)
--- NOTE | 2025-05-10 12:53 | PM.IMPN ---
Progress Note: A&P Assessment and Plan (1) Pancytopenia: Code(s): D61.818 - Other pancytopenia Status: Acute (2) Hepatic steatosis: Code(s): K76.0 - Fatty (change of) liver, not elsewhere classified Status: Acute (3) Elevated liver transaminase level: Code(s): R74.01 - Elevation of levels of liver transaminase levels Status: Acute (4) Hyponatremia: Code(s): E87.1 - Hypo-osmolality and hyponatremia Status: Acute (5) Hypokalemia: Code(s): E87.6 - Hypokalemia Status: Acute Plan Neutropenic fever completed antibiotics WBC 2.6 Follow culture result Hematology-Oncology team on board Pancytopenia stable/improving hb 8.5, WBC 3.6, Plts 15 Today hB 7.4, WBC 2.6, plts 7 Receiving 2 units of platelets. s/p 3 units earlier S/p bone marrow biopsy pathology non diagnostic continue steroid per oncology Oncology team on board Severe nausea, resolved On Promethazine patient was unable to eat this morning monitor one more night Black stool, resolved Patient is on iron pill. likely from thrombocytopenia GI team on board Transaminitis CT shows hepatitis steatosis AST/ALT 216/79 Follow with GI as outpatient Hyponatremia resolved Hypokalemia K 3.9 Replaced, monitor Breast cancer On chemoradiation as outpatient Follow Oncology team recommendation Malignant Left pleural effusion breast ca metastasis from cytology s/p Thoracentesis, pleural fluid showed breast ca mets will continue to monitor GERD PPI Obesity lifestyle modification DVT prophylaxis no AC due thrombocytopenia Subjective Date/time seen: 05/10/25 12:53 Interval history: Comfortable at bedside and plts still below 20 Plts 7 transfusing 2 units of plts Review of Systems Review of Systems: All systems reviewed & are unremarkable except as noted in HPI and below Constitutional: Constitutional: Reports as per HPI, Reports fatigue and Reports lethargy ENT: Reports as per HPI Cardiovascular: Cardiovascular: Reports as per HPI, Denies chest pain, Denies leg edema and Denies dyspnea Respiratory: Respiratory: Denies cough and Denies dyspnea Gastrointestinal: Gastrointestinal: Reports as per HPI Musculoskeletal: Musculoskeletal: Reports as per HPI Integumentary/Breasts: Skin/Breast: Reports as per HPI Psychiatric: Psychiatric: Reports as per HPI Endocrine: Endocrine: Reports no additional endocrine complaints and Reports fatigue Hematologic/Lymphatic: Hematologic/Lymphatic: Reports no additional hematologic/lymphatic complaints Exam Narrative: EXAMINATION OF ORGAN SYSTEMS/BODY AREAS: Constitutional: Vital signs per nursing GENERAL: Appears tired and pale HEAD: Normal with no signs of head trauma. EYES: EOMI, conjunctiva normal ENT: Hearing grossly intact LUNGS: Nonlabored breathing. HEART: Tachycardic ABD: [Soft], [nontender to palpation] EXT: Normal range of motion SKIN: Pale NEURO: [Alert and oriented x 3. No gross focal sensory or strength deficits.] PSYCH: Normal affect Const: General: cooperative, healthy appearing, comfortable, no acute distress and well developed Orientation/consciousness: oriented to person, oriented to place, oriented to time and patient oriented x3 HENMT: Head: normal to inspection, normocephalic and atraumatic Mouth: Yes Normal oral and palatal mucosa present and Yes moist mucous membranes Eyes: General: appearance normal, both eyes and all related structures Conjunctivae: conjunctivae normal Sclera: sclerae normal Pupils: Equal, round and reactive pupils present Neck: Neck: normal visual inspection Chest: Chest palpation & inspection: normal inspection of the chest Resp: Effort & Inspection: normal respiratory effort and able to speak in complete sentences Auscultation: clear to auscultation bilaterally Cardio: Jugular venous distension: no JVD Rate: regular rate Rhythm: regular rhythm Heart sounds: S1 normal heart sound present and S2 normal heart sound present GI: Inspection: normal to inspection Auscultation: normal bowel sounds Rectal Exam: deferred Skin: General skin exam: normal color and no rashes or lesions noted Neuro: General: oriented to person, oriented to place, oriented to time and patient oriented x3 Cranial nerves: Yes Equal, round and reactive pupils present Speech: normal speech Extrem: General: normal to inspection and no clubbing, cyanosis or edema Psych: Appearance: grossly normal and well kempt Affect: normal affect Objective Data Vital Signs Vital Signs: Vital Signs - 24 hr 05/09/25 14:00 05/09/25 16:00 05/09/25 20:00 Temperature 96.6 F L Pulse Rate 87 95 Respiratory Rate 16 Blood Pressure 167/91 H Pulse Oximetry 97 Oxygen Delivery Room Air Fraction of Inspired Oxygen 05/09/25 20:00 05/09/25 20:43 05/09/25 21:00 Temperature 98.4 F 98.2 F Pulse Rate 93 96 93 Respiratory Rate 20 20 Blood Pressure 163/91 H 166/90 H Pulse Oximetry 98 97 Oxygen Delivery Fraction of Inspired Oxygen 05/09/25 21:47 05/09/25 22:00 05/09/25 22:00 Temperature 98.4 F 98.4 F Pulse Rate 78 86 96 Respiratory Rate 20 20 20 Blood Pressure 170/88 H 163/91 H Pulse Oximetry 97 98 98 Oxygen Delivery Room Air Fraction of Inspired Oxygen 21 05/09/25 22:51 05/10/25 00:00 05/10/25 04:00 Temperature 98.3 F Pulse Rate 87 83 99 Respiratory Rate 18 Blood Pressure 172/94 H Pulse Oximetry 95 Oxygen Delivery Fraction of Inspired Oxygen 05/10/25 06:00 05/10/25 11:45 05/10/25 12:00 Temperature 98.4 F 98.1 F 98.4 F Pulse Rate 87 102 H 96 Respiratory Rate 20 20 20 Blood Pressure 160/84 H 170/85 H 148/94 H Pulse Oximetry 98 98 98 Oxygen Delivery Fraction of Inspired Oxygen 05/10/25 12:01 Temperature 98.4 F Pulse Rate 96 Respiratory Rate 20 Blood Pressure 148/94 H Pulse Oximetry 98 Oxygen Delivery Fraction of Inspired Oxygen Intake/Output Intake/Output: Intake & Output 05/07/25 05/08/25 05/09/25 05/10/25 23:59 23:59 23:59 23:59 Intake Total 1350 1500 1385 1080 Balance 1350 1500 1385 1080 Meds/Results Medications: Active Medications Generic Name Dose Route Start Last Admin Trade Name Freq PRN Reason Stop Dose Admin Acetaminophen 1,000 mg 04/27/25 22:00 04/29/25 09:53 Acetaminophen 500 Mg Tablet PO 1,000 mg Q6H PRN Administration Mild Pain (1-3) or Fever Hydrocodone Bitart/Acetaminophen 1 tab 04/28/25 11:33 05/10/25 12:08 Hydrocodone/Acetaminophen (*Crx) 7.5-325 Mg Tablet PO 05/17/25 23:59 1 tab Q6H PRN Administration pain of 7-10 Albuterol 2 puff 04/28/25 12:47 04/29/25 05:54 Albuterol Sulfate (*Sp) Aerosol 1 Puff INHALATION 2 puff Q4H PRN Administration shortness of breath or wheezing Albuterol/Ipratropium 3 ml 04/29/25 09:35 05/02/25 14:05 Ipratropium 0.5 Mg/Albuterol Sulfate 2.5 Mg Ampul.Neb 3 Ml INHALATION 3 ml Q6HRT PRN Administration Shortness Of Breath Or Wheezing Cyanocobalamin 500 mcg 04/29/25 09:00 05/10/25 10:11 Cyanocobalamin 500 Mcg Tablet PO 500 mcg DAILY CL Administration Dicyclomine HCl 10 mg 04/28/25 13:00 05/10/25 12:08 Dicyclomine Hcl 10 Mg Capsule PO 10 mg TID CL Administration Diphenhydramine HCl 25 mg 04/29/25 09:32 04/29/25 09:51 Diphenhydramine Hcl Inj 50 Mg/Ml Vial IV PUSH 25 mg Q4H PRN Administration Pre treat for blood products Famotidine 20 mg 04/29/25 09:32 04/29/25 09:51 Famotidine 20 Mg/2 Ml Vial IV PUSH 20 mg PRN PRN Administration Pre treat for blood products Ferrous Sulfate 325 mg 04/29/25 09:00 05/10/25 10:10 Ferrous Sulfate [address] BY MOUTH 325 mg DAILY CL Administration Sodium Chloride 250 mls @ 30 mls/hr 05/10/25 08:15 05/10/25 12:10 Normal Saline Iv IV CONT 05/10/25 16:34 30 mls/hr .Q8H20M STA Administration Lisinopril 5 mg 05/10/25 09:45 05/10/25 10:11 Lisinopril 5 Mg Tablet PO 5 mg QAM CL Administration Methylprednisolone Sodium Succinate 80 mg 05/07/25 22:00 05/10/25 05:56 Methylprednisolone Sod Succ 125 Mg Vial IV PUSH 80 mg Q8HR CL Administration Pantoprazole Sodium 40 mg 05/02/25 21:00 05/10/25 10:11 Pantoprazole 40 Mg Tablet PO 40 mg Q12HR CL Administration Polyethylene Glycol 17 gm 05/01/25 08:40 Polyethylene Glycol 3350 17 Gm Powd.Pack PO QAM PRN Constipation Prochlorperazine Edisylate 10 mg 05/06/25 10:57 05/06/25 12:02 Prochlorperazine Edisylate 10 Mg/2 Ml Vial IV PUSH 10 mg Q6H PRN Administration Nausea And Vomiting Promethazine HCl 12.5 mg 05/06/25 08:02 05/06/25 09:12 Promethazine Hcl 12.5 Mg Tablet PO 12.5 mg Q6HR PRN Administration Nausea And Vomiting Tramadol HCl 25 mg 04/28/25 02:43 05/09/25 20:27 Tramadol Hcl (*Crx) 25 Mg Tablet PO 05/17/25 23:59 25 mg Q4H PRN Administration Pain Rated 4-6 Radiology Results: ITS Impressions Chest/Abdomen/Pelvis CT 04/28/25 05:38 Impression: 3.3 x 2.1 cm medial right breast mass is highly suspicious for breast carcinoma. Diagnostic mammogram/ultrasound recommended for further evaluation. Findings compatible osseous metastatic disease, especially in the iliac bones and spine, with probable pathologic compression fractures of T1 and T12. Single mildly prominent lymph node along the left common iliac chain, indeterminate for metastatic lymphadenopathy. Moderate to large left pleural effusion with complete left lower lobe atelectasis. Minimal right pleural effusion with minimal right basilar atelectasis. Mild left hydronephrosis. No obstructing mass or stone clearly evident. Cardiac Catheterization 05/05/25 18:44 IMPRESSION: 1. Fluoro-guided bone marrow aspiration. 2. Fluoro-guided bone marrow core biopsy. 3. 35 minutes of moderate sedation. Chest X-Ray 05/05/25 19:06 IMPRESSION: No pneumothorax following left-sided thoracentesis, as detailed above. Thoracentesis Ultrasound 05/05/25 19:10 IMPRESSION: 1. Successful ultrasound-guided thoracentesis yielding 1000 mL of dark taz fluid. Labs Labs: Laboratory Results - last 24 hr 05/09/25 05/09/25 05/10/25 16:10 17:34 05:17 WBC 3.2 L RBC 2.59 L Hgb 7.9 L Hct 23.7 L MCV 91.5 MCH 30.5 MCHC 33.3 RDW 14.2 Plt Count 9 L* MPV TNP Immature Gran % (Auto) Not Reportable Neut % (Auto) Not Reportable Lymph % (Auto) Not Reportable [place] % (Auto) Not Reportable Eos % (Auto) Not Reportable Baso % (Auto) Not Reportable Lymph # (Auto) Not Reportable [place] # (Auto) Not Reportable Eos # (Auto) Not Reportable Baso # (Auto) Not Reportable Abs Immat Gran (auto) Not Reportable Absolute Neuts (auto) Not Reportable Absolute Nucleated RBC Not Reportable Total Counted 100 Neutrophils % (Manual) 74 H Band Neutrophils % 5 Lymphocytes % (Manual) 13.0 L Monocytes % (Manual) 8 Nucleated RBC % Not Reportable Abs Neuts (Manual) 2.52 Abs Lymphs (Manual) 0.41 L Abs Monocytes (Manual) 0.25 Nucleated RBCs 5 Platelet Estimate Adequate % Immature Plt Fraction 7.7 Anisocytosis Microcytosis Ovalocytes Schistocytes None seen Sodium Potassium Chloride Carbon Dioxide Anion Gap BUN Creatinine Estim Creat Clear Calc Estimated GFR Glucose Calcium Magnesium Total Bilirubin AST ALT Alkaline Phosphatase Total Protein Albumin Hepatitis A IgM Ab Negative Hep Bs Antigen Negative Hep B Core IgM Ab Negative Hepatitis C Ab Screen Negative Blood Type O Positive 05/10/25 05:20 WBC 2.6 L RBC 2.37 L Hgb 7.4 L Hct 21.8 L MCV 92.0 MCH 31.2 MCHC 33.9 RDW 14.2 Plt Count 7 L* MPV TNP Immature Gran % (Auto) 9.4 H Neut % (Auto) 60.0 Lymph % (Auto) 15.7 L [place] % (Auto) 13.3 H Eos % (Auto) 0.4 Baso % (Auto) 1.2 Lymph # (Auto) 0.40 L [place] # (Auto) 0.3 Eos # (Auto) 0.0 Baso # (Auto) 0.0 Abs Immat Gran (auto) 0.24 H Absolute Neuts (auto) 1.5 Absolute Nucleated RBC 0.280 H Total Counted Neutrophils % (Manual) Band Neutrophils % Not Reportable Lymphocytes % (Manual) Monocytes % (Manual) Nucleated RBC % 11.0 H Abs Neuts (Manual) Abs Lymphs (Manual) Abs Monocytes (Manual) Nucleated RBCs Platelet Estimate Decreased % Immature Plt Fraction 7.7 Anisocytosis 1+ Microcytosis 1+ Ovalocytes 1+ Schistocytes None seen Sodium 136 L Potassium 3.7 Chloride 102 Carbon Dioxide 26 Anion Gap 8 BUN 19 H Creatinine 0.55 L Estim Creat Clear Calc 111 Estimated GFR > 60 Glucose 128 H Calcium 10.0 Magnesium 2.2 Total Bilirubin 0.6 AST 241 H ALT 108 H Alkaline Phosphatase 133 H Total Protein 6.1 L Albumin 3.1 L Hepatitis A IgM Ab Hep Bs Antigen Hep B Core IgM Ab Hepatitis C Ab Screen Blood Type
[2025-05-11] VITALS (19 sets, daily range): BP systolic 150–171; BP diastolic 49–96; PULSE 83–104; RESP 12–20; TEMP 36.7–37; O2SAT 96–99
[2025-05-11] MEDS: HYDROcodone/acetaminophen (*CRX) 7.5-325 MG TABLET 1 TAB PO ×4 (00:04→18:35)
[2025-05-11 05:34] LABS: Hematocrit 22.6 % (37.0-47.0); Hemoglobin 7.4 g/dL (12.0-15.0); Immature Granulocyte Percent A 13.1 % (0-0.5); Immature Platelet Fraction Pct 7.3 % (0.9-11.2); Lymphocytes Absolute Auto 0.32 K/mm3 (0.9-3.2); Mean Corpuscular HGB Conc 32.7 g/dl (32-36); Mean Corpuscular Hemoglobin 30.6 pg (26-34); Mean Corpuscular Volume 93.4 fl (80-100); Nucleated Red Blood Cells Absolute Auto 0.320 K/mm3 (0.0-0.012); Nucleated Red Blood Cells Perc 15.0 % (0.0-0.2); Red Blood Count 2.42 M/mm3 (4.2-5.4); White Blood Count 2.1 K/mm3 (4.5-10.0)
[2025-05-11 05:52] LABS: Alanine Aminotransferase 126 U/L (6-35); Albumin Level 3.4 g/dL (3.5-5.1); Alkaline Phosphatase 144 U/L (38-126); Anion Gap 10 mmol/L (4-12); Aspartate Amino Transferase 252 U/L (14-36); Bilirubin,Total 0.7 mg/dL (0.2-1.3); Blood Urea Nitrogen 20 mg/dL (7-17); Calcium 10.5 mg/dL (8.4-10.2); Carbon Dioxide 26 mmol/L (22-30); Chloride 102 mmol/L (98-107); Estimated CRCL calculation 103 ml/min; Estimated Glomerular Filt Rate > 60; Glucose 143 mg/dL (65-110); Magnesium 2.3 mg/dL (1.6-2.3); Potassium 3.8 mmol/L (3.4-5.0); Sodium 138 mmol/L (137-145); Total Protein 6.5 g/dL (6.3-8.2)
[2025-05-11 06:01] LABS: Platelet Count Result 7 k/mm3 (150-375)
[2025-05-11] MEDS: PANTOPRAZOLE 40 MG TABLET PO ×2 (10:04→21:22)
[2025-05-11] MEDS: FERROUS SULFATE 325 MG TABLET DR BY MOUTH (10:04)
[2025-05-11] MEDS: DICYCLOMINE HCL 10 MG CAPSULE PO ×3 (10:04→18:35)
[2025-05-11] MEDS: CYANOCOBALAMIN 500 MCG TABLET PO (10:04)
--- NOTE | 2025-05-11 10:25 | PCPTNOTE ---
Patient refused treatment this session due to patient feeling unwell. Patient reported she can not do any therapy today and that she has been getting up on her own.
--- NOTE | 2025-05-11 11:08 | PCOTNOTE ---
Attempted to see Patient at this time. Patient states she is very sick right now, fighting to get better, needs rest. Patient states she can perform her self care tasks as needed at this time. Patient requesting to be discharged from therapy services at this time. Patient states I can let people/doctors know when I can increase my activity and have therapy again. Patient's family present in the room, agree with Patient. Therapist spoke with OT/R, states she feels to stay on caseload for increased endurance and will move her frequency down for the time being.
--- NOTE | 2025-05-11 12:11 | P.PNIM_ITS ---
Progress Note: A&P Assessment and Plan (1) Pancytopenia: Code(s): D61.818 - Other pancytopenia Status: Acute (2) Hepatic steatosis: Code(s): K76.0 - Fatty (change of) liver, not elsewhere classified Status: Acute (3) Elevated liver transaminase level: Code(s): R74.01 - Elevation of levels of liver transaminase levels Status: Acute (4) Hyponatremia: Code(s): E87.1 - Hypo-osmolality and hyponatremia Status: Acute (5) Hypokalemia: Code(s): E87.6 - Hypokalemia Status: Acute Plan Neutropenic fever completed antibiotics WBC 2.1 Follow culture result Hematology-Oncology team on board Pancytopenia stable/improving hb 8.5, WBC 3.6, Plts 15 Today hB 7.4, WBC 2.6, plts 7 Receiving 2 units of platelets. s/p 3 units earlier S/p bone marrow biopsy pathology non diagnostic continue steroid per oncology Oncology not avaialble toruba vazquez this transfer initiated to [facility] and awaiting call back patient is very anxious Severe nausea, resolved On Promethazine patient was unable to eat this morning monitor one more night Black stool, resolved Patient is on iron pill. likely from thrombocytopenia GI team on board Transaminitis CT shows hepatitis steatosis AST/ALT 216/79 Follow with GI as outpatient Hyponatremia resolved Hypokalemia K 3.9 Replaced, monitor Breast cancer On chemoradiation as outpatient Follow Oncology team recommendation Malignant Left pleural effusion breast ca metastasis from cytology s/p Thoracentesis, pleural fluid showed breast ca mets will continue to monitor GERD PPI Obesity lifestyle modification DVT prophylaxis no AC due thrombocytopenia Possible tansfer to [facility] Subjective Date/time seen: 05/11/25 12:11 Interval history: Comfortable at bedside and plts still below 20 Plts 7 transfusing 2 units of plts Oncology not available today and transfer initiated to [facility] Review of Systems Review of Systems: All systems reviewed & are unremarkable except as noted in HPI and below Constitutional: Constitutional: Reports as per HPI, Reports fatigue and Reports lethargy ENT: Reports as per HPI Cardiovascular: Cardiovascular: Reports as per HPI, Denies chest pain, Denies leg edema and Denies dyspnea Respiratory: Respiratory: Denies cough and Denies dyspnea Gastrointestinal: Gastrointestinal: Reports as per HPI Musculoskeletal: Musculoskeletal: Reports as per HPI Integumentary/Breasts: Skin/Breast: Reports as per HPI Psychiatric: Psychiatric: Reports as per HPI Endocrine: Endocrine: Reports no additional endocrine complaints and Reports fatigue Hematologic/Lymphatic: Hematologic/Lymphatic: Reports no additional hematologic/lymphatic complaints Exam Narrative: EXAMINATION OF ORGAN SYSTEMS/BODY AREAS: Constitutional: Vital signs per nursing GENERAL: Appears tired and pale HEAD: Normal with no signs of head trauma. EYES: EOMI, conjunctiva normal ENT: Hearing grossly intact LUNGS: Nonlabored breathing. HEART: Tachycardic ABD: [Soft], [nontender to palpation] EXT: Normal range of motion SKIN: Pale NEURO: [Alert and oriented x 3. No gross focal sensory or strength deficits.] PSYCH: Normal affect Const: General: cooperative, healthy appearing, comfortable, no acute distress and well developed Orientation/consciousness: oriented to person, oriented to place, oriented to time and patient oriented x3 HENMT: Head: normal to inspection, normocephalic and atraumatic Mouth: Yes Normal oral and palatal mucosa present and Yes moist mucous membranes Eyes: General: appearance normal, both eyes and all related structures Conjunctivae: conjunctivae normal Sclera: sclerae normal Pupils: Equal, round and reactive pupils present Neck: Neck: normal visual inspection Chest: Chest palpation & inspection: normal inspection of the chest Resp: Effort & Inspection: normal respiratory effort and able to speak in comp lete sentences Auscultation: clear to auscultation bilaterally Cardio: Jugular venous distension: no JVD Rate: regular rate Rhythm: regular rhythm Heart sounds: S1 normal heart sound present and S2 normal heart sound present GI: Inspection: normal to inspection Auscultation: normal bowel sounds Rectal Exam: deferred Skin: General skin exam: normal color and no rashes or lesions noted Neuro: General: oriented to person, oriented to place, oriented to time and patient oriented x3 Cranial nerves: Yes Equal, round and reactive pupils present Speech: normal speech Extrem: General: normal to inspection and no clubbing, cyanosis or edema Psych: Appearance: grossly normal and well kempt Affect: normal affect Objective Data Vital Signs Vital Signs: Vital Signs - 24 hr 05/10/25 13:01 05/10/25 14:00 05/10/25 14:01 Temperature 98.4 F 98.1 F 98.1 F Pulse Rate 92 93 93 Respiratory Rate 20 20 20 Blood Pressure 147/77 H 158/88 H 158/88 H Pulse Oximetry 98 98 98 Oxygen Delivery Fraction of Inspired Oxygen 05/10/25 14:08 05/10/25 14:54 05/10/25 15:12 Temperature 98.1 F 98.1 F 98.4 F Pulse Rate 93 85 84 Respiratory Rate 20 20 18 Blood Pressure 158/88 H 161/78 H 165/77 H Pulse Oximetry 98 97 97 Oxygen Delivery Fraction of Inspired Oxygen 05/10/25 16:00 05/10/25 16:12 05/10/25 17:03 Temperature 98.4 F 98.2 F Pulse Rate 83 89 84 Respiratory Rate 20 20 Blood Pressure 163/78 H 162/74 H Pulse Oximetry 98 98 Oxygen Delivery Fraction of Inspired Oxygen 05/10/25 20:00 05/10/25 20:00 05/10/25 22:18 Temperature Pulse Rate 88 76 Respiratory Rate 18 Blood Pressure Pulse Oximetry 96 Oxygen Delivery Room Air Room Air Fraction of Inspired Oxygen 21 05/10/25 22:41 05/11/25 00:00 05/11/25 04:00 Temperature 98.1 F Pulse Rate 82 93 86 Respiratory Rate 18 Blood Pressure 154/81 H Pulse Oximetry 97 Oxygen Delivery Fraction of Inspired Oxygen 05/11/25 06:00 05/11/25 07:22 Temperature 98.0 F Pulse Rate 88 Respiratory Rate 18 Blood Pressure 150/88 H Pulse Oximetry 97 97 Oxygen Delivery Room Air Fraction of Inspired Oxygen 21 Intake/Output Intake/Output: Intake & Output 05/08/25 05/09/25 05/10/25 05/11/25 23:59 23:59 23:59 23:59 Intake Total 1500 1385 2608 980 Balance 1500 1385 2608 980 Meds/Results Medications: Active Medications Generic Name Dose Route Start Last Admin Trade Name Freq PRN Reason Stop Dose Admin Acetaminophen 1,000 mg 04/27/25 22:00 04/29/25 09:53 Acetaminophen 500 Mg Tablet PO 1,000 mg Q6H PRN Administration Mild Pain (1-3) or Fever Hydrocodone Bitart/Acetaminophen 1 tab 04/28/25 11:33 05/11/25 06:30 Hydrocodone/Acetaminophen (*Crx) 7.5-325 Mg Tablet PO 05/17/25 23:59 1 tab Q6H PRN Administration pain of 7-10 Albuterol 2 puff 04/28/25 12:47 04/29/25 05:54 Albuterol Sulfate (*Sp) Aerosol 1 Puff INHALATION 2 puff Q4H PRN Administration shortness of breath or wheezing Albuterol/Ipratropium 3 ml 04/29/25 09:35 05/02/25 14:05 Ipratropium 0.5 Mg/Albuterol Sulfate 2.5 Mg Ampul.Neb 3 Ml INHALATION 3 ml Q6HRT PRN Administration Shortness Of Breath Or Wheezing Cyanocobalamin 500 mcg 04/29/25 09:00 05/11/25 10:04 Cyanocobalamin 500 Mcg Tablet PO 500 mcg DAILY CL Administration Dicyclomine HCl 10 mg 04/28/25 13:00 05/11/25 10:04 Dicyclomine Hcl 10 Mg Capsule PO 10 mg TID CL Administration Diphenhydramine HCl 25 mg 04/29/25 09:32 04/29/25 09:51 Diphenhydramine Hcl Inj 50 Mg/Ml Vial IV PUSH 25 mg Q4H PRN Administration Pre treat for blood products Famotidine 20 mg 04/29/25 09:32 04/29/25 09:51 Famotidine 20 Mg/2 Ml Vial IV PUSH 20 mg PRN PRN Administration Pre treat for blood products Ferrous Sulfate 325 mg 04/29/25 09:00 05/11/25 10:04 Ferrous Sulfate [address] BY MOUTH 325 mg DAILY CL Administration Sodium Chloride 250 mls @ 30 mls/hr 05/11/25 06:31 Normal Saline Iv IV CONT 05/11/25 14:50 .Q8H20M STA Sodium Chloride 250 mls @ 30 mls/hr 05/11/25 07:53 Normal Saline Iv IV CONT 05/11/25 16:12 .Q8H20M STA Lisinopril 5 mg 05/10/25 09:45 05/11/25 10:04 Lisinopril 5 Mg Tablet PO 5 mg QAM CL Administration Methylprednisolone Sodium Succinate 80 mg 05/07/25 22:00 05/11/25 05:43 Methylprednisolone Sod Succ 125 Mg Vial IV PUSH 80 mg Q8HR CL Administration Pantoprazole Sodium 40 mg 05/02/25 21:00 05/11/25 10:04 Pantoprazole 40 Mg Tablet PO 40 mg Q12HR CL Administration Polyethylene Glycol 17 gm 05/01/25 08:40 Polyethylene Glycol 3350 17 Gm Powd.Pack PO QAM PRN Constipation Prochlorperazine Edisylate 10 mg 05/06/25 10:57 05/06/25 12:02 Prochlorperazine Edisylate 10 Mg/2 Ml Vial IV PUSH 10 mg Q6H PRN Administration Nausea And Vomiting Promethazine HCl 12.5 mg 05/06/25 08:02 05/06/25 09:12 Promethazine Hcl 12.5 Mg Tablet PO 12.5 mg Q6HR PRN Administration Nausea And Vomiting Tramadol HCl 25 mg 04/28/25 02:43 05/09/25 20:27 Tramadol Hcl (*Crx) 25 Mg Tablet PO 05/17/25 23:59 25 mg Q4H PRN Administration Pain Rated 4-6 Radiology Results: ITS Impressions Chest/Abdomen/Pelvis CT 04/28/25 05:38 Impression: 3.3 x 2.1 cm medial right breast mass is highly suspicious for breast carcinoma. Diagnostic mammogram/ultrasound recommended for further evaluation. Findings compatible osseous metastatic disease, especially in the iliac bones and spine, with probable pathologic compression fractures of T1 and T12. Single mildly prominent lymph node along the left common iliac chain, indeterminate for metastatic lymphadenopathy. Moderate to large left pleural effusion with complete left lower lobe atelectasis. Minimal right pleural effusion with minimal right basilar atelectasis. Mild left hydronephrosis. No obstructing mass or stone clearly evident. Cardiac Catheterization 05/05/25 18:44 IMPRESSION: 1. Fluoro-guided bone marrow aspiration. 2. Fluoro-guided bone marrow core biopsy. 3. 35 minutes of moderate sedation. Chest X-Ray 05/05/25 19:06 IMPRESSION: No pneumothorax following left-sided thoracentesis, as detailed above. Thoracentesis Ultrasound 05/05/25 19:10 IMPRESSION: 1. Successful ultrasound-guided thoracentesis yielding 1000 mL of dark taz fluid. Labs Labs: Laboratory Results - last 24 hr 05/07/25 05/09/25 05/11/25 11:20 17:34 05:21 WBC 2.1 L RBC 2.42 L Hgb 7.4 L Hct 22.6 L MCV 93.4 MCH 30.6 MCHC 32.7 RDW 14.2 Plt Count 7 L* MPV TNP Immature Gran % (Auto) 13.1 H Neut % (Auto) 59.3 Lymph % (Auto) 15.0 L [place] % (Auto) 11.7 H Eos % (Auto) 0.0 Baso % (Auto) 0.9 Lymph # (Auto) 0.32 L [place] # (Auto) 0.3 Eos # (Auto) 0.0 Baso # (Auto) 0.0 Abs Immat Gran (auto) 0.28 H Absolute Neuts (auto) 1.3 Absolute Nucleated RBC 0.320 H Nucleated RBC % 15.0 H % Immature Plt Fraction 7.3 Sodium 138 Potassium 3.8 Chloride 102 Carbon Dioxide 26 Anion Gap 10 BUN 20 H Creatinine 0.60 L Estim Creat Clear Calc 103 Estimated GFR > 60 Glucose 143 H Calcium 10.5 H Magnesium 2.3 Total Bilirubin 0.7 AST 252 H ALT 126 H Alkaline Phosphatase 144 H Total Protein 6.5 Albumin 3.4 L Anti-Plt HLA Class I Ab Positive A Anti-Plt GP IV Negative Plasma Anti-Plt IIb/IIIa Negative Plasma Anti-Plt Ia/IIa Negative Plasma Anti-Plt Ib/IX Negative Blood Type O Positive
--- NOTE | 2025-05-11 12:37 | WPDONCPN ---
Progress Note: A&P Assessment and Plan (1) Pancytopenia: Code(s): D61.818 - Other pancytopenia Status: Acute Assessment and Plan: Patient with metastatic breast cancer ERPR positive and HER2 Qian negative with PIK3CA mutation. Patient had bone marrow biopsy that came back nondiagnostic on the core biopsy and the flow showed no evidence of leukemia. Patient remains quite pancytopenic and platelet count remains low at 7000. She was started on Solu-Medrol for possible ITP but has not responded so far. I have discussed this case with Dr. Camacho at [facility] today. We will start transfer process to the [facility] where she will require repeat bone marrow biopsy. I suspect this could very well be due to bone marrow infiltration with metastatic breast cancer that may require inpatient chemotherapy. I have also discussed with Dr. Rangel today. Subjective Date/time seen: 05/11/25 12:37 Interval history: Patient is lying comfortably. She denies any bleeding but does have some bruising in the upper extremities. Denies any fevers and chills. Looks quite tired and fatigued. Denies any other new complaints. Review of Systems Review of Systems Twelve point of systems was reviewed Exam Narrative: lungs are clear to auscultation bilaterally cardiovascular regular rate rhythm no murmurs abdomen soft nontender nondistended bowel sounds are positive extremities no edema Objective Data Vital Signs Vital Signs: Vital Signs - 24 hr 05/10/25 13:01 05/10/25 14:00 05/10/25 14:01 Temperature 36.9 C 36.7 C 36.7 C Pulse Rate 92 93 93 Respiratory Rate 20 20 20 Blood Pressure 147/77 H 158/88 H 158/88 H Pulse Oximetry 98 98 98 Oxygen Delivery Fraction of Inspired Oxygen 05/10/25 14:08 05/10/25 14:54 05/10/25 15:12 Temperature 36.7 C 36.7 C 36.9 C Pulse Rate 93 85 84 Respiratory Rate 20 20 18 Blood Pressure 158/88 H 161/78 H 165/77 H Pulse Oximetry 98 97 97 Oxygen Delivery Fraction of Inspired Oxygen 05/10/25 16:00 05/10/25 16:12 05/10/25 17:03 Temperature 36.9 C 36.8 C Pulse Rate 83 89 84 Respiratory Rate 20 20 Blood Pressure 163/78 H 162/74 H Pulse Oximetry 98 98 Oxygen Delivery Fraction of Inspired Oxygen 05/10/25 20:00 05/10/25 20:00 05/10/25 22:18 Temperature Pulse Rate 88 76 Respiratory Rate 18 Blood Pressure Pulse Oximetry 96 Oxygen Delivery Room Air Room Air Fraction of Inspired Oxygen 21 05/10/25 22:41 05/11/25 00:00 05/11/25 04:00 Temperature 36.7 C Pulse Rate 82 93 86 Respiratory Rate 18 Blood Pressure 154/81 H Pulse Oximetry 97 Oxygen Delivery Fraction of Inspired Oxygen 05/11/25 06:00 05/11/25 07:22 05/11/25 10:00 Temperature 36.7 C Pulse Rate 88 Respiratory Rate 18 Blood Pressure 150/88 H Pulse Oximetry 97 97 97 Oxygen Delivery Room Air Room Air Fraction of Inspired Oxygen 21 Intake/Output Intake/Output: Intake & Output 05/08/25 05/09/25 05/10/25 05/11/25 23:59 23:59 23:59 23:59 Intake Total 1500 1385 2608 980 Balance 1500 1385 2608 980 Meds/Results Medications: Active Medications Generic Name Dose Route Start Last Admin Trade Name Freq PRN Reason Stop Dose Admin Acetaminophen 1,000 mg 04/27/25 22:00 04/29/25 09:53 Acetaminophen 500 Mg Tablet PO 1,000 mg Q6H PRN Administration Mild Pain (1-3) or Fever Hydrocodone Bitart/Acetaminophen 1 tab 04/28/25 11:33 05/11/25 06:30 Hydrocodone/Acetaminophen (*Crx) 7.5-325 Mg Tablet PO 05/17/25 23:59 1 tab Q6H PRN Administration pain of 7-10 Albuterol 2 puff 04/28/25 12:47 04/29/25 05:54 Albuterol Sulfate (*Sp) Aerosol 1 Puff INHALATION 2 puff Q4H PRN Administration shortness of breath or wheezing Albuterol/Ipratropium 3 ml 04/29/25 09:35 05/02/25 14:05 Ipratropium 0.5 Mg/Albuterol Sulfate 2.5 Mg Ampul.Neb 3 Ml INHALATION 3 ml Q6HRT PRN Administration Shortness Of Breath Or Wheezing Cyanocobalamin 500 mcg 04/29/25 09:00 05/11/25 10:04 Cyanocobalamin 500 Mcg Tablet PO 500 mcg DAILY CL Administration Dicyclomine HCl 10 mg 04/28/25 13:00 05/11/25 10:04 Dicyclomine Hcl 10 Mg Capsule PO 10 mg TID CL Administration Diphenhydramine HCl 25 mg 04/29/25 09:32 04/29/25 09:51 Diphenhydramine Hcl Inj 50 Mg/Ml Vial IV PUSH 25 mg Q4H PRN Administration Pre treat for blood products Famotidine 20 mg 04/29/25 09:32 04/29/25 09:51 Famotidine 20 Mg/2 Ml Vial IV PUSH 20 mg PRN PRN Administration Pre treat for blood products Ferrous Sulfate 325 mg 04/29/25 09:00 05/11/25 10:04 Ferrous Sulfate [address] BY MOUTH 325 mg DAILY CL Administration Sodium Chloride 250 mls @ 30 mls/hr 05/11/25 06:31 Normal Saline Iv IV CONT 05/11/25 14:50 .Q8H20M STA Sodium Chloride 250 mls @ 30 mls/hr 05/11/25 07:53 Normal Saline Iv IV CONT 05/11/25 16:12 .Q8H20M STA Lisinopril 5 mg 05/10/25 09:45 05/11/25 10:04 Lisinopril 5 Mg Tablet PO 5 mg QAM CL Administration Methylprednisolone Sodium Succinate 80 mg 05/07/25 22:00 05/11/25 05:43 Methylprednisolone Sod Succ 125 Mg Vial IV PUSH 80 mg Q8HR CL Administration Pantoprazole Sodium 40 mg 05/02/25 21:00 05/11/25 10:04 Pantoprazole 40 Mg Tablet PO 40 mg Q12HR CL Administration Polyethylene Glycol 17 gm 05/01/25 08:40 Polyethylene Glycol 3350 17 Gm Powd.Pack PO QAM PRN Constipation Prochlorperazine Edisylate 10 mg 05/06/25 10:57 05/06/25 12:02 Prochlorperazine Edisylate 10 Mg/2 Ml Vial IV PUSH 10 mg Q6H PRN Administration Nausea And Vomiting Promethazine HCl 12.5 mg 05/06/25 08:02 05/06/25 09:12 Promethazine Hcl 12.5 Mg Tablet PO 12.5 mg Q6HR PRN Administration Nausea And Vomiting Tramadol HCl 25 mg 04/28/25 02:43 05/09/25 20:27 Tramadol Hcl (*Crx) 25 Mg Tablet PO 05/17/25 23:59 25 mg Q4H PRN Administration Pain Rated 4-6 Radiology Results: ITS Impressions Chest/Abdomen/Pelvis CT 04/28/25 05:38 Impression: 3.3 x 2.1 cm medial right breast mass is highly suspicious for breast carcinoma. Diagnostic mammogram/ultrasound recommended for further evaluation. Findings compatible osseous metastatic disease, especially in the iliac bones and spine, with probable pathologic compression fractures of T1 and T12. Single mildly prominent lymph node along the left common iliac chain, indeterminate for metastatic lymphadenopathy. Moderate to large left pleural effusion with complete left lower lobe atelectasis. Minimal right pleural effusion with minimal right basilar atelectasis. Mild left hydronephrosis. No obstructing mass or stone clearly evident. Cardiac Catheterization 05/05/25 18:44 IMPRESSION: 1. Fluoro-guided bone marrow aspiration. 2. Fluoro-guided bone marrow core biopsy. 3. 35 minutes of moderate sedation. Chest X-Ray 05/05/25 19:06 IMPRESSION: No pneumothorax following left-sided thoracentesis, as detailed above. Thoracentesis Ultrasound 05/05/25 19:10 IMPRESSION: 1. Successful ultrasound-guided thoracentesis yielding 1000 mL of dark taz fluid. Labs Labs: Laboratory Results - last 24 hr 05/07/25 05/09/25 05/11/25 11:20 17:34 05:21 WBC 2.1 L RBC 2.42 L Hgb 7.4 L Hct 22.6 L MCV 93.4 MCH 30.6 MCHC 32.7 RDW 14.2 Plt Count 7 L* MPV TNP Immature Gran % (Auto) 13.1 H Neut % (Auto) 59.3 Lymph % (Auto) 15.0 L [place] % (Auto) 11.7 H Eos % (Auto) 0.0 Baso % (Auto) 0.9 Lymph # (Auto) 0.32 L [place] # (Auto) 0.3 Eos # (Auto) 0.0 Baso # (Auto) 0.0 Abs Immat Gran (auto) 0.28 H Absolute Neuts (auto) 1.3 Absolute Nucleated RBC 0.320 H Nucleated RBC % 15.0 H % Immature Plt Fraction 7.3 Sodium 138 Potassium 3.8 Chloride 102 Carbon Dioxide 26 Anion Gap 10 BUN 20 H Creatinine 0.60 L Estim Creat Clear Calc 103 Estimated GFR > 60 Glucose 143 H Calcium 10.5 H Magnesium 2.3 Total Bilirubin 0.7 AST 252 H ALT 126 H Alkaline Phosphatase 144 H Total Protein 6.5 Albumin 3.4 L Anti-Plt HLA Class I Ab Positive A Anti-Plt GP IV Negative Plasma Anti-Plt IIb/IIIa Negative Plasma Anti-Plt Ia/IIa Negative Plasma Anti-Plt Ib/IX Negative Blood Type O Positive
[2025-05-11] MEDS: traMADol HCL (*CRX) 25 MG TABLET PO ×2 (15:24→21:51)
[2025-05-11] MEDS: SODIUM CHLORIDE 0.9% IV 250 ML 30 ML IV CONT (15:25)
[2025-05-12] VITALS (9 sets, daily range): BP systolic 144–161; BP diastolic 74–88; PULSE 81–100; RESP 12–18; TEMP 36.7–36.9; O2SAT 96–97
[2025-05-12] MEDS: HYDROcodone/acetaminophen (*CRX) 7.5-325 MG TABLET 1 TAB PO ×4 (00:23→18:30)
[2025-05-12 06:18] LABS: Hematocrit 21.4 % (37.0-47.0); Hemoglobin 7.1 g/dL (12.0-15.0); Immature Granulocyte Percent A 14.6 % (0-0.5); Lymphocytes Absolute Auto 0.39 K/mm3 (0.9-3.2); Mean Corpuscular HGB Conc 33.2 g/dl (32-36); Mean Corpuscular Hemoglobin 30.6 pg (26-34); Mean Corpuscular Volume 92.2 fl (80-100); Nucleated Red Blood Cells Absolute Auto 0.380 K/mm3 (0.0-0.012); Nucleated Red Blood Cells Perc 13.6 % (0.0-0.2); Platelet Count Result 72 k/mm3 (150-375); Red Blood Count 2.32 M/mm3 (4.2-5.4); White Blood Count 2.8 K/mm3 (4.5-10.0)
[2025-05-12 06:38] LABS: Anion Gap 8 mmol/L (4-12); Blood Urea Nitrogen 17 mg/dL (7-17); Calcium 10.3 mg/dL (8.4-10.2); Carbon Dioxide 29 mmol/L (22-30); Chloride 100 mmol/L (98-107); Estimated CRCL calculation 119 ml/min; Estimated Glomerular Filt Rate > 60; Glucose 123 mg/dL (65-110); Magnesium 2.4 mg/dL (1.6-2.3); Potassium 3.7 mmol/L (3.4-5.0); Sodium 137 mmol/L (137-145)
[2025-05-12] MEDS: PANTOPRAZOLE 40 MG TABLET PO ×2 (08:07→21:46)
[2025-05-12] MEDS: CYANOCOBALAMIN 500 MCG TABLET PO (08:07)
[2025-05-12] MEDS: FERROUS SULFATE 325 MG TABLET DR BY MOUTH (08:07)
[2025-05-12] MEDS: DICYCLOMINE HCL 10 MG CAPSULE PO ×3 (08:07→16:48)
--- NOTE | 2025-05-12 09:30 | P.PNIM_ITS ---
Progress Note: A&P Assessment and Plan (1) Pancytopenia: Code(s): D61.818 - Other pancytopenia Status: Acute Assessment and Plan: Bone marrow bx inconclusive -Received 4 PRBC and 10 platelets since admission in total -possible breast cancer infiltration of bone marrow, CA 15-3 high -On solumedrol IV -Afebrile since 04/28, abx complete. blood culture x1 negative after 5 days -Oncology onboard, recommend transfer to [facility]. Called 05/12 and still waiting for medicine bed. No time frame or assigned bed as of 930am. Accepted by Dr. Camacho per EMR -Monitor closely -black stool previous, resolved. Pt on iron. Likely from thrombocytopenia (2) Malignant pleural effusion: Code(s): J91.0 - Malignant pleural effusion Status: Acute Assessment and Plan: Breast cancer cells found in pleural fluid -pt on room air with no SOB -Monitor, may need therapeutic drain in the future (3) Breast cancer: Code(s): C50.919 - Malignant neoplasm of unspecified site of unspecified female breast Status: Acute Assessment and Plan: Reoccurrence--CA-15 increased -CT with osseous metastatic disease and pleural effusion -malignant left pleural effusion-cytology with metastatic breast cancer -obtain liver u/s (4) Hepatic steatosis: Code(s): K76.0 - Fatty (change of) liver, not elsewhere classified Status: Acute Assessment and Plan: Liver enzymes elevated -CT with hepatitis steatosis -hepatitis screen neg -Obtain u/s-concern for mets? (5) Elevated liver transaminase level: Code(s): R74.01 - Elevation of levels of liver transaminase levels Status: Acute Assessment and Plan: As above (6) Hyponatremia: Code(s): E87.1 - Hypo-osmolality and hyponatremia Status: Acute Assessment and Plan: Resolved (7) Hypokalemia: Code(s): E87.6 - Hypokalemia Status: Acute Assessment and Plan: Resolved Time Spent With Patient Time with patient: 25 - 35 minutes Subjective Date/time seen: 05/12/25 09:30 Interval history: Pt is a 55-year-old female here for pancytopenia. Patient is doing well and has no complaints today. She specifically denies bleeding, chest pain, shortness of breath, diarrhea, constipation, nausea or vomiting. She does not feel afebrile. She is eating and drinking okay with no issue Review of Systems Review of Systems: All systems reviewed & are unremarkable except as noted in HPI and below Exam Narrative: General: Well developed well nourished patient in NAD HEENT: normocephalic Neck: supple Neuro: Alert and oriented x4 CV:mild decreased breath sounds on the left, overall good lung sounds Resp:CTA Abd: Soft, non distended. No pain to palpation. Positive bowel sounds Extremities: No swelling, erythema, or pain to palpation. Objective Data Vital Signs Vital Signs: Vital Signs - 24 hr 05/11/25 10:00 05/11/25 12:00 05/11/25 14:00 Temperature 98.4 F Pulse Rate 101 H 94 Respiratory Rate 12 Blood Pressure 171/83 H Pulse Oximetry 97 97 Oxygen Delivery Room Air 05/11/25 16:00 05/11/25 16:02 05/11/25 16:18 Temperature 98.4 F 98.6 F Pulse Rate 96 97 99 Respiratory Rate 20 20 Blood Pressure 156/82 H 166/90 H Pulse Oximetry 99 98 Oxygen Delivery 05/11/25 17:18 05/11/25 18:07 05/11/25 19:20 Temperature 98.4 F 98.4 F 98.4 F Pulse Rate 95 96 96 Respiratory Rate 20 20 20 Blood Pressure 166/83 H 166/86 H 165/96 H Pulse Oximetry 97 97 98 Oxygen Delivery 05/11/25 19:26 05/11/25 19:35 05/11/25 20:00 Temperature 98.4 F Pulse Rate 98 97 Respiratory Rate 18 Blood Pressure 171/49 H Pulse Oximetry 98 Oxygen Delivery Room Air 05/11/25 20:35 05/11/25 21:40 05/11/25 22:00 Temperature 98.4 F 98.4 F 98.2 F Pulse Rate 104 H 98 93 Respiratory Rate 18 18 18 Blood Pressure 171/82 H 164/81 H 160/80 H Pulse Oximetry 96 97 97 Oxygen Delivery 05/12/25 00:00 05/12/25 04:00 05/12/25 06:00 Temperature 98.4 F Pulse Rate 85 89 100 Respiratory Rate 18 Blood Pressure 144/88 H Pulse Oximetry 96 Oxygen Delivery Intake/Output Intake/Output: Intake & Output 05/09/25 05/10/25 05/11/2525 23:59 23:59 23:59 23:59 Intake Total 1385 2608 2058 500 Balance 1385 2608 2058 500 Meds/Results Medications: Active Medications Generic Name Dose Route Start Last Admin Trade Name Freq PRN Reason Stop Dose Admin Acetaminophen 1,000 mg 04/27/25 22:00 04/29/25 09:53 Acetaminophen 500 Mg Tablet PO 1,000 mg Q6H PRN Administration Mild Pain (1-3) or Fever Hydrocodone Bitart/Acetaminophen 1 tab 04/28/25 11:33 05/12/25 06:13 Hydrocodone/Acetaminophen (*Crx) 7.5-325 Mg Tablet PO 05/17/25 23:59 1 tab Q6H PRN Administration pain of 7-10 Albuterol 2 puff 04/28/25 12:47 04/29/25 05:54 Albuterol Sulfate (*Sp) Aerosol 1 Puff INHALATION 2 puff Q4H PRN Administration shortness of breath or wheezing Albuterol/Ipratropium 3 ml 04/29/25 09:35 05/02/25 14:05 Ipratropium 0.5 Mg/Albuterol Sulfate 2.5 Mg Ampul.Neb 3 Ml INHALATION 3 ml Q6HRT PRN Administration Shortness Of Breath Or Wheezing Cyanocobalamin 500 mcg 04/29/25 09:00 05/12/25 08:07 Cyanocobalamin 500 Mcg Tablet PO 500 mcg DAILY CL Administration Dicyclomine HCl 10 mg 04/28/25 13:00 05/12/25 08:07 Dicyclomine Hcl 10 Mg Capsule PO 10 mg TID CL Administration Diphenhydramine HCl 25 mg 04/29/25 09:32 04/29/25 09:51 Diphenhydramine Hcl Inj 50 Mg/Ml Vial IV PUSH 25 mg Q4H PRN Administration Pre treat for blood products Famotidine 20 mg 04/29/25 09:32 04/29/25 09:51 Famotidine 20 Mg/2 Ml Vial IV PUSH 20 mg PRN PRN Administration Pre treat for blood products Ferrous Sulfate 325 mg 04/29/25 09:00 05/12/25 08:07 Ferrous Sulfate [address] BY MOUTH 325 mg DAILY CL Administration Lisinopril 5 mg 05/10/25 09:45 05/12/25 08:07 Lisinopril 5 Mg Tablet PO 5 mg QAM CL Administration Methylprednisolone Sodium Succinate 80 mg 05/07/25 22:00 05/12/25 06:12 Methylprednisolone Sod Succ 125 Mg Vial IV PUSH 80 mg Q8HR CL Administration Pantoprazole Sodium 40 mg 05/02/25 21:00 05/12/25 08:07 Pantoprazole 40 Mg Tablet PO 40 mg Q12HR CL Administration Polyethylene Glycol 17 gm 05/01/25 08:40 05/12/25 06:13 Polyethylene Glycol 3350 17 Gm Powd.Pack PO 17 gm QAM PRN Administration Constipation Prochlorperazine Edisylate 10 mg 05/06/25 10:57 05/06/25 12:02 Prochlorperazine Edisylate 10 Mg/2 Ml Vial IV PUSH 10 mg Q6H PRN Administration Nausea And Vomiting Promethazine HCl 12.5 mg 05/06/25 08:02 05/06/25 09:12 Promethazine Hcl 12.5 Mg Tablet PO 12.5 mg Q6HR PRN Administration Nausea And Vomiting Tramadol HCl 25 mg 04/28/25 02:43 05/11/25 21:51 Tramadol Hcl (*Crx) 25 Mg Tablet PO 05/17/25 23:59 25 mg Q4H PRN Administration Pain Rated 4-6 Radiology Results: ITS Impressions Chest/Abdomen/Pelvis CT 04/28/25 05:38 Impression: 3.3 x 2.1 cm medial right breast mass is highly suspicious for breast carcinoma. Diagnostic mammogram/ultrasound recommended for further evaluation. Findings compatible osseous metastatic disease, especially in the iliac bones and spine, with probable pathologic compression fractures of T1 and T12. Single mildly prominent lymph node along the left common iliac chain, indeterminate for metastatic lymphadenopathy. Moderate to large left pleural effusion with complete left lower lobe atelectasis. Minimal right pleural effusion with minimal right basilar atelectasis. Mild left hydronephrosis. No obstructing mass or stone clearly evident. Cardiac Catheterization 05/05/25 18:44 IMPRESSION: 1. Fluoro-guided bone marrow aspiration. 2. Fluoro-guided bone marrow core biopsy. 3. 35 minutes of moderate sedation. Chest X-Ray 05/05/25 19:06 IMPRESSION: No pneumothorax following left-sided thoracentesis, as detailed above. Thoracentesis Ultrasound 05/05/25 19:10 IMPRESSION: 1. Successful ultrasound-guided thoracentesis yielding 1000 mL of dark taz fluid. Labs Labs: Laboratory Results - last 24 hr 05/09/25 05/11/25 05/12/25 17:34 10:46 05:42 WBC 2.8 L RBC 2.32 L Hgb 7.1 L Hct 21.4 L MCV 92.2 MCH 30.6 MCHC 33.2 RDW 14.3 Plt Count 72 L D MPV 9.7 Immature Gran % (Auto) 14.6 H Neut % (Auto) 58.6 Lymph % (Auto) 13.9 L [place] % (Auto) 11.8 H Eos % (Auto) 0.0 Baso % (Auto) 1.1 Lymph # (Auto) 0.39 L [place] # (Auto) 0.3 Eos # (Auto) 0.0 Baso # (Auto) 0.0 Abs Immat Gran (auto) 0.41 H Absolute Neuts (auto) 1.6 Absolute Nucleated RBC 0.380 H Nucleated RBC % 13.6 H Sodium 137 Potassium 3.7 Chloride 100 Carbon Dioxide 29 Anion Gap 8 BUN 17 Creatinine 0.51 L Estim Creat Clear Calc 119 Estimated GFR > 60 Glucose 123 H Calcium 10.3 H Magnesium 2.4 H CA 15-3 Antigen 472.0 H Blood Type O Positive Quality VTE Prophylaxis VTE prophylaxis: mechanical ordered
[2025-05-12 09:52] LABS: Alanine Aminotransferase 137 U/L (6-35); Albumin Level 3.3 g/dL (3.5-5.1); Alkaline Phosphatase 142 U/L (38-126); Aspartate Amino Transferase 250 U/L (14-36); Bilirubin,Total 0.6 mg/dL (0.2-1.3); Total Protein 6.1 g/dL (6.3-8.2)
[2025-05-12] MEDS: traMADol HCL (*CRX) 25 MG TABLET PO (21:55)
[2025-05-13] VITALS (10 sets, daily range): BP systolic 136–154; BP diastolic 70–72; PULSE 83–131; RESP 18; TEMP 36.4–36.7; O2SAT 96–97
[2025-05-13] MEDS: HYDROcodone/acetaminophen (*CRX) 7.5-325 MG TABLET 1 TAB PO ×5 (01:43→22:25)
[2025-05-13 05:36] LABS: Hematocrit 21.8 % (37.0-47.0); Hemoglobin 7.2 g/dL (12.0-15.0); Immature Granulocyte Percent A 11.6 % (0-0.5); Immature Platelet Fraction Pct 1.9 % (0.9-11.2); Lymphocytes Absolute Auto 0.34 K/mm3 (0.9-3.2); Mean Corpuscular HGB Conc 33.0 g/dl (32-36); Mean Corpuscular Hemoglobin 30.8 pg (26-34); Mean Corpuscular Volume 93.2 fl (80-100); Nucleated Red Blood Cells Absolute Auto 0.390 K/mm3 (0.0-0.012); Nucleated Red Blood Cells Perc 13.3 % (0.0-0.2); Platelet Count Result 54 k/mm3 (150-375); Red Blood Count 2.34 M/mm3 (4.2-5.4); White Blood Count 2.9 K/mm3 (4.5-10.0)
[2025-05-13 06:19] LABS: Alanine Aminotransferase 170 U/L (6-35); Albumin Level 3.3 g/dL (3.5-5.1); Alkaline Phosphatase 142 U/L (38-126); Anion Gap 8 mmol/L (4-12); Aspartate Amino Transferase 297 U/L (14-36); Bilirubin,Total 0.7 mg/dL (0.2-1.3); Blood Urea Nitrogen 23 mg/dL (7-17); Calcium 10.3 mg/dL (8.4-10.2); Carbon Dioxide 27 mmol/L (22-30); Chloride 102 mmol/L (98-107); Estimated CRCL calculation 103 ml/min; Estimated Glomerular Filt Rate > 60; Glucose 119 mg/dL (65-110); Potassium 3.9 mmol/L (3.4-5.0); Sodium 137 mmol/L (137-145); Total Protein 6.3 g/dL (6.3-8.2)
[2025-05-13] MEDS: traMADol HCL (*CRX) 25 MG TABLET PO (06:21)
[2025-05-13] MEDS: FERROUS SULFATE 325 MG TABLET DR BY MOUTH (08:27)
[2025-05-13] MEDS: PANTOPRAZOLE 40 MG TABLET PO ×2 (08:28→22:24)
[2025-05-13] MEDS: DICYCLOMINE HCL 10 MG CAPSULE PO ×3 (08:28→17:34)
[2025-05-13] MEDS: CYANOCOBALAMIN 500 MCG TABLET PO (08:29)
--- NOTE | 2025-05-13 10:43 | PCNFU ---
Nutrition Follow-Up Complete: Severe protein calorie malnutrition related to chronic metastatic cancer as evidenced by weight loss 13%/3 months; intakes<75% needs >1 month Intakes>75%- Goal is being met with intakes 75-100%. Continue with current goal Goal: Pt current nutrition is Heart Healthy diet. Nutrition recommendation: No new recommendations. Continue current nutrition care plan and orders. Agree with orders Last recorded weight is 88.8 kg. Bowel Motility: +BM 05/12 Labs Reviewed: Hgb 7.2, Hct 21.8, Alb 3.3, BUN 23, Cre 0.6, Glu 119 Meds Noted: Vit B12, Bentyl, Protonix, solumedrol Skin: WNL Additional Notes: Intakes improved 75-100%. Pt declined supplements. Continue to follow. Monitoring intakes, weights, labs, plan of care Follow up in 5 days
--- NOTE | 2025-05-13 11:25 | P.PNIM_ITS ---
Progress Note: A&P Assessment and Plan (1) Pancytopenia: Code(s): D61.818 - Other pancytopenia Status: Acute Assessment and Plan: Bone marrow bx inconclusive * Received 4 PRBC and 10 platelets since admission in total * metastatic breast cancer ERPR positive and HER2 Qian negative with PIK3CA mutation * On solumedrol IV for possible ITP * Afebrile since 04/28, abx complete. blood culture x1 negative after 5 days * Oncology onboard, recommend transfer to [facility]. Called 05/12 and still waiting for medicine bed. No time frame or assigned bed as of 930am. Accepted by Dr. Camacho per EMR * Isolation for immunocompromise (2) Malignant pleural effusion: Code(s): J91.0 - Malignant pleural effusion Status: Acute Assessment and Plan: Breast cancer cells found in pleural fluid * pt on room air with no SOB * Monitor, may need therapeutic drain in the future (3) Breast cancer: Code(s): C50.919 - Malignant neoplasm of unspecified site of unspecified female breast Status: Acute Assessment and Plan: Reoccurrence--CA-15 increased * CT with osseous metastatic disease and pleural effusion * malignant left pleural effusion-cytology with metastatic breast cancer * obtain liver u/s showing * Multiple hypoechoic liver lesions measuring up to 2.9 cm, concerning for metastatic disease. (4) Hepatic steatosis: Code(s): K76.0 - Fatty (change of) liver, not elsewhere classified Status: Acute Assessment and Plan: * US :IMPRESSION: Mild hepatomegaly. Echogenic liver, most commonly due to steatosis but also can be seen with hepatitis and fibrosis. Multiple hypoechoic liver lesions measuring up to 2.9 cm, concerning for metastatic disease. (5) Elevated liver transaminase level: Code(s): R74.01 - Elevation of levels of liver transaminase levels Status: Acute Assessment and Plan: * As above Plan Code status: Full code per patient DVT prophylaxis: SCD's Stress ulcer prophylaxis: Protonix 40 BID PT/OT notes: Transfer Disposition: Patient continues admission for pantocytopenia secondary to evidence of new metastatic breast cancer in the pleuritic fluid and concern to metastatic to the liver. Waiting on transfer to [facility]. Time Spent With Patient Time with patient: 15 - 25 minutes Subjective Date/time seen: 05/13/25 11:25 Interval history: Pt is a 55-year-old female here for pancytopenia. Patient with metastatic breast cancer is currently waiting for transfer to [facility] being treated for possible ITP Dr. Camacho accepting once bed placement made. 05/13/2025: Patient with no complaints. Denies CP, SOB, N/V, fever or chills. Spoke with her about transferring to [facility] would like to wait a dew more days prefers to go to [facility]. She has remained afebrile. Patient did have moderate back pain from b one lesions increased pain medication. Review of Systems Review of Systems: All systems reviewed & are unremarkable except as noted in HPI and below Exam Narrative: General: Well developed well nourished patient in NAD HEENT: normocephalic Neck: supple Neuro: Alert and oriented x4 CV:mild decreased breath sounds on the left, overall good lung sounds Resp:CTA Abd: Soft, non distended. No pain to palpation. Positive bowel sounds Extremities: No swelling, erythema, or pain to palpation. Objective Data Vital Signs Vital Signs: Vital Signs - 24 hr 05/12/25 12:05 05/12/25 14:00 05/12/25 16:04 Temperature 98.1 F Pulse Rate 85 86 85 Respiratory Rate 12 Blood Pressure 153/80 H Pulse Oximetry 97 Oxygen Delivery 05/12/25 20:00 05/12/25 20:00 05/12/25 22:00 Temperature 98.4 F Pulse Rate 93 88 Respiratory Rate 18 Blood Pressure 161/74 H Pulse Oximetry 97 Oxygen Delivery Room Air 05/13/25 00:00 05/13/25 04:00 05/13/25 06:00 Temperature 97.5 F L Pulse Rate 83 87 91 Respiratory Rate 18 Blood Pressure 140/72 Pulse Oximetry 97 Oxygen Delivery 05/13/25 08:04 05/13/25 08:10 Temperature Pulse Rate 102 H Respiratory Rate Blood Pressure Pulse Oximetry Oxygen Delivery Room Air Intake/Output Intake/Output: Intake & Output 05/10/25 05/11/25 05/12/25 05/13/25 23:59 23:59 23:59 23:59 Intake Total 2608 2058 1440 636 Balance 2608 2058 1440 636 Meds/Results Medications: Active Medications Generic Name Dose Route Start Last Admin Trade Name Freq PRN Reason Stop Dose Admin Acetaminophen 1,000 mg 04/27/25 22:00 04/29/25 09:53 Acetaminophen 500 Mg Tablet PO 1,000 mg Q6H PRN Administration Mild Pain (1-3) or Fever Hydrocodone Bitart/Acetaminophen 1 tab 04/28/25 11:33 05/13/25 08:27 Hydrocodone/Acetaminophen (*Crx) 7.5-325 Mg Tablet PO 05/17/25 23:59 1 tab Q6H PRN Administration pain of 7-10 Albuterol 2 puff 04/28/25 12:47 04/29/25 05:54 Albuterol Sulfate (*Sp) Aerosol 1 Puff INHALATION 2 puff Q4H PRN Administration shortness of breath or wheezing Albuterol/Ipratropium 3 ml 04/29/25 09:35 05/02/25 14:05 Ipratropium 0.5 Mg/Albuterol Sulfate 2.5 Mg Ampul.Neb 3 Ml INHALATION 3 ml Q6HRT PRN Administration Shortness Of Breath Or Wheezing Cyanocobalamin 500 mcg 04/29/25 09:00 05/13/25 08:29 Cyanocobalamin 500 Mcg Tablet PO 500 mcg DAILY CL Administration Dicyclomine HCl 10 mg 04/28/25 13:00 05/13/25 08:28 Dicyclomine Hcl 10 Mg Capsule PO 10 mg TID CL Administration Diphenhydramine HCl 25 mg 04/29/25 09:32 04/29/25 09:51 Diphenhydramine Hcl Inj 50 Mg/Ml Vial IV PUSH 25 mg Q4H PRN Administration Pre treat for blood products Famotidine 20 mg 04/29/25 09:32 04/29/25 09:51 Famotidine 20 Mg/2 Ml Vial IV PUSH 20 mg PRN PRN Administration Pre treat for blood products Ferrous Sulfate 325 mg 04/29/25 09:00 05/13/25 08:27 Ferrous Sulfate [address] BY MOUTH 325 mg DAILY CL Administration Lisinopril 5 mg 05/10/25 09:45 05/13/25 08:28 Lisinopril 5 Mg Tablet PO 5 mg QAM CL Administration Methylprednisolone Sodium Succinate 80 mg 05/07/25 22:00 05/13/25 06:21 Methylprednisolone Sod Succ 125 Mg Vial IV PUSH 80 mg Q8HR CL Administration Pantoprazole Sodium 40 mg 05/02/25 21:00 05/13/25 08:28 Pantoprazole 40 Mg Tablet PO 40 mg Q12HR CL Administration Polyethylene Glycol 17 gm 05/01/25 08:40 05/12/25 06:13 Polyethylene Glycol 3350 17 Gm Powd.Pack PO 17 gm QAM PRN Administration Constipation Prochlorperazine Edisylate 10 mg 05/06/25 10:57 05/06/25 12:02 Prochlorperazine Edisylate 10 Mg/2 Ml Vial IV PUSH 10 mg Q6H PRN Administration Nausea And Vomiting Promethazine HCl 12.5 mg 05/06/25 08:02 05/06/25 09:12 Promethazine Hcl 12.5 Mg Tablet PO 12.5 mg Q6HR PRN Administration Nausea And Vomiting Tramadol HCl 25 mg 04/28/25 02:43 05/13/25 06:21 Tramadol Hcl (*Crx) 25 Mg Tablet PO 05/17/25 23:59 25 mg Q4H PRN Administration Pain Rated 4-6 Radiology Results: ITS Impressions Chest/Abdomen/Pelvis CT 04/28/25 05:38 Impression: 3.3 x 2.1 cm medial right breast mass is highly suspicious for breast carcinoma. Diagnostic mammogram/ultrasound recommended for further evaluation. Findings compatible osseous metastatic disease, especially in the iliac bones and spine, with probable pathologic compression fractures of T1 and T12. Single mildly prominent lymph node along the left common iliac chain, indeterminate for metastatic lymphadenopathy. Moderate to large left pleural effusion with complete left lower lobe atelectasis. Minimal right pleural effusion with minimal right basilar atelectasis. Mild left hydronephrosis. No obstructing mass or stone clearly evident. Cardiac Catheterization 05/05/25 18:44 IMPRESSION: 1. Fluoro-guided bone marrow aspiration. 2. Fluoro-guided bone marrow core biopsy. 3. 35 minutes of moderate sedation. Chest X-Ray 05/05/25 19:06 IMPRESSION: No pneumothorax following left-sided thoracentesis, as detailed above. Thoracentesis Ultrasound 05/05/25 19:10 IMPRESSION: 1. Successful ultrasound-guided thoracentesis yielding 1000 mL of dark taz fluid. Abdomen Ultrasound 05/12/25 15:32 IMPRESSION: Mild hepatomegaly. Echogenic liver, most commonly due to steatosis but also can be seen with hepatitis and fibrosis. Multiple hypoechoic liver lesions measuring up to 2.9 cm, concerning for metastatic disease. Labs Labs: Laboratory Results - last 24 hr 05/13/25 05:28 WBC 2.9 L RBC 2.34 L Hgb 7.2 L Hct 21.8 L MCV 93.2 MCH 30.8 MCHC 33.0 RDW 14.6 H Plt Count 54 L MPV 10.3 Immature Gran % (Auto) 11.6 H Neut % (Auto) 61.4 Lymph % (Auto) 11.6 L [place] % (Auto) 13.3 H Eos % (Auto) 0.7 Baso % (Auto) 1.4 H Lymph # (Auto) 0.34 L [place] # (Auto) 0.4 Eos # (Auto) 0.0 Baso # (Auto) 0.0 Abs Immat Gran (auto) 0.34 H Absolute Neuts (auto) 1.8 Absolute Nucleated RBC 0.390 H Nucleated RBC % 13.3 H % Immature Plt Fraction 1.9 Sodium 137 Potassium 3.9 Chloride 102 Carbon Dioxide 27 Anion Gap 8 BUN 23 H Creatinine 0.60 L Estim Creat Clear Calc 103 Estimated GFR > 60 Glucose 119 H Calcium 10.3 H Total Bilirubin 0.7 AST 297 H ALT 170 H Alkaline Phosphatase 142 H Total Protein 6.3 Albumin 3.3 L Quality VTE Prophylaxis VTE prophylaxis: mechanical ordered -Patient's previous records reviewed on admission -ER notes reviewed in detail on admission -discussed all findings and current treatment plan with patient/Family/POA -Consultations reviewed for recommendations -Patient's disposition for safe discharge discussed with sample case porter Dictation performed by [facility] direct speech recognition software, therefore power transformer repair supervisor variants and typographical errors may occur. Hospitalist MIPS Advance Care Plan I have confirmed that the patient's Advanced Care Plan is present, code status is documented, or surrogate decision maker is listed in patient medical record.: Yes Medication Reconciliation I have utilized all available resources to obtain, update and review the patients current medications (includes all prescriptions, OTC, herbals, cannabis, and nutritional supplements).: Yes The patient is not eligible for med reconciliation; the patient is in a emergent medical situation where delaying treatment would jeopardize the patients health.: No
--- NOTE | 2025-05-13 11:45 | PCPTNOTE ---
Attempted to see patient for PT, however patient refused. Patient reported she is not feeling well.
--- NOTE | 2025-05-13 15:28 | PCPTNOTE ---
Attempted to see patient for PT, however patient declined. Patient reported she was up already and just got back to bed.
[2025-05-14] VITALS (9 sets, daily range): BP systolic 140–157; BP diastolic 76–90; PULSE 83–98; RESP 14–18; TEMP 36.5–36.9; O2SAT 97–100
[2025-05-14 05:31] LABS: Hematocrit 23.5 % (37.0-47.0); Hemoglobin 7.6 g/dL (12.0-15.0); Mean Corpuscular HGB Conc 32.3 g/dl (32-36); Mean Corpuscular Hemoglobin 30.8 pg (26-34); Mean Corpuscular Volume 95.1 fl (80-100); Platelet Count Result 37 k/mm3 (150-375); Red Blood Count 2.47 M/mm3 (4.2-5.4); White Blood Count 3.5 K/mm3 (4.5-10.0)
[2025-05-14] MEDS: HYDROcodone/acetaminophen (*CRX) 7.5-325 MG TABLET 1 TAB PO ×4 (05:53→21:37)
[2025-05-14] MEDS: PANTOPRAZOLE 40 MG TABLET PO ×2 (08:21→21:37)
[2025-05-14] MEDS: CYANOCOBALAMIN 500 MCG TABLET PO (08:21)
[2025-05-14] MEDS: FERROUS SULFATE 325 MG TABLET DR BY MOUTH (08:21)
[2025-05-14] MEDS: DICYCLOMINE HCL 10 MG CAPSULE PO ×3 (08:21→17:09)
--- NOTE | 2025-05-14 10:29 | P.PNIM_ITS ---
Progress Note: A&P Assessment and Plan (1) Pancytopenia: Code(s): D61.818 - Other pancytopenia Status: Acute Assessment and Plan: Bone marrow bx inconclusive * Received 4 PRBC and 10 platelets since admission in total * metastatic breast cancer ERPR positive and HER2 Qian negative with PIK3CA mutation * On solumedrol IV for possible ITP * Afebrile since 04/28, abx complete. blood culture x1 negative after 5 days * Oncology onboard, recommend transfer to [facility]. Called 05/14 and still waiting for medicine bed. No time frame or assigned bed as of 930am. Accepted by Dr. Camacho per EMR * Isolation for immunocompromise * PLT down to 37 transfuse <15 * Will likely attempt [facility] tomorrow if patient and family agree (2) Malignant pleural effusion: Code(s): J91.0 - Malignant pleural effusion Status: Acute Assessment and Plan: Breast cancer cells found in pleural fluid * pt on room air with no SOB * Monitor, may need therapeutic drain in the future (3) Breast cancer: Code(s): C50.919 - Malignant neoplasm of unspecified site of unspecified female breast Status: Acute Assessment and Plan: Reoccurrence--CA-15 increased * CT with osseous metastatic disease and pleural effusion * malignant left pleural effusion-cytology with metastatic breast cancer * obtain liver u/s showing Multiple hypoechoic liver lesions measuring up to 2.9 cm, concerning for metastatic disease. (4) Hepatic steatosis: Code(s): K76.0 - Fatty (change of) liver, not elsewhere classified Status: Acute Assessment and Plan: * US :IMPRESSION: Mild hepatomegaly. Echogenic liver, most commonly due to steatosis but also can be seen with hepatitis and fibrosis. Multiple hypoechoic liver lesions measuring up to 2.9 cm, concerning for metastatic disease. (5) Elevated liver transaminase level: Code(s): R74.01 - Elevation of levels of liver transaminase levels Status: Acute Assessment and Plan: * As above Plan Code status: Full code per patient DVT prophylaxis: SCD's Stress ulcer prophylaxis: Protonix 40 BID PT/OT notes: Transfer Disposition: Patient continues admission for pancytopenia secondary to evidence of new metastatic breast cancer in the pleuritic fluid and concern to metastatic to the liver. Waiting on transfer to [facility]. Time Spent With Patient Time with patient: 15 - 25 minutes Subjective Date/time seen: 05/14/25 10:29 Interval history: Pt is a 55-year-old female here for pancytopenia. Patient with metastatic breast cancer is currently waiting for transfer to [facility] being treated for possible ITP Dr. Camacho accepting once bed placement made. 05/14/2025: Patient with no acute distress comfortable. Spoke with family regarding transfer and attempting [facility] plan to discuss with family tonight she is co ncerned about waiting for bed and not receiving any treatment. Review of Systems Review of Systems: All systems reviewed & are unremarkable except as noted in HPI and below Exam Narrative: General: Well developed well nourished patient in NAD HEENT: normocephalic Neck: supple Neuro: Alert and oriented x4 CV:mild decreased breath sounds on the left, overall good lung sounds Resp:CTA Abd: Soft, non distended. No pain to palpation. Positive bowel sounds Extremities: No swelling, erythema, or pain to palpation. Objective Data Vital Signs Vital Signs: Vital Signs - 24 hr 05/13/25 12:05 05/13/25 14:00 05/13/25 16:04 Temperature 97.6 F Pulse Rate 95 100 84 Respiratory Rate 18 Blood Pressure 136/72 Pulse Oximetry 97 Oxygen Delivery 05/13/25 20:00 05/13/25 20:00 05/13/25 20:16 Temperature Pulse Rate 131 H Respiratory Rate Blood Pressure Pulse Oximetry 96 Oxygen Delivery Room Air Room Air 05/13/25 22:11 05/14/25 00:00 05/14/25 04:00 Temperature 98.1 F Pulse Rate 91 87 90 Respiratory Rate 18 Blood Pressure 154/70 H Pulse Oximetry 97 Oxygen Delivery 05/14/25 06:00 Temperature 97.7 F Pulse Rate 92 Respiratory Rate 18 Blood Pressure 141/76 H Pulse Oximetry 97 Oxygen Delivery Intake/Output Intake/Output: Intake & Output 05/11/25 05/12/25 05/13/25 05/14/25 23:59 23:59 23:59 23:59 Intake Total 2057 1440 1706 800 Balance 2057 1440 1706 800 Meds/Results Medications: Active Medications Generic Name Dose Route Start Last Admin Trade Name Freq PRN Reason Stop Dose Admin Acetaminophen 1,000 mg 04/27/25 22:00 04/29/25 09:53 Acetaminophen 500 Mg Tablet PO 1,000 mg Q6H PRN Administration Mild Pain (1-3) or Fever Hydrocodone Bitart/Acetaminophen 1 tab 05/13/25 14:54 05/14/25 10:08 Hydrocodone/Acetaminophen (*Crx) 7.5-325 Mg Tablet PO 05/17/25 23:59 1 tab Q4H PRN Administration Pain Rated 7-10 Albuterol 2 puff 04/28/25 12:47 04/29/25 05:54 Albuterol Sulfate (*Sp) Aerosol 1 Puff INHALATION 2 puff Q4H PRN Administration shortness of breath or wheezing Albuterol/Ipratropium 3 ml 04/29/25 09:35 05/02/25 14:05 Ipratropium 0.5 Mg/Albuterol Sulfate 2.5 Mg Ampul.Neb 3 Ml INHALATION 3 ml Q6HRT PRN Administration Shortness Of Breath Or Wheezing Cyanocobalamin 500 mcg 04/29/25 09:00 05/14/25 08:21 Cyanocobalamin 500 Mcg Tablet PO 500 mcg DAILY CL Administration Dicyclomine HCl 10 mg 04/28/25 13:00 05/14/25 08:21 Dicyclomine Hcl 10 Mg Capsule PO 10 mg TID CL Administration Diphenhydramine HCl 25 mg 04/29/25 09:32 04/29/25 09:51 Diphenhydramine Hcl Inj 50 Mg/Ml Vial IV PUSH 25 mg Q4H PRN Administration Pre treat for blood products Famotidine 20 mg 04/29/25 09:32 04/29/25 09:51 Famotidine 20 Mg/2 Ml Vial IV PUSH 20 mg PRN PRN Administration Pre treat for blood products Ferrous Sulfate 325 mg 04/29/25 09:00 05/14/25 08:21 Ferrous Sulfate [address] BY MOUTH 325 mg DAILY CL Administration Hydromorphone HCl 0.5 mg 05/13/25 14:54 Hydromorphone Hcl Inj (*Crx) 2 Mg/Ml Vial IV PUSH Q3H PRN Breakthrough Pain Lisinopril 5 mg 05/10/25 09:45 05/14/25 08:21 Lisinopril 5 Mg Tablet PO 5 mg QAM CL Administration Methylprednisolone Sodium Succinate 80 mg 05/07/25 22:00 05/14/25 05:54 Methylprednisolone Sod Succ 125 Mg Vial IV PUSH 80 mg Q8HR CL Administration Pantoprazole Sodium 40 mg 05/02/25 21:00 05/14/25 08:21 Pantoprazole 40 Mg Tablet PO 40 mg Q12HR CL Administration Polyethylene Glycol 17 gm 05/01/25 08:40 05/14/25 05:53 Polyethylene Glycol 3350 17 Gm Powd.Pack PO 17 gm QAM PRN Administration Constipation Prochlorperazine Edisylate 10 mg 05/06/25 10:57 05/06/25 12:02 Prochlorperazine Edisylate 10 Mg/2 Ml Vial IV PUSH 10 mg Q6H PRN Administration Nausea And Vomiting Promethazine HCl 12.5 mg 05/06/25 08:02 05/06/25 09:12 Promethazine Hcl 12.5 Mg Tablet PO 12.5 mg Q6HR PRN Administration Nausea And Vomiting Tramadol HCl 25 mg 04/28/25 02:43 05/13/25 06:21 Tramadol Hcl (*Crx) 25 Mg Tablet PO 05/17/25 23:59 25 mg Q4H PRN Administration Pain Rated 4-6 Radiology Results: ITS Impressions Chest/Abdomen/Pelvis CT 04/28/25 05:38 Impression: 3.3 x 2.1 cm medial right breast mass is highly suspicious for breast carcinoma. Diagnostic mammogram/ultrasound recommended for further evaluation. Findings compatible osseous metastatic disease, especially in the iliac bones and spine, with probable pathologic compression fractures of T1 and T12. Single mildly prominent lymph node along the left common iliac chain, indeterminate for metastatic lymphadenopathy. Moderate to large left pleural effusion with complete left lower lobe atelectasis. Minimal right pleural effusion with minimal right basilar atelectasis. Mild left hydronephrosis. No obstructing mass or stone clearly evident. Cardiac Catheterization 05/05/25 18:44 IMPRESSION: 1. Fluoro-guided bone marrow aspiration. 2. Fluoro-guided bone marrow core biopsy. 3. 35 minutes of moderate sedation. Chest X-Ray 05/05/25 19:06 IMPRESSION: No pneumothorax following left-sided thoracentesis, as detailed above. Thoracentesis Ultrasound 05/05/25 19:10 IMPRESSION: 1. Successful ultrasound-guided thoracentesis yielding 1000 mL of dark taz fluid. Abdomen Ultrasound 05/12/25 15:32 IMPRESSION: Mild hepatomegaly. Echogenic liver, most commonly due to steatosis but also can be seen with hepatitis and fibrosis. Multiple hypoechoic liver lesions measuring up to 2.9 cm, concerning for metastatic disease. Labs Labs: Laboratory Results - last 24 hr 05/14/25 05/14/25 05:21 05:23 WBC 3.5 L RBC 2.47 L Hgb 7.6 L Hct 23.5 L MCV 95.1 MCH 30.8 MCHC 32.3 RDW 14.7 H Plt Count 37 L MPV 10.6 H Sodium Cancelled Potassium Cancelled Chloride Cancelled Carbon Dioxide Cancelled Anion Gap Cancelled BUN Cancelled Creatinine Cancelled Estim Creat Clear Calc Cancelled Estimated GFR Cancelled Glucose Cancelled Calcium Cancelled Magnesium Cancelled Total Bilirubin Cancelled AST Cancelled ALT Cancelled Alkaline Phosphatase Cancelled Total Protein Cancelled Albumin Cancelled Quality VTE Prophylaxis VTE prophylaxis: mechanical ordered -Patient's previous records reviewed on admission -ER notes reviewed in detail on admission -discussed all findings and current treatment plan with patient/Family/POA -Consultations reviewed for recommendations -Patient's disposition for safe discharge discussed with watch caser Dictation performed by [employer] direct speech recognition software, therefore solder making laborer variants and typographical errors may occur. Hospitalist MIPS Advance Care Plan I have confirmed that the patient's Advanced Care Plan is present, code status is documented, or surrogate decision maker is listed in patient medical record.: Yes Medication Reconciliation I have utilized all available resources to obtain, update and review the patients current medications (includes all prescriptions, OTC, herbals, cannabis, and nutritional supplements).: Yes The patient is not eligible for med reconciliation; the patient is in a emergent medical situation where delaying treatment would jeopardize the patients health.: No
[2025-05-15] VITALS (8 sets, daily range): BP systolic 144–145; BP diastolic 75–78; PULSE 77–93; RESP 18; TEMP 36.2–36.6; O2SAT 97–98
[2025-05-15] MEDS: HYDROcodone/acetaminophen (*CRX) 7.5-325 MG TABLET 1 TAB PO ×3 (01:56→15:45)
[2025-05-15 05:25] LABS: Hematocrit 22.6 % (37.0-47.0); Hemoglobin 7.4 g/dL (12.0-15.0); Immature Platelet Fraction Pct 3.6 % (0.9-11.2); Mean Corpuscular HGB Conc 32.7 g/dl (32-36); Mean Corpuscular Hemoglobin 30.6 pg (26-34); Mean Corpuscular Volume 93.4 fl (80-100); Red Blood Count 2.42 M/mm3 (4.2-5.4); White Blood Count 3.7 K/mm3 (4.5-10.0)
[2025-05-15 05:43] LABS: Alanine Aminotransferase 197 U/L (6-35); Albumin Level 3.2 g/dL (3.5-5.1); Alkaline Phosphatase 161 U/L (38-126); Anion Gap 6 mmol/L (4-12); Aspartate Amino Transferase 304 U/L (14-36); Bilirubin,Total 0.7 mg/dL (0.2-1.3); Blood Urea Nitrogen 24 mg/dL (7-17); Calcium 10.1 mg/dL (8.4-10.2); Carbon Dioxide 28 mmol/L (22-30); Chloride 97 mmol/L (98-107); Estimated CRCL calculation 104 ml/min; Estimated Glomerular Filt Rate > 60; Glucose 132 mg/dL (65-110); Magnesium 2.7 mg/dL (1.6-2.3); Potassium 4.0 mmol/L (3.4-5.0); Sodium 131 mmol/L (137-145); Total Protein 5.9 g/dL (6.3-8.2)
[2025-05-15 05:47] LABS: Platelet Count Result 20 k/mm3 (150-375)
--- NOTE | 2025-05-15 06:56 | PC.NURSE ---
Walked pt in hallway. Only made it a short distance before getting to tired.
[2025-05-15] MEDS: CYANOCOBALAMIN 500 MCG TABLET PO (10:25)
[2025-05-15] MEDS: FERROUS SULFATE 325 MG TABLET DR BY MOUTH (10:25)
[2025-05-15] MEDS: DICYCLOMINE HCL 10 MG CAPSULE PO ×3 (10:25→17:41)
[2025-05-15] MEDS: FAMOTIDINE 20 MG TABLET PO (10:26)
--- NOTE | 2025-05-15 13:47 | P.PNIM_ITS ---
Progress Note: A&P Assessment and Plan (1) Pancytopenia: Code(s): D61.818 - Other pancytopenia Status: Acute Assessment and Plan: Bone marrow bx inconclusive * Received 4 PRBC and 10 platelets since admission in total * metastatic breast cancer ERPR positive and HER2 Qian negative with PIK3CA mutation * On solumedrol IV for possible ITP * Afebrile since 04/28, abx complete. blood culture x1 negative after 5 days * Oncology onboard, recommend transfer to [facility]. Called 05/14 and still waiting for medicine bed. No time frame or assigned bed as of 930am. Accepted by Dr. Camacho per EMR * Isolation for immunocompromise * PLT down to 20 transfuse <15 (2) Malignant pleural effusion: Code(s): J91.0 - Malignant pleural effusion Status: Acute Assessment and Plan: Breast cancer cells found in pleural fluid * pt on room air with no SOB * Monitor, may need therapeutic drain in the future (3) Breast cancer: Code(s): C50.919 - Malignant neoplasm of unspecified site of unspecified female breast Status: Acute Assessment and Plan: Reoccurrence--CA-15 increased * CT with osseous metastatic disease and pleural effusion * malignant left pleural effusion-cytology with metastatic breast cancer * obtain liver u/s showing Multiple hypoechoic liver lesions measuring up to 2.9 cm, concerning for metastatic disease. (4) Hepatic steatosis: Code(s): K76.0 - Fatty (change of) liver, not elsewhere classified Status: Acute Assessment and Plan: * US :IMPRESSION: Mild hepatomegaly. Echogenic liver, most commonly due to steatosis but also can be seen with hepatitis and fibrosis. Multiple hypoechoic liver lesions measuring up to 2.9 cm, concerning for metastatic disease. (5) Elevated liver transaminase level: Code(s): R74.01 - Elevation of levels of liver transaminase levels Status: Acute Assessment and Plan: * As above Plan Code status: Full code per patient DVT prophylaxis: SCD's Stress ulcer prophylaxis: Protonix 40 BID PT/OT notes: Transfer Disposition: Patient continues admission for pancytopenia secondary to evidence of new metastatic breast cancer in the pleuritic fluid and concern to metastatic to the liver. Waiting on transfer to [facility]. Time Spent With Patient Time with patient: 15 - 25 minutes Subjective Date/time seen: 05/15/25 13:47 Interval history: Pt is a 55-year-old female here for pancytopenia. Patient with metastatic breast cancer is currently waiting for transfer to [facility] being treated for possible ITP Dr. Camacho accepting once bed placement made. 05/14/2025: Patient was seen examined at bedside. She is feeling fine. Denies any chest pain, shortness of breath, abdominal pain, nausea vomiting. Denies any bleeding. With WBC 3.7, hemoglobin 7.4, platelet 20 Review of Systems Review of Systems: All systems reviewed & are unremarkable except as noted in HPI and below Exam Narrative: General: Well developed well nourished patient in NAD HEENT: normocephalic Neck: supple Neuro: Alert and oriented x4 CV:clear lung sounds Resp:CTA Abd: Soft, non distended. No pain to palpation. Positive bowel sounds Extremities: No swelling, erythema, or pain to palpation. Objective Data Vital Signs Vital Signs: Vital Signs - 24 hr 05/14/25 14:00 05/14/25 16:04 05/14/25 20:00 Temperature 98.4 F Pulse Rate 89 98 Respiratory Rate 14 Blood Pressure 140/78 Pulse Oximetry 97 Oxygen Delivery Room Air 05/14/25 20:00 05/14/25 21:42 05/15/25 00:00 Temperature 98.1 F Pulse Rate 83 88 77 Respiratory Rate 16 Blood Pressure 157/90 H Pulse Oximetry 100 Oxygen Delivery 05/15/25 04:00 05/15/25 05:22 Temperature 97.9 F Pulse Rate 85 92 Respiratory Rate 18 Blood Pressure 145/78 H Pulse Oximetry 97 Oxygen Delivery Intake/Output Intake/Output: Intake & Output 05/12/25 05/13/25 05/14/25 05/15/25 23:59 23:59 23:59 23:59 Intake Total 1440 1706 1580 370 Balance 1440 1706 1580 370 Meds/Results Medications: Active Medications Generic Name Dose Route Start Last Admin Trade Name Freq PRN Reason Stop Dose Admin Acetaminophen 1,000 mg 04/27/25 22:00 04/29/25 09:53 Acetaminophen 500 Mg Tablet PO 1,000 mg Q6H PRN Administration Mild Pain (1-3) or Fever Hydrocodone Bitart/Acetaminophen 1 tab 05/13/25 14:54 05/15/25 10:24 Hydrocodone/Acetaminophen (*Crx) 7.5-325 Mg Tablet PO 05/17/25 23:59 1 tab Q4H PRN Administration Pain Rated 7-10 Albuterol 2 puff 04/28/25 12:47 04/29/25 05:54 Albuterol Sulfate (*Sp) Aerosol 1 Puff INHALATION 2 puff Q4H PRN Administration shortness of breath or wheezing Albuterol/Ipratropium 3 ml 04/29/25 09:35 05/02/25 14:05 Ipratropium 0.5 Mg/Albuterol Sulfate 2.5 Mg Ampul.Neb 3 Ml INHALATION 3 ml Q6HRT PRN Administration Shortness Of Breath Or Wheezing Cyanocobalamin 500 mcg 04/29/25 09:00 05/15/25 10:25 Cyanocobalamin 500 Mcg Tablet PO 500 mcg DAILY CL Administration Dicyclomine HCl 10 mg 04/28/25 13:00 05/15/25 13:24 Dicyclomine Hcl 10 Mg Capsule PO 10 mg TID CL Administration Diphenhydramine HCl 25 mg 04/29/25 09:32 04/29/25 09:51 Diphenhydramine Hcl Inj 50 Mg/Ml Vial IV PUSH 25 mg Q4H PRN Administration Pre treat for blood products Famotidine 20 mg 04/29/25 09:32 04/29/25 09:51 Famotidine 20 Mg/2 Ml Vial IV PUSH 20 mg PRN PRN Administration Pre treat for blood products Famotidine 20 mg 05/15/25 09:00 05/15/25 10:26 Famotidine 20 Mg Tablet PO 20 mg Q12HR CL Administration Ferrous Sulfate 325 mg 04/29/25 09:00 05/15/25 10:25 Ferrous Sulfate [address] BY MOUTH 325 mg DAILY CL Administration Hydromorphone HCl 0.5 mg 05/13/25 14:54 Hydromorphone Hcl Inj (*Crx) 2 Mg/Ml Vial IV PUSH Q3H PRN Breakthrough Pain Lisinopril 5 mg 05/10/25 09:45 05/15/25 10:25 Lisinopril 5 Mg Tablet PO 5 mg QAM CL Administration Methylprednisolone Sodium Succinate 80 mg 05/07/25 22:00 05/15/25 13:24 Methylprednisolone Sod Succ 125 Mg Vial IV PUSH 80 mg Q8HR CL Administration Pantoprazole Sodium 40 mg 05/02/25 21:00 05/14/25 21:37 Pantoprazole 40 Mg Tablet PO 40 mg Q12HR CL Administration Polyethylene Glycol 17 gm 05/01/25 08:40 05/15/25 05:28 Polyethylene Glycol 3350 17 Gm Powd.Pack PO 17 gm QAM PRN Administration Constipation Prochlorperazine Edisylate 10 mg 05/06/25 10:57 05/06/25 12:02 Prochlorperazine Edisylate 10 Mg/2 Ml Vial IV PUSH 10 mg Q6H PRN Administration Nausea And Vomiting Promethazine HCl 12.5 mg 05/06/25 08:02 05/06/25 09:12 Promethazine Hcl 12.5 Mg Tablet PO 12.5 mg Q6HR PRN Administration Nausea And Vomiting Tramadol HCl 25 mg 04/28/25 02:43 05/13/25 06:21 Tramadol Hcl (*Crx) 25 Mg Tablet PO 05/17/25 23:59 25 mg Q4H PRN Administration Pain Rated 4-6 Radiology Results: ITS Impressions Chest/Abdomen/Pelvis CT 04/28/25 05:38 Impression: 3.3 x 2.1 cm medial right breast mass is highly suspicious for breast carcinoma. Diagnostic mammogram/ultrasound recommended for further evaluation. Findings compatible osseous metastatic disease, especially in the iliac bones and spine, with probable pathologic compression fractures of T1 and T12. Single mildly prominent lymph node along the left common iliac chain, indeterminate for metastatic lymphadenopathy. Moderate to large left pleural effusion with complete left lower lobe atelectasis. Minimal right pleural effusion with minimal right basilar atelectasis. Mild left hydronephrosis. No obstructing mass or stone clearly evident. Cardiac Catheterization 05/05/25 18:44 IMPRESSION: 1. Fluoro-guided bone marrow aspiration. 2. Fluoro-guided bone marrow core biopsy. 3. 35 minutes of moderate sedation. Chest X-Ray 05/05/25 19:06 IMPRESSION: No pneumothorax following left-sided thoracentesis, as detailed above. Thoracentesis Ultrasound 05/05/25 19:10 IMPRESSION: 1. Successful ultrasound-guided thoracentesis yielding 1000 mL of dark taz fluid. Abdomen Ultrasound 05/12/25 15:32 IMPRESSION: Mild hepatomegaly. Echogenic liver, most commonly due to steatosis but also can be seen with hepatitis and fibrosis. Multiple hypoechoic liver lesions measuring up to 2.9 cm, concerning for metastatic disease. Labs Labs: Laboratory Results - last 24 hr 05/15/25 05:16 WBC 3.7 L RBC 2.42 L Hgb 7.4 L Hct 22.6 L MCV 93.4 MCH 30.6 MCHC 32.7 RDW 14.6 H Plt Count 20 L* MPV 10.9 H % Immature Plt Fraction 3.6 Sodium 131 L Potassium 4.0 Chloride 97 L Carbon Dioxide 28 Anion Gap 6 BUN 24 H Creatinine 0.59 L Estim Creat Clear Calc 104 Estimated GFR > 60 Glucose 132 H Calcium 10.1 Magnesium 2.7 H Total Bilirubin 0.7 AST 304 H ALT 197 H Alkaline Phosphatase 161 H Total Protein 5.9 L Albumin 3.2 L Quality VTE Prophylaxis VTE prophylaxis: mechanical ordered -Patient's previous records reviewed on admission -ER notes reviewed in detail on admission -discussed all findings and current treatment plan with patient/Family/POA -Consultations reviewed for recommendations -Patient's disposition for safe discharge discussed with manager case Dictation performed by [employer] direct speech recognition software, therefore yardage control operator forming variants and typographical errors may occur. Hospitalist MIPS Advance Care Plan I have confirmed that the patient's Advanced Care Plan is present, code status is documented, or surrogate decision maker is listed in patient medical record.: Yes Medication Reconciliation I have utilized all available resources to obtain, update and review the patients current medications (includes all prescriptions, OTC, herbals, cannabis, and nutritional supplements).: Yes The patient is not eligible for med reconciliation; the patient is in a emergent medical situation where delaying treatment would jeopardize the patients health.: No
--- NOTE | 2025-05-15 17:47 | PM.DS ---
DS: Summary Time Spent with Patient Time attestation: Total time spent providing and/or coordinating discharge services: DS: Data Data Completed and Pending Completed studies during hospitalization: Pending at discharge 04/28/25 19:10 Bone Marrow [PTH] Routine 04/29/25 16:47 Surgical [PTH] Routine 05/05/25 17:41 Cytology [PTH] Routine Labs on day of discharge: Labs from last 24 hours 05/15/25 05:16 WBC 3.7 L RBC 2.42 L Hgb 7.4 L Hct 22.6 L MCV 93.4 MCH 30.6 MCHC 32.7 RDW 14.6 H Plt Count 20 L* MPV 10.9 H % Immature Plt Fraction 3.6 Sodium 131 L Potassium 4.0 Chloride 97 L Carbon Dioxide 28 Anion Gap 6 BUN 24 H Creatinine 0.59 L Estim Creat Clear Calc 104 Estimated GFR > 60 Glucose 132 H Calcium 10.1 Magnesium 2.7 H Total Bilirubin 0.7 AST 304 H ALT 197 H Alkaline Phosphatase 161 H Total Protein 5.9 L Albumin 3.2 L Discharge Plan Discharge Consulting providers: Rasheed Munoz; Nik Easley; Brandie Alejandre; Eloina Solomon Patient Disposition: Home with Home Health Service Discharge Instructions: Per Care Coordination: [facility] ([phone]) will call to schedule initial visit for PT/OT services. *RN please fax discharge instructions to [phone]* Patient Instructions: Antibiotic Form, Bone Marrow Biopsy (DC) Patient Language: Maltese Stand Alone Forms: General Discharge Information Discharge Medications: No Action anastrozole 1 mg Tablet 1 mg PO DAILY Patient Comments: . Ibrance 125 mg Capsule 125 mg PO DAILY Rx Instructions: administer on days 1 through 21 of a 28-day treatment cycle hydrocodone-acetaminophen 7.5-325 mg tablet 1 tablet PO Q6H PRN (Reason: Moderate Pain (Scale Score 5-6)) albuterol sulfate [Ventolin HFA] 90 mcg/actuation HFA aerosol inhaler 2 puff INHALATION Q4H PRN (Reason: shortness of breath or wheezing) Qty: 8.5 6RF Patient Comments: ....... Linzess 145 mcg capsule 145 mcg PO QAM Qty: 30 5RF dicyclomine 10 mg capsule 10 mg PO TID Qty: 30 4RF cyanocobalamin (vitamin B-12) [Vitamin B-12] 500 mcg Tablet 500 mcg PO DAILY ferrous sulfate 325 mg (65 mg iron) Tablet 325 mg PO DAILY cholecalciferol (vitamin D3) 25 mcg (1,000 unit) capsule 25 mcg PO DAILY Qty: 90 1RF atorvastatin 40 mg tablet See Rx Instructions .ROUTE .COMPLEX Qty: 90 1RF Dose Instruction: TAKE ONE TABLET BY MOUTH ONE TIME DAILY IN THE EVENING Rx Instructions: TAKE ONE TABLET BY MOUTH ONE TIME DAILY IN THE EVENING ondansetron HCl 8 mg tablet 8 mg PO Q8H PRN (Reason: nauseea) Qty: 30 1RF azithromycin 250 mg tablet See Rx Instructions PO .COMPLEX 5 Days Qty: 6 0RF Rx Instructions: For 250 mg dose pack: take 500 mg today (day 1), then 250 mg for 4 days (days 2-5) PO Date of admission: 04/27/25 17:25 Primary Care Provider: Quoc Sosa Admitting Provider: Ren Auguste Attending physician on admission: Ren Auguste Condition: Serious
--- NOTE | 2025-05-26 15:13 | P.TS_ITS ---
Transfer Discharge Sum: Prov Provider Date of admission: 04/27/25 17:25 Primary care physician: Quoc Sosa APRN Admitting clinician: Ren Auguste MD Consults: 04/27/25 15:33 Consult to Physician Routine Comment: Spoke to office 04/28 [id number] ([facility]) Consulting Provider: Nik Easley Reason for consultation: pancytopenia; on chemo for breast ca Has provider been notified: Yes 05/05/25 Consult to Home Health Routine Reason for Consult:: Occupational Therapy Physical Therapy RN/[facility] DS: Admitting Diagnosis Discharge Date 05/15/25 Admitting Diagnosis pancytopenia, neutropenic fever DS: Discharge Diagnosis Discharge Diagnosis (1) Pancytopenia: Code(s): D61.818 - Other pancytopenia Status: Acute Assessment and Plan: Bone marrow bx inconclusive * Received 4 PRBC and 10 platelets since admission in total * metastatic breast cancer ERPR positive and HER2 Qian negative with PIK3CA mutation * On solumedrol IV for possible ITP * Afebrile since 04/28, abx complete. blood culture x1 negative after 5 days * Oncology onboard, recommend transfer to [facility]. Called 05/14 and still waiting for medicine bed. No time frame or assigned bed as of 930am. Accepted by Dr. Camacho per EMR * Isolation for immunocompromise * PLT down to 20 transfuse <15 (2) Malignant pleural effusion: Code(s): J91.0 - Malignant pleural effusion Status: Acute Assessment and Plan: Breast cancer cells found in pleural fluid * pt on room air with no SOB * Monitor, may need therapeutic drain in the future (3) Breast cancer: Code(s): C50.919 - Malignant neoplasm of unspecified site of unspecified female breast Status: Acute Assessment and Plan: Reoccurrence--CA-15 increased * CT with osseous metastatic disease and pleural effusion * malignant left pleural effusion-cytology with metastatic breast cancer * obtain liver u/s showing Multiple hypoechoic liver lesions measuring up to 2.9 cm, concerning for metastatic disease. (4) Hepatic steatosis: Code(s): K76.0 - Fatty (change of) liver, not elsewhere classified Status: Acute Assessment and Plan: * US :IMPRESSION: Mild hepatomegaly. Echogenic liver, most commonly due to steatosis but also can be seen with hepatitis and fibrosis. Multiple hypoechoic liver lesions measuring up to 2.9 cm, concerning for metastatic disease. (5) Elevated liver transaminase level: Code(s): R74.01 - Elevation of levels of liver transaminase levels Status: Acute Assessment and Plan: * As above Plan Code status: Full code per patient DVT prophylaxis: SCD's Stress ulcer prophylaxis: Protonix 40 BID PT/OT notes: Transfer Disposition: Patient continues admission for pancytopenia secondary to evidence of new metastatic breast cancer in the pleuritic fluid and concern to metastatic to the liver. Waiting on transfer to [facility]. Transfer Discharge Sum: Med Medications Active and Home Medications: Home Medications cholecalciferol (vitamin D3) 25 mcg (1,000 unit) capsule 25 mcg PO DAILY #90 caps 02/23/23 [Rx Confirmed 04/27/25] anastrozole 1 mg tablet 1 mg PO DAILY 02/08/24 [History Confirmed 04/27/25] palbociclib 125 mg capsule (Ibrance) 125 mg PO DAILY 03/07/24 [History Confirmed 04/27/25] hydrocodone 7.5 mg-acetaminophen 325 mg tablet 1 tablet PO Q6H PRN Moderate Pain (Scale Score 5-6) 04/30/24 [History Confirmed 04/27/25] cyanocobalamin (vitamin B-12) 500 mcg tablet (Vitamin B-12) 500 mcg PO DAILY 07/14/24 [History Confirmed 04/27/25] ferrous sulfate 325 mg (65 mg iron) tablet 325 mg PO DAILY 07/14/24 [History Confirmed 04/27/25] albuterol sulfate 90 mcg/actuation aerosol inhaler (Ventolin HFA) 2 puff inhalation Q4H PRN shortness of breath or wheezing #8.5 grams 10/29/24 [Rx Confirmed 04/27/25] atorvastatin 40 mg tablet See Rx Instructions .Route .COMPLEX #90 tabs 12/03/24 [Rx Confirmed 04/27/25] ondansetron HCl 8 mg tablet 8 mg PO Q8H PRN nauseea #30 tabs 02/10/25 [Rx Confirmed 04/27/25] dicyclomine 10 mg capsule 10 mg PO TID #30 caps 04/08/25 [Rx Confirmed 04/27/25] linaclotide 145 mcg capsule (Linzess) 145 mcg PO QAM #30 caps 04/08/25 [Rx Confirmed 04/27/25] Transfer Discharge Sum: Hosp Hospital Course Hospital course: per HPI: Narrative: patient with history of stage IIIb invasive ductal carcinoma of right breast cancer diagnosed in 2023, HLD, anxiety presented with nausea vomiting, fever, black stool. Patient notes she has been on chemo radiation for breast cancer. She has been having intermittent diarrhea and nausea vomiting. She also has been having low appetite and weight loss. For past couple of days she has been having fever and also noticed to have dark stool. She as been on iron for iron deficiency. Presented to ER for further management. In the ER patient was found to have fever, tachypnea, tachycardia. Lab tests showed pancytopenia with WBC 0.9, hemoglobin 4.7 and platelet 13. Potassium 2.9, sodium 127 lactic acid 2.6, elevated liver enzyme. GI and oncology team was consulted. Dizziness started for neutropenia sepsis. GI team recommended to hold off on any endoscopy evaluation for now and follow up as outpatient. during this admission Patient had pancytopenia . Received 4 PRBC and 10 platelets since admission in total. oncology team has been consulted. patient has been on Iv solumedrol for possible ITP. underwent Bone marrow bx which was inconclusive.Reoccurrence--CA-[address] showed osseous metastatic disease and pleural effusion. Pleural effusion biopsy came back positive for malignant left pleural effusion-cytology with metastatic breast cancer * obtain liver u/s showing Multiple hypoechoic liver lesions measuring up to 2.9 cm, concerning for metastatic disease concern for metastasis of breast cancer to bone marrow and liver.. Oncology team recs transfer to [facility] for further management. Ignacia also has been having neutropenic fever ad has been treated with broadspectrum ABx. B/C neg. neutropenia gradually improving Patient Condition: Stable Time Spent with Patient Time attestation: Total time spent providing and/or coordinating transfer services: Total time spent: Greater than 30 minutes Exam Narrative: General: Well developed well nourished patient in NAD HEENT: normocephalic Neck: supple Neuro: Alert and oriented x4 CV:clear lung sounds Resp:CTA Abd: Soft, non distended. No pain to palpation. Positive bowel sounds Extremities: No swelling, erythema, or pain to palpation. Const: General: cooperative, healthy appearing, comfortable, no acute distress and well developed Orientation/consciousness: oriented to person, oriented to place, oriented to time and patient oriented x3 HENMT: Head: normal to inspection, normocephalic and atraumatic Mouth: Yes Normal oral and palatal mucosa present and Yes moist mucous membranes Eyes: General: appearance normal, both eyes and all related structures Conj unctivae: conjunctivae normal Sclera: sclerae normal Pupils: Equal, round and reactive pupils present Neck: Neck: normal visual inspection Chest: Chest palpation & inspection: normal inspection of the chest Resp: Effort & Inspection: normal respiratory effort and able to speak in complete sentences Auscultation: clear to auscultation bilaterally Cardio: Jugular venous distension: no JVD Rate: regular rate Rhythm: regular rhythm Heart sounds: S1 normal heart sound present and S2 normal heart sound present GI: Inspection: normal to inspection Auscultation: normal bowel sounds Rectal Exam: deferred Skin: General skin exam: normal color and no rashes or lesions noted Neuro: General: oriented to person, oriented to place, oriented to time and patient oriented x3 Cranial nerves: Yes Equal, round and reactive pupils present Speech: normal speech Extrem: General: normal to inspection and no clubbing, cyanosis or edema Psych: Appearance: grossly normal and well kempt Affect: normal affect DS: Data Data Completed and Pending Completed studies during hospitalization: Pending at discharge 04/28/25 19:10 Bone Marrow [PTH] Routine 04/29/25 16:47 Surgical [PTH] Routine 05/05/25 17:41 Cytology [PTH] Routine
== END 2025-05-15 19:50 | disposition short-term general hospital (02) | DRG 660 ==
LOC: ANHED 15:52 → ANH3MED 16:43
PROVIDERS: General Practice; Hospitalist; Internal Medicine; Internal Medicine Hematology & Oncology; Nurse Practitioner Family; Physician Assistant; Radiology Diagnostic Radiology; Student in an Organized Health Care Education/Training Program; Admitting Provider Internal Medicine; Emergency Provider Emergency Medicine; PCP Nurse Practitioner; Visit Provider Internal Medicine
PROC: 079T3ZX Drainage of Bone Marrow, Percutaneous Approach, Diagnostic (ICD-10-PCS; principal; 2025-05-05 09:00)
DX: D61.810 Antineoplastic chemotherapy induced pancytopenia (principal); C50.911 Malignant neoplasm of unspecified site of right female breast; C79.51 Secondary malignant neoplasm of bone; R50.81 Fever presenting with conditions classified elsewhere; J91.0 Malignant pleural effusion; T45.1X5A Adverse effect of antineoplastic and immunosuppressive drugs, initial encounter; K76.0 Fatty (change of) liver, not elsewhere classified; R74.01 Elevation of levels of liver transaminase levels; J44.1 Chronic obstructive pulmonary disease with (acute) exacerbation; E87.1 Hypo-osmolality and hyponatremia; K21.9 Gastro-esophageal reflux disease without esophagitis; E43 Unspecified severe protein-calorie malnutrition; E87.6 Hypokalemia; F41.9 Anxiety disorder, unspecified; E78.2 Mixed hyperlipidemia; E66.9 Obesity, unspecified; Z90.49 Acquired absence of other specified parts of digestive tract; Z90.710 Acquired absence of both cervix and uterus; Z87.891 Personal history of nicotine dependence; Z68.29 Body mass index [BMI] 29.0-29.9, adult
CPT/HCPCS: 32555; 36415; 36430; 38222; 71045; 71260; 74177; 76705; 80048; 80053; 80074; 80076; 81001; 82247; 82607; 82728; 82746; 82945; 83540; 83550; 83605; 83615; 83690; 83735; 83880; 83986; 84145; 84157; 85025; 85027; 85046; 85049; 85055; 85610; 85730; 86022; 86300; 86850; 86880; 86900; 86901; 86920; 86923; 87040; 87637; 87641; 88108; 88184; 88305; 88311; 88313; 88342; 94640; 96361; 96365; 96375; 97110; 97162; 97165; 97530; 97535; 99285; A9270; G0378; G0379; J0456; J0692; J0780; J1200; J2003; J2250; J2470; J2765; J2919; J3010; J3373; J3480; J7030; J7040; J7050; J7120; P9016; P9034; Q9967